=== PATIENT | female | born 1940 | race Caucasian/White ===

== ENCOUNTER 2020-05-07 16:04 | Outpatient (CLI) | payer MEDICARE, OTHER, SELFPAY ==
--- NOTE | ~2020-05-07 | XR_ITS ---
XR wrist RT min 3V DATE: 05/07/2020 16:45 INDICATION: Fall. Wrist and hand injury TECHNIQUE: 4 views COMPARISON: 01/23/2015 right wrist FINDINGS: Osteoarthritic changes noted at some of the interphalangeal joints. A small cortical fracture fragment is suggested at the dorsal aspect of the wrist on the lateral view . Consider CT wrist correlation if clinically appropriate. No other fracture or dislocation is evident. IMPRESSION: Small cortical fracture is suggested at the dorsal aspect of the wrist Reviewed, dictated and finalized at location A. IMPRESSION: Small cortical fracture is suggested at the dorsal aspect of the wr ist
--- NOTE | ~2020-05-07 | XR_ITS ---
XR hand RT 2V DATE: 05/07/2020 16:45 INDICATION: Injury, pain TECHNIQUE: AP and lateral views COMPARISON: 05/07/2020 right wrist 01/23/2015 right wrist FINDINGS: Small cortical fracture is suggested at the dorsal aspect of the wrist. No other fracture o r any dislocation is evident. There are osteoarthritic changes at the first metacarpophalangeal and multiple interphalangeal joints . IMPRESSION: Small cortical fracture is suggested at the dorsal aspect of the wrist Osteoarthritis Reviewed, dictated and finalized at location A. IMPRESSION: Small cortical fracture is suggested at the dorsal aspect of the wr ist Osteoarthritis
== END 2020-05-07 16:05 | disposition home or self-care (01) ==
LOC: ANHIMG 16:11
PROVIDERS: PCP Family Medicine; Visit Provider Physician Assistant
DX: T14.90XA Injury, unspecified, initial encounter (principal); M25.531 Pain in right wrist; M79.641 Pain in right hand; M19.041 Primary osteoarthritis, right hand; R93.6 Abnormal findings on diagnostic imaging of limbs
CPT/HCPCS: 73110; 73120

== ENCOUNTER 2020-10-08 16:50 | Outpatient (CLI) | payer MEDICARE, OTHER, SELFPAY ==
--- NOTE | ~2020-10-08 | MM_ITS ---
EXAMINATION: MM screening canelo BI w rl HISTORY: Screening mammogram TECHNIQUE: Craniocaudal and mediolateral oblique 3-D tomosynthesis images were obtained and synthetic 2-D images were generated. CAD analysis was submitted and interpreted. COMPARISON: 09/21/2019, 09/15/2018 bilateral digital screening mammogram examinations BREAST PARENCHYMAL COMPOSITION: There are scattered areas of fibroglandular density. FINDINGS: Multiple scattered bilateral benign calcifications. There is no evidence of suspicious mass , calcification, or architectural distortion to suggest malignancy in either breast. There has been n o suspicious interval change. IMPRESSION: 1. No mammographic evidence of malignancy. 2. Recommend routine screening mammography in one year. BI-RADS Category 2: Benign finding(s). Reviewed, dictated and finalized at location A. NDITURE REQUISITION CLERK
== END 2020-10-08 16:51 | disposition home or self-care (01) ==
PROVIDERS: PCP Family Medicine; Visit Provider Obstetrics & Gynecology
DX: Z12.31 Encounter for screening mammogram for malignant neoplasm of breast (principal)
CPT/HCPCS: 77063; 77067

== ENCOUNTER 2021-01-20 12:47 | Emergency (ER) | payer MEDICARE, OTHER, SELFPAY ==
[2021-01-20 13:18] VITALS: BP 128/60; PULSE 80; RESP 18; TEMP 37.4; O2SAT 100
--- NOTE | 2021-01-20 13:31 | ED.BACK ---
HPI - Back Pain/Injury General Chief Complaint: Back Pain/Injury Stated Complaint: Back Spasm Time Seen by Provider: 01/20/21 13:20 History of Present Illness HPI Narrative: 80-year-old female presents to the [facility] with complaints of right lower back spasming. States that the spasming started after her Covid injection 9 days ago in her left upper arm and has since traveled into the right lower back. No saddle anesthesia. No loss or retention of bowel or bladder. Walks favoring the right side, patient states she has a bad right knee. Denies any trauma. Walks with a cane favoring her right side patient states it is due to a bad knee MD elicited complaint: back pain Related Data Home Medications Medication Instructions Recorded Confirmed gabapentin 300 mg PO TID 01/20/21 01/20/21 risedronate 150 mg PO MONTHLY 01/20/21 01/20/21 Allergies Allergy/AdvReac Type Severity Reaction Status Date / Time celecoxib Allergy Mild INCREASED Verified 01/20/21 13:05 HR methylprednisolone Allergy Unknown L face Verified 01/20/21 13:05 pain/swelling montelukast Allergy Unknown Rash Verified 01/20/21 13:05 Review of Systems Review of Systems: Narrative: CONSTITUTIONAL: Denies fever, chills, or sweats. EYES: Denies visual changes, redness, or discharge. CARDIOVASCULAR: Denies chest pain, palpitations, or edema. RESPIRATORY: Denies cough or dyspnea. GASTROINTESTINAL: Denies abdominal pain, nausea, vomiting, or diarrhea. GENITOURINARY: Denies dysuria or hematuria. SKIN: Denies rash or itching. MUSCULOSKELETAL: Denies back pain, joint pain. Right lower lumbar pain spasming NEUROLOGIC: Denies headache, numbness, or weakness. PSYCHIATRIC: Denies anxiety or depression. All other systems reviewed are negative, except as documented in HPI. [facility] Past Medical History Medical History Age-related osteoporosis without current pathological fracture Arthritis Generalized osteoarthritis of multiple sites (~11/2020) Hearing loss High cholesterol History of blood clots Hypertension Osteoporosis Seasonal allergies Vision abnormalities Surgical History Surgical History History of bladder surgery History of hysterectomy History of right knee joint replacement Family History Family History Sibling Patient's sister is in good health Patient's brother is in good health Family history of malignant neoplasm of breast in first degree relative Family history of malignant neoplasm of breast Grandparent Family history of malignant neoplasm of breast Mother Family history of malignant neoplasm of breast in first degree relative Family history of arthritis Family history of malignant neoplasm of breast Other History of arthritis Social History Social History Smoking status: Never smoker Second hand tobacco smoke exposure: No Alcohol intake: never Substance use: never Substance use type: does not use Gender identity (if verbalized by the patient): Female Comments At the time of my signature, I reviewed and agree with the nursing past medical, surgical, social, and family history. There is no relevant family history pertinent to the patient complaint. Exam Narrative: Exam Narrative: GENERAL: This is a well-nourished, well-developed patient, in no apparent distress. HEAD: normocephalic, atraumatic. EYES: PERRL. Sclera clear/white. Vision is grossly intact. EARS: External ears normal NECK: Neck supple, non-tender. CARDIOVASCULAR: Regular rate and rhythm without murmurs, gallops, or rubs. RESPIRATORY: Clear to auscultation. Breath sounds equal bilaterally. No wheezes, rales, or rhonchi. GASTROINTESTINAL: Abdomen soft, non-tender, nondistended. SKIN: warm, intact with no suspicious lesions or rash, good texture and turgo
== END 2021-01-20 13:43 | disposition home or self-care (01) ==
PROVIDERS: Emergency Provider Nurse Practitioner; PCP Family Medicine
DX: M54.5 Low back pain (principal); M62.830 Muscle spasm of back; M81.0 Age-related osteoporosis without current pathological fracture; M19.90 Unspecified osteoarthritis, unspecified site; E78.00 Pure hypercholesterolemia, unspecified; I10 Essential (primary) hypertension; Z96.651 Presence of right artificial knee joint
CPT/HCPCS: 99213; G0463

== ENCOUNTER 2021-01-27 14:02 | Outpatient (CLI) | payer MEDICARE, OTHER, SELFPAY ==
--- NOTE | ~2021-01-27 | DEXA_ITS ---
Bone Density Report Name: Kassidy Ochoa Age: 80 Sex: Female Ethnicity: White Date of : 1940 Indication: osteopenia; monitoring treatment; parental hip fracture; height loss; prior fracture; hysterectomy; Referring Provider: WILLY BANUELOS Study: Bone densitometry was performed. Exam Date: January 27, 2021 Accession number: [id number] Bone Density: Region BMD T-score Z-score Classification AP Spine (L1, L2, L3) 1.069 0.5 3.1 Normal Femoral Neck (Left) 0.579 -2.4 -0.1 Osteopenia Total Hip (Left) 0.684 -2.1 0.0 Osteopenia Total Hip Bilateral Avg 0.679 -2.1 -0.1 Osteopenia Femoral Neck (Right) 0.542 -2.8 -0.5 Osteoporosis Total Hip (Right) 0.672 -2.2 -0.1 Osteopenia World Health Organization criteria for BMD impression classify patients as: Normal (T-score at or above -1.0), Osteopenia (T-score between -1.0 and -2.5), or Osteoporosis (T-score at or below -2.5). 10-year Fracture Risk: FRAX not reported because: Some T-score for Spine Total or Hip Total or Femoral Neck at or below -2.5 Treated for osteoporosis Previous Exams: Region Exam Age BMD T-score BMD Change BMD Change Date g/cm2 vs Baseline vs Previous AP Spine(L1, L2, L3) 01/27/2021 80 1.069 0.5 0.008(0.8%) 0.008(0.8%) 01/25/2019 78 1.060 0.4 Total Hip(Left) 01/27/2021 80 0.684 -2.1 -0.039(-5.5%)* -0.041(-5.7%)* 01/25/2019 78 0.726 -1.8 0.002(0.3%) 0.002(0.3%) 01/29/2015 74 0.724 -1.8 Total Hip(Right) 01/27/2021 80 0.672 -2.2 0.012(1.8%) -0.012(-1.7%) 01/25/2019 78 0.684 -2.1 0.023(3.5%) 0.023(3.5%) 01/29/2015 74 0.661 -2.3 *Denotes significance at 95% confidence level, LSC for AP Spine = 0.022 g/cm2, LSC for Total Hip = 0.027 g/cm2 Clinical Information Provided by Patient: Has had a low trauma fracture Parent has had a hip fracture Is being treated for osteoporosis Has used the following medications: Actonel (i.e. risedronate), Vitamin D, Calcium Has the following medical conditions: Hysterectomy Patient maximum height was 65 Menopause Age: 51 No regular weight bearing exercise Onset of menses at age 11 Number of children 4 Impression: The patient has established osteoporosis, based on the Right Femoral Neck T-score and the existence of a prior fracture. The patient has risk factors, including: parental hip fracture, previous fracture. The BMD for the Total Hip(Left) decreased, changing by -5.7% since the last DXA exam. [place]
== END 2021-01-27 14:03 | disposition home or self-care (01) ==
LOC: ANHIMG 14:03
PROVIDERS: PCP Family Medicine; Visit Provider Internal Medicine
DX: M81.0 Age-related osteoporosis without current pathological fracture (principal); M85.852 Other specified disorders of bone density and structure, left thigh; M85.851 Other specified disorders of bone density and structure, right thigh
CPT/HCPCS: 77080

== ENCOUNTER → 2021-02-01 09:16 | Outpatient (CLI) | payer MEDICARE, OTHER, SELFPAY ==
--- NOTE | ~2021-02-01 | MR_ITS ---
EXAMINATION: MR lumbar spine wo con DATE: 02/01/2021 10:16 INDICATION: Lumbago with back spasms TECHNIQUE: Magnetic resonance imaging (MRI) of the lumbar spine was performed without intravenous con trast. Sequences included sagittal T2-weighted FSE, sagittal T2-weighted FS FSE, sagittal T1-weighted FSE, and axial T2-weighted FSE. COMPARISON: 06/17/2017 FINDINGS: 25 degrees dextroscoliosis measured between T11 and L2. 10 degrees levoscoliosis between L2 and and S 1. 2 mm retrolisthesis L1 on L2, L2 on L3, L3 on L4 and L5 on S1 and 6 mm anterolisthesis L4 on L5. V ertebral body heights are normal. Severe disc height loss at L1-L2, L2-L3, L5-S1 and now also at L4-L 5. Moderate disc height loss at T11-T12 and at the right side of L3-L4. Mild disc height loss at T10- T11 and T12-L1. There are fibrovascular degenerative endplate changes at both sides of the L4-L5 and L5-S1 disc spaces. T1 hyperintense hemangioma at L5. Marrow signal is otherwise normal. The conus med ullaris terminates at L1-L2. There is normal signal in the caudal spinal cord. T2 hyperintense right renal cyst. The following disc levels are specifically discussed: T10-T11: Small left foraminal zone disc protrusion. There is mild bilateral facet joint osteoarthriti s. There is mild bilateral neural foraminal stenosis. There is no central canal stenosis. T11-T12: Disc is bulging with annular fissure superimposed left subarticular zone disc extrusion with disc material extending couple millimeter caudal to the level of the superior endplate of T12. There is hypertrophy of the ligamentum flavum. There is mild bilateral facet joint osteoarthritis. Mild b ilateralThere is mild neural foraminal stenosis. There is mild central canal stenosis. T12-L1: Disc is mildly bulging. There is hypertrophy of the ligamentum flavum. There is moderate bila teral facet joint osteoarthritis. Mild bilateralThere is mild bilateral neural foraminal stenosis. Th ere is mild central canal stenosis. L1-L2: Annular fissure and disc extrusion extending from foraminal zone to foraminal zone with disc m aterial extending up to 5 mm caudal to the superior endplate of L2. There is hypertrophy of the ligam entum flavum. There is moderate bilateral facet joint osteoarthritis. There is mild right and modera te left neural foraminal stenosis. There is mild central canal stenosis. L2-L3: Annular fissure and posterior disc osteophyte complex. There is hypertrophy of the ligamentum flavum. There is mild bilateral facet joint osteoarthritis. There is moderate bilateral neural forami nal stenosis. There is mild central canal stenosis. L3-L4: Annular fissure and disc extrusion extending from foraminal zone to foraminal zone with disc m aterial extending up to 3 mm caudal to the level of the superior endplate of L4. There is hypertrophy of the ligamentum flavum. There is mild left and severe right facet joint osteoarthritis. There is m ild left and moderate to severe right neural foraminal stenosis. There is mild central canal stenosis . L4-L5: Annular fissure and disc extrusion extending from foraminal zone to foraminal zone with disc m aterial extending up to 5 mm cephalad to the level of the inferior endplate of L4. There is hypertrop hy of the ligamentum flavum. There is severe bilateral facet joint osteoarthritis. There is moderate left and severe right neural foraminal stenosis. There is severe central canal stenosis. L5-S1: Annular fissure and disc extrusion extending from foraminal zone to foraminal zone with disc m aterial extending up to 4 mm caudal to the level of the superior endplate of S1. There is moderate ri ght and severe left facet joint osteoarthritis. Are prominent synovial cysts along the anteromedial a nd posterolateral margins of the left facet joint. The former which measures 13 x 10 x 12 mm exerts m ass effect upon the left posterior aspect of the thec
== END ==
PROVIDERS: PCP Family Medicine; Visit Provider Nurse Practitioner Family
DX: M47.896 Other spondylosis, lumbar region (principal)
CPT/HCPCS: 72148

== ENCOUNTER 2021-12-11 14:59 | Outpatient (CLI) | payer MEDICARE, OTHER, SELFPAY ==
--- NOTE | ~2021-12-11 | MM_ITS ---
EXAMINATION: MM screening canelo BI w rl HISTORY: Screening mammogram TECHNIQUE: Craniocaudal and mediolateral oblique 3-D tomosynthesis images were obtained and synthetic 2-D images were generated. CAD analysis was submitted and interpreted. COMPARISON: 10/08/2020, 09/21/2019, 09/15/2018 BREAST PARENCHYMAL COMPOSITION: The breasts are almost entirely fatty. FINDINGS: RIGHT BREAST: There is no evidence of suspicious mass, calcification, or architectural distortion to suggest malignancy. There has been no significant interval change. LEFT BREAST: There is focal asymmetry in the posterior third of the inner left breast. IMPRESSION: 1. Focal asymmetry of the left breast. 2. Additional mammographic views and possible breast ultrasound are recommended. BI-RADS Category 0: Incomplete: Needs additional imaging evaluation. Reviewed, dictated and finalized at location A. UCT TESTER FIBERGLASS IMPRESSION: 1. Focal asymmetry of the left breast. 2. Additional mammographic views and possible breast ultrasound are recommended . BI-RADS Category 0: Incomplete: Needs additional imaging evaluation.
== END 2021-12-11 15:00 | disposition home or self-care (01) ==
LOC: ANHIMG 15:02
PROVIDERS: PCP Family Medicine; Visit Provider Family Medicine
DX: Z12.31 Encounter for screening mammogram for malignant neoplasm of breast (principal)
CPT/HCPCS: 77063; 77067

== ENCOUNTER 2021-12-25 13:44 | Outpatient (CLI) | payer MEDICARE, OTHER, SELFPAY ==
--- NOTE | ~2021-12-25 | MMUS_ITS ---
EXAMINATION: MM diagnostic canelo LT w rl, US breast LT limited HISTORY: Focal asymmetry of the left breast on screening mammogram TECHNIQUE: Additional 3-D tomosynthesis images of the left breast were performed and synthetic 2-D im ages were generated. CAD analysis was submitted and interpreted. High resolution limited left breast ultrasound was performed. COMPARISON: 12/11/2021, 10/08/2020, 09/21/2019, 09/15/2018 FINDINGS: MAMMOGRAPHIC FINDINGS: There is persistent focal asymmetry and architectural distortion in the posterior third of the inner breast at the 9:00 location approximately 10 cm from the nipple. ULTRASOUND: No definite sonographic correlate is identified for the mammographic finding in question. IMPRESSION: 1. Focal asymmetry and architectural distortion of the left breast. 2. Three tomosynthesis guided biopsy is recommended. BI-RADS category 4, suspicious findings. Reviewed, dictated and finalized at location A. NI RELATIONS COORDINATOR IMPRESSION: 1. Focal asymmetry and architectural distortion of the left breast. 2. Three tomosynthesis guided biopsy is recommended. BI-RADS category 4, suspicious findings.
== END 2021-12-25 13:45 | disposition home or self-care (01) ==
LOC: ANHIMG 13:45
PROVIDERS: PCP Family Medicine; Visit Provider Family Medicine
DX: R92.8 Other abnormal and inconclusive findings on diagnostic imaging of breast (principal)
CPT/HCPCS: 76642; 77061; 77065; G0279

== ENCOUNTER 2022-01-17 10:22 | Emergency (ER) | payer MEDICARE, OTHER, SELFPAY ==
[2022-01-17 10:49] VITALS: BP 160/73; PULSE 80; RESP 18; TEMP 36.8; O2SAT 98
--- NOTE | 2022-01-17 11:14 | ED.FEMALEGU ---
HPI - Female Genitourinary General Chief complaint: Urogenital-Female Stated complaint: uti complaint Time Seen by Provider: 01/17/22 11:08 Source: patient and RN notes reviewed Mode of arrival: ambulatory Limitations: no limitations History of Present Illness HPI Narrative: Patient presents today complaining of 5-day history of dysuria and voiding small amounts, worse over the last 2 days. Denies any additional symptoms to include hematuria, abdominal pain, fever, nausea or vomiting. States that 3 days ago she took 2 leftover amoxicillin from a dental procedure, which she states helped with her symptoms. MD elicited complaint: dysuria Related Data Home Medications Medication Instructions Recorded Confirmed risedronate 150 mg PO MONTHLY 01/20/21 01/17/22 amlodipine 2.5 mg PO DAILY 01/17/22 01/17/22 fluticasone propionate [Flonase] 1 spray INTRANASAL DAILY 01/17/22 01/17/22 gabapentin 300 mg PO TID 01/17/22 01/17/22 hydrocodone-acetaminophen 1 tablet PO DIRECTED 01/17/22 01/17/22 loratadine [Claritin] 10 mg PO DAILY 01/17/22 01/17/22 Allergies Allergy/AdvReac Type Severity Reaction Status Date / Time celecoxib Allergy Mild INCREASED Verified 01/17/22 11:09 HR methylprednisolone Allergy Unknown L face Verified 01/17/22 11:09 pain/swelling montelukast Allergy Unknown Rash Verified 01/17/22 11:09 Review of Systems Review of Systems: CONSTITUTIONAL: Denies body aches, fever, chills, or sweats. EYES: Denies visual changes, redness, or discharge. ENT: Denies rhinorrhea, congestion, sore throat, or otalgia. CARDIOVASCULAR: Denies chest pain, palpitations, or edema. RESPIRATORY: Denies cough or dyspnea. GASTROINTESTINAL: Denies abdominal pain, nausea, vomiting, or diarrhea. GENITOURINARY: Denies hematuria.+ Dysuria, voiding small amounts SKIN: Denies rash, itching, or wounds. MUSCULOSKELETAL: Denies back pain, joint pain, or myalgia. NEUROLOGIC: Denies headache, numbness, tingling, or weakness. PSYCH: Denies depression or anxiety. [facility] Past Medical History Medical History Age-related osteoporosis without current pathological fracture Arthritis Generalized osteoarthritis of multiple sites (~11/2020) Hearing loss High cholesterol History of blood clots Hypertension Osteoporosis Seasonal allergies Vision abnormalities Surgical History Surgical History History of bladder surgery History of hysterectomy History of right knee joint replacement Family History Family History Sibling Patient's sister is in good health Patient's brother is in good health Family history of malignant neoplasm of breast in first degree relative Family history of malignant neoplasm of breast Grandparent Family history of malignant neoplasm of breast Mother Family history of malignant neoplasm of breast in first degree relative Family history of arthritis Family history of malignant neoplasm of breast Other History of arthritis Social History Social History Smoking status: Never smoker Second hand tobacco smoke exposure: No Alcohol intake: never Substance use: never Substance use type: does not use Gender identity (if verbalized by the patient): Female Sexual Orientation (if Verbalized by the Patient): Straight or Heterosexual Comments At time of signature, I have reviewed and agree with nursing past medical, surgical, social and family history unless otherwise noted. Please see nursing chart for further information. There is no relevant family history pertinent to the presenting complaint Exam Narrative: GENERAL: Well-appearing, well-nourished, and in no acute distress. HEAD: Normocephalic, atraumatic. EYES: EOMI. No redness or drainage. Conjunctivae norm
== END 2022-01-17 11:28 | disposition home or self-care (01) ==
PROVIDERS: Emergency Provider Nurse Practitioner; PCP Family Medicine
DX: N30.01 Acute cystitis with hematuria (principal); M19.90 Unspecified osteoarthritis, unspecified site; E78.00 Pure hypercholesterolemia, unspecified; I10 Essential (primary) hypertension; M81.0 Age-related osteoporosis without current pathological fracture; Z86.2 Personal history of diseases of the blood and blood-forming organs and certain disorders involving the immune mechanism; Z96.651 Presence of right artificial knee joint
CPT/HCPCS: 81003; 87086; 87088; 99213; G0463

== ENCOUNTER 2022-02-10 11:36 | Outpatient (CLI) | payer MEDICARE, OTHER, SELFPAY ==
--- NOTE | ~2022-02-10 | US_ITS ---
EXAMINATION: US venous doppler [facility] EXAM DATE: 02/10/2022 12:07 INDICATION: M79.604 - Pain in right leg. TECHNIQUE: Multiple grayscale, color flow and Doppler images of the lower extremity deep venous syste ms bilaterally were obtained and reviewed. Comparison is made to prior examination from 07/21/2018. FINDINGS: Right side: The right common femoral, femoral and profunda veins demonstrate normal color flow, respi ratory variation, augmentation and compressibility. Compressibility, color flow confirmed within the right popliteal, posterior tibial, peroneal, and greater saphenous veins. Left side: The left common femoral, femoral and profunda veins demonstrate normal color flow, respira tory variation, augmentation and compressibility. Compressibility, color flow confirmed within the l eft popliteal, posterior tibial, peroneal, and greater saphenous veins. IMPRESSION: 1. No lower extremity deep venous thrombosis bilaterally. Reviewed, dictated and finalized at location B.
== END 2022-02-10 11:37 | disposition home or self-care (01) ==
LOC: ANHIMG 11:42
PROVIDERS: PCP Family Medicine; Visit Provider Physician Assistant
DX: R09.89 Other specified symptoms and signs involving the circulatory and respiratory systems (principal); M79.604 Pain in right leg; R60.0 Localized edema; M79.605 Pain in left leg
CPT/HCPCS: 93970

== ENCOUNTER 2022-04-04 12:53 | Emergency (ER) | payer MEDICARE, OTHER, SELFPAY ==
[2022-04-04] VITALS (14 sets, daily range): BP systolic 133–189; BP diastolic 67–90; PULSE 72; RESP 18; TEMP 36.6; O2SAT 92–100
--- NOTE | ~2022-04-04 | CT_ITS ---
EXAMINATION: CT lumbar spine wo con DATE: 04/04/2022 16:08 INDICATION: low back pain . TECHNIQUE: Computed tomography (CT) of the thoracic spine was performed without intravenous contrast. Automated exposure control and iterative reconstruction technique were employed. The dose-length pro duct was 795.35 mGy-cm. COMPARISON: MRI lumbar spine 02/01/2021. FINDINGS: 5 nonrib-bearing lumbar-type vertebral bodies. Pedicles intact. Exaggerated lumbar lordosis . 7 mm anterolisthesis of L4 on L5. Trace 1 to 2 mm retrolisthesis at all remaining lumbar levels. Mu ltilevel moderate central canal narrowing. Multilevel bilateral severe neural foraminal narrowing. Ve rtebral body heights preserved. Severe multilevel degenerative disc disease, most progressive at L4-5 and L5-S1. Multilevel severe facet arthropathy. IMPRESSION: 1. No acute fracture or traumatic malalignment detected in the lumbar spine. 2. Multilevel severe degenerative changes described above. Reviewed, dictated and finalized at location K.
--- NOTE | 2022-04-04 14:11 | ED.BACK ---
HPI - Back Pain/Injury General Chief Complaint: Back Pain/Injury <MARQUEZ Cardenas Last Filed: 04/04/22 17:28> Stated Complaint: lower back pain <MARQUEZ Cardenas Last Filed: 04/04/22 17:28> Time Seen by Provider: 04/04/22 13:15 <MARQUEZ Cardenas Last Filed: 04/04/22 17:28> Source: patient and family <MARQUEZ Cardenas Last Filed: 04/04/22 17:28> Mode of arrival: ambulatory <MARQUEZ Cardenas Last Filed: 04/04/22 17:28> Limitations: no limitations <MARQUEZ Cardenas Last Filed: 04/04/22 17:28> History of Present Illness HPI Narrative: This is a 81 year old female that presents to the ER for worsening low back pain over the last couple of weeks. No recent injury or trauma. Pain is in the right low back. Worse with movement and relieved with rest. She follows with pain management for this. She has been taking her prescribed pain medication with little relief. Denies fever, vomiting, dysuria, hematuria, saddle anesthesia or bowel/bladder incontinence. <MARQUEZ Cardenas Last Filed: 04/04/22 17:28> Related Data Home Medications: Home Medications Medication Instructions Recorded Confirmed risedronate 150 mg PO MONTHLY 01/20/21 04/02/22 fluticasone propionate [Flonase] 1 spray INTRANASAL DAILY 01/17/22 04/02/22 gabapentin 300 mg PO TID 01/17/22 04/02/22 loratadine [Claritin] 10 mg PO DAILY 01/17/22 04/02/22 <MARQUEZ Cardenas Last Filed: 04/04/22 17:28> Allergies/Adverse Reactions: Allergies Allergy/AdvReac Type Severity Reaction Status Date / Time celecoxib Allergy Mild INCREASED Verified 04/04/22 13:00 HR methylprednisolone Allergy Unknown L face Verified 04/04/22 13:00 pain/swelling montelukast Allergy Unknown Rash Verified 04/04/22 13:00 <MARQUEZ Cardenas Last Filed: 04/04/22 17:28> Review of Systems Review of Systems: CONSTITUTIONAL: Denies fever GENITOURINARY: Denies dysuria or hematuria. SKIN: Denies rash MUSCULOSKELETAL: Reports back pain, joint pain, and myalgia. NEUROLOGIC: Denies numbness, or weakness. <Magdalena Wagner PA-C - Last Filed: 04/04/22 17:28> All systems reviewed & are unremarkable except as noted in HPI and below <Magdalena Wagner PA-C - Last Filed: 04/04/22 17:28> [facility] Past Medical History Medical History: Medical History Age-related osteoporosis without current pathological fracture Arthritis Breast cancer Generalized osteoarthritis of multiple sites (~11/2020) Hearing loss High cholesterol History of blood clots Hypertension Osteoporosis Seasonal allergies Vision abnormalities <Magdalena Wagner PA-C - Last Filed: 04/04/22 17:28> Surgical History Surgical History: Surgical History History of bladder surgery History of hysterectomy History of right knee joint replacement <Magdalena Wagner PA-C - Last Filed: 04/04/22 17:28> Family History Family History: Family History Sibling Patient's sister is in good health Patient's brother is in good health Family history of malignant neoplasm of breast in first degree relative Family history of malignant neoplasm of breast Grandparent Family history of malignant neoplasm of breast Mother Family history of malignant neoplasm of breast in first degree relative Family history of arthritis Family history of malignant neoplasm of breast Other History of arthritis <Magdalena Wagner PA-C - Last Filed: 04/04/22 17:28> Social History Social History: Social History Second hand tobacco smoke exposure: No Alcohol intake: never Substance use: never Substance use type: does not use Gender identity (if verbalized by the patient): Female Sexual Orientation (if Verbalized by
[2022-04-04] MEDS: ONDANSETRON INJ 4 MG/2 ML VIAL IV PUSH (14:21)
[2022-04-04] MEDS: MORPHINE SULFATE (*CRX) 2 MG/ML INJ IV PUSH (14:21)
[2022-04-04 15:13] LABS: Basophils Percent Auto 0.1 % (0.2-1.2); Eosinophils Percent Auto 0.4 % (0-4.4); Hematocrit 41.1 % (37.0-47.0); Hemoglobin 13.5 g/dL (12.0-15.0); Immature Granulocyte Absolute 0.03 K/mm3 (0.00-0.031); Immature Granulocyte Percent A 0.4 % (0-0.5); Lymphocytes Absolute Auto 0.75 K/mm3 (0.9-3.2); Mean Corpuscular HGB Conc 32.8 g/dl (32-36); Mean Corpuscular Volume 97.4 fl (80-100); Mean Platelet Volume 10.2 fl (7.4-10.4); Monocytes Absolute Auto 0.3 K/mm3 (0.1-0.6); Monocytes Percent Auto 4.4 % (2.6-8.5); Neutrophils Absolute Auto 5.7 K/mm3 (1.3-6.7); Neutrophils Percent Auto 83.7 % (45.5-73.1); Platelet Count Result 308 k/mm3 (150-375); Red Blood Count 4.22 M/mm3 (4.2-5.4); Red Cell Distribution Width 12.8 % (11.5-14.5); White Blood Count 6.8 K/mm3 (4.5-10.0)
[2022-04-04 15:14] LABS: Appearance Urine Cloudy (Clear); Bilirubin Urine Negative (Negative); Blood Urine Negative (Negative); Color Urine Yellow (Yellow); Glucose Urine UA 1+ mg/dL (Negative); Ketones Urine Negative (Negative); Leukocyte Esterase Ur Negative LEU/UL (Negative); Nitrate Urine Negative (Negative); Protein Urine Negative (Negative); Urobilinogen Urine 0.2 mg/dL (<2.0); pH Urine 7.5 (5.0-9.0)
[2022-04-04 15:19] LABS: Alanine Aminotransferase 25 U/L (6-35); Albumin Level 4.4 g/dL (3.5-5.1); Alkaline Phosphatase 51 U/L (38-126); Anion Gap 7 mmol/L (8-16); Aspartate Amino Transferase 33 U/L (14-36); Bilirubin,Total 0.4 mg/dL (0.2-1.3); Blood Urea Nitrogen 29 mg/dL (7-17); Carbon Dioxide 28 mmol/L (22-30); Chloride 105 mmol/L (98-107); Estimated CRCL calculation 47 ml/min; Estimated Glomerular Filt Rate > 60; Glucose 205 mg/dL (65-110); Potassium 4.1 mmol/L (3.4-5.0); Sodium 140 mmol/L (137-145)
[2022-04-04 15:20] LABS: Amorphous Sediment Urine Few; Squamous Epithelial Cell Urine Rare /hpf (Few); WBC Urine 0-3 /hpf
[2022-04-04 15:26] LABS: Add Urine Microscopic? YES
== END 2022-04-04 17:40 | disposition home or self-care (01) ==
PROVIDERS: Physician Assistant; Emergency Provider Emergency Medicine; PCP Family Medicine
DX: M54.50 Low back pain, unspecified (principal); E78.00 Pure hypercholesterolemia, unspecified; I10 Essential (primary) hypertension; M19.90 Unspecified osteoarthritis, unspecified site; M81.0 Age-related osteoporosis without current pathological fracture; Z85.3 Personal history of malignant neoplasm of breast; Z96.651 Presence of right artificial knee joint
CPT/HCPCS: 36415; 72131; 80053; 81001; 85025; 96374; 96375; 99284; J0131; J2270; J2405

== ENCOUNTER 2022-05-14 10:26 | Outpatient (CLI) | payer MEDICARE, OTHER, SELFPAY ==
--- NOTE | ~2022-05-14 | CT_ITS ---
EXAMINATION: CT brain wo con DATE: 05/14/2022 10:46 INDICATION: Status post fall. Head contusion. TECHNIQUE: Computed tomography (CT) of the head was performed without intravenous contrast. The dose- length product was 605.33 mGy-cm. Automated exposure control and iterative reconstruction technique w ere employed. COMPARISON: None FINDINGS: No acute intracranial hemorrhage, infarction, mass or mass effect. No ventriculomegaly or m idline shift. Basilar cisterns are patent. There is mucosal thickening of the left maxillary, ethmoid and frontal sinuses. There is intracranial atherosclerosis. No depressed skull fractures. Brain pare nchymal volume is normal for age. IMPRESSION: 1. No acute intracranial abnormality. 2: Moderate sinus disease. Reviewed, dictated and finalized at location A.
== END 2022-05-14 10:27 | disposition home or self-care (01) ==
PROVIDERS: PCP Family Medicine; Visit Provider Nurse Practitioner Family
DX: S00.93XA Contusion of unspecified part of head, initial encounter (principal); R51.9 Headache, unspecified; J32.9 Chronic sinusitis, unspecified; I67.2 Cerebral atherosclerosis
CPT/HCPCS: 70450; 77295; 77300; 77334

== ENCOUNTER 2023-03-08 10:52 | Outpatient (CLI) | payer MEDICARE, SELFPAY ==
[2023-03-08 11:08] LABS: Basophils Percent Auto 0.4 % (0.2-1.2); Eosinophils Absolute Auto 0.2 K/mm3 (0-0.3); Eosinophils Percent Auto 4.8 % (0-4.4); Hematocrit 40.3 % (37.0-47.0); Hemoglobin 13.1 g/dL (12.0-15.0); Immature Granulocyte Absolute 0.02 K/mm3 (0.00-0.031); Immature Granulocyte Percent A 0.4 % (0-0.5); Lymphocytes Absolute Auto 0.78 K/mm3 (0.9-3.2); Lymphocytes Percent Auto 17.1 % (18.3-44.2); Mean Corpuscular HGB Conc 32.5 g/dl (32-36); Mean Corpuscular Hemoglobin 32.2 pg (26-34); Mean Platelet Volume 9.3 fl (7.4-10.4); Monocytes Absolute Auto 0.3 K/mm3 (0.1-0.6); Monocytes Percent Auto 6.6 % (2.6-8.5); Neutrophils Absolute Auto 3.2 K/mm3 (1.3-6.7); Neutrophils Percent Auto 70.7 % (45.5-73.1); Platelet Count Result 275 k/mm3 (150-375); Red Blood Count 4.07 M/mm3 (4.2-5.4); White Blood Count 4.6 K/mm3 (4.5-10.0)
[2023-03-08 14:49] LABS: Alanine Aminotransferase 20 U/L (6-35); Albumin Level 4.3 g/dL (3.5-5.1); Alkaline Phosphatase 59 U/L (38-126); Anion Gap 8 mmol/L (8-16); Aspartate Amino Transferase 20 U/L (14-36); Bilirubin,Total 0.5 mg/dL (0.2-1.3); Blood Urea Nitrogen 29 mg/dL (7-17); Calcium 9.7 mg/dL (8.4-10.2); Carbon Dioxide 27 mmol/L (22-30); Chloride 103 mmol/L (98-107); Estimated Glomerular Filt Rate > 60; Glucose 269 mg/dL (65-110); Potassium 4.8 mmol/L (3.4-5.0); Sodium 138 mmol/L (137-145)
[2023-03-12 04:57] LABS: CA 15-3 8 U/mL (<32)
== END 2023-03-08 10:53 | disposition home or self-care (01) ==
LOC: ANHLAB 10:54
PROVIDERS: PCP Family Medicine; Visit Provider Internal Medicine Hematology & Oncology
DX: C50.312 Malignant neoplasm of lower-inner quadrant of left female breast (principal); Z17.0 Estrogen receptor positive status [ER+]
CPT/HCPCS: 36415; 80053; 85025; 86300

== ENCOUNTER 2023-07-20 14:15 | Outpatient (CLI) | payer MEDICARE, SELFPAY ==
[2023-07-20 14:32] LABS: Basophils Percent Auto 0.2 % (0.2-1.2); Eosinophils Absolute Auto 0.2 K/mm3 (0-0.3); Eosinophils Percent Auto 4.2 % (0-4.4); Hematocrit 42.1 % (37.0-47.0); Hemoglobin 13.6 g/dL (12.0-15.0); Immature Granulocyte Absolute 0.02 K/mm3 (0.00-0.031); Immature Granulocyte Percent A 0.4 % (0-0.5); Lymphocytes Absolute Auto 1.17 K/mm3 (0.9-3.2); Lymphocytes Percent Auto 21.4 % (18.3-44.2); Mean Corpuscular HGB Conc 32.3 g/dl (32-36); Mean Corpuscular Hemoglobin 32.3 pg (26-34); Mean Platelet Volume 9.2 fl (7.4-10.4); Monocytes Absolute Auto 0.5 K/mm3 (0.1-0.6); Monocytes Percent Auto 8.6 % (2.6-8.5); Neutrophils Absolute Auto 3.6 K/mm3 (1.3-6.7); Neutrophils Percent Auto 65.2 % (45.5-73.1); Platelet Count Result 307 k/mm3 (150-375); Red Blood Count 4.21 M/mm3 (4.2-5.4); Red Cell Distribution Width 12.7 % (11.5-14.5); White Blood Count 5.5 K/mm3 (4.5-10.0)
[2023-07-20 15:38] LABS: Alanine Aminotransferase 20 U/L (6-35); Albumin Level 4.1 g/dL (3.5-5.1); Alkaline Phosphatase 56 U/L (38-126); Anion Gap 11 mmol/L (8-16); Aspartate Amino Transferase 25 U/L (14-36); Bilirubin,Total 0.3 mg/dL (0.2-1.3); Blood Urea Nitrogen 31 mg/dL (7-17); Carbon Dioxide 29 mmol/L (22-30); Chloride 99 mmol/L (98-107); Estimated Glomerular Filt Rate 53; Glucose 191 mg/dL (65-110); Potassium 4.8 mmol/L (3.4-5.0); Sodium 139 mmol/L (137-145)
[2023-07-22 20:37] LABS: CA 15-3 9 U/mL (<32)
== END 2023-07-20 14:16 | disposition home or self-care (01) ==
PROVIDERS: PCP Family Medicine; Visit Provider Internal Medicine Hematology & Oncology
DX: C50.312 Malignant neoplasm of lower-inner quadrant of left female breast (principal); Z17.0 Estrogen receptor positive status [ER+]
CPT/HCPCS: 36415; 80053; 85025; 86300

== ENCOUNTER → 2023-09-28 07:00 | Outpatient (CLI) | payer MEDICARE, OTHER, SELFPAY ==
--- NOTE | ~2023-09-28 | MR_ITS ---
MRI of the lumbar spine Clinical History: Back pain Technique: Axial T2-weighted images, and sagittal T1-weighted, T2-weighted, and and T2 fat-sat images were acquired. COMPARISON: 02/01/2021 Findings: No acute fracture seen. There is 5 mm retrolisthesis of L1 over L2. There is 4 mm retrolist hesis of L2 over L3. There is 10 mm anterolisthesis of L4 over L5. No suspicious bone marrow signal a bnormality seen. At L1-L2, there is advanced degenerative disc narrowing. There is mild disc bulge and moderate facet arthropathy. No central canal stenosis. There is severe left neural foraminal narrowing, and moderate right neural foraminal narrowing. At L2-L3, there is advanced degenerative disc narrowing. Disc bulge and facet arthropathy are present , with minimal central canal stenosis. There is severe bilateral neural foraminal narrowing. At L3-L4, there is mild to moderate degenerative disc narrowing. There is diffuse disc bulge with sev ere facet arthropathy. No central canal stenosis. There is severe right neural foraminal narrowing, a nd mild left neural foraminal narrowing. At L4-L5, there is diffuse disc bulge/uncovering with severe facet arthropathy. There is mild central canal stenosis. There is severe right neural foraminal narrowing, and moderate to severe left neural foraminal narrowing. At L5-S1, there is advanced degenerative disc narrowing. There is diffuse disc bulge and severe facet arthropathy. There is several small synovial cyst posteriorly at the L5 level. No crystal central lakshmi l stenosis. There is severe bilateral neural foraminal narrowing. Paravertebral soft tissues are unremarkable. Impression: 5 mm retrolisthesis of L1 over L2. 4 mm retrolisthesis of L2 over L3. 10 mm anterolisthesis of L4 over L5. Severe degenerative spondylosis throughout the lumbar spine, as detailed above. Reviewed, dictated and finalized at location . WIRER Impression: 5 mm retrolisthesis of L1 over L2. 4 mm retrolisthesis of L2 over L3. 10 mm anterolisthesis of L4 over L5. Severe degenerative spondylosis throughout the lumbar spine, as detailed above.
== END ==
PROVIDERS: PCP Nurse Practitioner Family; Visit Provider Nurse Practitioner Family
DX: M47.816 Spondylosis without myelopathy or radiculopathy, lumbar region (principal); M43.16 Spondylolisthesis, lumbar region
CPT/HCPCS: 72148

== ENCOUNTER → 2023-11-30 15:08 | Outpatient (CLI) | payer MEDICARE, OTHER, SELFPAY ==
--- NOTE | ~2023-11-30 | MR_ITS ---
EXAMINATION: MR thoracic spine wo con DATE: 11/30/2023 16:08 INDICATION: Back pain. TECHNIQUE: Magnetic resonance imaging (MRI) of the thoracic spine was performed without intravenous c ontrast. COMPARISON: Lumbar spine MRI 09/28/2023 FINDINGS: There is 15 degrees dextroscoliosis of thoracolumbar spine. There is kyphosis of thoracic s pine. There is 2 mm anterolisthesis of C3 on C4, 2 mm retrolisthesis of C5 on C6 and C6 on C7, and 3 mm anterolisthesis of C7 on T1, T11 on T12, and L1 on L2. There is mild chronic anterior wedging of T 6-T9 vertebral bodies. There is mildly decreased disc height at many levels in thoracic spine. There is moderately decreased disc height at T6-T7. There is multilevel facet joint osteoarthritis, severe at several levels. There is multilevel mild neural foraminal stenosis. On the right, there is moderat e neural foraminal stenosis at T10-T11. At T6-T7, there is a right central extrusion with mild centra l canal stenosis and ventral indentation of the spinal cord. At T7-T8, there is a central protrusion with mild central canal stenosis. At T8-T9, there is a right central extrusion with mild central lakshmi l stenosis. From T10-T11 through T12-L1, the discs are bulging with mild central canal stenosis. The spinal cord signal intensity is normal. The conus medullaris is at L1-L2. IMPRESSION: 1. Moderate thoracic spondylosis. 2. Thoracic kyphosis and thoracolumbar dextroscoliosis. Reviewed, dictated and finalized at location E. IBLE SHAFT WINDER
== END ==
PROVIDERS: PCP Nurse Practitioner Family; Visit Provider Nurse Practitioner Family
DX: M43.04 Spondylolysis, thoracic region (principal); M41.85 Other forms of scoliosis, thoracolumbar region
CPT/HCPCS: 72146

== ENCOUNTER 2023-12-22 11:14 | Outpatient (CLI) | payer MEDICARE, SELFPAY ==
[2023-12-22 11:33] LABS: Basophils Percent Auto 0.2 % (0.2-1.2); Eosinophils Absolute Auto 0.3 K/mm3 (0-0.3); Hematocrit 39.1 % (37.0-47.0); Hemoglobin 12.7 g/dL (12.0-15.0); Immature Granulocyte Absolute 0.02 K/mm3 (0.00-0.031); Immature Granulocyte Percent A 0.4 % (0-0.5); Lymphocytes Absolute Auto 0.75 K/mm3 (0.9-3.2); Lymphocytes Percent Auto 13.4 % (18.3-44.2); Mean Corpuscular HGB Conc 32.5 g/dl (32-36); Mean Corpuscular Hemoglobin 32.6 pg (26-34); Mean Corpuscular Volume 100.5 fl (80-100); Mean Platelet Volume 9.6 fl (7.4-10.4); Monocytes Absolute Auto 0.3 K/mm3 (0.1-0.6); Monocytes Percent Auto 5.7 % (2.6-8.5); Neutrophils Absolute Auto 4.2 K/mm3 (1.3-6.7); Neutrophils Percent Auto 75.3 % (45.5-73.1); Platelet Count Result 258 k/mm3 (150-375); Red Blood Count 3.89 M/mm3 (4.2-5.4); Red Cell Distribution Width 12.4 % (11.5-14.5); White Blood Count 5.6 K/mm3 (4.5-10.0)
[2023-12-22 12:52] LABS: Alanine Aminotransferase 15 U/L (6-35); Albumin Level 3.7 g/dL (3.5-5.1); Alkaline Phosphatase 56 U/L (38-126); Anion Gap 7 mmol/L (8-16); Aspartate Amino Transferase 20 U/L (14-36); Bilirubin,Total 0.5 mg/dL (0.2-1.3); Blood Urea Nitrogen 30 mg/dL (7-17); Carbon Dioxide 26 mmol/L (22-30); Chloride 104 mmol/L (98-107); Estimated Glomerular Filt Rate 60; Glucose 239 mg/dL (65-110); Potassium 4.7 mmol/L (3.4-5.0); Sodium 137 mmol/L (137-145)
[2023-12-25 07:30] LABS: CA 15-3 8 U/mL (<32)
== END 2023-12-22 11:15 | disposition home or self-care (01) ==
PROVIDERS: PCP Nurse Practitioner Family; Visit Provider Internal Medicine Hematology & Oncology
DX: C50.312 Malignant neoplasm of lower-inner quadrant of left female breast (principal); Z17.0 Estrogen receptor positive status [ER+]
CPT/HCPCS: 36415; 80053; 85025; 86300

== ENCOUNTER 2023-12-24 11:03 | Emergency (ER) | payer MEDICARE, SELFPAY ==
--- NOTE | 2023-12-24 11:08 | ED.SKABFB ---
HPI - Skin/Abscess/Foreign Bdy General Chief complaint: Skin/Abscess/Foreign Body Stated complaint: Bump;Bruise inner thigh Time Seen by Provider: 12/24/23 11:08 Source: patient Mode of arrival: ambulatory Limitations: no limitations History of Present Illness HPI narrative: Patient is an 83-year-old female that presents with bruise to right inner thigh. Patient states about a week ago she got up from a chair and felt a pain in the back of her leg that quickly subsided. Patient states after she got other shower yesterday she noticed bruise. Patient concerned for possible blood clot. Denies any warmth to area, tenderness to touch or hard feeling. Related Data Home Medications Medication Instructions Recorded Confirmed risedronate 150 mg tablet 150 mg PO MONTHLY 01/20/21 12/24/23 fluticasone propionate 50 1 spray intranasal DAILY 01/17/22 12/24/23 mcg/actuation nasal spray,suspension gabapentin 300 mg capsule 300 mg PO TID 01/17/22 12/24/23 loratadine 10 mg tablet (Claritin) 10 mg PO DAILY 01/17/22 12/24/23 alpha lipoic acid 200 mg tablet 200 mg PO BID 01/25/23 12/24/23 tamoxifen 20 mg tablet 20 mg PO DAILY 01/25/23 12/24/23 Allergies Allergy/AdvReac Type Severity Reaction Status Date / Time celecoxib Allergy Mild INCREASED Verified 10/15/23 10:09 HR methylprednisolone Allergy Unknown L face Verified 10/15/23 10:09 pain/swelling montelukast Allergy Unknown Rash Verified 10/15/23 10:09 Review of Systems Review of Systems: All systems reviewed & are unremarkable except as noted in HPI and below Constitutional: Constitutional: Denies body ache(s), Denies chills, Denies fatigue, Denies fever(s), Denies headache(s), Denies malaise and Denies weakness Eyes: Eyes: Denies blurry vision, Denies irritation and Denies loss of vision ENT: Denies otalgia, Denies headache(s), Denies nasal discharge, Denies sinus pain and Denies sore throat Cardiovascular: Cardiovascular: Denies chest pain, Denies irregular heart rhythm and Denies dyspnea Respiratory: Respiratory: Denies dyspnea Gastrointestinal: Gastrointestinal: Denies abdominal pain, Denies melena, Denies hematochezia, Denies diarrhea, Denies nausea and Denies vomiting Musculoskeletal: Musculoskeletal: Denies back pain, Denies myalgias and Denies arthralgias Integumentary/Breasts: Skin/Breast: Reports change in pigmentation, Denies pruritus and Denies rash Neurologic: Denies headache(s), Denies loss of vision and Denies weakness Psychiatric: Psychiatric: Reports no additional psychiatric complaints Endocrine: Endocrine: Denies fatigue PMFSH Past Medical History Medical History Age-related osteoporosis without current pathological fracture Arthritis Breast cancer Generalized osteoarthritis of multiple sites (~11/2020) Hearing loss High cholesterol History of blood clots Hypertension Osteoporosis Seasonal allergies Vision abnormalities Surgical History Surgical History History of bladder surgery History of hysterectomy History of right knee joint replacement Family History Family History Sibling Patient's sister is in good health Patient's brother is in good health Family history of malignant neoplasm of breast in first degree relative Family history of malignant neoplasm of breast Grandparent Family history of malignant neoplasm of breast Mother Family history of malignant neoplasm of breast in first degree relative Family history of arthritis Family history of malignant neoplasm of breast Other History of arthritis Social History Social History Social History: Smoking status: Never smoker Second hand tobacco smoke exposure: No Alcohol intake: never Substance use: never Substance use type: do
[2023-12-24 11:14] VITALS: BP 144/64; PULSE 79; RESP 16; TEMP 37.1; O2SAT 96
== END 2023-12-24 11:23 | disposition home or self-care (01) ==
PROVIDERS: Emergency Provider Nurse Practitioner Family; PCP Family Medicine
DX: S70.11XA Contusion of right thigh, initial encounter (principal); X58.XXXA Exposure to other specified factors, initial encounter; M81.0 Age-related osteoporosis without current pathological fracture; M19.90 Unspecified osteoarthritis, unspecified site; E78.00 Pure hypercholesterolemia, unspecified; I10 Essential (primary) hypertension; Z85.3 Personal history of malignant neoplasm of breast; Z86.2 Personal history of diseases of the blood and blood-forming organs and certain disorders involving the immune mechanism; Z96.651 Presence of right artificial knee joint
CPT/HCPCS: 99212; G0463

== ENCOUNTER 2024-01-21 16:04 | Outpatient (CLI) | payer MEDICARE, SELFPAY ==
--- NOTE | ~2024-01-21 | XR_ITS ---
EXAMINATION: XR knee RT 3V DATE: 01/21/2024 16:39 INDICATION: Right knee pain. TECHNIQUE: 3 views of right knee were obtained. COMPARISON: Right knee radiographs 05/09/2020 FINDINGS: There is a total right knee arthroplasty without patellar resurfacing in near-anatomic alig nment. No fracture. No periprosthetic lucency to suggest loosening or infection. There are osteophyte s of the patella. No knee joint effusion. There are loose bodies in a Arambula's cyst. IMPRESSION: 1. Total right knee arthroplasty in near-anatomic alignment. 2. Moderate patellofemoral compartment osteoarthritis. Reviewed, dictated and finalized at location E. MAN
--- NOTE | ~2024-01-21 | XR_ITS ---
EXAMINATION: XR hip BI 2V w AP pelvis DATE: 01/21/2024 16:39 INDICATION: Right hip pain. TECHNIQUE: An anteroposterior view of the pelvis and 2 views of each hip were obtained. COMPARISON: Pelvis and lumbar spine radiographs 06/11/2017 FINDINGS: There is thoracolumbar dextroscoliosis and severe spondylosis. No fracture. There is mild o steoarthritis of the hips. IMPRESSION: 1. Mild osteoarthritis of the hips. Reviewed, dictated and finalized at location E. LIER DEVELOPMENT MANAGER
--- NOTE | ~2024-01-21 | XR_ITS ---
EXAMINATION: XR knee LT 3V DATE: 01/21/2024 16:39 INDICATION: Left knee pain. TECHNIQUE: 3 views of left knee were obtained. COMPARISON: Left knee radiographs 05/19/2017 FINDINGS: Bone alignment is normal. No fracture. There is severe osteoarthritis of medial compartment , moderate osteoarthritis of patellofemoral compartment, and mild osteoarthritis of lateral compartme nt. There is chondrocalcinosis of the menisci. There is a small knee joint effusion. IMPRESSION: 1. Severe left knee osteoarthritis. 2. Small left knee joint effusion. Reviewed, dictated and finalized at location E. ON PSYCHIATRIST
== END 2024-01-21 16:05 | disposition home or self-care (01) ==
PROVIDERS: PCP Family Medicine; Visit Provider Physician Assistant
DX: M16.0 Bilateral primary osteoarthritis of hip (principal); M17.0 Bilateral primary osteoarthritis of knee; M25.462 Effusion, left knee; Z96.651 Presence of right artificial knee joint
CPT/HCPCS: 73521; 73562

== ENCOUNTER 2024-04-13 13:54 | Outpatient (CLI) | payer MEDICARE, SELFPAY ==
--- NOTE | ~2024-04-13 | DEXA_ITS ---
Bone Density Report Name: KERVIN BUSH Age: 83 Sex: Female Ethnicity: White Date of : 1940 Indication: osteopenia; height loss; cancer; hysterectomy; Referring Provider: ANANTH PAULA Study: Bone densitometry was performed. Exam Date: April 13, 2024 Accession number: [id number] Bone Density: Region BMD T-score Z-score Classification AP Spine(L1, L2, L3) 1.106 0.8 3.5 Normal Femoral Neck (Left) 0.551 -2.7 -0.2 Osteoporosis Total Hip (Left) 0.700 -2.0 0.3 Osteopenia Femoral Neck (Right) 0.550 -2.7 -0.2 Osteoporosis Total Hip (Right) 0.695 -2.0 0.2 Osteopenia Total Hip Mean 0.697 -2.0 0.3 Osteopenia World Health Organization criteria for BMD impression classify patients as: Normal (T-score at or above -1.0), Osteopenia (T-score between -1.0 and -2.5), or Osteoporosis (T-score at or below -2.5). 10-year Fracture Risk: FRAX not reported because: Some T-score for Spine Total or Hip Total or Femoral Neck at or below -2.5 Previous Exams: Region Exam Age BMD T-score BMD Change BMD Change Date g/cm2 vs Baseline vs Previous AP Spine (L1-L3) 04/13/2024 83 1.106 0.8 0.046 (4.3%)* 0.037 (3.5%)* 01/27/2021 80 1.069 0.5 0.008 (0.8%) 0.008 (0.8%) 01/25/2019 78 1.060 0.4 Total Hip(Left) 04/13/2024 83 0.700 -2.0 -0.024 (-3.3%) 0.016 (2.3%) 01/27/2021 80 0.684 -2.1 -0.039 (-5.5%) -0.041 (-5.7%) 01/25/2019 78 0.726 -1.8 0.002 (0.3%) 0.002 (0.3%) 01/29/2015 74 0.724 -1.8 Total Hip(Right) 04/13/2024 83 0.695 -2.0 0.034 (5.1%)* 0.022 (3.3%) 01/27/2021 80 0.672 -2.2 0.012 (1.8%) -0.012 (-1.7%) 01/25/2019 78 0.684 -2.1 0.023 (3.5%) 0.023 (3.5%) 01/29/2015 74 0.661 -2.3 *Denotes significance at 95% confidence level, LSC for AP Spine = 0.022 g/cm2, LSC for Total Hip = 0.027 g/cm2 Clinical Information Provided by Patient: Has used the following medications: HRT (i.e. estrogen/hormone therapy), Vitamin D, Calcium Has the following medical conditions: Cancer, Hysterectomy Patient maximum height was 65 Menopause Age: 51 No regular weight bearing exercise Drinks caffeinated beverages Onset of menses at age 11 Number of children 4 Impression: The patient has osteoporosis, based on the Left Femoral Neck T-score. No significant bone loss was observed. Discussion: INCREASED RISK OF FRACTURE. BONE DENSITY IS UNDESIRABLY LOW AT ONE OR MORE SKELETAL SITES, CONSISTENT WITH
== END 2024-04-13 13:55 | disposition home or self-care (01) ==
LOC: ANHIMG 13:55
PROVIDERS: PCP Family Medicine; Visit Provider Physician Assistant
DX: Z78.0 Asymptomatic menopausal state (principal); M81.0 Age-related osteoporosis without current pathological fracture; M85.89 Other specified disorders of bone density and structure, multiple sites
CPT/HCPCS: 77080

== ENCOUNTER 2024-04-28 10:55 | Outpatient (CLI) | payer MEDICARE, SELFPAY ==
[2024-04-28 11:29] LABS: Basophils Percent Auto 0.2 % (0.2-1.2); Eosinophils Absolute Auto 0.3 K/mm3 (0-0.3); Eosinophils Percent Auto 5.8 % (0-4.4); Hematocrit 39.7 % (37.0-47.0); Hemoglobin 12.7 g/dL (12.0-15.0); Immature Granulocyte Absolute 0.02 K/mm3 (0.00-0.031); Immature Granulocyte Percent A 0.5 % (0-0.5); Lymphocytes Absolute Auto 0.94 K/mm3 (0.9-3.2); Lymphocytes Percent Auto 21.9 % (18.3-44.2); Mean Corpuscular Hemoglobin 32.1 pg (26-34); Mean Corpuscular Volume 100.3 fl (80-100); Mean Platelet Volume 9.6 fl (7.4-10.4); Monocytes Absolute Auto 0.3 K/mm3 (0.1-0.6); Monocytes Percent Auto 7.2 % (2.6-8.5); Neutrophils Absolute Auto 2.8 K/mm3 (1.3-6.7); Neutrophils Percent Auto 64.4 % (45.5-73.1); Platelet Count Result 278 k/mm3 (150-375); Red Blood Count 3.96 M/mm3 (4.2-5.4); Red Cell Distribution Width 12.5 % (11.5-14.5); White Blood Count 4.3 K/mm3 (4.5-10.0)
[2024-04-28 16:34] LABS: Alanine Aminotransferase 15 U/L (6-35); Albumin Level 3.9 g/dL (3.5-5.1); Alkaline Phosphatase 63 U/L (38-126); Anion Gap 7 mmol/L (4-12); Aspartate Amino Transferase 23 U/L (14-36); Bilirubin,Total 0.4 mg/dL (0.2-1.3); Blood Urea Nitrogen 31 mg/dL (7-17); Carbon Dioxide 26 mmol/L (22-30); Chloride 105 mmol/L (98-107); Estimated Glomerular Filt Rate 53; Glucose 125 mg/dL (65-110); Potassium 4.9 mmol/L (3.4-5.0); Sodium 138 mmol/L (137-145)
[2024-05-02 06:33] LABS: CA 15-3 9 U/mL (<32)
== END 2024-04-28 10:56 | disposition home or self-care (01) ==
PROVIDERS: PCP Family Medicine; Visit Provider Internal Medicine Hematology & Oncology
DX: C50.312 Malignant neoplasm of lower-inner quadrant of left female breast (principal); Z17.0 Estrogen receptor positive status [ER+]
CPT/HCPCS: 36415; 80053; 85025; 86300

== ENCOUNTER 2024-08-29 10:30 | Outpatient (CLI) | payer MEDICARE, SELFPAY ==
[2024-08-29 10:45] LABS: Basophils Percent Auto 0.2 % (0.2-1.2); Eosinophils Absolute Auto 0.3 K/mm3 (0-0.3); Eosinophils Percent Auto 5.2 % (0-4.4); Hematocrit 39.8 % (37.0-47.0); Hemoglobin 12.8 g/dL (12.0-15.0); Immature Granulocyte Absolute 0.01 K/mm3 (0.00-0.031); Immature Granulocyte Percent A 0.2 % (0-0.5); Lymphocytes Absolute Auto 1.09 K/mm3 (0.9-3.2); Lymphocytes Percent Auto 21.8 % (18.3-44.2); Mean Corpuscular HGB Conc 32.2 g/dl (32-36); Mean Corpuscular Hemoglobin 32.5 pg (26-34); Mean Platelet Volume 9.7 fl (7.4-10.4); Monocytes Absolute Auto 0.4 K/mm3 (0.1-0.6); Monocytes Percent Auto 7.8 % (2.6-8.5); Neutrophils Absolute Auto 3.3 K/mm3 (1.3-6.7); Neutrophils Percent Auto 64.8 % (45.5-73.1); Platelet Count Result 265 k/mm3 (150-375); Red Blood Count 3.94 M/mm3 (4.2-5.4); Red Cell Distribution Width 12.3 % (11.5-14.5)
[2024-08-29 12:18] LABS: Alanine Aminotransferase 14 U/L (6-35); Albumin Level 4.1 g/dL (3.5-5.1); Alkaline Phosphatase 51 U/L (38-126); Anion Gap 6 mmol/L (4-12); Aspartate Amino Transferase 23 U/L (14-36); Bilirubin,Total 0.5 mg/dL (0.2-1.3); Blood Urea Nitrogen 32 mg/dL (7-17); Calcium 10.2 mg/dL (8.4-10.2); Carbon Dioxide 29 mmol/L (22-30); Chloride 103 mmol/L (98-107); Estimated Glomerular Filt Rate 53; Glucose 131 mg/dL (65-110); Potassium 4.9 mmol/L (3.4-5.0); Sodium 138 mmol/L (137-145)
[2024-08-31 04:53] LABS: CA 15-3 10 U/mL (<32)
== END 2024-08-29 10:31 | disposition home or self-care (01) ==
LOC: ANHLAB 10:32
PROVIDERS: PCP Family Medicine; Visit Provider Internal Medicine Hematology & Oncology
DX: C50.312 Malignant neoplasm of lower-inner quadrant of left female breast (principal); Z17.0 Estrogen receptor positive status [ER+]
CPT/HCPCS: 36415; 80053; 85025; 86300

== ENCOUNTER 2024-09-22 15:58 | Inpatient (IN) | payer MEDICARE, SELFPAY ==
[2024-09-22] VITALS (31 sets, daily range): BP systolic 116–195; BP diastolic 45–110; PULSE 34–103; RESP 12–29; TEMP 36.4; O2SAT 92–98
--- NOTE | ~2024-09-22 | XR_ITS ---
EXAMINATION: XR chest 1V portable DATE: 09/23/2024 08:38 INDICATION: Arrhythmia with temporary pacemaker. TECHNIQUE: A single frontal view of the chest was obtained. COMPARISON: Chest single view at 3:40 AM FINDINGS: There is a diffuse interstitial pattern in the lungs, consistent with mild pulmonary edema. No pleural effusion or pneumothorax. Cardiomegaly is noted. There are old healed bilateral rib fract ures. There is a right internal jugular lead with tip in right ventricle. IMPRESSION: 1. Mild pulmonary edema. 2. Cardiomegaly. Reviewed, dictated and finalized at location A. ER TENDER
--- NOTE | ~2024-09-22 | XR_ITS ---
EXAMINATION: XR chest 1V portable DATE: 09/23/2024 04:42 INDICATION: Arrhythmia. Temporary pacemaker not capturing. TECHNIQUE: A single frontal view of the chest was obtained. COMPARISON: Chest single view 09/22/2024 FINDINGS: There is interstitial pattern in the lungs, consistent with mild pulmonary edema. No pleura l effusion or pneumothorax. Cardiomegaly is noted. There is a right internal jugular lead with tip in right ventricle. There are old healed bilateral rib fractures. IMPRESSION: 1. Mild pulmonary edema. 2. Cardiomegaly. Reviewed, dictated and finalized at location A. UNICATIONS PROJECT LEAD
--- NOTE | ~2024-09-22 | XR_ITS ---
EXAMINATION: XR chest 1V portable DATE: 09/22/2024 16:42 INDICATION: Palpitations. Arrhythmia. TECHNIQUE: A single frontal view of the chest was obtained. COMPARISON: Chest 2 views 08/20/14 FINDINGS: There is mild atelectasis at the lung bases. No pleural effusion or pneumothorax. Cardiomeg gabby is noted. IMPRESSION: 1. Mild atelectasis at the lung bases. 2. Cardiomegaly. Reviewed, dictated and finalized at location A. TRAINER
--- NOTE | 2024-09-22 16:15 | ECG_ITS ---
Test Date: 2024-09-22 16:20:07 Measurements Intervals [place] Rate: 103 P: 0 DE: 0 QRS: -60 QRSD: 148 T: 107 QT: 409 QTc: 536 Interpretive Statements INTERMITTENT NONSUSTAINED VENTRICULAR TACHYCARDIA AND JUNCTIONAL ESCAPE COMPLEXES AND VENTRICULAR PREMATURE COMPLEXES RIGHT BUNDLE BRANCH BLOCK BASELINE ARTIFACT- I, II, AVR ABNORMAL ECG No previous ECG available for comparison Electronically Signed On 09-22-2024 18:17:15 SALES AND MARKETING REPRESENTATIVE by Chago Rodriguez D.O.
--- NOTE | 2024-09-22 16:22 | ECG_ITS ---
Test Date: 2024-09-22 16:28:43 Measurements Intervals [place] Rate: 62 P: 47 NM: 164 QRS: -53 QRSD: 134 T: 42 QT: 516 QTc: 526 Interpretive Statements SINUS RHYTHM WITH SECOND DEGREE AV BLOCK, TYPE II VENTRICULAR COUPLET AND FREQUENT VENTRICULAR PREMATURE COMPLEXES RIGHT BUNDLE BRANCH BLOCK LEFT ANTERIOR FASCICULAR BLOCK LEFT VENTRICULAR HYPERTROPHY WITH ST-T CHANGE HIGH LATERAL INFARCT, AGE INDETERMINATE BASELINE ARTIFACT- I, III, AVR, AVL, AVF, V4-V6 ABNORMAL ECG Compared to ECG 09/22/2024 16:20:07 SECOND DEGREE AV BLOCK NOW PRESENT VENTRICULAR TACHYCARDIA NO LONGER PRESENT Electronically Signed On 09-22-2024 18:20:15 NUTRITION TEACHER by Chago Rodriguez D.O.
--- NOTE | 2024-09-22 16:24 | ED_ITS ---
HPI - Arrhythmia/Palpitations General Chief Complaint: Arrhythmia/Palpitations <Majo Armendariz APRN - Last Filed: 09/22/24 16:29> Stated Complaint: heart jittery <Majo Armendariz APRN - Last Filed: 09/22/24 16:29> Time Seen by Provider: 09/22/24 16:21 <Majo Armendariz APRN - Last Filed: 09/22/24 16:29> Focused HPI: Pt is a 83-year-old female who presents to the ER with complaints of dizziness and I felt like my heart was racing. She reports the symptoms started this morning. Patient denies shortness of breath, signs/symptoms of illness. She does endorse some lower extremity swelling, especially on her RL ankle. Patient reports a history of blood pressure and diabetes. GENERAL: Well-appearing, well-nourished, and in no acute distress. HEAD: Normocephalic, atraumatic. CHEST: Clear to auscultation. ?No respiratory distress. HEART: Bradycardia, regular rhythm.? NEURO: ?Alert and oriented x3. Patient screened in triage and initial orders placed.? ?Additional care and disposition to be based upon?diagnostic testing and treatment. <Majo Armendariz APRN - Last Filed: 09/22/24 16:29> History of Present Illness HPI narrative: patient is a 83-year-old female who presents emergency department with chief complaint of palpitations. Patient reports she feels as though her heart is fluttering reports that she has had no chest pain reports that she has also h ad some lower extremity edema. The patient reports he is not on a beta-felix reports no prior cardiac history does report that she has history of hypertension. <Oracio Rojas MD - Last Filed: 09/22/24 18:22> Related Data Home Medications: Home Medications Medication Instructions Recorded Confirmed risedronate 150 mg tablet 150 mg PO MONTHLY 01/20/21 06/20/24 fluticasone propionate 50 1 spray intranasal DAILY 01/17/22 06/20/24 mcg/actuation nasal spray,suspension gabapentin 300 mg capsule 300 mg PO TID 01/17/22 06/20/24 loratadine 10 mg tablet (Claritin) 10 mg PO DAILY 01/17/22 06/20/24 alpha lipoic acid 200 mg tablet 200 mg PO BID 01/25/23 06/20/24 tamoxifen 20 mg tablet 20 mg PO DAILY 01/25/23 06/20/24 <Majo Armendariz APRN - Last Filed: 09/22/24 16:29> Allergies/Adverse Reactions: Allergies Allergy/AdvReac Type Severity Reaction Status Date / Time celecoxib Allergy Mild INCREASED Verified 09/22/24 16:19 HR methylprednisolone Allergy Unknown L face Verified 09/22/24 16:19 pain/swelling montelukast Allergy Unknown Rash Verified 09/22/24 16:19 <Majo Armendariz APRN - Last Filed: 09/22/24 16:29> Review of Systems Review of Systems: A 10 system review of systems was completed on the patient and is negative except for what is stated in the HPI. Nursing and ancillary documentation was reviewed. <Oracio Rojas MD - Last Filed: 09/22/24 18:22> [facility] Past Medical History Medical History: Medical History Age-related osteoporosis without current pathological fracture Arthritis Breast cancer Generalized osteoarthritis of multiple sites (~11/2020) Hearing loss High cholesterol History of blood clots Hypertension Osteoporosis Seasonal allergies Vision abnormalities <Majo Armendariz APRN - Last Filed: 09/22/24 16:29> Surgical History Surgical History: Surgical History History of bladder surgery History of hysterectomy History of right knee joint replacement <Majo Armendariz APRN - Last Filed: 09/22/24 16:29> Family History Family History: Family History Sibling Patient's sister is in good health Patient's brother is in good health Family history of malignant neoplasm of breast in first degree relative Family history of malignant neoplasm of breast Grandparent Family history of malignant neoplasm of breast Mother Family history of malignant neoplasm of breast in first degree relative Family history of arthritis Family history of malignant neoplasm of breast Other History of arthritis <Majo Armendariz APRN - Last Filed: 09/22/24 16:29> Social History Social History: Social History Social History: Smoking status: Never smoker Second hand tobacco smoke exposure: No Alcohol intake: never Substance use: never Substance use type: does not use Living arrangements: alone Occupation/Education: retired Gender identity (if verbalized by the patient): Female Sexual Orientation (if Verbalized by the Patient): Straight or Heterosexual Spiritual care concerns: No <Majo Armendariz APRN - Last Filed: 09/22/24 16:29> Exam Narrative: GENERAL: Well-appearing, well-nourished, and in no acute distress. HEAD: Normocephalic, atraumatic. EYES: PERRLA and EOMI. ENT: Nares clear, no rhinorrhea or epistaxis. Mucous membranes moist. NECK: Supple. CHEST: Clear to auscultation. No respiratory distress. HEART: Bradycardic rate and rhythm. No murmur heard. Normal peripheral pulses. ABDOMEN: Soft, nontender, nondistended, normal active bowel sounds. EXTREMITIES: Normal range of motion. No edema. SKIN: Warm, dry, no rash. NEURO: No focal deficits. Alert and oriented x3. PSYCH: Normal mood and affect. <Oracio Rojas MD - Last Filed: 09/22/24 18:22> Course Vital Signs Vital signs: Vital Signs Temperature 36.4 C 09/22/24 16:10 Pulse Rate 40 L 09/22/24 16:10 Respiratory Rate 22 H 09/22/24 16:10 Blood Pressure 180/84 H 09/22/24 16:10 Pulse Oximetry 95 09/22/24 16:10 Oxygen Delivery Room Air 09/22/24 16:10 Temperature 36.4 C 09/22/24 16:10 Pulse Rate 41 L 09/22/24 18:17 Respiratory Rate 19 09/22/24 18:15 Blood Pressure 132/69 09/22/24 18:17 Pulse Oximetry 93 09/22/24 18:15 Oxygen Delivery Room Air 09/22/24 16:10 <Majo Armendariz APRN - Last Filed: 09/22/24 16:29> Vital Signs Temperature 36.4 C 09/22/24 16:10 Pulse Rate 40 L 09/22/24 16:10 Respiratory Rate 22 H 09/22/24 16:10 Blood Pressure 180/84 H 09/22/24 16:10 Pulse Oximetry 95 09/22/24 16:10 Oxygen Delivery Room Air 09/22/24 16:10 Temperature 36.4 C 09/22/24 16:10 Pulse Rate 41 L 09/22/24 18:17 Respiratory Rate 19 09/22/24 18:15 Blood Pressure 132/69 09/22/24 18:17 Pulse Oximetry 93 09/22/24 18:15 Oxygen Delivery Room Air 09/22/24 16:10 <Oracio Rojas MD - Last Filed: 09/22/24 18:22> MDM - Arrhythmia/Palpitations MDM Narrative Medical decision making narrative: differential diagnosis includes dysrhythmia, electrolyte abnormality, renal failure, ACS EKG showed a run of nonsustained ventricular tachycardia repeat EKG showed bradycardia with possible heart block the case was discussed with cardiology who will consult the patient was started on amiodarone drip chest x-ray showed no focal infiltrate <Oracio Rojas MD - Last Filed: 09/22/24 18:22> Lab Data Result diagrams: 09/22/24 17:13 09/22/24 17:14 <Majo Armendariz APRN - Last Filed: 09/22/24 16:29> Labs: Lab Results 09/22/24 09/22/24 09/22/24 Range/Units 17:13 17:14 17:14 WBC 5.0 (4.5-10.0) K/mm3 RBC 3.50 L (4.2-5.4) M/mm3 Hgb 11.4 L (12.0-15.0) g/dL Hct 35.6 L (37.0-47.0) % MCV 101.7 H (80-100) fl MCH 32.6 (26-34) pg MCHC 32.0 (32-36) g/dl RDW 12.8 (11.5-14.5) % Plt Count 283 (150-375) k/mm3 MPV 10.5 H (7.4-10.4) fl Immature Gran % (Auto) 0.4 (0-0.5) % Neut % (Auto) 71.4 (45.5-73.1) % Lymph % (Auto) 16.3 L (18.3-44.2) % [place] % (Auto) 8.9 H (2.6-8.5) % Eos % (Auto) 2.8 (0-4.4) % Baso % (Auto) 0.2 (0.2-1.2) % Lymph # (Auto) 0.81 L (0.9-3.2) K/mm3 [place] # (Auto) 0.4 (0.1-0.6) K/mm3 Eos # (Auto) 0.1 (0-0.3) K/mm3 Baso # (Auto) 0.0 (0.0-0.1) K/mm3 Abs Immat Gran (auto) 0.02 (0.00-0.031) K/mm3 Absolute Neuts (auto) 3.6 (1.3-6.7) K/mm3 Absolute Nucleated RBC 0.000 (0.0-0.012) K/mm3 Nucleated RBC % 0.0 (0.0-0.2) % PT 14.1 (11.1-14.7) Seconds INR 1.0 APTT 30.6 (22.3-36.8) Seconds Sodium 138 (137-145) mmol/L Potassium 5.1 H (3.4-5.0) mmol/L Chloride 105 (98-107) mmol/L Carbon Dioxide 26 (22-30) mmol/L Anion Gap 7 (4-12) mmol/L BUN 36 H (7-17) mg/dL Creatinine 1.20 H (0.7-1.0) mg/dL Estim Creat Clear Calc 31 ml/min Estimated GFR 43 L (59 - ) Glucose 123 H (65-110) mg/dL Calcium 10.0 (8.4-10.2) mg/dL Magnesium 1.9 Cancelled (1.6-2.3) mg/dL Total Bilirubin 0.5 (0.2-1.3) mg/dL AST 37 H (14-36) U/L ALT 28 (6-35) U/L Alkaline Phosphatase 58 (38-126) U/L Troponin I < 0.012 (0.000-0.034) ng/mL NT-Pro-B Natriuret Pep (19.9-100) pg/mL Total Protein (6.3-8.2) g/dL Albumin (3.5-5.1) g/dL Lipase (23-300) U/L 09/22/24 09/22/24 09/22/24 Range/Units 17:14 17:14 17:14 WBC (4.5-10.0) K/mm3 RBC (4.2-5.4) M/mm3 Hgb (12.0-15.0) g/dL Hct (37.0-47.0) % MCV (80-100) fl MCH (26-34) pg MCHC (32-36) g/dl RDW (11.5-14.5) % Plt Count (150-375) k/mm3 MPV (7.4-10.4) fl Immature Gran % (Auto) (0-0.5) % Neut % (Auto) (45.5-73.1) % Lymph % (Auto) (18.3-44.2) % [place] % (Auto) (2.6-8.5) % Eos % (Auto) (0-4.4) % Baso % (Auto) (0.2-1.2) % Lymph # (Auto) (0.9-3.2) K/mm3 [place] # (Auto) (0.1-0.6) K/mm3 Eos # (Auto) (0-0.3) K/mm3 Baso # (Auto) (0.0-0.1) K/mm3 Abs Immat Gran (auto) (0.00-0.031) K/mm3 Absolute Neuts (auto) (1.3-6.7) K/mm3 Absolute Nucleated RBC (0.0-0.012) K/mm3 Nucleated RBC % (0.0-0.2) % PT (11.1-14.7) Seconds INR APTT (22.3-36.8) Seconds Sodium (137-145) mmol/L Potassium (3.4-5.0) mmol/L Chloride (98-107) mmol/L Carbon Dioxide (22-30) mmol/L Anion Gap (4-12) mmol/L BUN (7-17) mg/dL Creatinine (0.7-1.0) mg/dL Estim Creat Clear Calc ml/min Estimated GFR (59 - ) Glucose (65-110) mg/dL Calcium (8.4-10.2) mg/dL Magnesium (1.6-2.3) mg/dL Total Bilirubin (0.2-1.3) mg/dL AST (14-36) U/L ALT (6-35) U/L Alkaline Phosphatase (38-126) U/L Troponin I Cancelled (0.000-0.034) ng/mL NT-Pro-B Natriuret Pep 3950 H Cancelled (19.9-100) pg/mL Total Protein 7.0 (6.3-8.2) g/dL Albumin 3.9 (3.5-5.1) g/dL Lipase 62 Cancelled (23-300) U/L <Majo Armendariz, AMMONIA NITRATE OPERATOR - Last Filed: 09/22/24 16:29> Lab Results 09/22/24 09/22/24 09/22/24 Range/Units 17:13 17:14 17:14 WBC 5.0 (4.5-10.0) K/mm3 RBC 3.50 L (4.2-5.4) M/mm3 Hgb 11.4 L (12.0-15.0) g/dL Hct 35.6 L (37.0-47.0) % MCV 101.7 H (80-100) fl MCH 32.6 (26-34) pg MCHC 32.0 (32-36) g/dl RDW 12.8 (11.5-14.5) % Plt Count 283 (150-375) k/mm3 MPV 10.5 H (7.4-10.4) fl Immature Gran % (Auto) 0.4 (0-0.5) % Neut % (Auto) 71.4 (45.5-73.1) % Lymph % (Auto) 16.3 L (18.3-44.2) % [place]illespie % (Auto) 8.9 H (2.6-8.5) % Eos % (Auto) 2.8 (0-4.4) % Baso % (Auto) 0.2 (0.2-1.2) % Lymph # (Auto) 0.81 L (0.9-3.2) K/mm3 [place] # (Auto) 0.4 (0.1-0.6) K/mm3 Eos # (Auto) 0.1 (0-0.3) K/mm3 Baso # (Auto) 0.0 (0.0-0.1) K/mm3 Abs Immat Gran (auto) 0.02 (0.00-0.031) K/mm3 Absolute Neuts (auto) 3.6 (1.3-6.7) K/mm3 Absolute Nucleated RBC 0.000 (0.0-0.012) K/mm3 Nucleated RBC % 0.0 (0.0-0.2) % PT 14.1 (11.1-14.7) Seconds INR 1.0 APTT 30.6 (22.3-36.8) Seconds Sodium 138 (137-145) mmol/L Potassium 5.1 H (3.4-5.0) mmol/L Chloride 105 (98-107) mmol/L Carbon Dioxide 26 (22-30) mmol/L Anion Gap 7 (4-12) mmol/L BUN 36 H (7-17) mg/dL Creatinine 1.20 H (0.7-1.0) mg/dL Estim Creat Clear Calc 31 ml/min Estimated GFR 43 L (59 - ) Glucose 123 H (65-110) mg/dL Calcium 10.0 (8.4-10.2) mg/dL Magnesium 1.9 Cancelled (1.6-2.3) mg/dL Total Bilirubin 0.5 (0.2-1.3) mg/dL AST 37 H (14-36) U/L ALT 28 (6-35) U/L Alkaline Phosphatase 58 (38-126) U/L Troponin I < 0.012 (0.000-0.034) ng/mL NT-Pro-B Natriuret Pep (19.9-100) pg/mL Total Protein (6.3-8.2) g/dL Albumin (3.5-5.1) g/dL Lipase (23-300) U/L 09/22/24 09/22/24 09/22/24 Range/Units 17:14 17:14 17:14 WBC (4.5-10.0) K/mm3 RBC (4.2-5.4) M/mm3 Hgb (12.0-15.0) g/dL Hct (37.0-47.0) % MCV (80-100) fl MCH (26-34) pg MCHC (32-36) g/dl RDW (11.5-14.5) % Plt Count (150-375) k/mm3 MPV (7.4-10.4) fl Immature Gran % (Auto) (0-0.5) % Neut % (Auto) (45.5-73.1) % Lymph % (Auto) (18.3-44.2) % Gillespie % (Auto) (2.6-8.5) % Eos % (Auto) (0-4.4) % Baso % (Auto) (0.2-1.2) % Lymph # (Auto) (0.9-3.2) K/mm3 Gillespie # (Auto) (0.1-0.6) K/mm3 Eos # (Auto) (0-0.3) K/mm3 Baso # (Auto) (0.0-0.1) K/mm3 Abs Immat Gran (auto) (0.00-0.031) K/mm3 Absolute Neuts (auto) (1.3-6.7) K/mm3 Absolute Nucleated RBC (0.0-0.012) K/mm3 Nucleated RBC % (0.0-0.2) % PT (11.1-14.7) Seconds INR APTT (22.3-36.8) Seconds Sodium (137-145) mmol/L Potassium (3.4-5.0) mmol/L Chloride (98-107) mmol/L Carbon Dioxide (22-30) mmol/L Anion Gap (4-12) mmol/L BUN (7-17) mg/dL Creatinine (0.7-1.0) mg/dL Estim Creat Clear Calc ml/min Estimated GFR (59 - ) Glucose (65-110) mg/dL Calcium (8.4-10.2) mg/dL Magnesium (1.6-2.3) mg/dL Total Bilirubin (0.2-1.3) mg/dL AST (14-36) U/L ALT (6-35) U/L Alkaline Phosphatase (38-126) U/L Troponin I Cancelled (0.000-0.034) ng/mL NT-Pro-B Natriuret Pep 3950 H Cancelled (19.9-100) pg/mL Total Protein 7.0 (6.3-8.2) g/dL Albumin 3.9 (3.5-5.1) g/dL Lipase 62 Cancelled (23-300) U/L <Oracio Rojas MD - Last Filed: 09/22/24 18:22> Critical Care Time Critical Care Time Critical Care Time: Yes <Oracio Rojas MD - Last Filed: 09/22/24 18:22> Total Critical Care Time: 75 <Oracio Rojas MD - Last Filed: 09/22/24 18:22> Discharge Plan Discharge Clinical Impression: Non-sustained ventricular tachycardia, Bradycardia <Majo Armendariz APRN - Last Filed: 09/22/24 16:29> Patient Disposition: Still a Patient <Majo Armendariz APRN - Last Filed: 09/22/24 16:29> Condition: Guarded Prognosis <Majo Armendariz APRN - Last Filed: 09/22/24 16:29> Prescriptions: No Action gabapentin 300 mg capsule 300 mg PO TID fluticasone propionate [Flonase] 50 mcg/actuation [place],Suspension 1 spray INTRANASAL DAILY loratadine [Claritin] 10 mg Tablet 10 mg PO DAILY alpha lipoic acid 200 mg Tablet 200 mg PO BID tamoxifen 20 mg Tablet 20 mg PO DAILY risedronate 150 mg tablet 150 mg PO MONTHLY (DME) lancing device with lancets [Accu-Chek FastClix Lancing Dev] Kit See Rx Instructions .ROUTE .MEDSUPPLY Qty: 1 1RF Rx Instructions: test qam fasting (DME) lancets [Accu-Chek Fastclix Lancet Drum] Mis See Rx Instructions .ROUTE .MEDSUPPLY Qty: 100 11RF Rx Instructions: test qam fasting duloxetine [Cymbalta] 30 mg capsule,delayed release(DR/EC) 30 mg PO BID Qty: 30 1RF losartan 100 mg tablet See Rx Instructions .ROUTE .COMPLEX Qty: 90 2RF Dose Instruction: TAKE 1 TABLET BY MOUTH DAILY Rx Instructions: TAKE 1 TABLET BY MOUTH DAILY amlodipine 2.5 mg tablet See Rx Instructions .ROUTE .COMPLEX Qty: 90 2RF Dose Instruction: TAKE 1 TABLET BY MOUTH DAILY Rx Instructions: TAKE 1 TABLET BY MOUTH DAILY pentoxifylline 400 mg tablet extended release See Rx Instructions .ROUTE .COMPLEX Qty: 180 2RF Dose Instruction: TAKE 1 TABLET BY MOUTH TWICE DAILY Rx Instructions: TAKE 1 TABLET BY MOUTH TWICE DAILY fenofibrate 54 mg tablet See Rx Instructions .ROUTE .COMPLEX Qty: 90 2RF Dose Instruction: TAKE 1 TABLET BY MOUTH DAILY Rx Instructions: TAKE 1 TABLET BY MOUTH DAILY diclofenac sodium 50 mg tablet,delayed release (DR/EC) 50 mg .ROUTE BID Qty: 180 2RF Rx Instructions: 50 mg twice a day; metformin 500 mg tablet 500 mg PO BID Qty: 180 2RF oxybutynin chloride 5 mg tablet 5 mg PO BID Qty: 60 5RF clorazepate dipotassium 3.75 mg tablet 3.75 mg PO BID PRN (Reason: anxiety) Qty: 60 0RF hydrocodone-acetaminophen 5-325 mg tablet 1 tablet PO DAILY PRN (Reason: PAIN) Qty: 30 0RF Hold Instructions: .Provider Order <Majo Armendariz APRN - Last Filed: 09/22/24 16:29> Follow-up/Referrals: Abbe Boston MD [Primary Care Provider] - <Majo Armendariz APRN - Last Filed: 09/22/24 16:29> Time of Disposition: 17:07 <Majo Armendariz APRN - Last Filed: 09/22/24 16:29> 17:07 <Oracio Rojas MD - Last Filed: 09/22/24 18:22>
[2024-09-22] MEDS: AMIODARONE 150 MG/D5W 100 ML 150 MG/100 ML BAG 600 MG IV CONT (16:33)
[2024-09-22] MEDS: AMIODARONE 360 MG/D5W 200 ML 360 MG/200 ML BAG 33.33 MG IV CONT (16:48)
--- NOTE | 2024-09-22 17:17 | PC.NURSE ---
Pt Fi02 92% on RA. Pt c/o SOB. Pt placed on 2L NC. Fi02 95%.
[2024-09-22 17:24] LABS: Basophils Percent Auto 0.2 % (0.2-1.2); Eosinophils Absolute Auto 0.1 K/mm3 (0-0.3); Eosinophils Percent Auto 2.8 % (0-4.4); Hematocrit 35.6 % (37.0-47.0); Hemoglobin 11.4 g/dL (12.0-15.0); Immature Granulocyte Absolute 0.02 K/mm3 (0.00-0.031); Immature Granulocyte Percent A 0.4 % (0-0.5); Lymphocytes Absolute Auto 0.81 K/mm3 (0.9-3.2); Lymphocytes Percent Auto 16.3 % (18.3-44.2); Mean Corpuscular Hemoglobin 32.6 pg (26-34); Mean Corpuscular Volume 101.7 fl (80-100); Mean Platelet Volume 10.5 fl (7.4-10.4); Monocytes Absolute Auto 0.4 K/mm3 (0.1-0.6); Monocytes Percent Auto 8.9 % (2.6-8.5); Neutrophils Absolute Auto 3.6 K/mm3 (1.3-6.7); Neutrophils Percent Auto 71.4 % (45.5-73.1); Platelet Count Result 283 k/mm3 (150-375); Red Cell Distribution Width 12.8 % (11.5-14.5)
[2024-09-22 17:34] LABS: Prothrombin Time 14.1 Seconds (11.1-14.7)
[2024-09-22 17:35] LABS: Partial Thromboplastin Time 30.6 Seconds (22.3-36.8)
[2024-09-22 17:38] LABS: Alanine Aminotransferase 28 U/L (6-35); Albumin Level 3.9 g/dL (3.5-5.1); Alkaline Phosphatase 58 U/L (38-126); Anion Gap 7 mmol/L (4-12); Aspartate Amino Transferase 37 U/L (14-36); Bilirubin,Total 0.5 mg/dL (0.2-1.3); Blood Urea Nitrogen 36 mg/dL (7-17); Carbon Dioxide 26 mmol/L (22-30); Chloride 105 mmol/L (98-107); Estimated CRCL calculation 31 ml/min; Estimated Glomerular Filt Rate 43; Glucose 123 mg/dL (65-110); Lipase 62 U/L (23-300); Magnesium 1.9 mg/dL (1.6-2.3); Potassium 5.1 mmol/L (3.4-5.0); Sodium 138 mmol/L (137-145)
--- NOTE | 2024-09-22 17:38 | ECG_ITS ---
Test Date: 2024-09-22 17:46:09 Measurements Intervals [place] Rate: 52 P: 0 VT: 0 QRS: -51 QRSD: 151 T: -2 QT: 523 QTc: 490 Interpretive Statements SINUS RHYTHM WITH HIGH GRADE AV BLOCK JUNCTIONAL ESCAPE RHYTHM AND VENTRICULAR BIGEMINY RIGHT BUNDLE BRANCH BLOCK LEFT ANTERIOR FASCICULAR BLOCK LEFT VENTRICULAR HYPERTROPHY WITH ST-T CHANGE HIGH LATERAL INFARCT, AGE INDETERMINATE BASELINE ARTIFACT- I, II, III, AVR, AVL, AVF, V1-V6 ABNORMAL ECG Compared to ECG 09/22/2024 16:28:43 NO SIGNIFICANT CHANGE Electronically Signed On 09-22-2024 18:24:49 TONGUE STITCHER by Chago Rodriguez D.O.
[2024-09-22 17:49] LABS: NT Pro B Type Natriuretic Pept 3950 pg/mL (19.9-100); Troponin I < 0.012 ng/mL (0.000-0.034)
--- NOTE | 2024-09-22 19:10 | PC.NURSE ---
Report given to SARAH Trujillo with laborer hoisting. All questions answered. Pt transported to greenhouse laborer with AED pads in place. Pt stable at time of transport. Pt updated and at bedside just prior to transport.
--- NOTE | 2024-09-22 19:24 | PM.IMHP ---
H&P: HPI History of Present Illness Date/Time: 09/22/24 19:24 Chief Complaint: chest discomfort Narrative: This is an 83-year-old female with past medical history significant for hypertension, dyslipidemia, breast CA, arthritis. patient was brought to the emergency room due to fluttery feeling in the chest. Patient has been in her usual state of health had bilateral lower extremity swelling, no PND no orthopnea no chest pain no dizziness no lightheadedness no palpitations upon arrival to emergency room patient was found to have high degree AV block patient is now status post temporary pacemaker placed Review of Systems Review of Systems: chest discomfort, fluttery feeling PMFSH Past Medical History Medical History Age-related osteoporosis without current pathological fracture Arthritis Breast cancer Generalized osteoarthritis of multiple sites (~11/2020) Hearing loss High cholesterol History of blood clots Hypertension Osteoporosis Seasonal allergies Vision abnormalities Surgical History Surgical History History of bladder surgery History of hysterectomy History of right knee joint replacement Family History Family History (Updated 09/22/24 @ 22:57 by Elena Jansen RN) Sibling Family history of malignant neoplasm of breast Patient's brother is in good health Patient's sister is in good health Family history of malignant neoplasm of breast in first degree relative Prostate carcinoma Grandparent Family history of malignant neoplasm of breast History of blood clots Mother Family history of malignant neoplasm of breast Family history of arthritis Family history of malignant neoplasm of breast in first degree relative Father History of blood clots Social History Social History Social History: Smoking status: Never smoker Second hand tobacco smoke exposure: No Alcohol intake: never Substance use: never Substance use type: does not use Do You Feel Safe in your Home?: Yes Lack of Transportation: No Lack of Food: Never True Current Housing: I Have Housing Concerned About Future Housing: No Difficulty Paying Gas/Electric Bills: No Difficulty Paying for Meds: No Currently Unemployed: No Education: High School Diploma/GED Difficulty w/ Childcare or Family Care: No Living arrangements: alone Occupation/Education: retired Gender identity (if verbalized by the patient): Female Sexual Orientation (if Verbalized by the Patient): Straight or Heterosexual Spiritual care concerns: No Meds Home Medications and Allergies Home Medications Medication Instructions Recorded Confirmed Type lancets (Accu-Chek Fastclix Lancet #100 ea 11/23/19 09/22/24 Rx Drum) lancing device with lancets kit #1 ea 11/23/19 09/22/24 Rx (Accu-Chek FastClix Lancing Device kit) duloxetine 30 mg capsule,delayed 30 mg PO BID #30 caps 04/24/21 09/22/24 Rx release (Cymbalta) fluticasone propionate 50 1 spray intranasal DAILY 01/17/22 09/22/24 History mcg/actuation nasal spray,suspension loratadine 10 mg tablet (Claritin) 10 mg PO DAILY 01/17/22 09/22/24 History alpha lipoic acid 200 mg tablet 200 mg PO BID 01/25/23 09/22/24 History tamoxifen 20 mg tablet 20 mg PO DAILY 01/25/23 09/22/24 History losartan 100 mg tablet See Rx Instructions .Route 03/01/24 09/22/24 Rx .COMPLEX #90 tabs amlodipine 2.5 mg tablet See Rx Instructions .Route 03/24/24 09/22/24 Rx .COMPLEX #90 tabs pentoxifylline 400 mg See Rx Instructions .Route 04/03/24 09/22/24 Rx tablet,extended release .COMPLEX #180 tabs metformin 500 mg tablet 500 mg PO BID #180 tabs 06/09/24 09/22/24 Rx clorazepate dipotassium 3.75 mg 3.75 mg PO BID PRN anxiety #60 tabs 09/21/24 09/22/24 Rx tablet hydrocodone 5 mg-acetaminophen 325 1 tablet PO DAILY PRN PAIN #30 tabs 09/21/24 09/22/24 Rx mg tablet diclofenac sodium 50 mg 50 mg PO BID 09/22/24 09/22/24 History tablet,delayed release fenofibrate 54 mg tablet 54 mg PO HS 09/22/24 09/22/24 History oxybutynin chloride 5 mg tablet 5 mg PO HS 09/22/24 09/22/24 History Allergies Allergy/AdvReac Type Severity Reaction Status Date / Time celecoxib Allergy Mild INCREASED Verified 09/22/24 16:19 HR methylprednisolone Allergy Unknown L face Verified 09/22/24 16:19 pain/swelling montelukast Allergy Unknown Rash Verified 09/22/24 16:19 Vital Signs Vital Signs - 24 hr 09/22/24 16:10 09/22/24 16:33 09/22/24 16:46 Temperature 97.6 F Pulse Rate 40 L 41 L 59 L Respiratory Rate 22 H Blood Pressure 180/84 H 182/51 H 195/45 H Pulse Oximetry 95 Oxygen Delivery Room Air 09/22/24 16:48 09/22/24 17:16 09/22/24 18:17 Temperature Pulse Rate 59 L 53 L 41 L Respiratory Rate 20 Blood Pressure 116/100 H 139/63 132/69 Pulse Oximetry 94 Oxygen Delivery 09/22/24 16:18 09/22/24 16:30 09/22/24 16:32 Temperature Pulse Rate 46 L 42 L 44 L Respiratory Rate 18 18 19 Blood Pressure 182/51 H Pulse Oximetry 97 92 Oxygen Delivery 09/22/24 16:45 09/22/24 17:00 09/22/24 17:02 Temperature Pulse Rate 53 L 60 55 L Respiratory Rate 21 H 19 16 Blood Pressure 139/63 Pulse Oximetry Oxygen Delivery 09/22/24 17:15 09/22/24 17:17 09/22/24 17:30 Temperature Pulse Rate 35 L 49 L 36 L Respiratory Rate 22 H 20 13 Blood Pressure 169/57 H Pulse Oximetry 94 94 96 Oxygen Delivery 09/22/24 17:34 09/22/24 17:45 09/22/24 17:47 Temperature Pulse Rate 103 H 52 L 71 Respiratory Rate 20 29 H 19 Blood Pressure 169/59 H 184/55 H Pulse Oximetry 96 Oxygen Delivery 09/22/24 18:00 09/22/24 18:11 09/22/24 18:15 Temperature Pulse Rate 35 L 34 L 84 Respiratory Rate 17 22 H 19 Blood Pressure 150/110 H 132/69 Pulse Oximetry 96 93 Oxygen Delivery 09/22/24 18:31 Temperature Pulse Rate 72 Respiratory Rate 24 H Blood Pressure 129/98 H Pulse Oximetry 98 Oxygen Delivery Exam Narrative: laying in bed Const: General: comfortable, no acute distress, well developed, alert, awake and average body habitus Nutritional Appearance: average body habitus Orientation/consciousness: patient oriented x3 Other: well-appearing HENMT: Head: normal to inspection, normocephalic and atraumatic Ears: hearing grossly normal bilaterally Face/Nose/Sinus: normal facial exam Face and sinus: normal facial exam Other: right IJ intravenous pacemaker Eyes: General: appearance normal, both eyes and all related structures Pupils: Equal, round and reactive pupils present EOM: EOMs intact bilaterally Neck: Neck: full ROM, no lymphadenopathy and no JVD Thyroid: thyroid normal Lymphatic: no lymphadenopathy noted Resp: Effort & Inspection: normal respiratory effort and able to speak in complete sentences Auscultation: clear to auscultation bilaterally Cardio: Jugular venous distension: no JVD Rate: regular rate Rhythm: regular rhythm Heart sounds: S1 normal heart sound present and S2 normal heart sound present GI: GI Palp: Yes Soft to palpation and Yes No hepatosplenomegaly present : General: Yes deferred Skin: Rashes: no rashes Wounds: no wounds Neuro: General: patient oriented x3 and CN's II-XI intact bilaterally Cranial nerves: Yes CN's II-XII intact bilaterally and Yes Equal, round and reactive pupils present Cognition (Neuro): normal cognition Speech: normal speech Gait exam (Neuro): Normal gait present Motor exam (neuro): 5/5 motor strength present throughout Extrem: General: normal to inspection, full ROM, no joint enlargement and no pedal edema H&P: Results Labs Labs: Short CBC 09/22/24 Range/Units 17:13 WBC 5.0 (4.5-10.0) K/mm3 Hgb 11.4 L (12.0-15.0) g/dL Hct 35.6 L (37.0-47.0) % Plt Count 283 (150-375) k/mm3 BMP 09/22/24 17:14 Sodium 138 Potassium 5.1 H Chloride 105 Carbon Dioxide 26 BUN 36 H Creatinine 1.20 H Glucose 123 H Calcium 10.0 Cardiac Enzymes 09/22/24 09/22/24 Range/Units 17:14 17:14 Troponin I < 0.012 Cancelled (0.000-0.034) ng/mL Liver Function 09/22/24 Range/Units 17:14 Total Bilirubin 0.5 (0.2-1.3) mg/dL AST 37 H (14-36) U/L ALT 28 (6-35) U/L Alkaline Phosphatase 58 (38-126) U/L Albumin 3.9 (3.5-5.1) g/dL Assessment and Plan Assessment and plan (1) Bradycardia: Code(s): R00.1 - Bradycardia, unspecified Status: Acute Assessment and Plan: Patient found to have high-degree AV block status post temporary transvenous pacemaker placement follow cardiology recommendation (2) Generalized osteoarthritis of multiple sites: Onset Date: ~11/2020 Code(s): M15.9 - Polyosteoarthritis, unspecified Status: Acute Assessment and Plan: Tylenol p.r.n. (3) Type 2 diabetes mellitus without complications: Code(s): E11.9 - Type 2 diabetes mellitus without complications Status: Acute Assessment and Plan: holding metformin (4) Spinal stenosis of lumbar region at multiple levels: Code(s): M48.061 - Spinal stenosis, lumbar region without neurogenic claudication Status: Acute Assessment and Plan: stable Hospitalist [facility] Advance Care Plan I have confirmed that the patient's Advanced Care Plan is present, code status is documented, or surrogate decision maker is listed in patient medical record.: Yes Medication Reconciliation I have utilized all available resources to obtain, update and review the patients current medications (includes all prescriptions, OTC, herbals, cannabis, and nutritional supplements).: Yes
--- NOTE | 2024-09-22 19:56 | PM.CNCAR ---
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 She has no prior similar episodes. No Chest pain or SOB. On arrival she was noted to have bradycardia 2:1 block and non sustained polymorphic VT. Episodes was recurrent and amiodarone started but heart rate dropps to 30s. Review of Systems Review of Systems: All systems reviewed & are unremarkable except as noted in HPI and below PMFSH Past Medical History Medical History Age-related osteoporosis without current pathological fracture Arthritis Breast cancer Generalized osteoarthritis of multiple sites (~11/2020) Hearing loss High cholesterol History of blood clots Hypertension Osteoporosis Seasonal allergies Vision abnormalities Surgical History Surgical History History of bladder surgery History of hysterectomy History of right knee joint replacement Family History Family History Sibling Patient's sister is in good health Patient's brother is in good health Family history of malignant neoplasm of breast in first degree relative Family history of malignant neoplasm of breast Grandparent Family history of malignant neoplasm of breast Mother Family history of malignant neoplasm of breast in first degree relative Family history of arthritis Family history of malignant neoplasm of breast Other History of arthritis Social History Social History Social History: Smoking status: Never smoker Second hand tobacco smoke exposure: No Alcohol intake: never Substance use: never Substance use type: does not use Living arrangements: alone Occupation/Education: retired Gender identity (if verbalized by the patient): Female Sexual Orientation (if Verbalized by the Patient): Straight or Heterosexual Spiritual care concerns: No Meds Home Medications and Allergies Home Medications Medication Instructions Recorded Confirmed Type lancets (Accu-Chek Fastclix Lancet #100 ea 11/23/19 06/20/24 Rx Drum) lancing device with lancets kit #1 ea 11/23/19 06/20/24 Rx (Accu-Chek FastClix Lancing Device kit) risedronate 150 mg tablet 150 mg PO MONTHLY 01/20/21 06/20/24 History duloxetine 30 mg capsule,delayed 30 mg PO BID #30 caps 04/24/21 06/20/24 Rx release (Cymbalta) fluticasone propionate 50 1 spray intranasal DAILY 01/17/22 06/20/24 History mcg/actuation nasal spray,suspension gabapentin 300 mg capsule 300 mg PO TID 01/17/22 06/20/24 History loratadine 10 mg tablet (Claritin) 10 mg PO DAILY 01/17/22 06/20/24 History alpha lipoic acid 200 mg tablet 200 mg PO BID 01/25/23 06/20/24 History tamoxifen 20 mg tablet 20 mg PO DAILY 01/25/23 06/20/24 History losartan 100 mg tablet See Rx Instructions .Route 03/01/24 06/20/24 Rx .COMPLEX #90 tabs amlodipine 2.5 mg tablet See Rx Instructions .Route 03/24/24 06/20/24 Rx .COMPLEX #90 tabs pentoxifylline 400 mg See Rx Instructions .Route 04/03/24 06/20/24 Rx tablet,extended release .COMPLEX #180 tabs fenofibrate 54 mg tablet See Rx Instructions .Route 04/28/24 06/20/24 Rx .COMPLEX #90 tabs diclofenac sodium 50 mg 50 mg .Route BID #180 tabs 06/06/24 06/20/24 Rx tablet,delayed release metformin 500 mg tablet 500 mg PO BID #180 tabs 06/09/24 06/20/24 Rx oxybutynin chloride 5 mg tablet 5 mg PO BID #60 tabs 08/09/24 Rx clorazepate dipotassium 3.75 mg 3.75 mg PO BID PRN anxiety #60 tabs 09/21/24 Rx tablet hydrocodone 5 mg-acetaminophen 325 1 tablet PO DAILY PRN PAIN #30 tabs 09/21/24 Rx mg tablet Allergies Allergy/AdvReac Type Severity Reaction Status Date / Time celecoxib Allergy Mild INCREASED Verified 09/22/24 16:19 HR methylprednisolone Allergy Unknown L face Verified 09/22/24 16:19 pain/swelling montelukast Allergy Unknown Rash Verified 09/22/24 16:19 Vital Signs Vital Signs - 24 hr 09/22/24 16:10 09/22/24 16:33 09/22/24 16:46 Temperature 36.4 C Pulse Rate 40 L 41 L 59 L Respiratory Rate 22 H Blood Pressure 180/84 H 182/51 H 195/45 H Pulse Oximetry 95 Oxygen Delivery Room Air 09/22/24 16:48 09/22/24 17:16 09/22/24 18:17 Temperature Pulse Rate 59 L 53 L 41 L Respiratory Rate 20 Blood Pressure 116/100 H 139/63 132/69 Pulse Oximetry 94 Oxygen Delivery 09/22/24 16:18 09/22/24 16:30 09/22/24 16:32 Temperature Pulse Rate 46 L 42 L 44 L Respiratory Rate 18 18 19 Blood Pressure 182/51 H Pulse Oximetry 97 92 Oxygen Delivery 09/22/24 16:45 09/22/24 17:00 09/22/24 17:02 Temperature Pulse Rate 53 L 60 55 L Respiratory Rate 21 H 19 16 Blood Pressure 139/63 Pulse Oximetry Oxygen Delivery 09/22/24 17:15 09/22/24 17:17 09/22/24 17:30 Temperature Pulse Rate 35 L 49 L 36 L Respiratory Rate 22 H 20 13 Blood Pressure 169/57 H Pulse Oximetry 94 94 96 Oxygen Delivery 09/22/24 17:34 09/22/24 17:45 09/22/24 17:47 Temperature Pulse Rate 103 H 52 L 71 Respiratory Rate 20 29 H 19 Blood Pressure 169/59 H 184/55 H Pulse Oximetry 96 Oxygen Delivery 09/22/24 18:00 09/22/24 18:11 09/22/24 18:15 Temperature Pulse Rate 35 L 34 L 84 Respiratory Rate 17 22 H 19 Blood Pressure 150/110 H 132/69 Pulse Oximetry 96 93 Oxygen Delivery 09/22/24 18:31 Temperature Pulse Rate 72 Respiratory Rate 24 H Blood Pressure 129/98 H Pulse Oximetry 98 Oxygen Delivery Exam Const: General: comfortable and no acute distress Other: Able to lie flat HENMT: Face/Nose/Sinus: Normal nares present and no epistaxis Mouth: Yes moist mucous membranes Eyes: Sclera: sclerae normal Pupils: Equal, round and reactive pupils present Neck: Neck: supple and no JVD Carotids: no bruits Resp: Auscultation: clear to auscultation bilaterally and lung sounds not diminished Other: No chest wall tenderness Cardio: Rate: regular rate Rhythm: regular rhythm Heart sounds: no gallops, no murmurs and no rubs GI: GI Palp: Yes Soft to palpation and No Tenderness to palpation present (GI) Auscultation: normal bowel sounds Skin: General skin exam: normal color, rashes and/or lesions noted and no erythema Other: Warm Neuro: Cranial nerves: Yes Equal, round and reactive pupils present Speech: normal speech Other: No obvious focal deficit or facial asymmetry Extrem: General: no edema Other: Normal capillary refills Intact distal pulses. Results Labs and Meds 09/22/24 17:13 09/22/24 17:14 Lab results: Cardiac Enzymes 09/22/24 09/22/24 Range/Units 17:14 17:14 AST 37 H (14-36) U/L Troponin I < 0.012 Cancelled (0.000-0.034) ng/mL Coagulation 09/22/24 Range/Units 17:14 PT 14.1 (11.1-14.7) Seconds APTT 30.6 (22.3-36.8) Seconds CBC 09/22/24 Range/Units 17:13 WBC 5.0 (4.5-10.0) K/mm3 RBC 3.50 L (4.2-5.4) M/mm3 Hgb 11.4 L (12.0-15.0) g/dL Hct 35.6 L (37.0-47.0) % Plt Count 283 (150-375) k/mm3 Lymph # (Auto) 0.81 L (0.9-3.2) K/mm3 [place] # (Auto) 0.4 (0.1-0.6) K/mm3 Eos # (Auto) 0.1 (0-0.3) K/mm3 Baso # (Auto) 0.0 (0.0-0.1) K/mm3 Comprehensive Metabolic Panel 09/22/24 Range/Units 17:14 Sodium 138 (137-145) mmol/L Potassium 5.1 H (3.4-5.0) mmol/L Chloride 105 (98-107) mmol/L Carbon Dioxide 26 (22-30) mmol/L BUN 36 H (7-17) mg/dL Creatinine 1.20 H (0.7-1.0) mg/dL Glucose 123 H (65-110) mg/dL Calcium 10.0 (8.4-10.2) mg/dL AST 37 H (14-36) U/L ALT 28 (6-35) U/L Alkaline Phosphatase 58 (38-126) U/L Total Protein 7.0 (6.3-8.2) g/dL Albumin 3.9 (3.5-5.1) g/dL Intake and Output 09/22/24 09/22/24 09/22/24 07:59 15:59 23:59 Intake Total 149.4 Balance 149.4 Intake: IV 149.4 Amiodarone 150 mg/D5w 100 ml 100 150 mg In 100 ml @ 15 MG/MIN 600 mls/hr IV CONT .Q10M ONE Rx #:[id number] Amiodarone 360 mg/D5w 200 ml 49.4 360 mg In 200 ml @ 1 MG/MIN 33. 333 mls/hr IV CONT .Q6H ONE Rx# :[id number] Patient Weight 09/22/24 23:59 Weight 75 kg
--- NOTE | 2024-09-22 20:00 | WPDCARDPROC ---
Cardiac Cath Procedure Note Date of procedure:: 09/22/24 Performing physician:: Ilia Araujo MD Indication:: high grade AV block Procedure Procedure performed:: Temporary TV pacer Sedation/Medication given:: versed 1 mg and fentanyl 50 mcg given by RN under my supervision and duration of sedation 20 min Heart rate, resp rate and O2 sat were monitored with RN in room Access site:: Rt IJ obtained with US and 6 F sheath inserted Estimated blood loss:: < 10 ml Procedure note:: pacermaker wire advended into RV under fluroscopy and pacing threshold was 0.4 and output set to 5 mAMP and rat eset to 60 bpm. sheath sut[address] in place. Findings:: high grade AV block Conclusion:: successful insertion of temporary TV pacer Assessment and Plan Assessment and plan (1) Non-sustained ventricular tachycardia: Code(s): I47.29 - Other ventricular tachycardia Status: Acute (2) Bradycardia: Code(s): R00.1 - Bradycardia, unspecified Status: Acute Plan evaluation for permanent pacer
--- NOTE | 2024-09-22 20:15 | PC.NURSE ---
This patient, Kassidy Ochoa, was admitted to Intensive Care Unit-2. Patient/family oriented to hospital policies and general routines including ID bracelet, bed and alarms, visiting hours, pain management, procedures, bathroom and other care routines, personal items, smoking policy, room service/diet, and visiting hours. Information on how to activate the Rapid Response Team has been discussed. Patient/Family are encouraged to report perceived risks to care and to ask questions if they do not understand what they are told or what they should do.
[2024-09-22] MEDS: ACETAMINOPHEN 500 MG TABLET 1000 MG PO (21:39)
[2024-09-22] MEDS: hydrALAZINE HCL 20 MG/ML VIAL IV PUSH (22:03)
[2024-09-22] MEDS: HYDROmorphone HCL INJ (*CRX) 1 MG/ML SYR IV PUSH (22:23)
[2024-09-23] VITALS (62 sets, daily range): BP systolic 120–207; BP diastolic 52–116; PULSE 37–87; RESP 6–25; TEMP 36.6–36.9; O2SAT 91–99; BMI 24.5
--- NOTE | 2024-09-23 | ECHO_ITS ---
Patient Info Name: Kassidy Ochoa Age: 83 years : 1940 Gender: Female Ht: 63 in Wt: 165 lbs BSA: 1.85 m2 HR: 39 bpm BP: 172 / 60 mmHg Heart Rhythm: Indeterminant Technical Quality: Good Exam Date: 09/23/2024 7:22 AM Exam Location: Echo Lab Patient Status: Inpatient Admit Date: 09/23/2024 Staff Ordering Physician: Toby Walters MD Resources Representative: Feroz Atkins RDCS Attending Provider: Remy Bee MD Referring Physician: Romeo TERRAZAS; Exam Type: CA echo doppler color flow Study Info Indications - av block Complete two-dimensional, color flow and Doppler transthoracic echocardiogram is performed. Summary 1. Complete two-dimensional, color flow and Doppler transthoracic echocardiogram is performed. 2. Left ventricular chamber dimension is normal. 3. Left ventricular systolic function is normal, estimated at 60-65%. 4. There is no increased left ventricular wall thickness. 5. The left ventricular diastolic function is grade I diastolic dysfunction. 6. Right ventricular chamber dimension is normal. 7. Right ventricular systolic function is normal. 8. Linear artifact in right ventricle suggestive of catheter(s), pacemaker lead(s), or ICD lead(s). 9. Moderate pulmonary hypertension, estimated pulmonary arterial systolic pressure is 52 mmHg. Left Ventricle Left ventricular chamber dimension is normal. Left ventricular systolic function is normal, estimated at 60-65%. There is no increased left ventricular wall thickness. Left ventricular septal wall motion is normal. The left ventricular diastolic function is grade I diastolic dysfunction. Right Ventricle Right ventricular chamber dimension is normal. Right ventricular systolic function is normal. Linear artifact in right ventricle suggestive of catheter(s), pacemaker lead(s), or ICD lead(s). Left Atria Left atrial chamber dimension is normal. Right Atria Right atrial chamber dimension is normal. Pacemaker wire noted. Aortic Valve The aortic valve is trileaflet. There is no aortic valve sclerosis. There is no aortic valve stenosis. There is no aortic valve regurgitation. Pulmonic Valve The pulmonic valve is not well visualized. Mitral Valve The mitral valve has normal leaflets. There is no mitral valve stenosis. There is no mitral valve regurgitation. Tricuspid Valve The tricuspid valve leaflets are normal. 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 There is no tricuspid valve regurgitation. Moderate pulmonary hypertension, estimated pulmonary arterial systolic pressure is 52 mmHg. Pericardium/Pleural The pericardium appears normal. There is no pericardial effusion. Inferior Vena Cava Inferior vena cava is not well visualized. Aorta The aortic root size at the sinus of Valsalva is normal. The prox ascending aorta size is normal. Left Ventricular Outflow Tract Name Value Normal LVOT 2D LVOT Diameter 2.0 cm LVOT Doppler LVOT Peak Gradient 8 mmHg LVOT Mean Gradient 4 mmHg LVOT VTI 33 cm LVOT VTI/AV VTI Ratio 1.0 LVOT Stroke Volume 100 ml LVOT CO 5.9 l/min LVOT CI 3.2 l/min/m2 Mitral Valve Name Value Normal MV Doppler MV Decel Bladen 247 cm/s2 MV PHT 76 ms MV Area (PHT) 2.9 cm2 4.0-5.0 MV Regurgitation Doppler MR Peak Gradient 90 mmHg MV Diastolic Function MV E Peak Velocity 65 cm/s MV A Peak Velocity 128 cm/s MV E/A 0.5 MV Decel Time 262 ms MV Annular TDI MV E/e' (Septal) 11.5 <=8.0 MV E/e' (Lateral) 7.4 <=8.0 MV E/e' (Average) 9.5 Tricuspid Valve Name Value Normal TV Regurgitation Doppler TR Peak Velocity 326 cm/s TR Peak Gradient 42 mmHg Estimated PAP/RSVP RA Pressure 10 mmHg <=5 PA Systolic Pressure 52 mmHg <36 RV Systolic Pressure 52 mmHg <36 Aortic Valve Name Value Normal AV Doppler AV Peak Velocity 159 cm/s AV Peak Gradient 10 mmHg AV Mean Gradient 7 mmHg AV VTI 33 cm AV Area (Cont Eq VTI) 3.0 cm2 >=3.0 AV Area (Cont Eq Haroon) 2.7 cm2 AV Regurgitation 2D LVOT Area 3.1 cm2 Ventricles Name Value Normal LV Dimensions 2D/MM IVS Diastolic Thickness (2D) 0.9 cm 0.6-1.0 LVID Diastole (2D) 5.4 cm 3.8-5.2 LVIW Diastolic Thickness (2D) 0.9 cm 0.6-0.9 LVID Systole (2D) 3.8 cm 2.2-3.5 LVOT Diameter 2.0 cm LV Mass (2D Cubed) 173.22 g 67.00-162.00 LV Mass Index (2D Cubed) 94 g/m2 43-95 Relative Wall Thickness (2D) 0.32 LV Fractional Shortening/Ejection Fraction 2D/MM LV Fractional Shortening (2D) 30 % 27-45 LV EF (2D Teicholz) 57 % 54-74 LV Diastolic Volume (4C MOD) 135 ml LV EF (4C MOD) 62 % LV Diastolic Volume (2C MOD) 145 ml LV EF (2C MOD) 53 % LV Diastolic Volume (BP MOD) 139 ml 46-106 LV Diastolic Volume Index (BP MOD) 75 ml/m2 29-61 LV Systolic Volume (BP MOD) 61 ml 14-42 LV Systolic Volume Index (BP MOD) 33 ml/m2 8-24 LV EF (BP MOD) 56 % 54-74 LV Diastolic Length (4C) 8.1 cm LV Systolic Length (4C) 7.0 cm LV Stroke Volume (4C MOD) 84 ml Atria Name Value Normal LA Dimensions LA Volume (4C A-L) 39 ml LA Volume (BP A-L) 49 ml RA Dimensions RA Area (4C) 17.1 cm2 <=18.0 Report Signatures
[2024-09-23 01:07] LABS: MRSA (PCR) NOT DETECTED (NOT DETECTE)
[2024-09-23] MEDS: HYDROcodone/acetaminophen (*CRX) 5-325 MG TABLET 1 TAB PO (02:58)
--- NOTE | 2024-09-23 08:23 | PC.NURSE ---
Patient in vfib on monitor, Dr. Toro at bedside. Defibrillator charged to 200jules, 1 shock given. rhythm back to complete heart block with rate of 44. Dr. Paloma Lim called and informed
[2024-09-23 08:41] LABS: Hematocrit 37.1 % (37.0-47.0); Hemoglobin 12.1 g/dL (12.0-15.0); Mean Corpuscular HGB Conc 32.6 g/dl (32-36); Mean Corpuscular Hemoglobin 32.4 pg (26-34); Mean Corpuscular Volume 99.2 fl (80-100); Mean Platelet Volume 9.6 fl (7.4-10.4); Platelet Count Result 273 k/mm3 (150-375); Red Blood Count 3.74 M/mm3 (4.2-5.4); Red Cell Distribution Width 12.8 % (11.5-14.5); White Blood Count 5.4 K/mm3 (4.5-10.0)
[2024-09-23] MEDS: ONDANSETRON INJ 4 MG/2 ML VIAL IV PUSH (08:45)
[2024-09-23] MEDS: hydrALAZINE HCL 20 MG/ML VIAL IV PUSH (08:58)
[2024-09-23 09:03] LABS: Alanine Aminotransferase 26 U/L (6-35); Albumin Level 3.6 g/dL (3.5-5.1); Alkaline Phosphatase 49 U/L (38-126); Anion Gap 9 mmol/L (4-12); Aspartate Amino Transferase 28 U/L (14-36); Bilirubin,Total 0.4 mg/dL (0.2-1.3); Blood Urea Nitrogen 29 mg/dL (7-17); Calcium 9.5 mg/dL (8.4-10.2); Carbon Dioxide 23 mmol/L (22-30); Chloride 105 mmol/L (98-107); Estimated CRCL calculation 34 ml/min; Estimated Glomerular Filt Rate 60; Glucose 140 mg/dL (65-110); Magnesium 1.9 mg/dL (1.6-2.3); Potassium 4.6 mmol/L (3.4-5.0); Sodium 137 mmol/L (137-145)
--- NOTE | 2024-09-23 09:33 | PM.PNCARD ---
Progress Note: A&P Assessment and Plan (1) Non-sustained ventricular tachycardia: Code(s): I47.29 - Other ventricular tachycardia Status: Acute (2) Bradycardia: Code(s): R00.1 - Bradycardia, unspecified Status: Acute Plan High grade AV block VF s/p defibrillation likely induced by bradyarrhythmia HTN controlled plan Temporary transvenous pacer until permanent pacer inserted TTE Amlodipine Losartan Subjective Date/time seen: 09/23/24 09:33 Interval history: interval malfunctioning of pacer and episode of VF with successful defibrillation Review of Systems Review of Systems: All systems reviewed & are unremarkable except as noted in HPI and below Exam Const: General: comfortable and no acute distress Other: Able to lie flat HENMT: Face/Nose/Sinus: Normal nares present and no epistaxis Mouth: Yes moist mucous membranes Eyes: Sclera: sclerae normal Pupils: Equal, round and reactive pupils present Neck: Neck: supple and no JVD Carotids: no bruits Resp: Auscultation: clear to auscultation bilaterally and lung sounds not diminished Other: No chest wall tenderness Cardio: Rate: regular rate Rhythm: regular rhythm Heart sounds: no gallops, no murmurs and no rubs GI: GI Palp: Yes Soft to palpation and No Tenderness to palpation present (GI) Auscultation: normal bowel sounds Skin: General skin exam: normal color, rashes and/or lesions noted and no erythema Other: Warm Neuro: Cranial nerves: Yes Equal, round and reactive pupils present Speech: normal speech Other: No obvious focal deficit or facial asymmetry Extrem: General: no edema Other: Normal capillary refills Intact distal pulses. Objective Data Vital Signs Vital Signs: Vital Signs - 24 hr 09/22/24 16:10 09/22/24 16:33 09/22/24 16:46 Temperature 36.4 C Pulse Rate 40 L 41 L 59 L Respiratory Rate 22 H Blood Pressure 180/84 H 182/51 H 195/45 H Pulse Oximetry 95 Oxygen Delivery Room Air Oxygen Flow Rate Fraction of Inspired Oxygen 09/22/24 16:48 09/22/24 17:16 09/22/24 18:17 Temperature Pulse Rate 59 L 53 L 41 L Respiratory Rate 20 Blood Pressure 116/100 H 139/63 132/69 Pulse Oximetry 94 Oxygen Delivery Oxygen Flow Rate Fraction of Inspired Oxygen 09/22/24 16:18 09/22/24 16:30 09/22/24 16:32 Temperature Pulse Rate 46 L 42 L 44 L Respiratory Rate 18 18 19 Blood Pressure 182/51 H Pulse Oximetry 97 92 Oxygen Delivery Oxygen Flow Rate Fraction of Inspired Oxygen 09/22/24 16:45 09/22/24 17:00 09/22/24 17:02 Temperature Pulse Rate 53 L 60 55 L Respiratory Rate 21 H 19 16 Blood Pressure 139/63 Pulse Oximetry Oxygen Delivery Oxygen Flow Rate Fraction of Inspired Oxygen 09/22/24 17:15 09/22/24 17:17 09/22/24 17:30 Temperature Pulse Rate 35 L 49 L 36 L Respiratory Rate 22 H 20 13 Blood Pressure 169/57 H Pulse Oximetry 94 94 96 Oxygen Delivery Oxygen Flow Rate Fraction of Inspired Oxygen 09/22/24 17:34 09/22/24 17:45 09/22/24 17:47 Temperature Pulse Rate 103 H 52 L 71 Respiratory Rate 20 29 H 19 Blood Pressure 169/59 H 184/55 H Pulse Oximetry 96 Oxygen Delivery Oxygen Flow Rate Fraction of Inspired Oxygen 09/22/24 18:00 09/22/24 18:11 09/22/24 18:15 Temperature Pulse Rate 35 L 34 L 84 Respiratory Rate 17 22 H 19 Blood Pressure 150/110 H 132/69 Pulse Oximetry 96 93 Oxygen Delivery Oxygen Flow Rate Fraction of Inspired Oxygen 09/22/24 18:31 09/22/24 23:20 09/22/24 20:15 Temperature Pulse Rate 72 60 Respiratory Rate 24 H 16 Blood Pressure 129/98 H 169/103 H Pulse Oximetry 98 95 94 Oxygen Delivery Nasal Cannula Oxygen Flow Rate 2 Fraction of Inspired Oxygen 28 09/22/24 20:30 09/22/24 20:45 09/22/24 21:00 Temperature 36.4 C Pulse Rate 60 60 60 Respiratory Rate 12 16 16 Blood Pressure 173/80 H 183/66 H 165/79 H Pulse Oximetry 94 96 95 Oxygen Delivery Oxygen Flow Rate Fraction of Inspired Oxygen 09/22/24 21:15 09/22/24 21:30 09/22/24 22:00 Temperature Pulse Rate 60 60 60 Respiratory Rate 19 16 17 Blood Pressure 182/76 H 168/62 H 180/86 H Pulse Oximetry 97 96 96 Oxygen Delivery Oxygen Flow Rate Fraction of Inspired Oxygen 09/22/24 23:00 09/22/24 22:00 09/23/24 00:00 Temperature 36.9 C Pulse Rate 60 60 60 Respiratory Rate 12 12 Blood Pressure 147/55 H 124/59 L Pulse Oximetry 95 97 Oxygen Delivery Oxygen Flow Rate Fraction of Inspired Oxygen 09/23/24 00:00 09/23/24 00:00 09/23/24 02:00 Temperature Pulse Rate 60 60 60 Respiratory Rate 12 12 Blood Pressure 129/67 Pulse Oximetry 97 96 Oxygen Delivery Nasal Cannula Oxygen Flow Rate 2 Fraction of Inspired Oxygen 09/23/24 02:00 09/23/24 03:00 09/23/24 04:00 Temperature Pulse Rate 60 60 60 Respiratory Rate 12 12 Blood Pressure 129/67 Pulse Oximetry 97 97 Oxygen Delivery Nasal Cannula Oxygen Flow Rate 2 Fraction of Inspired Oxygen 09/23/24 04:00 09/23/24 04:00 09/22/24 20:15 Temperature 36.9 C Pulse Rate 60 60 Respiratory Rate 12 Blood Pressure 138/67 Pulse Oximetry 97 98 Oxygen Delivery Nasal Cannula Oxygen Flow Rate 2 Fraction of Inspired Oxygen 09/23/24 05:06 09/23/24 05:00 09/23/24 06:00 Temperature 36.9 C Pulse Rate 60 60 60 Respiratory Rate 12 Blood Pressure 124/59 L Pulse Oximetry 97 Oxygen Delivery Oxygen Flow Rate Fraction of Inspired Oxygen 09/23/24 06:00 09/23/24 07:00 09/23/24 07:01 Temperature Pulse Rate 60 60 60 Respiratory Rate 12 12 11 L Blood Pressure 153/63 H 164/64 H Pulse Oximetry 97 97 98 Oxygen Delivery Oxygen Flow Rate Fraction of Inspired Oxygen 09/23/24 07:15 09/23/24 08:00 09/23/24 08:00 Temperature Pulse Rate 60 60 Respiratory Rate 13 14 Blood Pressure 144/66 H Pulse Oximetry 97 98 95 Oxygen Delivery Nasal Cannula Oxygen Flow Rate 2 Fraction of Inspired Oxygen 09/23/24 08:00 09/23/24 07:30 09/23/24 07:31 Temperature 36.6 C Pulse Rate 60 60 Respiratory Rate 15 16 Blood Pressure 156/59 H Pulse Oximetry 98 97 Oxygen Delivery Oxygen Flow Rate Fraction of Inspired Oxygen 09/23/24 07:45 09/23/24 08:00 09/23/24 08:01 Temperature Pulse Rate 60 60 60 Respiratory Rate 13 11 L 12 Blood Pressure 144/66 H Pulse Oximetry 97 98 97 Oxygen Delivery Oxygen Flow Rate Fraction of Inspired Oxygen 09/23/24 08:07 09/23/24 08:15 09/23/24 08:30 Temperature Pulse Rate 38 L 39 L 41 L Respiratory Rate 17 17 15 Blood Pressure 169/59 H Pulse Oximetry 96 98 93 Oxygen Delivery Oxygen Flow Rate Fraction of Inspired Oxygen 09/23/24 08:45 09/23/24 08:46 09/23/24 08:52 Temperature Pulse Rate 43 L 41 L 39 L Respiratory Rate 13 16 12 Blood Pressure 207/59 H 190/61 H Pulse Oximetry 94 91 92 Oxygen Delivery Oxygen Flow Rate Fraction of Inspired Oxygen 09/23/24 08:57 09/23/24 09:00 09/23/24 09:02 Temperature Pulse Rate 39 L 38 L 39 L Respiratory Rate 13 13 9 L Blood Pressure 184/61 H 172/66 H Pulse Oximetry 95 97 96 Oxygen Delivery Oxygen Flow Rate Fraction of Inspired Oxygen Intake/Output Intake/Output: Intake & Output 09/20/24 09/21/24 09/22/24 09/23/24 23:59 23:59 23:59 23:59 Intake Total 149.4 250 Output Total 600 Balance 149.4 -350 Meds/Results Medications: Active Medications Generic Name Dose Route Start Last Admin Trade Name Freq PRN Reason Stop Dose Admin Hydrocodone Bitart/Acetaminophen 1 tab 09/22/24 23:46 09/23/24 02:58 Hydrocodone/Acetaminophen (*Crx) 5-325 Mg Tablet PO 1 tab DAILY PRN Administration Pain 4-6 Amlodipine Besylate 2.5 mg 09/23/24 09:00 Amlodipine Besylate 2.5 Mg Tablet PO QAM [facility] Fluticasone Propionate 1 spray 09/23/24 09:00 Fluticasone Propionate 0.05% Na Spr 16 Gm Btl (*Bkc) NASAL DAILY KENZIE Hydralazine HCl 20 mg 09/22/24 21:50 09/23/24 08:58 Hydralazine Hcl 20 Mg/Ml Vial IV PUSH 20 mg Q4H PRN Administration SBP>160 Miscellaneous Information 0 each 09/23/24 00:01 Fenofibrate 45mg Nonform Can Pt Bring From Home? XX 10/23/24 00:00 CLARIFY KENZIE Non-Formulary Medication 54 mg 09/23/24 21:00 Fenofibrate PO 10/23/24 20:59 HS KENZIE Ondansetron HCl 4 mg 09/23/24 08:25 09/23/24 08:45 Ondansetron Inj 4 Mg/2 Ml Vial IV PUSH 4 mg Q4H PRN Administration Nausea And Vomiting Pentoxifylline 400 mg 09/23/24 09:00 Pentoxifylline 400 Mg Tabcr BY MOUTH Q12HR [facility] Perflutren Lipid Microsphere 0 ml 09/22/24 23:58 Perflutren Lipid Microspheres 1.5 Ml Vial Diluted To 10 Ml Total Volume IV PUSH 09/25/24 23:58 ONCE PRN adequate visualization Protocol Radiology Results: ITS Impressions Chest X-Ray 09/23/24 08:41 IMPRESSION: 1. Mild pulmonary edema. 2. Cardiomegaly. Labs Labs: Laboratory Results - last 24 hr 09/22/24 09/22/24 09/22/24 17:13 17:14 17:14 WBC 5.0 RBC 3.50 L Hgb 11.4 L Hct 35.6 L MCV 101.7 H MCH 32.6 MCHC 32.0 RDW 12.8 Plt Count 283 MPV 10.5 H Immature Gran % (Auto) 0.4 Neut % (Auto) 71.4 Lymph % (Auto) 16.3 L Garland % (Auto) 8.9 H Eos % (Auto) 2.8 Baso % (Auto) 0.2 Lymph # (Auto) 0.81 L Garland # (Auto) 0.4 Eos # (Auto) 0.1 Baso # (Auto) 0.0 Abs Immat Gran (auto) 0.02 Absolute Neuts (auto) 3.6 Absolute Nucleated RBC 0.000 Nucleated RBC % 0.0 PT 14.1 INR 1.0 APTT 30.6 Sodium 138 Potassium 5.1 H Chloride 105 Carbon Dioxide 26 Anion Gap 7 BUN 36 H Creatinine 1.20 H Estim Creat Clear Calc 31 Estimated GFR 43 L Glucose 123 H Calcium 10.0 Magnesium 1.9 Cancelled Total Bilirubin 0.5 AST 37 H ALT 28 Alkaline Phosphatase 58 Troponin I < 0.012 NT-Pro-B Natriuret Pep Total Protein Albumin Lipase Nasal MRSA (PCR) 09/22/24 09/22/24 09/22/24 17:14 17:14 17:14 WBC RBC Hgb Hct MCV MCH MCHC RDW Plt Count MPV Immature Gran % (Auto) Neut % (Auto) Lymph % (Auto) Garland % (Auto) Eos % (Auto) Baso % (Auto) Lymph # (Auto) Garland # (Auto) Eos # (Auto) Baso # (Auto) Abs Immat Gran (auto) Absolute Neuts (auto) Absolute Nucleated RBC Nucleated RBC % PT INR APTT Sodium Potassium Chloride Carbon Dioxide Anion Gap BUN Creatinine Estim Creat Clear Calc Estimated GFR Glucose Calcium Magnesium Total Bilirubin AST ALT Alkaline Phosphatase Troponin I Cancelled NT-Pro-B Natriuret Pep 3950 H Cancelled Total Protein 7.0 Albumin 3.9 Lipase 62 Cancelled Nasal MRSA (PCR) 09/22/24 09/23/24 23:21 08:35 WBC 5.4 RBC 3.74 L Hgb 12.1 Hct 37.1 MCV 99.2 MCH 32.4 MCHC 32.6 RDW 12.8 Plt Count 273 MPV 9.6 Immature Gran % (Auto) Neut % (Auto) Lymph % (Auto) Garland % (Auto) Eos % (Auto) Baso % (Auto) Lymph # (Auto) Gar[place] # (Auto) Eos # (Auto) Baso # (Auto) Abs Immat Gran (auto) Absolute Neuts (auto) Absolute Nucleated RBC Nucleated RBC % PT INR APTT Sodium 137 Potassium 4.6 Chloride 105 Carbon Dioxide 23 Anion Gap 9 BUN 29 H Creatinine 0.90 Estim Creat Clear Calc 34 Estimated GFR 60 Glucose 140 H Calcium 9.5 Magnesium 1.9 Total Bilirubin 0.4 AST 28 ALT 26 Alkaline Phosphatase 49 Troponin I NT-Pro-B Natriuret Pep Total Protein 7.0 Albumin 3.6 Lipase Nasal MRSA (PCR) Not detected
--- NOTE | 2024-09-23 10:00 | WPDCNINT ---
Assessment and Plan Assessment and plan (1) Bradycardia: Code(s): R00.1 - Bradycardia, unspecified Status: Acute Assessment and Plan: Patient presented with complete heart block and proximal episodes of V-tach overnight. Transvenous pacemaker was placed by Cardiology. This morning transvenous pacemaker failed to capture. Despite adjustment in ICU it was not working. Patient had episode of V-tach which was symptomatic and required emergent defibrillation with 200 joules Patient was taken back to cardiac catheterization lab and pacemaker was readjusted Patient will need permanent pacemaker Electrolytes were checked and were in acceptable range Discussed with Cardiology will transfer patient to [facility] for ICU telemetry monitoring, management of possible recurrence of ventricular tachycardia and permanent pacemaker placement I spoke to transfer center and later to ICU physician Dr. King and discussed case with him. He will accept the patient patient will be transferred once bed is available. Rail Car Welder will speak to quantitative software engineer at [facility] and provide information. (2) Ventricular tachycardia: Code(s): I47.20 - Ventricular tachycardia, unspecified Status: Acute Assessment and Plan: See above (3) Essential (primary) hypertension: Code(s): I10 - Essential (primary) hypertension Status: Acute Assessment and Plan: For hypertension patient is currently on amlodipine and p.r.n. hydralazine (4) Nausea & vomiting: Code(s): R11.2 - Nausea with vomiting, unspecified Status: Acute Assessment and Plan: Patient developed nausea vomiting upper cardioversion and Zofran was ordered (5) Elevated serum creatinine: Code(s): R79.89 - Other specified abnormal findings of blood chemistry Status: Acute Assessment and Plan: Patient presented with elevated serum creatinine 1.2 likely secondary to hypoperfusion from poor cardiac output which has improved now and creatinine is normal. Monitor electrolytes creatinine and urine output Plan DVT prophylaxis -Lovenox Nutrition -npo Code Status - Full Code Total Critical Care Time - 90 minutes Due to a high probability of clinically significant, life threatening deterioration, the patient required my highest level of preparedness to intervene emergently and I personally spent this critical care time directly and personally managing the patient. This critical care time included obtaining a history; examining the patient; pulse oximetry; ordering and review of studies; arranging urgent treatment with development of a management plan; evaluation of patient's response to treatment; frequent reassessment; and discussions with other providers. It was exclusive of separately billable procedures and treating other patients and teaching time. Please see Assessment and Plan section and the rest of the note for further information on patient assessment and treatment Record Label Internship Consult Note Consult date: 09/23/24 Reason for consult: Complete heart block. Ventricular tachycardia HPI: Kassidy Ochoa is a 83 year old female with past medical history of breast cancer, hypertension, dyslipidemia presented to ER yesterday with chief complaint of palpitations. Patient was having jittery feeling with episodes of palpitation as skipped beats. She denies any chest pain shortness a breath. She was found to be having bradycardia with complete heart block and runs of nonsustained polymorphic VT in the ER. She was started on amiodarone which led to further bradycardia and patient was taken to cardiac catheterization lab and a transvenous pacemaker was placed to IJ and patient was admitted to I see you for further evaluation management. Overnight patient had poor capture and voltage output was increased. This morning when I went to see the patient the nurse told me that pacemaker was not capturing any moved and patient had heart rate in the high 30s and low 40s. She states she felt fine denied any complaints blood pressure was adequate. She denies any chest pain or shortness of breath that time. I tried to withdraw then advance the pacemaker to see if it would capture but it was not. Chest x-ray was done which showed the pacemaker wire had loop decided ventricle. Electrolytes were obtained which were in acceptable range. While we were talking patient was having short runs of V-tach which were initially asymptomatic. Then patient and performed of V-tach with heart rate 170-180 and she appeared to be having jerky movements. Patient was quickly defibrillated with 200 joules back into complete heart block rhythm. I spoke to Dr. Irving who requested that I activated cardiac catheterization lab for patient to go back to cardiac catheterization lab for readjustment of her pacemaker. Review of Systems Review of Systems: All systems reviewed & are unremarkable except as noted in HPI and below (HPI) [facility] Past Medical History Medical History Age-related osteoporosis without current pathological fracture Arthritis Breast cancer Generalized osteoarthritis of multiple sites (~11/2020) Hearing loss High cholesterol History of blood clots Hypertension Osteoporosis Seasonal allergies Vision abnormalities Surgical History Surgical History History of bladder surgery History of hysterectomy History of right knee joint replacement Family History Family History Sibling Family history of malignant neoplasm of breast Patient's brother is in good health Patient's sister is in good health Family history of malignant neoplasm of breast in first degree relative Prostate carcinoma Grandparent Family history of malignant neoplasm of breast History of blood clots Mother Family history of malignant neoplasm of breast Family history of arthritis Family history of malignant neoplasm of breast in first degree relative Father History of blood clots Social History Social History Social History: Smoking status: Never smoker Second hand tobacco smoke exposure: No Alcohol intake: never Substance use: never Substance use type: does not use Do You Feel Safe in your Home?: Yes Lack of Transportation: No Lack of Food: Never True Current Housing: I Have Housing Concerned About Future Housing: No Difficulty Paying Gas/Electric Bills: No Difficulty Paying for Meds: No Currently Unemployed: No Education: High School Diploma/GED Difficulty w/ Childcare or Family Care: No Living arrangements: alone Occupation/Education: retired Gender identity (if verbalized by the patient): Female Sexual Orientation (if Verbalized by the Patient): Straight or Heterosexual Spiritual care concerns: No Meds Home Medications and Allergies Home Medications Medication Instructions Recorded Confirmed Type lancets (Accu-Chek Fastclix Lancet #100 ea 11/23/19 09/22/24 Rx Drum) lancing device with lancets kit #1 ea 11/23/19 09/22/24 Rx (Accu-Chek FastClix Lancing Device kit) duloxetine 30 mg capsule,delayed 30 mg PO BID #30 caps 04/24/21 09/22/24 Rx release (Cymbalta) fluticasone propionate 50 1 spray intranasal DAILY 01/17/22 09/22/24 History mcg/actuation nasal spray,suspension loratadine 10 mg tablet (Claritin) 10 mg PO DAILY 01/17/22 09/22/24 History alpha lipoic acid 200 mg tablet 200 mg PO BID 01/25/23 09/22/24 History tamoxifen 20 mg tablet 20 mg PO DAILY 01/25/23 09/22/24 History losartan 100 mg tablet See Rx Instructions .Route 03/01/24 09/22/24 Rx .COMPLEX #90 tabs amlodipine 2.5 mg tablet See Rx Instructions .Route 03/24/24 09/22/24 Rx .COMPLEX #90 tabs pentoxifylline 400 mg See Rx Instructions .Route 04/03/24 09/22/24 Rx tablet,extended release .COMPLEX #180 tabs metformin 500 mg tablet 500 mg PO BID #180 tabs 06/09/24 09/22/24 Rx clorazepate dipotassium 3.75 mg 3.75 mg PO BID PRN anxiety #60 tabs 09/21/24 09/22/24 Rx tablet hydrocodone 5 mg-acetaminophen 325 1 tablet PO DAILY PRN PAIN #30 tabs 09/21/24 09/22/24 Rx mg tablet diclofenac sodium 50 mg 50 mg PO BID 09/22/24 09/22/24 History tablet,delayed release fenofibrate 54 mg tablet 54 mg PO HS 09/22/24 09/22/24 History oxybutynin chloride 5 mg tablet 5 mg PO HS 09/22/24 09/22/24 History Allergies Allergy/AdvReac Type Severity Reaction Status Date / Time celecoxib Allergy Mild INCREASED Verified 09/22/24 16:19 HR methylprednisolone Allergy Unknown L face Verified 09/22/24 16:19 pain/swelling montelukast Allergy Unknown Rash Verified 09/22/24 16:19 Vital Signs Vital Signs - 24 hr 09/22/24 16:10 09/22/24 16:33 09/22/24 16:46 Temperature 36.4 C Pulse Rate 40 L 41 L 59 L Respiratory Rate 22 H Blood Pressure 180/84 H 182/51 H 195/45 H Pulse Oximetry 95 Oxygen Delivery Room Air Oxygen Flow Rate Fraction of Inspired Oxygen 09/22/24 16:48 09/22/24 17:16 09/22/24 18:17 Temperature Pulse Rate 59 L 53 L 41 L Respiratory Rate 20 Blood Pressure 116/100 H 139/63 132/69 Pulse Oximetry 94 Oxygen Delivery Oxygen Flow Rate Fraction of Inspired Oxygen 09/22/24 16:18 09/22/24 16:30 09/22/24 16:32 Temperature Pulse Rate 46 L 42 L 44 L Respiratory Rate 18 18 19 Blood Pressure 182/51 H Pulse Oximetry 97 92 Oxygen Delivery Oxygen Flow Rate Fraction of Inspired Oxygen 09/22/24 16:45 09/22/24 17:00 09/22/24 17:02 Temperature Pulse Rate 53 L 60 55 L Respiratory Rate 21 H 19 16 Blood Pressure 139/63 Pulse Oximetry Oxygen Delivery Oxygen Flow Rate Fraction of Inspired Oxygen 09/22/24 17:15 09/22/24 17:17 09/22/24 17:30 Temperature Pulse Rate 35 L 49 L 36 L Respiratory Rate 22 H 20 13 Blood Pressure 169/57 H Pulse Oximetry 94 94 96 Oxygen Delivery Oxygen Flow Rate Fraction of Inspired Oxygen 09/22/24 17:34 09/22/24 17:45 09/22/24 17:47 Temperature Pulse Rate 103 H 52 L 71 Respiratory Rate 20 29 H 19 Blood Pressure 169/59 H 184/55 H Pulse Oximetry 96 Oxygen Delivery Oxygen Flow Rate Fraction of Inspired Oxygen 09/22/24 18:00 09/22/24 18:11 09/22/24 18:15 Temperature Pulse Rate 35 L 34 L 84 Respiratory Rate 17 22 H 19 Blood Pressure 150/110 H 132/69 Pulse Oximetry 96 93 Oxygen Delivery Oxygen Flow Rate Fraction of Inspired Oxygen 09/22/24 18:31 09/22/24 23:20 09/22/24 20:15 Temperature Pulse Rate 72 60 Respiratory Rate 24 H 16 Blood Pressure 129/98 H 169/103 H Pulse Oximetry 98 95 94 Oxygen Delivery Nasal Cannula Oxygen Flow Rate 2 Fraction of Inspired Oxygen 28 09/22/24 20:30 09/22/24 20:45 09/22/24 21:00 Temperature 36.4 C Pulse Rate 60 60 60 Respiratory Rate 12 16 16 Blood Pressure 173/80 H 183/66 H 165/79 H Pulse Oximetry 94 96 95 Oxygen Delivery Oxygen Flow Rate Fraction of Inspired Oxygen 09/22/24 21:15 09/22/24 21:30 09/22/24 22:00 Temperature Pulse Rate 60 60 60 Respiratory Rate 19 16 17 Blood Pressure 182/76 H 168/62 H 180/86 H Pulse Oximetry 97 96 96 Oxygen Delivery Oxygen Flow Rate Fraction of Inspired Oxygen 09/22/24 23:00 09/22/24 22:00 09/23/24 00:00 Temperature 36.9 C Pulse Rate 60 60 60 Respiratory Rate 12 12 Blood Pressure 147/55 H 124/59 L Pulse Oximetry 95 97 Oxygen Delivery Oxygen Flow Rate Fraction of Inspired Oxygen 09/23/24 00:00 09/23/24 00:00 09/23/24 02:00 Temperature Pulse Rate 60 60 60 Respiratory Rate 12 12 Blood Pressure 129/67 Pulse Oximetry 97 96 Oxygen Delivery Nasal Cannula Oxygen Flow Rate 2 Fraction of Inspired Oxygen 09/23/24 02:00 09/23/24 03:00 09/23/24 04:00 Temperature Pulse Rate 60 60 60 Respiratory Rate 12 12 Blood Pressure 129/67 Pulse Oximetry 97 97 Oxygen Delivery Nasal Cannula Oxygen Flow Rate 2 Fraction of Inspired Oxygen 09/23/24 04:00 09/23/24 04:00 09/22/24 20:15 Temperature 36.9 C Pulse Rate 60 60 Respiratory Rate 12 Blood Pressure 138/67 Pulse Oximetry 97 98 Oxygen Delivery Nasal Cannula Oxygen Flow Rate 2 Fraction of Inspired Oxygen 09/23/24 05:06 09/23/24 05:00 09/23/24 06:00 Temperature 36.9 C Pulse Rate 60 60 60 Respiratory Rate 12 Blood Pressure 124/59 L Pulse Oximetry 97 Oxygen Delivery Oxygen Flow Rate Fraction of Inspired Oxygen 09/23/24 06:00 09/23/24 07:00 09/23/24 07:01 Temperature Pulse Rate 60 60 60 Respiratory Rate 12 12 11 L Blood Pressure 153/63 H 164/64 H Pulse Oximetry 97 97 98 Oxygen Delivery Oxygen Flow Rate Fraction of Inspired Oxygen 09/23/24 07:15 09/23/24 08:00 09/23/24 08:00 Temperature Pulse Rate 60 60 Respiratory Rate 13 14 Blood Pressure 144/66 H Pulse Oximetry 97 98 95 Oxygen Delivery Nasal Cannula Oxygen Flow Rate 2 Fraction of Inspired Oxygen 09/23/24 08:00 09/23/24 07:30 09/23/24 07:31 Temperature 36.6 C Pulse Rate 60 60 Respiratory Rate 15 16 Blood Pressure 156/59 H Pulse Oximetry 98 97 Oxygen Delivery Oxygen Flow Rate Fraction of Inspired Oxygen 09/23/24 07:45 09/23/24 08:00 09/23/24 08:01 Temperature Pulse Rate 60 60 60 Respiratory Rate 13 11 L 12 Blood Pressure 144/66 H Pulse Oximetry 97 98 97 Oxygen Delivery Oxygen Flow Rate Fraction of Inspired Oxygen 09/23/24 08:07 09/23/24 08:15 09/23/24 08:30 Temperature Pulse Rate 38 L 39 L 41 L Respiratory Rate 17 17 15 Blood Pressure 169/59 H Pulse Oximetry 96 98 93 Oxygen Delivery Oxygen Flow Rate Fraction of Inspired Oxygen 09/23/24 08:45 09/23/24 08:46 09/23/24 08:52 Temperature Pulse Rate 43 L 41 L 39 L Respiratory Rate 13 16 12 Blood Pressure 207/59 H 190/61 H Pulse Oximetry 94 91 92 Oxygen Delivery Oxygen Flow Rate Fraction of Inspired Oxygen 09/23/24 08:57 09/23/24 09:00 09/23/24 09:02 Temperature Pulse Rate 39 L 38 L 39 L Respiratory Rate 13 13 9 L Blood Pressure 184/61 H 172/66 H Pulse Oximetry 95 97 96 Oxygen Delivery Oxygen Flow Rate Fraction of Inspired Oxygen Exam Narrative: General: Pt is alert awake and in NAD Lungs/Chest: Trachea central Clear BS B/L, No crackles or wheezing. Cardiac: Irregular rate and rhythm. Normal S1 S2. No murmurs Circulation: Pedal pulses are intact and symmetrical. Abdomen: Normal bowel sounds.. Soft. NT. ND. Extremities: No clubbing, cyanosis. Bilateral edema present. Feet are warm : Nieves in place Neurologic: Follows commands. Moves all 4 extremities PERRL AO x3 Skin: No Rash Results Labs 09/23/24 08:35 09/23/24 08:35 Labs: Short CBC 09/22/24 09/23/24 Range/Units 17:13 08:35 WBC 5.0 5.4 (4.5-10.0) K/mm3 Hgb 11.4 L 12.1 (12.0-15.0) g/dL Hct 35.6 L 37.1 (37.0-47.0) % Plt Count 283 273 (150-375) k/mm3 BMP 09/22/24 09/23/24 17:14 08:35 Sodium 138 137 Potassium 5.1 H 4.6 Chloride 105 105 Carbon Dioxide 26 23 BUN 36 H 29 H Creatinine 1.20 H 0.90 Glucose 123 H 140 H Calcium 10.0 9.5 Cardiac Enzymes 09/22/24 09/22/24 Range/Units 17:14 17:14 Troponin I < 0.012 Cancelled (0.000-0.034) ng/mL Liver Function 09/22/24 09/23/24 Range/Units 17:14 08:35 Total Bilirubin 0.5 0.4 (0.2-1.3) mg/dL AST 37 H 28 (14-36) U/L ALT 28 26 (6-35) U/L Alkaline Phosphatase 58 49 (38-126) U/L Albumin 3.9 3.6 (3.5-5.1) g/dL Hospitalist MIPS Advance Care Plan I have confirmed that the patient's Advanced Care Plan is present, code status is documented, or surrogate decision maker is listed in patient medical record.: Yes Medication Reconciliation I have utilized all available resources to obtain, update and review the patients current medications (includes all prescriptions, OTC, herbals, cannabis, and nutritional supplements).: Yes
--- NOTE | 2024-09-23 10:35 | P.PNIM_ITS ---
Progress Note: A&P Assessment and Plan (1) Bradycardia: Code(s): R00.1 - Bradycardia, unspecified Status: Acute Assessment and Plan: Patient presented with complete heart block and proximal episodes of V-tach o vernight. Transvenous pacemaker was placed by Cardiology. This morning transvenous pacemaker failed to capture. Despite adjustment in ICU it was not working. Patient had episode of V-tach which was symptomatic and required emergent defibrillation with 200 joules Patient was taken back to cardiac catheterization lab and pacemaker was readjusted Patient will need permanent pacemaker Electrolytes were checked and were in acceptable range Discussed with Cardiology will transfer patient to [facility] for ICU telemetry monitoring, management of possible recurrence of ventricular tachycar paula and permanent pacemaker placement I spoke to transfer center and later to ICU physician Dr. King and discussed case with him. He will accept the patient patient will be transferred once bed is available. Non Cdl Driver will speak to associate spa director at [facility] and provide information. (2) Ventricular tachycardia: Code(s): I47.20 - Ventricular tachycardia, unspecified Status: Acute Assessment and Plan: See above (3) Essential (primary) hypertension: Code(s): I10 - Essential (primary) hypertension Status: Acute Assessment and Plan: For hypertension patient is currently on amlodipine and p.r.n. hydralazine (4) Nausea & vomiting: Code(s): R11.2 - Nausea with vomiting, unspecified Status: Acute Assessment and Plan: Patient developed nausea vomiting upper cardioversion and Zofran was ordered (5) Elevated serum creatinine: Code(s): R79.89 - Other specified abnormal findings of blood chemistry Status: Acute Assessment and Plan: Patient presented with elevated serum creatinine 1.2 likely secondary to hypoperfusion from poor cardiac output which has improved now and creatinine is normal. Monitor electrolytes creatinine and urine output Subjective Date/time seen: 09/23/24 10:35 Interval history: Kassidy Ochoa is a 83 year old female with past medical history significant for hypertension, dyslipidemia, breast CA, arthritis. patient was brought to the emergency room due to fluttery feeling in the chest. Patient has been in her usual state of health had bilateral lower extremity swelling, no PND no orthopnea no chest pain no dizziness no lightheadedness no palpitations upon arrival to emergency room patient was found to have high degree AV block patient is now status post temporary pacemaker placed 09/23 : Patient was admitted in ICU. Patient presented with complete heart block and proximal episodes of V-tach overnight. Transvenous pacemaker was placed by Cardiology. This morning transvenous pacemaker failed to capture. Despite adjustment in ICU it was not working. Patient had episode of V-tach which was symptomatic and required emergent defibrillation with 200 joules Patient was taken back to cardiac catheterization lab and pacemaker was readjusted.Patient will need permanent pacemaker Electrolytes were checked and were in acceptable range.Discussed with Cardiology will transfer patient to [facility] for ICU telemetry monitoring, management of possible recurrence of ventricular tachycardia and permanent pac emaker placement Topline Beading Machine Tender spoke to transfer center and later to ICU physician Dr. King and discussed case with him. He will accept the patient patient will be transferred once bed is available. Non Cdl Driver will speak to associate spa director at [facility] and provide information. Patient was accepted and transferred Review of Systems Review of Systems: chest discomfort, fluttery feeling All systems reviewed & are unremarkable except as noted in HPI and below (HPI) Exam Narrative: General: Pt is alert awake and in NAD Lungs/Chest: Trachea central Clear BS B/L, No crackles or wheezing. Cardiac: Irregular rate and rhythm. Normal S1 S2. No murmurs Circulation: Pedal pulses are intact and symmetrical. Abdomen: Normal bowel sounds.. Soft. NT. ND. Extremities: No clubbing, cyanosis. Bilateral edema present. Feet are warm : Nieves in place Neurologic: Follows commands. Moves all 4 extremities PERRL AO x3 Skin: No Rash Const: General: comfortable, no acute distress, well developed, alert, awake and average body habitus Nutritional Appearance: average body habitus Orientation/consciousness: patient oriented x3 Other: well-appearing HENMT: Head: normal to inspection, normocephalic and atraumatic Ears: hearing grossly normal bilaterally Face/Nose/Sinus: normal facial exam Face and sinus: normal facial exam Other: right IJ intravenous pacemaker Eyes: General: appearance normal, both eyes and all related structures Pupils: Equal, round and reactive pupils present EOM: EOMs intact bilaterally Neck: Neck: full ROM, no lymphadenopathy and no JVD Thyroid: thyroid normal Lymphatic: no lymphadenopathy noted Resp: Effort & Inspection: normal respiratory effort and able to speak in complete sentences Auscultation: clear to auscultation bilaterally Cardio: Jugular venous distension: no JVD Rate: regular rate Rhythm: regular rhythm Heart sounds: S1 normal heart sound present and S2 normal heart sound present : General: Yes deferred Skin: Rashes: no rashes Wounds: no wounds Neuro: General: patient oriented x3 and CN's II-XI intact bilaterally Cranial nerves: Yes CN's II-XII intact bilaterally and Yes Equal, round and reactive pupils present Cognition (Neuro): normal cognition Speech: normal speech Gait exam (Neuro): Normal gait present Motor exam (neuro): 5/5 motor strength present throughout Extrem: General: normal to inspection, full ROM, no joint enlargement and no pedal edema Objective Data Vital Signs Vital Signs: Vital Signs - 24 hr 09/22/24 16:10 09/22/24 16:33 09/22/24 16:46 Temperature 97.6 F Pulse Rate 40 L 41 L 59 L Respiratory Rate 22 H Blood Pressure 180/84 H 182/51 H 195/45 H Pulse Oximetry 95 Oxygen Delivery Room Air Oxygen Flow Rate Fraction of Inspired Oxygen 09/22/24 16:48 09/22/24 17:16 09/22/24 18:17 Temperature Pulse Rate 59 L 53 L 41 L Respiratory Rate 20 Blood Pressure 116/100 H 139/63 132/69 Pulse Oximetry 94 Oxygen Delivery Oxygen Flow Rate Fraction of Inspired Oxygen 09/22/24 16:18 09/22/24 16:30 09/22/24 16:32 Temperature Pulse Rate 46 L 42 L 44 L Respiratory Rate 18 18 19 Blood Pressure 182/51 H Pulse Oximetry 97 92 Oxygen Delivery Oxygen Flow Rate Fraction of Inspired Oxygen 09/22/24 16:45 09/22/24 17:00 09/22/24 17:02 Temperature Pulse Rate 53 L 60 55 L Respiratory Rate 21 H 19 16 Blood Pressure 139/63 Pulse Oximetry Oxygen Delivery Oxygen Flow Rate Fraction of Inspired Oxygen 09/22/24 17:15 09/22/24 17:17 09/22/24 17:30 Temperature Pulse Rate 35 L 49 L 36 L Respiratory Rate 22 H 20 13 Blood Pressure 169/57 H Pulse Oximetry 94 94 96 Oxygen Delivery Oxygen Flow Rate Fraction of Inspired Oxygen 09/22/24 17:34 09/22/24 17:45 09/22/24 17:47 Temperature Pulse Rate 103 H 52 L 71 Respiratory Rate 20 29 H 19 Blood Pressure 169/59 H 184/55 H Pulse Oximetry 96 Oxygen Delivery Oxygen Flow Rate Fraction of Inspired Oxygen 09/22/24 18:00 09/22/24 18:11 09/22/24 18:15 Temperature Pulse Rate 35 L 34 L 84 Respiratory Rate 17 22 H 19 Blood Pressure 150/110 H 132/69 Pulse Oximetry 96 93 Oxygen Delivery Oxygen Flow Rate Fraction of Inspired Oxygen 09/22/24 18:31 09/22/24 23:20 09/22/24 20:15 Temperature Pulse Rate 72 60 Respiratory Rate 24 H 16 Blood Pressure 129/98 H 169/103 H Pulse Oximetry 98 95 94 Oxygen Delivery Nasal Cannula Oxygen Flow Rate 2 Fraction of Inspired Oxygen 28 09/22/24 20:30 09/22/24 20:45 09/22/24 21:00 Temperature 97.6 F Pulse Rate 60 60 60 Respiratory Rate 12 16 16 Blood Pressure 173/80 H 183/66 H 165/79 H Pulse Oximetry 94 96 95 Oxygen Delivery Oxygen Flow Rate Fraction of Inspired Oxygen 09/22/24 21:15 09/22/24 21:30 09/22/24 22:00 Temperature Pulse Rate 60 60 60 Respiratory Rate 19 16 17 Blood Pressure 182/76 H 168/62 H 180/86 H Pulse Oximetry 97 96 96 Oxygen Delivery Oxygen Flow Rate Fraction of Inspired Oxygen 09/22/24 23:00 09/22/24 22:00 09/23/24 00:00 Temperature 98.4 F Pulse Rate 60 60 60 Respiratory Rate 12 12 Blood Pressure 147/55 H 124/59 L Pulse Oximetry 95 97 Oxygen Delivery Oxygen Flow Rate Fraction of Inspired Oxygen 09/23/24 00:00 09/23/24 00:00 09/23/24 02:00 Temperature Pulse Rate 60 60 60 Respiratory Rate 12 12 Blood Pressure 129/67 Pulse Oximetry 97 96 Oxygen Delivery Nasal Cannula Oxygen Flow Rate 2 Fraction of Inspired Oxygen 09/23/24 02:00 09/23/24 03:00 09/23/24 04:00 Temperature Pulse Rate 60 60 60 Respiratory Rate 12 12 Blood Pressure 129/67 Pulse Oximetry 97 97 Oxygen Delivery Nasal Cannula Oxygen Flow Rate 2 Fraction of Inspired Oxygen 09/23/24 04:00 09/23/24 04:00 09/22/24 20:15 Temperature 98.4 F Pulse Rate 60 60 Respiratory Rate 12 Blood Pressure 138/67 Pulse Oximetry 97 98 Oxygen Delivery Nasal Cannula Oxygen Flow Rate 2 Fraction of Inspired Oxygen 09/23/24 05:06 09/23/24 05:00 09/23/24 06:00 Temperature 98.4 F Pulse Rate 60 60 60 Respiratory Rate 12 Blood Pressure 124/59 L Pulse Oximetry 97 Oxygen Delivery Oxygen Flow Rate Fraction of Inspired Oxygen 09/23/24 06:00 09/23/24 07:00 09/23/24 07:01 Temperature Pulse Rate 60 60 60 Respiratory Rate 12 12 11 L Blood Pressure 153/63 H 164/64 H Pulse Oximetry 97 97 98 Oxygen Delivery Oxygen Flow Rate Fraction of Inspired Oxygen 09/23/24 07:15 09/23/24 08:00 09/23/24 08:00 Temperature Pulse Rate 60 60 Respiratory Rate 13 14 Blood Pressure 144/66 H Pulse Oximetry 97 98 95 Oxygen Delivery Nasal Cannula Oxygen Flow Rate 2 Fraction of Inspired Oxygen 09/23/24 08:00 09/23/24 07:30 09/23/24 07:31 Temperature 97.8 F Pulse Rate 60 60 Respiratory Rate 15 16 Blood Pressure 156/59 H Pulse Oximetry 98 97 Oxygen Delivery Oxygen Flow Rate Fraction of Inspired Oxygen 09/23/24 07:45 09/23/24 08:00 09/23/24 08:01 Temperature Pulse Rate 60 60 60 Respiratory Rate 13 11 L 12 Blood Pressure 144/66 H Pulse Oximetry 97 98 97 Oxygen Delivery Oxygen Flow Rate Fraction of Inspired Oxygen 09/23/24 08:07 09/23/24 08:15 09/23/24 08:30 Temperature Pulse Rate 38 L 39 L 41 L Respiratory Rate 17 17 15 Blood Pressure 169/59 H Pulse Oximetry 96 98 93 Oxygen Delivery Oxygen Flow Rate Fraction of Inspired Oxygen 09/23/24 08:45 09/23/24 08:46 09/23/24 08:52 Temperature Pulse Rate 43 L 41 L 39 L Respiratory Rate 13 16 12 Blood Pressure 207/59 H 190/61 H Pulse Oximetry 94 91 92 Oxygen Delivery Oxygen Flow Rate Fraction of Inspired Oxygen 09/23/24 08:57 09/23/24 09:00 09/23/24 09:02 Temperature Pulse Rate 39 L 38 L 39 L Respiratory Rate 13 13 9 L Blood Pressure 184/61 H 172/66 H Pulse Oximetry 95 97 96 Oxygen Delivery Oxygen Flow Rate Fraction of Inspired Oxygen Intake/Output Intake/Output: Intake & Output 09/20/24 09/21/24 09/22/24 09/23/24 23:59 23:59 23:59 23:59 Intake Total 149.4 250 Output Total 600 Balance 149.4 -350 Meds/Results Medications: Active Medications Generic Name Dose Route Start Last Admin Trade Name Freq PRN Reason Stop Dose Admin Hydrocodone Bitart/Acetaminophen 1 tab 09/22/24 23:46 09/23/24 02:58 Hydrocodone/Acetaminophen (*Crx) 5-325 Mg Tablet PO 1 tab DAILY PRN Administration Pain 4-6 Amlodipine Besylate 2.5 mg 09/23/24 09:00 Amlodipine Besylate 2.5 Mg Tablet PO QAM [facility] Fluticasone Propionate 1 spray 09/23/24 09:00 Fluticasone Propionate 0.05% Na Spr 16 Gm Btl (*Bkc) NASAL DAILY KENZIE Hydralazine HCl 20 mg 09/22/24 21:50 09/23/24 08:58 Hydralazine Hcl 20 Mg/Ml Vial IV PUSH 20 mg Q4H PRN Administration SBP>160 Miscellaneous Information 0 each 09/23/24 00:01 Fenofibrate 45mg Nonform Can Pt Bring From Home? XX 10/23/24 00:00 CLARIFY KENZIE Non-Formulary Medication 54 mg 09/23/24 21:00 Fenofibrate PO 10/23/24 20:59 HS KENZIE Ondansetron HCl 4 mg 09/23/24 08:25 09/23/24 08:45 Ondansetron Inj 4 Mg/2 Ml Vial IV PUSH 4 mg Q4H PRN Administration Nausea And Vomiting Pentoxifylline 400 mg 09/23/24 09:00 Pentoxifylline 400 Mg Tabcr BY MOUTH Q12HR KENZIE Perflutren Lipid Microsphere 0 ml 09/22/24 23:58 Perflutren Lipid Microspheres 1.5 Ml Vial Diluted To 10 Ml Total Volume IV PUSH 09/25/24 23:58 ONCE PRN adequate visualization Protocol Radiology Results: ITS Impressions Chest X-Ray 09/23/24 08:41 IMPRESSION: 1. Mild pulmonary edema. 2. Cardiomegaly. Labs Labs: Laboratory Results - last 24 hr 09/22/24 09/22/24 09/22/24 17:13 17:14 17:14 WBC 5.0 RBC 3.50 L Hgb 11.4 L Hct 35.6 L MCV 101.7 H MCH 32.6 MCHC 32.0 RDW 12.8 Plt Count 283 MPV 10.5 H Immature Gran % (Auto) 0.4 Neut % (Auto) 71.4 Lymph % (Auto) 16.3 L [place] % (Auto) 8.9 H Eos % (Auto) 2.8 Baso % (Auto) 0.2 Lymph # (Auto) 0.81 L [place] # (Auto) 0.4 Eos # (Auto) 0.1 Baso # (Auto) 0.0 Abs Immat Gran (auto) 0.02 Absolute Neuts (auto) 3.6 Absolute Nucleated RBC 0.000 Nucleated RBC % 0.0 PT 14.1 INR 1.0 APTT 30.6 Sodium 138 Potassium 5.1 H Chloride 105 Carbon Dioxide 26 Anion Gap 7 BUN 36 H Creatinine 1.20 H Estim Creat Clear Calc 31 Estimated GFR 43 L Glucose 123 H Calcium 10.0 Magnesium 1.9 Cancelled Total Bilirubin 0.5 AST 37 H ALT 28 Alkaline Phosphatase 58 Troponin I < 0.012 NT-Pro-B Natriuret Pep Total Protein Albumin Lipase Nasal MRSA (PCR) 09/22/24 09/22/24 09/22/24 17:14 17:14 17:14 WBC RBC Hgb Hct MCV MCH MCHC RDW Plt Count MPV Immature Gran % (Auto) Neut % (Auto) Lymph % (Auto) [place] % (Auto) Eos % (Auto) Baso % (Auto) Lymph # (Auto) [place] # (Auto) Eos # (Auto) Baso # (Auto) Abs Immat Gran (auto) Absolute Neuts (auto) Absolute Nucleated RBC Nucleated RBC % PT INR APTT Sodium Potassium Chloride Carbon Dioxide Anion Gap BUN Creatinine Estim Creat Clear Calc Estimated GFR Glucose Calcium Magnesium Total Bilirubin AST ALT Alkaline Phosphatase Troponin I Cancelled NT-Pro-B Natriuret Pep 3950 H Cancelled Total Protein 7.0 Albumin 3.9 Lipase 62 Cancelled Nasal MRSA (PCR) 09/22/24 09/23/24 23:21 08:35 WBC 5.4 RBC 3.74 L Hgb 12.1 Hct 37.1 MCV 99.2 MCH 32.4 MCHC 32.6 RDW 12.8 Plt Count 273 MPV 9.6 Immature Gran % (Auto) Neut % (Auto) Lymph % (Auto) [place] % (Auto) Eos % (Auto) Baso % (Auto) Lymph # (Auto) [place] # (Auto) Eos # (Auto) Baso # (Auto) Abs Immat Gran (auto) Absolute Neuts (auto) Absolute Nucleated RBC Nucleated RBC % PT INR APTT Sodium 137 Potassium 4.6 Chloride 105 Carbon Dioxide 23 Anion Gap 9 BUN 29 H Creatinine 0.90 Estim Creat Clear Calc 34 Estimated GFR 60 Glucose 140 H Calcium 9.5 Magnesium 1.9 Total Bilirubin 0.4 AST 28 ALT 26 Alkaline Phosphatase 49 Troponin I NT-Pro-B Natriuret Pep Total Protein 7.0 Albumin 3.6 Lipase Nasal MRSA (PCR) Not detected
[2024-09-23 10:38] LABS: Troponin I 0.046 ng/mL (0.000-0.034)
[2024-09-23] MEDS: PENTOXIFYLLINE 400 MG TABCR BY MOUTH (11:07)
[2024-09-23] MEDS: amLODIPine BESYLATE 2.5 MG TABLET PO (11:07)
[2024-09-23] MEDS: FLUTICASONE PROPIONATE 0.05% NA SPR 16 GM BTL (*BKC) 1 SPRAY NASAL (11:07)
--- NOTE | 2024-09-23 14:13 | P.TS_ITS ---
Transfer Discharge Sum: Prov Provider Date of admission: 09/23/24 07:50 Primary care physician: Abbe Boston MD Admitting clinician: Remy Bee MD Consults: 09/22/24 18:30 Consult to Physician Routine Comment: Consulting Provider: Ilia Araujo Reason for consultation: bradycardia, nonsustained ventricular tachycardia Has provider been notified: Yes Consult to Physician Routine Comment: Consulting Provider: Moses Toro Reason for consultation: bradycardia, nonsustained ventricular tachycardia Has provider been notified: Yes DS: Admitting Diagnosis Discharge Date 09/23/24 Admitting Diagnosis Bradycardia Transfer Discharge Sum: Med Medications Active and Home Medications: Home Medications lancets (Accu-Chek Fastclix Lancet Drum) #100 ea 11/23/19 [Rx Confirmed 09/22/24] lancing device with lancets kit (Accu-Chek FastClix Lancing Device kit) #1 ea 11/23/19 [Rx Confirmed 09/22/24] duloxetine 30 mg capsule,delayed release (Cymbalta) 30 mg PO BID #30 caps 04/24/21 [Rx Confirmed 09/22/24] fluticasone propionate 50 mcg/actuation nasal spray,suspension 1 spray intranas al DAILY 01/17/22 [History Confirmed 09/22/24] loratadine 10 mg tablet (Claritin) 10 mg PO DAILY 01/17/22 [History Confirmed 09/22/24] alpha lipoic acid 200 mg tablet 200 mg PO BID 01/25/23 [History Confirmed 09/22/24] tamoxifen 20 mg tablet 20 mg PO DAILY 01/25/23 [History Confirmed 09/22/24] losartan 100 mg tablet See Rx Instructions .Route .COMPLEX #90 tabs 03/01/24 [Rx Confirmed 09/22/24] amlodipine 2.5 mg tablet See Rx Instructions .Route .COMPLEX #90 tabs 03/24/24 [Rx Confirmed 09/22/24] pentoxifylline 400 mg tablet,extended release See Rx Instructions .Route .COMPLEX #180 tabs 04/03/24 [Rx Confirmed 09/22/24] metformin 500 mg tablet 500 mg PO BID #180 tabs 06/09/24 [Rx Confirmed 09/22/24] clorazepate dipotassium 3.75 mg tablet 3.75 mg PO BID PRN anxiety #60 tabs 09/21/24 [Rx Confirmed 09/22/24] hydrocodone 5 mg-acetaminophen 325 mg tablet 1 tablet PO DAILY PRN PAIN #30 tabs 09/21/24 [Rx Confirmed 09/22/24] diclofenac sodium 50 mg tablet,delayed release 50 mg PO BID 09/22/24 [History Confirmed 09/22/24] fenofibrate 54 mg tablet 54 mg PO HS 09/22/24 [History Confirmed 09/22/24] oxybutynin chloride 5 mg tablet 5 mg PO HS 09/22/24 [History Confirmed 09/22/24] Transfer Discharge Sum: Hosp Hospital Course Hospital course: Kassidy Ochoa is a 83 year old female with past medical history significant for hypertension, dyslipidemia, breast CA, arthritis. patient was brought to the emergency room due to fluttery feeling in the chest. Patient has been in her usual state of health had bilateral lower extremity swelling, no PND no orthopnea no chest pain no dizziness no lightheadedness no palpitations upon arrival to emergency room patient was found to have high degree AV block patient is now status post temporary pacemaker placed 09/23 : Patient was admitted in ICU. Patient presented with complete heart block and proximal episodes of V-tach overnight. Transvenous pacemaker was placed by Cardiology. This morning transvenous pacemaker failed to capture. Despite adjustment in ICU it was not working. Patient had episode of V-tach which was symptomatic and required emergent defibrillation with 200 joules Patient was taken back to cardiac catheterization lab and pacemaker was readjusted.Patient will need permanent pacemaker Electrolytes were checked and were in acceptable range.Discussed with Cardiology will transfer patient to [facility] for ICU telemetry monitoring, management of possible recurrence of ventricular tachycardia and permanent pacemaker placement Case Liner spoke to transfer center and later to ICU physician Dr. King and discussed case with him. He will accept the patient patient will be transferred once bed is available. Access Developer will speak to statistical geneticist at [facility] and provide information. Patient was accepted and transferred Time Spent with Patient Time attestation: Total time spent providing and/or coordinating transfer services:45 mins DS: Data Data Completed and Pending Labs on day of discharge: Labs from last 24 hours 09/23/24 09/22/24 09/22/24 08:35 23:21 17:14 WBC 5.4 RBC 3.74 L Hgb 12.1 Hct 37.1 MCV 99.2 MCH 32.4 MCHC 32.6 RDW 12.8 Plt Count 273 MPV 9.6 Immature Gran % (Auto) Neut % (Auto) Lymph % (Auto) [place] % (Auto) Eos % (Auto) Baso % (Auto) Lymph # (Auto) [place] # (Auto) Eos # (Auto) Baso # (Auto) Abs Immat Gran (auto) Absolute Neuts (auto) Absolute Nucleated RBC Nucleated RBC % PT INR APTT Sodium 137 Potassium 4.6 Chloride 105 Carbon Dioxide 23 Anion Gap 9 BUN 29 H Creatinine 0.90 Estim Creat Clear Calc 34 Estimated GFR 60 Glucose 140 H Calcium 9.5 Magnesium 1.9 Total Bilirubin 0.4 AST 28 ALT 26 Alkaline Phosphatase 49 Troponin I 0.046 H* NT-Pro-B Natriuret Pep Total Protein 7.0 Albumin 3.6 Lipase Cancelled Nasal MRSA (PCR) Not detected 09/22/24 09/22/24 09/22/24 17:14 17:14 17:14 WBC RBC Hgb Hct MCV MCH MCHC RDW Plt Count MPV Immature Gran % (Auto) Neut % (Auto) Lymph % (Auto) [place] % (Auto) Eos % (Auto) Baso % (Auto) Lymph # (Auto) [place] # (Auto) Eos # (Auto) Baso # (Auto) Abs Immat Gran (auto) Absolute Neuts (auto) Absolute Nucleated RBC Nucleated RBC % PT INR APTT Sodium Potassium Chloride Carbon Dioxide Anion Gap BUN Creatinine Estim Creat Clear Calc Estimated GFR Glucose Calcium Magnesium Cancelled Total Bilirubin 0.5 AST 37 H ALT 28 Alkaline Phosphatase 58 Troponin I Cancelled < 0.012 NT-Pro-B Natriuret Pep Cancelled 3950 H Total Protein 7.0 Albumin 3.9 Lipase 62 Nasal MRSA (PCR) 09/22/24 09/22/24 17:14 17:13 WBC 5.0 RBC 3.50 L Hgb 11.4 L Hct 35.6 L MCV 101.7 H MCH 32.6 MCHC 32.0 RDW 12.8 Plt Count 283 MPV 10.5 H Immature Gran % (Auto) 0.4 Neut % (Auto) 71.4 Lymph % (Auto) 16.3 L [place] % (Auto) 8.9 H Eos % (Auto) 2.8 Baso % (Auto) 0.2 Lymph # (Auto) 0.81 L [place] # (Auto) 0.4 Eos # (Auto) 0.1 Baso # (Auto) 0.0 Abs Immat Gran (auto) 0.02 Absolute Neuts (auto) 3.6 Absolute Nucleated RBC 0.000 Nucleated RBC % 0.0 PT 14.1 INR 1.0 APTT 30.6 Sodium 138 Potassium 5.1 H Chloride 105 Carbon Dioxide 26 Anion Gap 7 BUN 36 H Creatinine 1.20 H Estim Creat Clear Calc 31 Estimated GFR 43 L Glucose 123 H Calcium 10.0 Magnesium 1.9 Total Bilirubin AST ALT Alkaline Phosphatase Troponin I NT-Pro-B Natriuret Pep Total Protein Albumin Lipase Nasal MRSA (PCR) Imaging Radiologist's impression: ITS Impressions Chest X-Ray 09/22/24 16:43 IMPRESSION: 1. Mild atelectasis at the lung bases. 2. Cardiomegaly. Chest X-Ray 09/23/24 06:14 IMPRESSION: 1. Mild pulmonary edema. 2. Cardiomegaly. Chest X-Ray 09/23/24 08:41
== END 2024-09-23 12:40 | disposition short-term general hospital (02) | DRG 309 ==
LOC: ANHED 18:46 → ANHICU 21:07
PROVIDERS: Internal Medicine; Internal Medicine Interventional Cardiology; Registered Nurse; Admitting Provider General Practice; Emergency Provider Emergency Medicine; PCP Family Medicine; Visit Provider General Practice
PROC: 5A1223Z Performance of Cardiac Pacing, Continuous (ICD-10-PCS; CPT 33210; principal; 2024-09-22 18:50)
PROC: (CPT 76000; principal; 2024-09-23 09:00)
DX: I44.2 Atrioventricular block, complete (principal); T82.199A Other mechanical complication of unspecified cardiac device, initial encounter; I47.29 Other ventricular tachycardia; I10 Essential (primary) hypertension; E78.00 Pure hypercholesterolemia, unspecified; M81.0 Age-related osteoporosis without current pathological fracture; M15.9 Polyosteoarthritis, unspecified; R11.2 Nausea with vomiting, unspecified; Z96.651 Presence of right artificial knee joint
CPT/HCPCS: 33210; 33285; 36415; 71045; 80053; 83690; 83735; 83880; 84484; 85025; 85027; 85610; 85730; 87641; 93005; 93306; 96365; 96376; 99285; A9270; C1894; G0378; J0282; J0360; J1171; J1644; J2003; J2250; J2405; J3010; J7040

== ENCOUNTER 2025-01-05 14:53 | Emergency (ER) | payer MEDICARE, SELFPAY ==
[2025-01-05 15:04] VITALS: BP 154/75; PULSE 78; RESP 16; TEMP 36.7; O2SAT 98
--- NOTE | 2025-01-05 15:23 | ED.EXTPRO ---
HPI - Extremity Problem General Chief complaint: Extremity Problem,Nontraumatic Stated complaint: Infected Toe Source: patient Mode of arrival: ambulatory Limitations: no limitations History of Present Illness HPI Narrative: patient presents for evaluation of redness to the 2nd digit of her right foot. Symptom onset 5 days ago. The few days prior to symptom onset she was wearing some boots in her toes rubbed against the footwear. She changed to tennis shoes but the digit continued to rub on her footwear. She started wearing sandals yesterday. When the digit is not in contact with anything she does not have any pain whatsoever but her pain becomes severe when the digit comes into contact with anything. She has peripheral neuropathy associated with diabetes. She states her last a1c was 6.7. She noted some bloody drainage from the digit yesterday. No fever, chills, nausea, vomiting Related Data Home Medications ?Medication ?Instructions ?Recorded ?Confirmed ?Last Taken ?Type fluticasone propionate 50 1 spray intranasal DAILY 01/17/22 01/05/25 Unknown History mcg/actuation nasal spray,suspension loratadine 10 mg tablet (Claritin) 10 mg PO DAILY 01/17/22 01/05/25 Unknown History alpha lipoic acid 200 mg tablet 200 mg PO BID 01/25/23 01/05/25 09/22/24 09:00 History tamoxifen 20 mg tablet 20 mg PO DAILY 01/25/23 01/05/25 09/22/24 09:00 History diclofenac sodium 50 mg 50 mg PO BID 09/22/24 01/05/25 09/22/24 09:00 History tablet,delayed release fenofibrate 54 mg tablet 54 mg PO HS 09/22/24 01/05/25 Unknown History oxybutynin chloride 5 mg tablet 5 mg PO HS 09/22/24 01/05/25 Unknown History Allergies Allergy/AdvReac Type Severity Reaction Status Date / Time celecoxib Allergy Mild INCREASED Verified 01/05/25 15:00 HR methylprednisolone Allergy Unknown L face Verified 01/05/25 15:00 pain/swelling montelukast Allergy Unknown Rash Verified 01/05/25 15:00 Review of Systems Review of Systems: CONSTITUTIONAL: Denies fever, chills, or sweats. EYES: Denies visual changes, redness, or discharge. ENT: Denies rhinorrhea, congestion, sore throat, or otalgia. CARDIOVASCULAR: Denies chest pain, palpitations, or edema. RESPIRATORY: Denies cough or dyspnea. GASTROINTESTINAL: Denies abdominal pain, nausea, vomiting, or diarrhea. GENITOURINARY: Denies dysuria or hematuria. SKIN: Reports redness to the second digit of the right foot with some drainage last night MUSCULOSKELETAL: Reports pain in the 2nd digit of the right foot. Denies pain elsewhere NEUROLOGIC: Denies headache, numbness, dizziness, or weakness. PSYCHIATRIC: Denies anxiety or depression. [facility] Past Medical History Medical History Complete heart block Breast cancer Age-related osteoporosis without current pathological fracture Seasonal allergies Arthritis Hypertension High cholesterol Hearing loss Vision abnormalities Generalized osteoarthritis of multiple sites (~11/2020) History of blood clots Osteoporosis Surgical History Surgical History Pacemaker History of right knee joint replacement History of bladder surgery History of hysterectomy Family History Family History Sibling Family history of malignant neoplasm of breast Patient's brother is in good health Patient's sister is in good health Family history of malignant neoplasm of breast in first degree relative Prostate carcinoma Grandparent Family history of malignant neoplasm of breast History of blood clots Mother Family history of malignant neoplasm of breast Family history of arthritis Family history of malignant neoplasm of breast in first degree relative Father History of blood clots Social History Social History Social History: Smoking status: Never smoker Second hand tobacco smoke exposure: No Alcohol intake: never Substance use: never Substance use type: does not use Do You Feel Safe in your Home?: Yes Lack of Transportation: No Lack of Food: Never True Current Housing: I Have Housing Concerned About Future Housing: No Difficulty Paying Gas/Electric Bills: No Difficulty Paying for Meds: No Currently Unemployed: No Education: High School Diploma/GED Difficulty w/ Childcare or Family Care: No Living arrangements: alone Occupation/Education: retired Gender identity (if verbalized by the patient): Female Sexual Orientation (if Verbalized by the Patient): Straight or Heterosexual Spiritual care concerns: No Exam Narrative: GENERAL: Well-appearing, well-nourished, and in no acute distress. HEAD: Normocephalic, atraumatic. EYES: PERRLA and EOMI. ENT: Nares clear, no rhinorrhea or epistaxis. Mucous membranes moist. Oropharynx without tonsillar hypertrophy exudate or other lesions. Bilateral TMs pearly barker nonbulging NECK: Supple. No adenopathy or masses. No carotid bruits or JVD CHEST: Clear to auscultation. No respiratory distress. No wheezes rales or rhonchi HEART: Regular rate and rhythm. No murmur heard. Normal peripheral pulses. ABDOMEN: Soft, nontender, nondistended, normal active bowel sounds. EXTREMITIES: hammertoe 2nd digit right foot SKIN: there is a callus to the dorsal aspect of the 2nd digit of the right foot. There is overlying serosanguineous drainage and surrounding erythema NEURO: No focal deficits. Alert and oriented x3. PSYCH: Normal mood and affect. Course Course Emergency Course: This is an 84-year-old female who presented for evaluation redness and pain in the 2nd digit of the right foot. She has a hammertoe present. It appears this is related to pressure on the digit associated with the hammertoe> Advised to wear footwear that will not rub on that area. Will cover her with keflex. She has no purulence to suggest MRSA infection. She should follow up with her primary care provider and podiatry. Pt should go to the emergency for worsening symptoms. Pt in agreement with plan of care. Level of Care: Express Care Visit Vital Signs Vital signs: Vital Signs Temperature 36.7 C 01/05/25 15:04 Pulse Rate 78 01/05/25 15:04 Respiratory Rate 16 01/05/25 15:04 Blood Pressure 154/75 H 01/05/25 15:04 Pulse Oximetry 98 01/05/25 15:04 Temperature 36.7 C 01/05/25 15:04 Pulse Rate 78 01/05/25 15:04 Respiratory Rate 16 01/05/25 15:04 Blood Pressure 154/75 H 01/05/25 15:04 Pulse Oximetry 98 01/05/25 15:04 Discharge Plan Discharge Clinical Impression: Hammer toe of right foot, Cellulitis, Callus Patient Disposition: Home, Self-Care Condition: Stable Instructions: Antibiotic Form, Cellulitis (ED), Hammertoe Correction (DC) Patient Language: German Prescriptions: New cephalexin 500 mg capsule 500 mg PO Q6H Qty: 40 0RF No Action fluticasone propionate [Flonase] 50 mcg/actuation Drewsey,Suspension 1 spray INTRANASAL DAILY loratadine [Claritin] 10 mg Tablet 10 mg PO DAILY alpha lipoic acid 200 mg Tablet 200 mg PO BID tamoxifen 20 mg Tablet 20 mg PO DAILY amlodipine 5 mg tablet See Rx Instructions .ROUTE .COMPLEX Qty: 90 3RF Dose Instruction: TAKE 1 TABLET BY MOUTH DAILY Rx Instructions: TAKE 1 TABLET BY MOUTH DAILY diclofenac sodium 50 mg tablet,delayed release (DR/EC) 50 mg PO BID Rx Instructions: 50 mg twice a day; oxybutynin chloride 5 mg tablet 5 mg PO HS fenofibrate 54 mg tablet 54 mg PO HS (DME) lancing device with lancets [Accu-Chek FastClix Lancing Dev] Kit See Rx Instructions .ROUTE .MEDSUPPLY Qty: 1 1RF Rx Instructions: test qam fasting (DME) lancets [Accu-Chek Fastclix Lancet Drum] Misc See Rx Instructions .ROUTE .MEDSUPPLY Qty: 100 11RF Rx Instructions: test qam fasting duloxetine [Cymbalta] 30 mg capsule,delayed release(DR/EC) 30 mg PO BID Qty: 30 1RF metformin 500 mg tablet 500 mg PO BID Qty: 180 2RF clorazepate dipotassium 3.75 mg tablet 3.75 mg PO BID PRN (Reason: anxiety) Qty: 60 0RF losartan 100 mg tablet See Rx Instructions .ROUTE .COMPLEX Qty: 90 2RF Dose Instruction: TAKE 1 TABLET BY MOUTH DAILY Rx Instructions: TAKE 1 TABLET BY MOUTH DAILY pentoxifylline 400 mg tablet extended release See Rx Instructions .ROUTE .COMPLEX Qty: 180 2RF Dose Instruction: TAKE 1 TABLET BY MOUTH TWICE DAILY Rx Instructions: TAKE 1 TABLET BY MOUTH TWICE DAILY Follow-up/Referrals: Mimi,Magdalena Biggs DPM [Non-Staff] - Abbe Boston MD [Primary Care Provider] - Time of Disposition: 15:22
== END 2025-01-05 15:25 | disposition home or self-care (01) ==
PROVIDERS: Emergency Provider Nurse Practitioner; PCP Family Medicine
DX: M20.41 Other hammer toe(s) (acquired), right foot (principal); L03.031 Cellulitis of right toe; L84 Corns and callosities; I10 Essential (primary) hypertension; Z79.899 Other long term (current) drug therapy; Z85.3 Personal history of malignant neoplasm of breast
CPT/HCPCS: 99213; G0463

== ENCOUNTER 2025-01-18 15:08 | Outpatient (CLI) | payer MEDICARE, SELFPAY ==
--- NOTE | ~2025-01-18 | XR_ITS ---
XR foot RT min 3V Ordering provider: Colleen Montes De Oca DPM History: . ULCER ON 1ST TOE, AND HAMMER TOE 2ND TOE . Comparison: None. FINDINGS: BONES: No acute fracture or dislocation. Hammertoes seen. Calcaneal spur. JOINT SPACES: Narrowing of the metatarsophalangeal joints. Osteoarthritic changes of the naviculocune iform joints. No tarsal coalition. SOFT TISSUES: Normal. IMPRESSION: No acute osseous abnormality of the right foot. Polyarticular osteoarthritic changes. Reviewed, dictated and finalized at location A. GE RN
--- OUTSIDE RECORDS SUMMARY | 2025-01-18 16:23 | XMS_ITS | Referral Summary ---
Author Organization [facility] Address [address] [place] [address] Care Team Providers Care [employer] Name Role Phone Abbe Boston MD Primary Care Provider Aguila Barrera MD Unavailable Encounters Date Type Department Care Team Description 11/03/2024 2:00 PM VIDEOGAME DESIGNER Office Visit [facility] [address] [place] [id number] Maxine Tolliver NP Malignant neoplasm of central portion of left breast in female, estrogen receptor positive (HCC) (Primary Dx); History of partial mastectomy of left breast; Screening mammogram, encounter for 11/02/2024 Telephone [facility] [address] [place] [id number] Yuni Almeida MD Medical Question/Miscellaneou s from Last 3 Months Allergies Active Allergy Reactions Criticality Noted Date Comments Methylprednisolone Rash Medium 10/28/2017 Methylprednisolone Sodium Succ Rash,Unknown High Medications fluticasone propionate (FLONASE) 50 mcg/actuation nasal spray Administer 1 spray into each nostril every morning Active clorazepate (TRANXENE) 3.75 mg tablet Take 1 tablet (3.75 mg total) by mouth nightly as needed (sleep) Active losartan (COZAAR) 100 mg tablet Take 1 tablet (100 mg total) by mouth every morning Active pentoxifylline ER (TRENtal) 400 mg CR tablet Take 1 tablet (400 mg total) by mouth 2 (two) times a day Active risedronate (ACTONEL) 150 mg tablet Take 1 tablet (150 mg total) by mouth every 30 (thirty) days Active fenofibrate (FENOGLIDE) 40 mg tablet Take 1 tablet (40 mg total) by mouth nightly 9 Active metFORMIN (GLUCOPHAGE) 500 mg tablet Take 1 tablet (500 mg total) by mouth 2 (two) times a day with meals 9 Active loratadine (CLARITIN ORAL) Take 10 mg by mouth every morning Active calcium carbonate-vitam in D3 1,250 mg (500 mg elemental)-125 unit per tablet Take 1 tablet by mouth 2 (two) times a day Active zinc 50 mg tablet Take 1 tablet by mouth every morning Active acetaminophen (TYLENOL) 500 mg tablet Take 1 tablet (500 mg total) by mouth every 6 (six) hours as needed for pain 30 tablet 2 Active docusate sodium (COLACE) 100 mg capsuleIndicati ons:constipatio n Take 1 capsule (100 mg total) by mouth 2 (two) times a day for 5 days 10 capsule 2 Active HYDROcodone-paris taminophen (NORCO) 5-325 mg per tablet Take 1 tablet by mouth every 6 (six) hours as needed Active ergocalciferol (VITAMIN D) 50,000 unit capsule Vitamin D2 1,250 mcg (50,000 unit) capsule take 1 capsule by oral route every week 9 Active tamoxifen (NOLVADEX) 20 mg tablet 2 Active alpha lipoic acid 50 mg tablet Take by mouth Active amLODIPine (NORVASC) 10 mg tablet Take 1 tablet (10 mg total) by mouth daily 30 tablet 11 4 10/03/20 25 Active atorvastatin (LIPITOR) 20 mg tablet Take 1 tablet (20 mg total) by mouth daily 30 tablet 4 10/03/[address] (CYMBALTA) 30 mg capsuleIndicati ons:Diabetic peripheral neuropathy associated with type 2 diabetes mellitus (HCC) TAKE ONE CAPSULE BY MOUTH TWICE DAILY 180 capsule 1 5 Active Active Problems Problem Noted Date Diagnosed Date Complete heart block 09/23/2024 Malignant neoplasm of centra l portion of left breast in female, estrogen receptor positive 02/12/2022 Diabetic peripheral neuropat hy associated with type 2 diabetes mellitus 11/04/2020 Assessment & Plan (04/18/2021 3:18 PM CDT): Given the lack of efficacy with gabapentin I will discontinue it. I will increase her duloxetine from 30 mg daily to 30 mg b.i.d. an effort to try to suppress her progressively worsening neuropathic pain and numbness. I will see her back in 1 year for reassessment. Assessment & Plan (11/04/2020 11:10 AM VIDEOGAME DESIGNER): Patient has neurophysiologic confirmation of sensory peripheral neuropathy. Blood studies looking for medically addressable causes beyond known diabetes are unrevealing at this time. Numbness and tingling of both legs 09/25/2020 Assessment & Plan (09/25/2020 10:26 AM VIDEOGAME DESIGNER): Patient describes several month history of insidious onset paresthesias dysesthesia involving both lower extremities. Her historical characterization of her symptoms and her current physical examination are both suggestive of peripheral neuropathy. She does have a known history of diabetes although states that is in good control. She does have an antecedent history of lumbar stenosis although her current symptoms are not suggestive of neurogenic claudication. I will obtain neurophysiologic assessment of her lower extremities and blood studies looking for medically addressable causes of potential neuropathy beyond her known diabetes. I will see her back in the office thereafter. Spinal stenosis of lumbar re gion without neurogenic claudication 09/25/2020 Assessment & Plan (09/25/2020 10:28 AM VIDEOGAME DESIGNER): Patient has history of lumbar stenosis with previous successful resolution of low back pain with lumbar epidural steroid injections. Her current pain and distribution of discomfort is different than what she formally had with her spinal stenosis. Aftercare following right knee joint replacement surgery 01/05/2018 Need for prophylactic antibiotic 01/05/2018 Bilateral lower extremity pain 10/25/2017 Assessment & Plan (11/04/2020 11:10 AM VIDEOGAME DESIGNER): I will place patient on a trial of gabapentin 300 mg t.i.d. 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 I will plan on seeing her back in 6 months time for reassessment on treatment. Immunizations Immunization Administration Dates Next Due Influenza, Unspecified 08/15/2017 Social History Tobacco Use Types Packs/Day Years Used Date Smoking Tobacco: Never Smokeless Tobacco: Never Tobacco Cessation:Counseling Given: Not Answered Alcohol Use Standard Drinks/Week Comments No 0 (1 standard drink = 0.6 oz pur e alcohol) [facility] Utilities Answer Date Recorded In the past 12 months has e [employer], gas, oil, or water [employer] threatened to shut off services in your home? No 09/25/2024 Social Connection and Isolat ion Panel [NHANES] Answer Date Recorded In a typical week, how many times do you talk on the phone with family, friends, or neighbors? More than three times a week 09/25/2024 How often do you get togethe r with friends or relatives? More than three times a week 09/25/2024 How often do you attend chur ch or denominational services? More than 4 times per year [...] you have a drink containing alcohol? Never 08/24/2022 Q2: How many drinks containi ng alcohol do you have on a typical day when you are drinking? Patient does not drink Q3: How often do you have si x or more drinks on one occasion? Never 08/24/2022 Overall Financial Resource Strain (CARDIA) Answe r [...] any time in the past 12 m [facility], were you homeless or living in a half-way (including now)? No 09/25/2024 Personal Safety Answer Date Recorded Have you ever been in or are you currently in a harmful physical or emotional relationship or is someone making you feel afraid or unsafe? Denies 09/28/2024 Comments No Sex and Gender Information Value Date Recorded Sex Assigned at Not on file Legal Sex Female 12:52 AM VIDEOGAME DESIGNER Gender Identity Not on file Sexual Orientation Not on file Last Filed Vital Signs Vital Sign Reading Time Taken Comments Blood Pressure 126/69 10/02/2024 3:00 PM VIDEOGAME DESIGNER Pulse 79 10/02/2024 3:00 PM VIDEOGAME DESIGNER Temperature 37.3 C (99.2 F) 10/02/2024 12:00 PM VIDEOGAME DESIGNER Respiratory Rate 18 10/02/2024 3:00 PM VIDEOGAME DESIGNER Oxygen Saturation 100% 10/02/2024 3:00 PM VIDEOGAME DESIGNER Inhaled Oxygen Concentration - - Weight 72.3 kg (159 lb 6.4 oz) 11/03/2024 2:29 P M VIDEOGAME DESIGNER Height 160 cm (5' 3 ) 11/03/2024 2:29 PM VIDEOGAME DESIGNER Body Mass Index 28.24 11/03/2024 2:29 PM VIDEOGAME DESIGNER Plan of Treatment Not on file Medical Devices Implanted Type Area Publications Inspector Device Identifier Shelf Expiration Date Model / Serial / Lot Illumagear Magseed 18ga 7cm Marker Breast Biopsy [id number] - [id number] Implanted:Qty: 1 on 03/09/2022 at [facility] [employer] [id number] 06/14/2025 [id number] [employer] Active Fixation Steroid Eluting Is 1 Connector Latex Free Sterile Atrial Ventricular Atrial Ventricular Solia 60cm [id number] - [id number] - [id number] Implanted:Qty: 1 on 09/24/2024 by Aguila Barrera MD at [facility] N/A: Heart [employer] 08/14/2026 [id number] / [id number] / Description:Right Ventricula r Lead [employer] Solia S 53cm Steroid Elute Bipolar Active Fixation Endocardial [id number] - [id number] - [id number] Implanted:Qty: 1 on 09/24/2024 by Aguila Barrera MD at [facility] N/A: Heart [employer] 08/14/2026 [id number] / [id number] / Description:Right Atrial benja d [employer] Pacemaker Implantable Amvia Edge Dual Chamb Rate-Responsive [id number] - [id number] - [id number] Implanted:Qty: 1 on 09/24/2024 by Aguila Barrera MD at [facility] N/A: Chest Wall [employer] 01/12/2026 [id number] / [id number] / Procedures Procedure Name Priority Date/Time Associated Diagnosis Comments EGFR Routine 10/02/2024 1:29 AM VIDEOGAME DESIGNER HEMOGLOBIN A1C Add-On 09/25/2024 1:39 AM VIDEOGAME DESIGNER from Last 3 Months or Most Recently Relevant to Health Maintenance Results * eGFR (10/02/2024 1:29 AM VIDEOGAME DESIGNER) eGFR 75 >=60 mL/min/1. 73 m2 Comment: Interpretive Data Reference Interval Normal >/= 90 mL/min/1.73m2 Mildly decreased* 60 - 89 mL/min/1.73m2 Mildly to moderately decreased 45 - 59 mL/min/1.73m2 Moderately to severely decreased 30 - 44 mL/min/1.73m2 Severely decreased 15 - 29 mL/min/1.73m2 Kidney Failure < 15 mL/min/1.73m2 *Relative to young adult level Estimated glomerular filtration rate is determined by the 2020 CKD-EPI equation recommended by the National Kidney Foundation (A Unifying Approach to GFR Estimation: Recommendations of the NKF-ASK Task Force on Reassessing the Inclusion of Race in Diagnosing Kidney Disease, JASN 2020). The CKD-EPI equation should not be used for patients with unstable renal function and has not been validated in children and those over 70. Current interpretive data was last reviewed 2021. Blood 10/02/2024 1:29 AM VIDEOGAME DESIGNER 10/02/2024 2:01 AM VIDEOGAME DESIGNER us Dony REDDY LAB BLOOD ORDER LUCA Final Result Performing Organization Address City/[facility] Co de Phone Number SLOANE PATTERSON [id number] [address] Department [place] [address] * (ABNORMAL) Hemoglobin A1c (09/25/2024 1:39 AM VIDEOGAME DESIGNER) Hgb A1C 6.5(H) 4.0 - 5.6 % Estimated Average Glucose 140 mg/dL SLOANE PATTERSON Comment: The ADA recommends reporting an estimated Average Glucose (eAG) with all Hemoglobin A1c results using the equation derived from a study of 507 normal and diabetic adults. Minority populations were underrepresented and children were not included. (Diabetes Care 31:5155-6960, 2008). The eAG is not equivalent to a fasting glucose. Blood 09/25/2024 1:39 AM VIDEOGAME DESIGNER 09/25/2024 11:34 AM VIDEOGAME DESIGNER us Mariel Kenny MD LAB BLOOD ORDERABLES Final Re sult SLOANE PATTERSON [id number] [address] Department [place] [address] from Last 3 Months or Most Recently Relevant to Health Maintenance Insurance MEDICARE FOR[facility]LY [facility] SUPPLEMENT FORMERLY [facility] SUPPLEMENT MEDICARE MEDICARE [facility] SUPPLEMENT POONAM CBAALLERO [id number] Advance Directives For more information, please contact: [phone] * Full Code (Latest Code Status on File) Date Activated Date Inactivated Comments 09/23/2024 1:26 PM 10/03/2024 11:09 AM Care Teams [employer] Relationship Specialty Start Date End Date Abbe Boston MD [address] [facility] [address] [facility] [address] [place] [address] PCP - General 11/12/15 [place] [address] [facility] [address] [place] [address] Consulting Physician Cardiology 10/02/24
--- OUTSIDE RECORDS SUMMARY | 2025-01-18 16:23 | XMS_ITS | Encounter Summary ---
Author Organization [facility] Healthcare Address [address] [place] [address] Care Team Providers Care Director Of Industrial Relations Name Role Phone Abbe Boston MD Primary Care Provider Reason for Visit * Diagnostic Imaging (Routine) - Closed Specialty Diagnoses / Procedures Referred By Contac t Referred To Contact Procedures Breast Imaging Screening Outside Reference Abbe Boston MD [address] [facility] [address] [place] [address] Phone: tel: fax: Referral ID Status Reason Start Date Expiration Date Visits Re quested Visits Authorized [id number] Closed 01/02/2022 02/01/2023 1 1 Encounter Details Date Type Department Care Team (Late st Contact Info) Description 09/21/[address] [facility] [address] [place] [id number] Social History Tobacco Use Types Packs/Day Years Used Date Smoking Tobacco: Never Smokeless Tobacco: Never Alcohol Use Standard Drinks/Week Comments No 0 (1 standard drink = 0.6 oz pur e alcohol) [facility] Utilities Answer Date Recorded In the past 12 months has [employer], gas, oil, or water company threatened to [...] often do you attend chur ch or rastafari services? More than 4 times per year 09/25/2024 Do you belong to any clubs o r organizations such as latter-day groups, unions, fraternal or athletic groups, or [...] any time in the past 12 m onths, were you homeless or living in a prison (including now)? No 09/25/2024 Personal Safety Answer Date Recorded Have you ever been in or are you currently in a harmful physical or emotional relationship or is someone making you feel afraid or unsafe? Denies 09/28/2024 Comments No Sex and Gender Information Value Date Recorded Sex Assigned at Not on file Legal Sex Female 12:52 AM REMOTE SENSING PROGRAM MANAGER Gender Identity Not on file Sexual Orientation Not on file documented as of this encounter Functional Status * Audit-C Score Answer Date of Assessment Author 0 08/24/2022 3:21 PM CDT Aron Mckeon MA * Question Answer Date of Assessment Author Q1: How often do you have a drink containing alcohol? Never 08/24/2022 3:21 PM Aron Ahumada MA Q2: How many drinks containing alcohol do you have on a typical day when you are drinking? Patient does not drink 08/24/2022 3:21 PM Aron Ahumada MA Q3: How often do you have six or more drinks on one occasion? Never 08/24/2022 3:21 PM Aron Ahumada MA documented as of this encounter Plan of Treatment Not on file documented as of this encounter Procedures Procedure Name Priority Date/Time Associated Diagnosis Comments BREAST IMAGING MG SCREENING OUTSIDE REFERENCE Routine 09/21/2019 12:00 AM REMOTE SENSING PROGRAM MANAGER documented in this encounter Results * Breast Imaging Screening Outside Reference (09/21/2019 12:00 AM REMOTE SENSING PROGRAM MANAGER) Impressions [facility]MO[facility] - 01/02/2022 4:25 PM REMOTE SENSING PROGRAM MANAGER These images are for Reference purposes only and have not been reviewed by [facility]. There will be no report generated by a [facility] Radiologist. Narrative [facility] - 01/02/2022 4:25 PM REMOTE SENSING PROGRAM MANAGER EXAMINATION: Images For Reference Purposes Only us Abbe Boston MD IMG MAMMO PROCEDURES Fi nal Result RAD_MAMMO[facility] documented in this encounter Visit Diagnoses Not on filedocumented in this encounter Additional Health Concerns Infection Onset Date Last Indicated Resolved Time COVID: Suspected 09/23/2024 09/23/2024 09/23/2024 3:48 PM REMOTE SENSING PROGRAM MANAGER documented as of this encounter Care Teams Director Of Industrial Relations Relationship Specialty Start Date End Date Abbe Boston MD [address] [facility] [address] [place] [address] PCP - General 11/12/15 documented as of this encounter
--- OUTSIDE RECORDS SUMMARY | 2025-01-18 16:23 | XMS_ITS | Encounter Summary ---
Author Organization [facility] Healthcare Address [address] [place] [address] Care Team Providers Care Liquid Natural Gas Plant Operator Name Role Phone Abbe Boston MD Primary Care Provider Reason for Visit * Diagnostic Imaging (Routine) - Closed Specialty Diagnoses / Procedures Referred By Contac t Referred To Contact Procedures Breast Imaging Screening Outside Reference Abbe Boston MD [address] [facility] [address] [place] [address] Phone: tel: fax: Referral ID Status Reason Start Date Expiration Date Visits Re quested Visits Authorized [id number] Closed 01/02/2022 02/01/2023 1 1 Encounter Details Date Type Department Care Team (Late st Contact Info) Description 09/13/2017 Hospital Encounter [facility] [address] [place] [id number] Social History Tobacco Use Types Packs/Day Years Used Date Smoking Tobacco: Never Smokeless Tobacco: Never Alcohol Use Standard Drinks/Week Comments No 0 (1 standard drink = 0.6 oz pur e alcohol) [facility] Utilities Answer Date Recorded In the past 12 months has [employer], gas, oil, or water company threatened to [...] often do you attend chur ch or jewish services? More than 4 times per year 09/25/2024 Do you belong to any clubs o r organizations such as scientology groups, unions, fraternal or athletic groups, or [...] were you homeless or living in a [place] facility (including now)? No 09/25/2024 Personal Safety Answer Date Recorded Have you ever been in or are you currently in a harmful physical or emotional relationship or is someone making you feel afraid or unsafe? Denies 09/28/2024 Comments No Sex and Gender Information Value Date Recorded Sex Assigned at Not on file Legal Sex Female 12:52 AM FICTION WRITER Gender Identity Not on file Sexual Orientation Not on file documented as of this encounter Functional Status * Audit-C Score Answer Date of Assessment Author 0 08/24/2022 3:21 PM CDT Aron Mckeon MA * Question Answer Date of Assessment Author Q1: How often do you have a drink containing alcohol? Never 08/24/2022 3:21 PM CDT Aron Lindsey MA Q2: How many drinks containing alcohol do you have on a typical day when you are drinking? Patient does not drink 08/24/2022 3:21 PM CDT Aron Lindsey MA Q3: How often do you have six or more drinks on one occasion? Never 08/24/2022 3:21 PM CDT Aron Lindsey MA documented as of this encounter Plan of Treatment Not on file documented as of this encounter Procedures Procedure Name Priority Date/Time Associated Diagnosis Comments BREAST IMAGING MG SCREENING OUTSIDE REFERENCE Routine 09/13/2017 12:00 AM CDT documented in this encounter Results * Breast Imaging Screening Outside Reference (09/13/2017 12:00 AM CDT) Impressions [facility] - 01/02/2022 4:25 PM FICTION WRITER These images are for Reference purposes only and have not been reviewed by [facility]. There will be no report generated by a [facility] Radiologist. Narrative [facility] - 01/02/2022 4:25 PM FICTION WRITER EXAMINATION: Images For Reference Purposes Only us Abbe Boston MD IMG MAMMO PROCEDURES Fi nal Result [facility] documented in this encounter Visit Diagnoses Not on filedocumented in this encounter Additional Health Concerns Infection Onset Date Last Indicated Resolved Time COVID: Suspected 09/23/2024 09/23/2024 09/23/2024 3:48 PM FICTION WRITER documented as of this encounter Care Teams Liquid Natural Gas Plant Operator Relationship Specialty Start Date End Date Abbe Boston MD [address] [facility] [address] [place] [address] PCP - General 11/12/15 documented as of this encounter
--- OUTSIDE RECORDS SUMMARY | 2025-01-18 16:23 | XMS_ITS | CONTINUITY OF CARE DOCUMENT ---
Author Name [email or web address] Address Unknown Organization [facility] Address [address] [facility] [address] [place] [address] Phone [phone] Care Team Providers Care Rn Intake Name Role Phone Aguila Barrera MD Unavailable [phone] Aguila Barrera MD Unavailable [phone] KP العلي MD Unavailable PROBLEMS Condition Status Date Provider Notes S/P Dual chamb PCM - Biotron ik ( MRI Safe) active Jil Langley Cardiology examination active Addis Ventim iglia COMMERCIAL MAKEUP ARTIST Lower extremity edema, left active Addis V entimiglia COMMERCIAL MAKEUP ARTIST Hypertension benign essential active Addis Ventimiglia COMMERCIAL MAKEUP ARTIST Hyperlipidemia active Addis Ventimiglia FN P Snoring active Addis Ventimiglia COMMERCIAL MAKEUP ARTIST Complete heart block active Addis Ventimig emily COMMERCIAL MAKEUP ARTIST Swelling of left arm active Gabriele Hicks h ENCOUNTERS Date Type Provider Location Encounter Diag nosis - In-person encounter Office Visit Aguila Barrera MD [place] [facility] Swelling of left arm - In-person encounter Office Visit Aguila Barrera MD [place] [facility] Cardiology examinationLower extremity edema, leftHypertension benign essentialHyperlipidemiaSnoringComplete heart block VITAL SIGNS Date Observation Value Provider Body Mass Index (Ratio) 27.20 kg/m2 John Carey blood pressure, diastolic 72 mm[Hg] Li nkLogic blood pressure, systolic 145 mm[Hg] Jacquie kLogic blood pressure, cuff size regular Doe rodriguez [facility] blood pressure, diastolic 72 mm[Hg] Doe rodriguez [facility] blood pressure, systolic 145 mm[Hg] Venessa benavides [facility] oxygen saturation, oximetry 94 % [facility] pulse rate 80 /min [facility] weight E&M 156 [lb_av] [facility] height E&M 63.5 [in_i] [facility] Body Mass Index (Ratio) 27.79 kg/m2 Aguila Barrera MD blood pressure, diastolic 83 mm[Hg] Watson petersonn [place] blood pressure, systolic 163 mm[Hg] Suha gely [place] oxygen saturation, oximetry 97 % [facility] [place] pulse rate 80 /min [facility] [place] blood pressure, cuff size regular Watson petersonn [place] weight E&M 159.4 [lb_av] [facility] Issa height E&M 63.5 [in_i] [facility] ALL[facility] Allergy Name Onset Date Reaction Criticality Status SOLU-MEDROL High Criticality active HISTORY OF MEDICATION USE Medication Status Instructions Dates Provider Indications Com ments cephalexin 500 mg tablet active 1 tablet by mouth three times a day Addis Ventimiglandrew COMMERCIAL MAKEUP ARTIST duloxetine 30 mg capsule,delayed release(DR/EC) active Fern Issa oxybutynin chloride 5 mg tablet active 1 tablet by mouth once a day Addis Ventimiglia COMMERCIAL MAKEUP ARTIST diclofenac sodium 50 mg tablet,delayed release (DR/EC) active Fern Issa pentoxifylline 400 mg tablet extended release active 1 tablet by mouth twice a day Addisalverto Menesesmiglia COMMERCIAL MAKEUP ARTIST clorazepate dipotassium 3.75 mg tablet active Fern Issa tamoxifen 20 mg tablet active 1 tablet by mouth once a day Addisalverto Menesesmiglia COMMERCIAL MAKEUP ARTIST losartan 100 mg tablet active Fern Issa baclofen 10 mg tablet completed - Addisavlerto Menesesmiglia COMMERCIAL MAKEUP ARTIST amlodipine 2.5 mg tablet active Take 1 tablet by mouth once a day Addisalverto Menesesmiglia COMMERCIAL MAKEUP ARTIST hydrocodone-aceta minophen 5-325 mg tablet active Fern Issa metformin 500 mg tablet active TAKE 1 TABLET BY MOUTH TWICE DAILY FOR DIABETES Addisalverto Menesesmiglia COMMERCIAL MAKEUP ARTIST baclofen 5 mg tablet active Fern Issa fenofibrate 54 mg tablet active Fern Issa SOCIAL HISTORY Date Observation Value Provider personal history of marijuana use no Aguila Barrera MD drug use no Aguila Barrera MD alcohol use no Aguila Barrera MD smoking status Never smoker Aguila Roa personal history of marijuana use no Addis Ventimiglia COMMERCIAL MAKEUP ARTIST drug use no Addis Ventimig emily COMMERCIAL MAKEUP ARTIST alcohol use no Addis Ventimig emily COMMERCIAL MAKEUP ARTIST smoking status Never smoker Addis Ortiz iglia [facility] INSURANCE PROVIDERS Payer name Policy type / Coverage type [place] red republican ID [facility] Lob [id number] [place] MEDIC[place] Medicare [id number] ADVANCE DIRECTIVES Name Date DISCUSSED - NO DECISION MADE TREATMENT PLAN Date Name Performer Cardiology: Pt noted some swelling in left arm. Will order UE venous duplex. Gabriele Carey Cardiology:will plan for [facility] ndcarmen Menesesmiglia COMMERCIAL MAKEUP ARTIST Cardiology: H er updated medication list for this problem includes: Fenofibrate 54 Mg Tablet (Fenofibrate) Addis Menesesmiglia [facility] Cardiology:She has L LE edema >Rt she reports this is new. No pain or erythema. Will do venous doppler to r/o DVT. Will do SERGIO as on pletal for unclear reason to r/o arterial disease Addis Ventimiglia COMMERCIAL MAKEUP ARTIST Cardiology:BP above goal W ill plan home RPM if BP >130/80 will adjust medication therapy H er updated medication list for this problem includes: Amlodipine 2.5 Mg Tablet (Amlodipine) ..... Take 1 tablet by mouth once a day Losartan 100 Mg Tablet (Losartan) Addis Aguirre [facility] Cardiology:She is s/ p dual chamber PPM with RV lead revision post implant M ild erythema at PPM site will renew abx W ill have her device checked in office today Addis Sujimmyandrew [facility] Date Name Venous Doppler Bilat eral UE Venous Doppler Bilat eral LE - Reflux Arterial Duplex Bi-L ower EX Sleep Study Home RPM (remote patient monitoring) HISTORY OF PROCEDURES Procedure Date Procedure Name Provider Procedure Notes S tatus EKG Aguila Barrera MD completed Complex e/m visit add on Aguila Barrera MD completed EKG Aguila Barrera MD completed
--- OUTSIDE RECORDS SUMMARY | 2025-01-18 16:23 | XMS_ITS | Clinical Summary ---
Author Organization [facility] Address [address] [place] [address] Care Team Providers Care Claims Vice President Name Role Phone Abbe Boston MD Primary Care Provider Aguila Barrera MD Unavailable Allergies Active Allergy Reactions Criticality Noted Date [...] reassessment. 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 Blood studies looking for medically addressable causes beyond known diabetes are unrevealing at this time. Numbness and tingling of both legs 09/25/2020 Assessment & Plan (09/25/2020 10:26 AM RN REFERRAL): Patient describes several month history of insidious [...] 09/25/2020 Assessment & Plan (09/25/2020 10:28 AM RN REFERRAL): Patient has history of lumbar stenosis with previous successful resolution of low back pain with lumbar epidural steroid injections. Her current pain and distribution of discomfort is different than what she formally had with her spinal stenosis. Aftercare following right knee joint replacement surgery 01/05/2018 Need for prophylactic antibiotic 01/05/2018 Bilateral lower extremity pain 10/25/2017 Assessment & Plan (11/04/2020 11:10 AM RN REFERRAL): I will place patient on a trial of gabapentin 300 mg t.i.d. 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 I will plan on seeing her back in 6 months time for reassessment on treatment. Encounters Date Type Department Care Team Description 11/03/2024 2:00 PM RN REFERRAL Office Visit [facility] [address] [place] [address] [address] [place] [address] Maxine Tolliver, LIYAH Malignant neoplasm of central portion of left breast in female, estrogen receptor positive (HCC) (Primary Dx); History of partial mastectomy of left breast; Screening mammogram, encounter for 11/02/2024 Telephone [facility] [address] [place] [address] [address] [place] [address] Yuni Almeida MD Medical Question/Miscellaneou s from Last 3 Months Immunizations Immunization Administration Dates Next Due Influenza, Unspecified 08/15/2017 Surgical History Surgery Date Site/Laterality Comments TONSILLECTOMY 27 years old BLADDER SURGERY 11/15/2015 - 11/14/2016 TUBAL LIGATION 11/15/1972 - 11/14/1973 BREAST BIOPSY 01/14/2022 Left ILC TOTAL ABDOMINAL HYSTERECTOMY W/ BILATERAL SALPINGOOPHORECTOMY 11/15/1990 - 11/14/1991 Hysterectomy COLONOSCOPY mulitple JOINT REPLACEMENT 11/15/2017 - 11/14/2018 Right total knee arthroplasty MASTECTOMY 03/12/2022 BREAST BIOPSY 03/09/2022 Medical History Medical History Date Comments Atopic rhinitis Allergic rhiniti s Hx Other Medical Depression, wit h Anxiety Tinnitus Tinnitus Hypertension Osteoarthritis Osteoporosis High cholesterol DM2 (diabetes mellitus, type 2) (HCC) Breast cancer (HCC) Family History Medical History Relation Name Comments Prostate cancer Brother Rheumatic fever Brother Bleeding Disorder Father Family his tory of coagulation disorder - (Added by TW Conv) Blood Clot Father Blood clot; Cau se of : Blood clot Deep vein thrombosis Father Breast cancer Maternal Grandmother Arthritis Mother Family history of arthritis - (Added by TW Conv) Breast cancer Mother Family history of malignant neoplasm - (Added by TW Conv) Heart failure Mother Congestive Hea rt Failure; Cause of : Congestive Heart Failure Breast cancer Sister Deep vein thrombosis Sister Anesthesia problems Neg Hx Relation Name Status Comments Brother Alive Father (Age 86) Maternal Grandmother Mother (Age 88) Sister Alive Social History Tobacco Use Types Packs/Day Years Used Date Smoking Tobacco: Never Smokeless Tobacco: Never Tobacco Cessation:Counseling Given: Not Answered Alcohol Use Standard Drinks/Week Comments No 0 (1 standard drink = 0.6 oz pur e alcohol) [facility] Utilities Answer Date Recorded In the past 12 months has [employer], gas, oil, or water [employer] threatened to shut off services in your [...] often do you attend chur ch or sikhism services? More than 4 times per year 09/25/2024 Do you belong to any clubs o r organizations such as pentecostal groups, unions, fraternal or athletic groups, or [...] any time in the past 12 m [facility], were you homeless or living in a snf (including now)? No 09/25/2024 Personal Safety Answer Date Recorded Have you ever been in or are you currently in a harmful physical or emotional relationship or is someone making you feel afraid or unsafe? Denies 09/28/2024 Comments No Sex and Gender Information Value Date Recorded Sex Assigned at Not on file Legal Sex Female 12:52 AM RN REFERRAL Gender Identity Not on file Sexual Orientation Not on file Obstetrics History Last Filed Vital Signs Vital Sign Reading Time Taken Comments Blood Pressure 126/69 10/02/2024 3:00 PM RN REFERRAL Pulse 79 10/02/2024 3:00 PM RN REFERRAL Temperature 37.3 C (99.2 F) 10/02/2024 12:00 PM RN REFERRAL Respiratory Rate 18 10/02/2024 3:00 PM RN REFERRAL Oxygen Saturation 100% 10/02/2024 3:00 PM RN REFERRAL Inhaled Oxygen Concentration - - Weight 72.3 kg (159 lb 6.4 oz) 11/03/2024 2:29 P M RN REFERRAL Height 160 cm (5' 3 ) 11/03/2024 2:29 PM RN REFERRAL Body Mass Index 28.24 11/03/2024 2:29 PM RN REFERRAL Plan of Treatment Health Maintenance Due Date Last Done Comments Albumin Creatinine Ratio, Urine 1940 Depression Screening 1940 Osteoporosis Screening-Bone Density Scan 1940 Dilated Eye Exam 1940 Foot Exam 1940 Lipid Panel 1940 DTaP/Tdap/Td Vaccine (1 - Tdap) 1951 Hepatitis B Screening 1958 Pneumococcal vaccine 65+ (1 of 2 - PCV) 1959 Zoster Vaccine (1 of 2) 1959 Well Visit 65+ 2005 Covid-19 Vaccine (3 - Pfizer risk series) 02/28/2021 01/31/2021, 01/11/2021 Influenza Vaccine (#1) 2024 08/15/2017 Hemoglobin A1C 03/25/2025 09/25/2024, 12/06/2017 Fall Risk Assessment 10/02/2025 10/02/2024 eGFR 10/02/2025 10/02/2024, 09/15, 09/30/2024, Additional history exists Medical Devices Implanted Type Area Hydro Technician Device Identifier Shelf Expiration Date Model / Serial / Lot [employer] Magseed 18ga 7cm Marker Breast Biopsy [id number] - [id number] Implanted:Qty: 1 on 03/09/2022 at [facility] [employer] [id number] 06/14/2025 [id number] / / [id number] [employer] Active Fixation Steroid Eluting Is 1 Connector Latex Free Sterile Atrial Ventricular Atrial Ventricular Solia 60cm [id number] - [id number] - [id number] Implanted:Qty: 1 on 09/24/2024 by Aguila Barrera MD at [facility] N/A: Heart [employer] 08/14/2026 [id number] / [id number] / Description:Right Ventricula r Lead [employer] Solia S 53cm Steroid Elute Bipolar Active Fixation Endocardial [id number] - [id number] - [id number] Implanted:Qty: 1 on 09/24/2024 by Aguila Barrera MD at [facility] N/A: Heart [employer] 08/14/2026 [id number] / [id number] / Description:Right Atrial benja d [employer] Pacemaker Implantable Amvia Edge Dual Chamb Rate-Responsive [id number] - [id number] - [id number] Implanted:Qty: 1 on 09/24/2024 by Aguila Barrera MD at [facility] N/A: Chest Wall [employer] 01/12/2026 [id number] / [id number] / Procedures Procedure Name Priority Date/Time Associated Diagnosis Comments EGFR Routine 10/02/2024 1:29 AM RN REFERRAL HEMOGLOBIN A1C Add-On 09/25/2024 1:39 AM RN REFERRAL from Last 3 Months or Most Recently Relevant to Health Maintenance Results * eGFR (10/02/2024 1:29 AM RN REFERRAL) eGFR 75 >=60 mL/min/1. 73 m2 Comment: [...] last reviewed 2021. Blood 10/02/2024 1:29 AM RN REFERRAL 10/02/2024 2:01 AM RN REFERRAL us Dony REDDY LAB BLOOD ORDER LUCA Final Result Performing Organization Address [facility] Co de Phone Number SLOANE [address] [address] * (ABNORMAL) Hemoglobin A1c (09/25/2024 1:39 AM RN REFERRAL) Hgb A1C 6.5(H) 4.0 - 5.6 % Estimated Average Glucose 140 mg/dL SLOANE PATTERSON Comment: The ADA recommends reporting an estimated Average Glucose (eAG) with all Hemoglobin A1c results using the equation derived from a study of 507 normal and diabetic adults. Minority populations were underrepresented and children were not included. (Diabetes Care 31:7423-4822, 2008). The eAG is not equivalent to a fasting glucose. Blood 09/25/2024 1:39 AM RN REFERRAL 09/25/2024 11:34 AM RN REFERRAL Mariel Kenny MD LAB BLOOD ORDERABLES Final Re sult SLOANE PATTERSON [address] [place] [address] from Last 3 Months or Most Recently Relevant to Health Maintenance Insurance MEDICARE [facility] SUPPLEMENT [facility] SUPPLEMENT MEDICARE MEDICARE [facility] SUPPLEMENT Advance Directives For more information, please contact: [phone] * Full Code (Latest Code Status on File) Date Activated Date Inactivated Comments 09/23/2024 1:26 PM 10/03/2024 11:09 AM Care Teams Claims Vice President Relationship Specialty Start Date End Date Abbe oBston MD [address] [facility] [address] [place] [address] PCP - General 11/12/15 [place] [address] [facility] [address] [place] [address] Consulting Physician Cardiology 10/02/24
--- OUTSIDE RECORDS SUMMARY | 2025-01-18 16:23 | XMS_ITS | Continuity of Care Document ---
Author Organization [facility] Address [address] [place] [address] Phone Care Team Providers Care Election Watcher Name Role Phone Janis Payton Unavailable Unavailable Advance Directives Directive Yes / No Effective Date File Name No Information Encounters Encounter Description Practice Location Reason(s) For Visit Diagnoses Date Provider Providers Copied on Encounter [facility], [address], [place], [place], [id number], [place] tel:[phone] [facility] No Information 0 Tata Bruce. [address] , [address], [place], [address], [place]. tel:[phone] Family History Family Member Type Diagnosis Age [...]
--- OUTSIDE RECORDS SUMMARY | 2025-01-18 16:23 | XMS_ITS | Encounter Summary ---
Author Organization [facility] Healthcare Address [address] [place] [address] Care Team Providers Care Technical Instructor Course Developer Name Role Phone Abbe Boston MD Primary Care Provider Reason for Visit * Diagnostic Imaging (Routine) - Closed Specialty Diagnoses / Procedures Referred By Contac t Referred To Contact Procedures Breast Imaging Diagnostic Outside Reference Abbe Boston MD [address] [facility] [address] [place] [address] Phone: tel: fax: Referral ID Status Reason Start Date Expiration Date Visits Re quested Visits Authorized [id number] Closed 01/02/2022 02/01/2023 1 1 Encounter Details Date Type Department Care Team (Late st Contact Info) Description 09/23/2017 Hospital Encounter [facility] [address] [place] [id number] Social History Tobacco Use Types Packs/Day Years Used Date Smoking Tobacco: Never Smokeless Tobacco: Never Alcohol Use Standard Drinks/Week Comments No 0 (1 standard drink = 0.6 oz pur e alcohol) [facility] Utilities Answer Date Recorded In the past 12 months has [employer], gas, oil, or water company threatened to [...] any clubs o r organizations such as synagogue groups, unions, fraternal or athletic groups, or [...] any time in the past 12 m [facility], were you homeless or living in a longterm (including now)? No 09/25/2024 Personal Safety Answer Date Recorded Have you ever been in or are you currently in a harmful physical or emotional relationship or is someone making you feel afraid or unsafe? Denies 09/28/2024 Comments No Sex and Gender Information Value Date Recorded Sex Assigned at Not on file Legal Sex Female 12:52 AM BINGO CLERK Gender Identity Not on file Sexual Orientation [...] DIAGNOSTIC OUTSIDE REFERENCE Routine 09/23/2017 12:00 AM BINGO CLERK documented in this encounter Results * Breast Imaging Diagnostic Outside Reference (09/23/2017 12:00 AM BINGO CLERK) Impressions [facility]_MAMMO[facility] - 01/02/2022 4:26 PM BINGO CLERK These images are for Reference purposes only and have not been reviewed by [facility] Radiology. There will be no report generated by a [facility] Radiologist. Narrative RAD_MAMMO[facility] - 01/02/2022 4:26 PM BINGO CLERK EXAMINATION: Images For Reference Purposes Only us Abbe Boston MD IMG MAMMO PROCEDURES Fi nal Result [facility]_MAMMO[facility] documented in this encounter Visit Diagnoses Not on filedocumented in this encounter Additional Health Concerns Infection Onset Date Last Indicated Resolved Time COVID: Suspected 09/23/2024 09/23/2024 09/23/2024 3:48 PM BINGO CLERK documented as of this encounter Care Teams Technical Instructor Course Developer Relationship Specialty Start Date End Date Abbe Boston MD [address] [place] [address] PCP - General 11/12/15 documented as of this encounter
--- OUTSIDE RECORDS SUMMARY | 2025-01-18 16:23 | XMS_ITS | Encounter Summary ---
Author Organization [facility] Healthcare Address [address] [place] [address] Care Team Providers Care Second Baker Name Role Phone Abbe Boston MD Primary Care Provider Reason for Visit * Diagnostic Imaging (Routine) - Closed Specialty Diagnoses / Procedures Referred By Nicanor t Referred To Contact Diagnoses Abnormal mammogram of left breast Procedures Breast Imaging Screening Outside Reference Abbe Boston MD [address] [facility] [address] [place] [address] Phone: tel: fax: Referral ID Status Reason Start Date Expiration Date Visits Re quested Visits Authorized [id number] Closed 01/02/2022 02/01/2023 1 1 Encounter Details Date Type Department Care Team (Late st Contact Info) Description 09/15/2018 Hospital Encounter [facility]iology [facility] [address] [place] [id number] Social History Tobacco Use Types Packs/Day Years Used Date Smoking Tobacco: Never Smokeless Tobacco: Never Alcohol Use Standard Drinks/Week Comments No 0 (1 standard drink = 0.6 oz pur e alcohol) [facility] Utilities Answer Date Recorded In the past 12 months has e electric, gas, oil, or water company threatened [...] any clubs o r organizations such as hindu groups, unions, fraternal or athletic groups, or [...] any time in the past 12 m [facility], were you homeless or living in a correction (including now)? No 09/25/2024 Personal Safety Answer Date Recorded Have you ever been in or are you currently in a harmful physical or emotional relationship or is someone making you feel afraid or unsafe? Denies 09/28/2024 Comments No Sex and Gender Information Value Date Recorded Sex Assigned at Not on file Legal Sex Female 12:52 AM KARATE BLACK BELT Gender Identity Not on file Sexual Orientation [...] Outside Reference (09/15/2018 12:00 AM CDT) Impressions RAD_MAMMO_[facility] - 01/02/2022 5:17 PM KARATE BLACK BELT These images are for Reference purposes only and have not been reviewed by [facility] Radiology. There will be no report generated by a [facility] Radiologist. Narrative RAD_MAMMO[facility] - 01/02/2022 5:17 PM KARATE BLACK BELT EXAMINATION: Images For Reference Purposes Only us Abbe Boston MD IMG MAMMO PROCEDURES Fi nal Result [facility]MO[facility] documented in this encounter Visit Diagnoses Not on filedocumented in this encounter Additional Health Concerns Infection Onset Date Last Indicated Resolved Time COVID: Suspected 09/23/2024 09/23/2024 09/23/2024 3:48 PM KARATE BLACK BELT documented as of this encounter Care Teams Second Baker Relationship Specialty Start Date End Date Abbe Boston MD [address] [facility] [address] [place] [address] PCP - General 11/12/15 documented as of this encounter
--- OUTSIDE RECORDS SUMMARY | 2025-01-18 16:23 | XMS_ITS ---
Author Organization [facility] Address [address] [place] [address] Care Team Providers Care Transformer Shop Supervisor Name Role Phone Abbe Boston MD Primary Care Provider Aguila Barrera MD Unavailable Active Problems Problem Noted Date Diagnosed Date [...] reassessment. 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 Blood studies looking for medically addressable causes beyond known diabetes are unrevealing at this time. Numbness and tingling of both legs 09/25/2020 Assessment & Plan (09/25/2020 10:26 AM DOOR CAPTAIN): Patient describes several month history of insidious [...] office thereafter. Spinal stenosis of lumbar re jameson without neurogenic claudication 09/25/2020 Assessment & Plan (09/25/2020 10:28 AM DOOR CAPTAIN): Patient has history of lumbar stenosis with previous successful resolution of low back pain with lumbar epidural steroid injections. Her current pain and distribution of discomfort is different than what she formally had with her spinal stenosis. Aftercare following right knee joint replacement surgery 01/05/2018 Need for prophylactic antibiotic 01/05/2018 Bilateral lower extremity pain 10/25/2017 Assessment & Plan (11/04/2020 11:10 AM DOOR CAPTAIN): I will place patient on a trial of gabapentin 300 mg t.i.d. 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 I will plan on seeing her back in 6 months time for reassessment on treatment. Current Treatment and Therapy Plans No current plan information found. Past Treatment and Therapy Plans No past plan information found. Lifetime Dose Tracking * Chemical Lifetime Dose Automatic Entry Manual Entr y Fluoro Time 7.516 minutes 7.516 minutes 0 minutes Air kerma at the reference point (Ka,r) 483.685 mGy 8 0.685 mGy 403 mGy
--- OUTSIDE RECORDS SUMMARY | 2025-01-18 16:23 | XMS_ITS | Encounter Summary ---
Author Organization [facility] Healthcare Address [address] [place] [address] Care Team Providers Care Pc Tech Name Role Phone Abbe Boston MD Primary Care Provider Reason for Visit * Diagnostic Imaging (Routine) - Closed Specialty Diagnoses / Procedures Referred By Contac t Referred To Contact Procedures Breast Imaging Screening Outside Reference Abbe Boston MD [address] [facility] [address] [place] [address] Phone: tel: fax: Referral ID Status Reason Start Date Expiration Date Visits Re quested Visits Authorized [id number] Closed 01/02/2022 02/01/2023 1 1 Encounter Details Date Type Department Care Team (Late st Contact Info) Description 10/08/2020 Hospital Encounter [facility]iology [facility] [address] [place] [id number] Social History Tobacco Use Types Packs/Day Years Used Date Smoking Tobacco: Never Smokeless Tobacco: Never Alcohol Use Standard Drinks/Week Comments No 0 (1 standard drink = 0.6 oz pur e alcohol) [facility] Utilities Answer Date Recorded In the past 12 months has [employer], gas, oil, or water company threatened to [...] often do you attend chur ch or moravian services? More than 4 times per year 09/25/2024 Do you belong to any clubs o r organizations such as religious groups, unions, fraternal or athletic groups, or [...] on file Legal Sex Female 12:52 AM DATA INPUT CLERK Gender Identity Not on file Sexual [...] SCREENING OUTSIDE REFERENCE Routine 10/08/2020 12:00 AM DATA INPUT CLERK documented in this encounter Results * Breast Imaging Screening Outside Reference (10/08/2020 12:00 AM DATA INPUT CLERK) Impressions RAD_MAMMO[facility] - 01/02/2022 4:25 PM DATA INPUT CLERK These images are for Reference purposes only and have not been reviewed by [facility] Radiology. There will be no report generated by a [facility] Radiologist. Narrative RAD_MAMMO_[facility] - 01/02/2022 4:25 PM DATA INPUT CLERK EXAMINATION: Images For Reference Purposes Only us Abbe Boston MD IMG MAMMO PROCEDURES Fi nal Result [facility]MO[facility] documented in this encounter Visit Diagnoses Not on filedocumented in this encounter Additional Health Concerns Infection Onset Date Last Indicated Resolved Time COVID: Suspected 09/23/2024 09/23/2024 09/23/2024 3:48 PM DATA INPUT CLERK documented as of this encounter Care Teams Pc Tech Relationship Specialty Start Date End Date Abbe Boston MD [address] [place] [address] PCP - General 11/12/15 documented as of this encounter
--- OUTSIDE RECORDS SUMMARY | 2025-01-18 16:23 | XMS_ITS | Encounter Summary ---
Author Organization [facility] Healthcare Address [address] [place] [address] Care Team Providers Care Pharmaceutical Salesperson Name Role Phone Abbe Boston MD Primary Care Provider Aguila Barrera MD Unavailable Encounter Details Date Type Department Care Team (Late st Contact Info) Description 09/27/2024 Orders Only [facility] Cardiac Catheterization Lab [address] [place] [address] [place] [id number] [id number] Complete heart block (HCC) (Primary Dx) Social History Tobacco Use Types Packs/Day Years Used Date Smoking Tobacco: Never Smokeless Tobacco: Never Alcohol Use Standard Drinks/Week Comments No 0 (1 standard drink = 0.6 oz pur e alcohol) [facility] Utilities Answer Date Recorded In the past 12 months has [employer], gas, oil, or water [employer] threatened to shut off services in your [...] week 09/25/2024 How often do you attend [facility] or evangelical services? More than 4 times per year 09/25/2024 Do you belong to any clubs o r organizations such as jainism groups, unions, fraternal or athletic groups, or [...] any time in the past 12 m [facility], were you homeless or living in a group home (including now)? No 09/25/2024 Personal Safety Answer Date Recorded Have you ever been in or are you currently in a harmful physical or emotional relationship or is someone making you feel afraid or unsafe? Denies 09/28/2024 Comments No Sex and Gender Information Value Date Recorded Sex Assigned at Not on file Legal Sex Female 12:52 AM PUBLIC ADDRESS ANNOUNCER Gender Identity Not on file Sexual Orientation Not on file documented as of this encounter Plan of Treatment Not on file documented as of this encounter Visit Diagnoses Diagnosis Complete heart block (HCC)- Primary Atrioventricular block, complete documented in this encounter Orders Case Request Count Last Ordered Date First Orde red Date CASE REQUEST CHANNEL PROCESS SUPERVISOR 1 09/27/2024 documented in this encounter Care Teams Pharmaceutical Salesperson Relationship Specialty Start Date End Date Abbe Boston MD [address] [place] [address] PCP - General 11/12/15 [place] [address] [facility] [address] [place] [address] Consulting Physician Cardiology 10/02/24 documented as of this encounter
--- OUTSIDE RECORDS SUMMARY | 2025-01-18 16:23 | XMS_ITS | Clinical Summary ---
Author Organization [facility] Address [address] [address] Care Team Providers Care Child Care Specialist Name Role Phone Abbe Boston MD Primary Care Provider [phone] Allergies Active Allergy Reactions Criticality Noted Date Comments Methylprednisolone Sodium Succ Rash Medium 09/05 Medications acetaminophen (TYLENOL) 500 mg tablet Take 500 mg by mouth. 2 Active acetaminophen- codeine (TYLENOL #3) 300-30 mg tablet acetaminophen 300 mg-codeine 30 mg tablet Active amLODIPine (NORVASC) 2.5 mg tablet amlodipine 2.5 mg tablet 9 Active baclofen (LIORESAL) 10 mg tablet TAKE 1 TABLET BY MOUTH THREE TIMES DAILY NEEDED FOR SPASMS 2 Active Calcium-Cholec alciferol, D3, 500 mg-3.125 mcg (125 unit) Tablet Take 1 Tablet by mouth 2 times daily. Active clorazepate (TRANXENE) 3.75 mg tablet clorazepate dipotassium 3.75 mg tablet Active diclofenac sodium (VOLTAREN) 50 mg Tablet, Delayed Release (E.C.) diclofenac sodium 50 mg tablet,delayed release 9 Active DULoxetine (CYMBALTA) 30 mg Capsule, Delayed Release(E.C.) Take 30 mg by mouth 2 times daily. 1 Active fenofibrate (FENOGLIDE) 40 mg Tablet fenofibrate 40 mg tablet 9 Active HYDROcodone-ac etaminophen (NORCO) 5-325 mg tablet hydrocodone 5 mg-acetaminophen 325 mg tablet Active losartan (COZAAR) 100 mg tablet losartan 100 mg tablet Active metFORMIN (GLUCOPHAGE) 500 mg tablet metformin 500 mg tablet 9 Active pentoxifylline (TRENtal) 400 mg Extended Release tablet pentoxifylline ER 400 mg tablet,extended release Active risedronate (ACTONEL) 150 mg Tablet risedronate 150 mg tablet Active zinc 50 mg Tablet Take 1 Tablet by mouth daily in the morning. Active fluticasone propionate (FLONASE) 50 mcg/spray Gibson, Suspension nasal inhaler Administer 1 Gibson in each nostril. Active oxyBUTYnin chloride (DITROPAN XL) 5 mg Extended Release 24 hour tablet Take 5 mg by mouth daily. 3 Active Alpha Lipoic Acid 50 mg Tablet Take by mouth. Activ e tamoxifen (NOLVADEX) 20 mg tabletIndicati ons:Malignant neoplasm of lower-inner quadrant of left breast in female, estrogen receptor positive (CMS/HCC) Take 1 Tablet (20 mg) by mouth daily. 90 Tablet 3 4 Active Active Problems Problem Noted Date Diagnosed Date Malignant neoplasm of upper- inner quadrant of left breast in female, estrogen receptor positive 04/21/2022 Encounters Date Type Department Care Team Description 01/02/2025 External Device Data [facility] ABSTRACTION Provider, Abstract 12/12/2024 External Device Data [facility] ABSTRACTION Provider, Abstract from Last 3 Months Social History Tobacco Use Types Packs/Day Years Used Date Smoking Tobacco: Never Smokeless Tobacco: Never Tobacco Cessation:Counseling Given: Not Answered Alcohol Use Standard Drinks/Week Comments Never 0 (1 standard drink = 0.6 oz pur e alcohol) Comments Unknown Sex and Gender Information Value Date Recorded Sex Assigned at Not on file Legal Sex Female 4:36 PM CDT Gender Identity Not on file Sexual Orientation Not on file Last Filed Vital Signs Vital Sign Reading Time Taken Comments Blood Pressure 174/94 09/05/2024 11:26 AM CDT Pulse 69 09/05/2024 11:21 AM CDT Temperature 36.8 C (98.2 F) 09/05/2024 11:21 AM CDT Respiratory Rate 14 09/05/2024 11:21 AM CDT Oxygen Saturation 96% 09/05/2024 11:21 AM CDT Inhaled Oxygen Concentration - - Weight 71.3 kg (157 lb 3.2 oz) 09/05/2024 11:21 AM CDT Height 160 cm (5' 3 ) 07/08/2022 9:59 AM CDT Body Mass Index 27.85 07/08/2022 9:59 AM CDT Plan of Treatment Upcoming Encounters Date Type Department Care Team (Late st Contact Info) Description 02/14/2025 11:15 AM CDT Office Visit [facility] Oncology and Hematology - [place] [address] [facility] [address] [place] [address] Oscar Romero MD [address] [facility] [address] [place] [address] Health Maintenance Due Date Last Done Comments DIABETES ANNUAL FOOT EXAM 1958 DIABETES MICROALBUMIN ANNUAL SCREEN 1958 LDL CHOLESTEROL ANNUAL 1958 DTAP/TDAP/TD VACCINES (1 - Tdap) 1959 PNEUMOCOCCAL VACCINE 50+ YEA RS (1 of 2 - PCV) 1959 Traditional Medicare (ACO) A nnual Wellness Visit 1959 ZOSTER VACCINE (1 of 2) 1990 RSV VACCINE (60+ or ) (1 - 1-dose 75+ series) 2015 INFLUENZA VACCINE (#1) 2024 DIABETES HBA1C Q 6 MONTHS 12/14/20242023, 02/15/2024, 10/12/2023, Additional history exists DIABETES ANNUAL RETINAL EXAM 01/20/202506/2024, 02/17/2022, 08/19/2021 OSTEOPOROSIS SCREENING Completed , 01/27/2021, 01/25/2019 [place] [address] MEDICARE PART A AND B [employer] PPO [id number] Care Teams Child Care Specialist Relationship Specialty Start Date End Date Abbe Boston MD [address] [facility] [address] [place] [address] PCP - General Family Practice 04/21/22
== END 2025-01-18 15:09 | disposition home or self-care (01) ==
PROVIDERS: PCP Family Medicine; Visit Provider Podiatrist Foot & Ankle Surgery
DX: M19.071 Primary osteoarthritis, right ankle and foot (principal); L97.512 Non-pressure chronic ulcer of other part of right foot with fat layer exposed; M86.171 Other acute osteomyelitis, right ankle and foot
CPT/HCPCS: 73630

== ENCOUNTER 2025-01-25 10:47 | Outpatient (CLI) | payer MEDICARE, SELFPAY ==
--- NOTE | ~2025-01-25 | NM_ITS ---
EXAMINATION: NM bone 3 phase DATE: 01/25/2025 15:23 INDICATION: Right great toe ulcer. TECHNIQUE: 24.5 mCi Tc-99m HDP was administered intravenously. Scintigrams of the feet were obtained in angiographic, blood pool, and delayed phases. COMPARISON: Right foot radiographs 01/18/2025 FINDINGS: There is increased activity in right midfoot correlating with severe osteoarthritis on radi ographs. There is increased activity in left midfoot without radiographic comparison, likely osteoart hritis. IMPRESSION: 1. No evidence of osteomyelitis. Reviewed, dictated and finalized at location L.
--- OUTSIDE RECORDS SUMMARY | 2025-01-25 12:39 | XMS_ITS | Encounter Summary ---
Author Organization [facility] Healthcare Address [address] [place] [address] Care Team Providers Care Industrial Sweeper Cleaner Name Role Phone Abbe Boston MD Primary Care Provider Reason for Visit * Diagnostic Imaging (Routine) - Closed Specialty Diagnoses / Procedures Referred By Contac t Referred To Contact Procedures Breast Imaging Diagnostic Outside Reference Abbe Boston MD [address] [facility] [address] [place] [address] Phone: tel: fax: Referral ID Status Reason Start Date Expiration Date Visits Re quested Visits Authorized [id number] Closed 01/02/2022 02/01/2023 1 1 Encounter Details Date Type Department Care Team (Late st Contact Info) Description 09/23/2017 Hospital Encounter [facility]iology [facility] [address] [place] [address] Social History Tobacco Use Types Packs/Day Years Used Date Smoking Tobacco: Never Smokeless Tobacco: Never Alcohol Use Standard Drinks/Week Comments No 0 (1 standard drink = 0.6 oz pur e alcohol) [facility] Utilities Answer Date Recorded In the past 12 months has [employer], gas, oil, or water company threatened to [...] often do you attend chur ch or adventism services? More than 4 times per year 09/25/2024 Do you belong to any clubs o r organizations such as gnosticist groups, unions, fraternal or athletic groups, or [...] any time in the past 12 m [facility], were you homeless or living in a fci (including now)? No 09/25/2024 Personal Safety Answer Date Recorded Have you ever been in or are you currently in a harmful physical or emotional relationship or is someone making you feel afraid or unsafe? Denies 09/28/2024 Comments No Sex and Gender Information Value Date Recorded Sex Assigned at Not on file Legal Sex Female 12:52 AM EMERGENCY CARE ATTENDANT Gender Identity Not on file Sexual Orientation [...] DIAGNOSTIC OUTSIDE REFERENCE Routine 09/23/2017 12:00 AM EMERGENCY CARE ATTENDANT documented in this encounter Results * Breast Imaging Diagnostic Outside Reference (09/23/2017 12:00 AM EMERGENCY CARE ATTENDANT) Impressions RAD_MAMMO[facility] - 01/02/2022 4:26 PM EMERGENCY CARE ATTENDANT These images are for Reference purposes only and have not been reviewed by [facility] Radiology. There will be no report generated by a [facility] Radiologist. Narrative RAD_MAMMO_[facility] - 01/02/2022 4:26 PM EMERGENCY CARE ATTENDANT EXAMINATION: Images For Reference Purposes Only us Abbe Boston MD IMG MAMMO PROCEDURES Fi nal Result RAD_M[facility]MO[facility] documented in this encounter Visit Diagnoses Not on filedocumented in this encounter Additional Health Concerns Infection Onset Date Last Indicated Resolved Time COVID: Suspected 09/23/2024 09/23/2024 09/23/2024 3:48 PM EMERGENCY CARE ATTENDANT documented as of this encounter Care Teams Industrial Sweeper Cleaner Relationship Specialty Start Date End Date Abbe Boston MD [address] [place] [address] PCP - General 11/12/15 documented as of this encounter
--- OUTSIDE RECORDS SUMMARY | 2025-01-25 12:39 | XMS_ITS | CONTINUITY OF CARE DOCUMENT ---
Author Name adolfoalexbubbatrever Address Unknown Organization [facility] Address [address] [place] [address] Phone [phone] Care Team Providers Care Sales Assistant Displays Name Role Phone Aguila Barrera MD Unavailable [phone] Aguila Barrera MD Unavailable [phone] KP العلي MD Unavailable [phone] PROBLEMS Condition Status Date Provider Notes S/P Dual chamb PCM - Biotron ik ( MRI Safe) active Jil Langley Cardiology examination active Addis Ventim iglia CNC MANAGER Lower extremity edema, left active Addis V entimiglia CNC MANAGER Hypertension benign essential active Addis Ventimiglia CNC MANAGER Hyperlipidemia active Addis Ventimiglia FN P Snoring active Addis Ventimiglia CNC MANAGER Complete heart block active Addis Ventimig emily CNC MANAGER Swelling of left arm active Gabriele Hicks h ENCOUNTERS Date Type Provider Location Encounter Diag nosis - In-person encounter Office Visit Agulia Barrera MD [facility] Swelling of left arm - In-person encounter Office Visit Aguila Barrera MD [facility] Cardiology examinationLower extremity edema, leftHypertension benign essentialHyperlipidemiaSnoringComplete heart block VITAL SIGNS Date Observation Value Provider Body Mass Index (Ratio) 27.20 kg/m2 John Carey blood pressure, diastolic 72 mm[Hg] Li nkLogic blood pressure, systolic 145 mm[Hg] Jacquie kLogic blood pressure, cuff size regular Doe rodriguez [facility] blood pressure, diastolic 72 mm[Hg] Doe rodriguez [facility] blood pressure, systolic 145 mm[Hg] Venessa benavides [facility] oxygen saturation, oximetry 94 % Anneliese [facility] pulse rate 80 /min Anneliese [facility] weight E&M 156 [lb_av] Anneliese [facility] height E&M 63.5 [in_i] [facility] Body Mass Index (Ratio) 27.79 kg/m2 Aguila Barrera MD blood pressure, diastolic 83 mm[Hg] Watson petersonn [facility] blood pressure, systolic 163 mm[Hg] Suha gely [facility] oxygen saturation, oximetry 97 % [facility] pulse rate 80 /min [facility] blood pressure, cuff size regular Watson petersonn [facility] weight E&M 159.4 [lb_av] [facility] height E&M 63.5 [in_i] [facility] Allergy Name Onset Date Reaction Criticality Status SOLU-MEDROL High Criticality active HISTORY OF MEDICATION USE Medication Status Instructions Dates Provider Indications Com ments cephalexin 500 mg tablet active 1 tablet by mouth three times a day Addis Ventimiglandrew CNC MANAGER duloxetine 30 mg capsule,delayed release(DR/EC) active Fern Issa oxybutynin chloride 5 mg tablet active 1 tablet by mouth once a day Addis Ventimiglia CNC MANAGER diclofenac sodium 50 mg tablet,delayed release (DR/EC) active Fern Issa pentoxifylline 400 mg tablet extended release active 1 tablet by mouth twice a day Addisalverto Menesesmiglia CNC MANAGER clorazepate dipotassium 3.75 mg tablet active Fern Issa tamoxifen 20 mg tablet active 1 tablet by mouth once a day Addisalverto Menesesmiglia CNC MANAGER losartan 100 mg tablet active Fern Issa baclofen 10 mg tablet completed - Addisalverto Menesesmiglia CNC MANAGER amlodipine 2.5 mg tablet active Take 1 tablet by mouth once a day Addisalverto Menesesmiglia CNC MANAGER hydrocodone-aceta minophen 5-325 mg tablet active Fern Issa metformin 500 mg tablet active TAKE 1 TABLET BY MOUTH TWICE DAILY FOR DIABETES Addisalverto Menesesmiglia CNC MANAGER baclofen 5 mg tablet active Fern Issa fenofibrate 54 mg tablet active Fern Issa SOCIAL HISTORY Date Observation Value Provider personal history of marijuana use no Aguila Barrera MD drug use no Aguila Barrera MD alcohol use no Aguila Barrera MD smoking status Never smoker Aguila Roa personal history of marijuana use no Addis Ventimiglia CNC MANAGER drug use no Addis Ventimig emily CNC MANAGER alcohol use no Addis Ventimig emily CNC MANAGER smoking status Never smoker Addis Ortiz iglia [facility] INSURANCE PROVIDERS Payer name Policy type / Coverage type [place] red democrat ID [facility] Hero Card Management AS [id number] [place] MED[place] Medicare [id number] ADVANCE DIRECTIVES Name Date DISCUSSED - NO DECISION MADE TREATMENT PLAN Date Name Performer Cardiology: Pt noted some swelling in left arm. Will order UE venous duplex. Gabriele Carey Cardiology:will plan for [facility] [place] ndcarmen Menesesmiglia CNC MANAGER Cardiology: H er updated medication list for this problem includes: Fenofibrate 54 Mg Tablet (Fenofibrate) Addis Menesesmiglia [facility] Cardiology:She has L LE edema >Rt she reports this is new. No pain or erythema. Will do venous doppler to r/o DVT. Will do SERGIO as on pletal for unclear reason to r/o arterial disease Addis Ventimiglia CNC MANAGER Cardiology:BP above goal W ill plan home RPM if BP >130/80 will adjust medication therapy H er updated medication list for this problem includes: Amlodipine 2.5 Mg Tablet (Amlodipine) ..... Take 1 tablet by mouth once a day Losartan 100 Mg Tablet (Losartan) Addis Aguirre [facility] Cardiology:She is s/ p dual chamber PPM with RV lead revision post implant M ild erythema at PPM site will renew abx W ill have her device checked in office today Addis Sujimmyandrew [facility] Date Name Venous Doppler Bilat eral UE [...]
--- OUTSIDE RECORDS SUMMARY | 2025-01-25 12:39 | XMS_ITS | Clinical Summary ---
Author Organization [facility] Address [address] [place] [address] Care Team Providers Care Veterinary Surgeon Name Role Phone Abbe Boston MD Primary Care Provider [phone] Allergies Active Allergy Reactions Criticality Noted Date [...] morning. Active fluticasone propionate (FLONASE) 50 mcg/spray Hornbeck, Suspension nasal inhaler Administer 1 Hornbeck in each nostril. Active oxyBUTYnin chloride (DITROPAN [...] Encounters Date Type Department Care Team Description 01/20/2025 External Device Data [facility] ABSTRACTION Provider, Abstract 01/19/2025 External Device Data [facility] ABSTRACTION Provider, Abstract 01/02/2025 External Device Data [facility] ABSTRACTION Provider, [...] Description 02/14/2025 11:15 AM CDT Office Visit [facility] Oncology and Hematology - Raimundo [address] [facility] [address] [place] [address] Oscar Romero MD [address] [place] [address] Health Maintenance Due Date Last [...] OSTEOPOROSIS SCREENING Completed , 01/27/2021, 01/25/2019 Insurance MEDICARE PART A AND B [facility] OPTIONS [id number] Care Teams Veterinary Surgeon Relationship Specialty Start Date End Date Abbe Boston MD [address] [facility] [address] [place] [address] PCP - General Family Practice 04/21/22
--- OUTSIDE RECORDS SUMMARY | 2025-01-25 12:39 | XMS_ITS | Clinical Summary ---
Author Organization [facility] Address [address] [place] [address] Care Team Providers Care Group President Name Role Phone Abbe Boston MD [...] reassessment. 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 Blood studies looking for medically addressable causes beyond known diabetes are unrevealing at this time. Numbness and tingling of both legs 09/25/2020 Assessment & Plan (09/25/2020 10:26 AM TECHNICAL INSTRUCTOR): Patient describes several month history of insidious [...] 09/25/2020 Assessment & Plan (09/25/2020 10:28 AM TECHNICAL INSTRUCTOR): Patient has history of lumbar stenosis with previous successful resolution of low back pain with lumbar epidural steroid injections. Her current pain and distribution of discomfort is different than what she formally had with her spinal stenosis. Aftercare following right knee joint replacement surgery 01/05/2018 Need for prophylactic antibiotic 01/05/2018 Bilateral lower extremity pain 10/25/2017 Assessment & Plan (11/04/2020 11:10 AM TECHNICAL INSTRUCTOR): I will place patient on a trial of gabapentin 300 mg t.i.d. 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 I will plan on seeing her back in 6 months time for reassessment on treatment. Encounters Date Type Department Care Team Description 11/03/2024 2:00 PM TECHNICAL INSTRUCTOR Office Visit [facility] [address] [place] [address] [address] [place] [address] Maxine Tolliver, LIYAH Malignant neoplasm of central portion of left breast in female, estrogen receptor positive (HCC) (Primary Dx); History of partial mastectomy of left breast; Screening mammogram, encounter for 11/02/2024 Telephone [facility] [address] [place] [address] [address] [place] [address] Yuni Almeida MD Medical Question/Miscellaneou [...] drink = 0.6 oz pur e alcohol) [facility] Utilities Answer Date Recorded In the past 12 months has [employer], gas, oil, or water [employer] threatened to shut off services in your [...] often do you attend chur ch or holiness services? More than 4 times per year 09/25/2024 Do you belong to any clubs o r organizations such as cheondoism groups, unions, fraternal or athletic groups, or [...] any time in the past 12 m [facility], were you homeless or living [...] on file Legal Sex Female 12:52 AM TECHNICAL INSTRUCTOR Gender Identity Not on file Sexual Orientation Not on file Obstetrics History Last Filed Vital Signs Vital Sign Reading Time Taken Comments Blood Pressure 126/69 10/02/2024 3:00 PM TECHNICAL INSTRUCTOR Pulse 79 10/02/2024 3:00 PM TECHNICAL INSTRUCTOR Temperature 37.3 C (99.2 F) 10/02/2024 12:00 PM TECHNICAL INSTRUCTOR Respiratory Rate 18 10/02/2024 3:00 PM TECHNICAL INSTRUCTOR Oxygen Saturation 100% 10/02/2024 3:00 PM TECHNICAL INSTRUCTOR Inhaled Oxygen Concentration - - Weight 72.3 kg (159 lb 6.4 oz) 11/03/2024 2:29 P M TECHNICAL INSTRUCTOR Height 160 cm (5' 3 ) 11/03/2024 2:29 PM TECHNICAL INSTRUCTOR Body Mass Index 28.24 11/03/2024 2:29 PM TECHNICAL INSTRUCTOR Plan of Treatment Health Maintenance Due Date [...] history exists Medical Devices Implanted Type Area Navy Diver Device Identifier Shelf Expiration Date Model / Serial / Lot [employer] Magseed 18ga 7cm Marker Breast Biopsy [id number] - [id number] Implanted:Qty: 1 on 03/09/[address] [facility] [employer] [id number] 06/14/2025 [id number] / / [id number] [employer] Active Fixation Steroid Eluting Is 1 Connector Latex Free Sterile Atrial Ventricular Atrial Ventricular Solia 60cm [id number] - [id number] - [id number] Implanted:Qty: 1 on 09/24/2024 by Aguila Barrera MD at [facility] N/A: Heart [employer] 08/14/2026 [id number] / [id number] / Description:Right Ventricula r Lead [employer] Solia S 53cm Steroid Elute Bipolar Active Fixation Endocardial [id number] - [id number] - [id number] Implanted:Qty: 1 on 09/24/2024 by Aguila Barrera MD at [facility] N/A: Heart [employer] 08/14/2026 [id number] / [id number] / Description:Right Atrial benja d [employer] Pacemaker Implantable Amvia Edge Dual Chamb Rate-Responsive [id number] - [id number] - [id number] Implanted:Qty: 1 on 09/24/2024 by Aguila Barrera MD at [facility] N/A: Chest Wall [employer] 01/12/2026 [id number] / [id number] / Procedures Procedure Name Priority Date/Time Associated Diagnosis Comments EGFR Routine 10/02/2024 1:29 AM TECHNICAL INSTRUCTOR HEMOGLOBIN A1C Add-On 09/25/2024 1:39 AM TECHNICAL INSTRUCTOR from Last 3 Months or Most Recently Relevant to Health Maintenance Results * eGFR (10/02/2024 1:29 AM TECHNICAL INSTRUCTOR) eGFR 75 >=60 mL/min/1. 73 m2 Comment: [...] last reviewed 2021. Blood 10/02/2024 1:29 AM TECHNICAL INSTRUCTOR 10/02/2024 2:01 AM TECHNICAL INSTRUCTOR us Dony REDDY LAB BLOOD ORDER LUCA Final Result Performing Organization Address [facility] Co de Phone Number SLOANE [address] [place] [address] * (ABNORMAL) Hemoglobin A1c (09/25/2024 1:39 AM TECHNICAL INSTRUCTOR) Hgb A1C 6.5(H) 4.0 - 5.6 % Estimated Average Glucose 140 mg/dL SLOANE PATTERSON Comment: The ADA recommends reporting an estimated Average Glucose (eAG) with all Hemoglobin A1c results using the equation derived from a study of 507 normal and diabetic adults. Minority populations were underrepresented and children were not included. (Diabetes Care 31:5923-4150, 2008). The eAG is not equivalent to a fasting glucose. Blood 09/25/2024 1:39 AM TECHNICAL INSTRUCTOR 09/25/2024 11:34 AM TECHNICAL INSTRUCTOR Mariel Kenny MD LAB BLOOD ORDERABLES Final Re sult SLOANE PATTERSON [address] [address] from Last 3 Months or Most Recently Relevant to Health Maintenance Insurance MEDICARE [facility] SUPPLEMENT [facility] SUPPLEMENT MEDICARE MEDICARE [facility] SUPPLEMENT Advance Directives For more information, please contact: [phone] * Full Code (Latest Code Status on File) Date Activated Date Inactivated Comments 09/23/2024 1:26 PM 10/03/2024 11:09 AM Care Teams Group President Relationship Specialty Start Date End Date Abbe Boston MD [address] [facility] [address] [place] [address] PCP - General 11/12/15 [place] [address] [facility] [address] [place] [address] Consulting Physician Cardiology 10/02/24
--- OUTSIDE RECORDS SUMMARY | 2025-01-25 12:39 | XMS_ITS | Encounter Summary ---
Author Organization [facility] Healthcare Address [address] [place] [address] Care Team Providers Care Computer Numerical Control Programmer Name Role Phone Abbe Boston MD Primary Care Provider Reason for Visit * Diagnostic Imaging (Routine) - Closed Specialty Diagnoses / Procedures Referred By Contac t Referred To Contact Procedures Breast Imaging Screening Outside Reference Abbe Boston MD [address] [facility] [address] [place] [address] Phone: tel: fax: Referral ID Status Reason Start Date Expiration Date Visits Re quested Visits Authorized [id number] Closed 01/02/2022 02/01/2023 1 1 Encounter Details Date Type Department Care Team (Late st Contact Info) Description 10/08/2020 Hospital Encounter [facility] [address] [place] [address] Social History Tobacco Use Types Packs/Day Years Used Date Smoking Tobacco: Never Smokeless Tobacco: Never Alcohol Use Standard Drinks/Week Comments No 0 (1 standard drink = 0.6 oz pur e alcohol) [facility] Utilities Answer Date Recorded In the past 12 months has [employer], gas, oil, or water company threatened to [...] often do you attend chur ch or latter-day services? More than 4 times per year [...] any time in the past [address] [facility], were you homeless or living in a long-term (including now)? No 09/25/2024 Personal Safety Answer Date Recorded Have you ever been in or are you currently in a harmful physical or emotional relationship or is someone making you feel afraid or unsafe? Denies 09/28/2024 Comments No Sex and Gender Information Value Date Recorded Sex Assigned at Not on file Legal Sex Female 12:52 AM BLOOD COLLECTOR Gender Identity Not on file Sexual Orientation [...] SCREENING OUTSIDE REFERENCE Routine 10/08/2020 12:00 AM BLOOD COLLECTOR documented in this encounter Results * Breast Imaging Screening Outside Reference (10/08/2020 12:00 AM BLOOD COLLECTOR) Impressions [facility] - 01/02/2022 4:25 PM BLOOD COLLECTOR These images are for Reference purposes only and have not been reviewed by [facility] Radiology. There will be no report generated by a [facility] Radiologist. Narrative [facility] - 01/02/2022 4:25 PM BLOOD COLLECTOR EXAMINATION: Images For Reference Purposes Only us Abbe Boston MD IMG MAMMO PROCEDURES Fi nal Result [facility] documented in this encounter Visit Diagnoses Not on filedocumented in this encounter Additional Health Concerns Infection Onset Date Last Indicated Resolved Time COVID: Suspected 09/23/2024 09/23/2024 09/23/2024 3:48 PM BLOOD COLLECTOR documented as of this encounter Care Teams Computer Numerical Control Programmer Relationship Specialty Start Date End Date Abbe Boston MD [address] [facility] [address] [place] [address] PCP - General 11/12/15 documented as of this encounter
--- OUTSIDE RECORDS SUMMARY | 2025-01-25 12:39 | XMS_ITS | Encounter Summary ---
Author Organization [facility] Healthcare Address [address] [place] [address] Care Team Providers Care Supervisor Gas Meter Repair Name Role Phone Abbe Boston MD Primary Care Provider Reason for Visit * Diagnostic Imaging (Routine) - Closed Specialty Diagnoses / Procedures Referred By Contac t Referred To Contact Procedures Breast Imaging Screening Outside Reference Abbe Boston MD [address] [facility] [address] [place] [address] Phone: tel: fax: Referral ID Status Reason Start Date Expiration Date Visits Re quested Visits Authorized [id number] Closed 01/02/2022 02/01/2023 1 1 Encounter Details Date Type Department Care Team (Late st Contact Info) Description 09/21/2019 Hospital Encounter [facility] [address] [place] [id number] Social History Tobacco Use Types Packs/Day Years Used Date Smoking Tobacco: Never Smokeless Tobacco: Never Alcohol Use Standard Drinks/Week Comments No 0 (1 standard drink = 0.6 oz pur e alcohol) [facility] Utilities Answer Date Recorded In the past 12 months has [employer], gas, oil, or water company threatened to [...] often do you attend chur ch or hinduism services? More than 4 times per year 09/25/2024 Do you belong to any clubs o r organizations such as sabianist groups, unions, fraternal or athletic groups, or [...] on file Legal Sex Female 12:52 AM SUPERVISOR MALT HOUSE Gender Identity Not on file Sexual Orientation [...] SCREENING OUTSIDE REFERENCE Routine 09/21/2019 12:00 AM SUPERVISOR MALT HOUSE documented in this encounter Results * Breast Imaging Screening Outside Reference (09/21/2019 12:00 AM SUPERVISOR MALT HOUSE) Impressions [facility] - 01/02/2022 4:25 PM SUPERVISOR MALT HOUSE These images are for Reference purposes only and have not been reviewed by [facility] Radiology. There will be no report generated by a [facility] Radiologist. Narrative [facility] - 01/02/2022 4:25 PM SUPERVISOR MALT HOUSE EXAMINATION: Images For Reference Purposes Only us Abbe Boston MD IMG MAMMO PROCEDURES Fi nal Result RAD_MAMMO[facility] documented in this encounter Visit Diagnoses Not on filedocumented in this encounter Additional Health Concerns Infection Onset Date Last Indicated Resolved Time COVID: Suspected 09/23/2024 09/23/2024 09/23/2024 3:48 PM SUPERVISOR MALT HOUSE documented as of this encounter Care Teams Supervisor Gas Meter Repair Relationship Specialty Start Date End Date Abbe Boston MD [address] [facility] [address] [place] [address] PCP - General 11/12/15 documented as of this encounter
--- OUTSIDE RECORDS SUMMARY | 2025-01-25 12:40 | XMS_ITS ---
Author Organization [facility] Address [address] [place] [address] Care Team Providers Care Fund Development Manager Name Role Phone Abbe Boston MD [...] reassessment. 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 Blood studies looking for medically addressable causes beyond known diabetes are unrevealing at this time. Numbness and tingling of both legs 09/25/2020 Assessment & Plan (09/25/2020 10:26 AM SENIOR PROGRAMMER): Patient describes several month history of insidious [...] 09/25/2020 Assessment & Plan (09/25/2020 10:28 AM SENIOR PROGRAMMER): Patient has history of lumbar stenosis with previous successful resolution of low back pain with lumbar epidural steroid injections. Her current pain and distribution of discomfort is different than what she formally had with her spinal stenosis. Aftercare following right knee joint replacement surgery 01/05/2018 Need for prophylactic antibiotic 01/05/2018 Bilateral lower extremity pain 10/25/2017 Assessment & Plan (11/04/2020 11:10 AM SENIOR PROGRAMMER): I will place patient on a trial [...]
--- OUTSIDE RECORDS SUMMARY | 2025-01-25 12:40 | XMS_ITS | Referral Summary ---
Author Organization [facility] Address [address] [place] [address] Care Team Providers Care Energy Systems Engineer Name Role Phone Abbe Boston MD Primary Care Provider Aguila Barrera MD Unavailable Encounters Date Type Department Care Team Description 11/03/2024 2:00 PM REAL ESTATE CLOSER Office Visit [facility] [address] [place] [phone] Maxine Tolliver NP Malignant neoplasm of central portion of left breast in female, estrogen receptor positive (HCC) (Primary Dx); History of partial mastectomy of left breast; Screening mammogram, encounter for 11/02/2024 Telephone [facility] [address] [place] [phone] Yuni Almeida MD Medical Question/Miscellaneou s [...] reassessment. 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 Blood studies looking for medically addressable causes beyond known diabetes are unrevealing at this time. Numbness and tingling of both legs 09/25/2020 Assessment & Plan (09/25/2020 10:26 AM REAL ESTATE CLOSER): Patient describes several month history of insidious [...] 09/25/2020 Assessment & Plan (09/25/2020 10:28 AM REAL ESTATE CLOSER): Patient has history of lumbar stenosis with previous successful resolution of low back pain with lumbar epidural steroid injections. Her current pain and distribution of discomfort is different than what she formally had with her spinal stenosis. Aftercare following right knee joint replacement surgery 01/05/2018 Need for prophylactic antibiotic 01/05/2018 Bilateral lower extremity pain 10/25/2017 Assessment & Plan (11/04/2020 11:10 AM REAL ESTATE CLOSER): I will place patient on a trial [...] drink = 0.6 oz pur e alcohol) [facility] Utilities Answer Date Recorded In the past 12 months has e [employer], gas, oil, or water [employer] threatened to shut off services in your [...] often do you attend chur ch or congregation services? More than 4 times per year 09/25/2024 Do you belong to any clubs o r organizations such as bahai groups, unions, fraternal or athletic groups, or [...] any time in the past 12 m [facility], were you homeless or living [...] on file Legal Sex Female 12:52 AM REAL ESTATE CLOSER Gender Identity Not on file Sexual Orientation Not on file Last Filed Vital Signs Vital Sign Reading Time Taken Comments Blood Pressure 126/69 10/02/2024 3:00 PM REAL ESTATE CLOSER Pulse 79 10/02/2024 3:00 PM REAL ESTATE CLOSER Temperature 37.3 C (99.2 F) 10/02/2024 12:00 PM REAL ESTATE CLOSER Respiratory Rate 18 10/02/2024 3:00 PM REAL ESTATE CLOSER Oxygen Saturation 100% 10/02/2024 3:00 PM REAL ESTATE CLOSER Inhaled Oxygen Concentration - - Weight 72.3 kg (159 lb 6.4 oz) 11/03/2024 2:29 P M REAL ESTATE CLOSER Height 160 cm (5' 3 ) 11/03/2024 2:29 PM REAL ESTATE CLOSER Body Mass Index 28.24 11/03/2024 2:29 PM REAL ESTATE CLOSER Plan of Treatment Not on file Medical Devices Implanted Type Area Hydroelectric Station Operator Chief Device Identifier Shelf Expiration Date Model / Serial / Lot Health Information Designs Magseed 18ga 7cm Marker Breast Biopsy [id number] - [id number] Implanted:Qty: 1 on 03/09/2022 at [facility] [employer] [id number] 06/14/2025 [id number] [employer] Active Fixation Steroid Eluting Is 1 Connector Latex Free Sterile Atrial Ventricular Atrial Ventricular Solia 60cm [id number] - [id number] - [id number] Implanted:Qty: 1 on 09/24/2024 by Aguila Barrera MD at [facility] N/A: Heart [employer] 08/14/2026 [id number] / [id number] / Description:Right Ventricula r Lead [employer] Solia S 53cm Steroid Elute Bipolar Active Fixation Endocardial [id number] - [id number] - [id number] Implanted:Qty: 1 on 09/24/2024 by Aguila Barrera MD at [facility] N/A: Heart [employer] 08/14/2026 [id number] / [id number] / Description:Right Atrial benja d [employer] Pacemaker Implantable Amvia Edge Dual Chamb Rate-Responsive [id number] - [id number] - [id number] Implanted:Qty: 1 on 09/24/2024 by Aguila Barrera MD at [facility] N/A: Chest Wall [employer] 01/12/2026 [id number] / [id number] / Procedures Procedure Name Priority Date/Time Associated Diagnosis Comments EGFR Routine 10/02/2024 1:29 AM REAL ESTATE CLOSER HEMOGLOBIN A1C Add-On 09/25/2024 1:39 AM REAL ESTATE CLOSER from Last 3 Months or Most Recently Relevant to Health Maintenance Results * eGFR (10/02/2024 1:29 AM REAL ESTATE CLOSER) eGFR 75 >=60 mL/min/1. 73 m2 Comment: [...] last reviewed 2021. Blood 10/02/2024 1:29 AM REAL ESTATE CLOSER 10/02/2024 2:01 AM REAL ESTATE CLOSER us Dony REDDY LAB BLOOD ORDER LUCA Final Result Performing Organization Address City/[facility] Co de Phone Number SLOANE PATTERSON [phone] [address] [place] [place] [address] * (ABNORMAL) Hemoglobin A1c (09/25/2024 1:39 AM REAL ESTATE CLOSER) Hgb A1C 6.5(H) 4.0 - 5.6 % Estimated Average Glucose 140 mg/dL SLOANE PATTERSON Comment: The ADA recommends reporting an estimated Average Glucose (eAG) with all Hemoglobin A1c results using the equation derived from a study of 507 normal and diabetic adults. Minority populations were underrepresented and children were not included. (Diabetes Care 31:9400-4292, 2008). The eAG is not equivalent to a fasting glucose. Blood 09/25/2024 1:39 AM REAL ESTATE CLOSER 09/25/2024 11:34 AM REAL ESTATE CLOSER us Mariel Kenny MD LAB BLOOD ORDERABLES Final Re sult SLOANE PATTERSON [id number] [address] [place] [address] from Last 3 Months or Most Recently Relevant to Health Maintenance Insurance MEDICARE [facility] SUPPLEMENT [facility] SUPPLEMENT MEDICARE MEDICARE [facility] SUPPLEMENT POONAM CABALLERO [id number] Advance Directives For more information, please contact: [phone] * Full Code (Latest Code Status on File) Date Activated Date Inactivated Comments 09/23/2024 1:26 PM 10/03/2024 11:09 AM Care Teams Energy Systems Engineer Relationship Specialty Start Date End Date Abbe Boston MD [address] [facility] [address] [facility] [address] [place] [address] PCP - General 11/12/15 [place] [address] [facility] [address] [place] [address] Consulting Physician Cardiology 10/02/24
--- OUTSIDE RECORDS SUMMARY | 2025-01-25 12:40 | XMS_ITS | Continuity of Care Document ---
Author Organization [facility] Address [address] [place] [address] Phone Care Team Providers Care Trauma Nurse Name Role Phone Janis Payton Unavailable Unavailable Advance Directives Directive Yes / No Effective Date File Name No Information Encounters Encounter Description Practice Location Reason(s) For Visit Diagnoses Date Provider Providers Copied on Encounter [facility], [address], [place], [place], [id number], [place] tel:[phone] [facility] No Information [address] , [address], [place], [address], [place]. tel:[phone] Family History Family Member Type Diagnosis Age [...]
--- OUTSIDE RECORDS SUMMARY | 2025-01-25 12:40 | XMS_ITS | Encounter Summary ---
Author Organization [facility] Healthcare Address [address] [place] [address] Care Team Providers Care Intervention Specialist Name Role Phone Abbe Boston MD Primary Care Provider Reason for Visit * Diagnostic Imaging (Routine) - Closed Specialty Diagnoses / Procedures Referred By Contac t Referred To Contact Procedures Breast Imaging Screening Outside Reference Abbe Boston MD [address] [facility] [address] [place] [address] Phone: tel: fax: Referral ID Status Reason Start Date Expiration Date Visits Re quested Visits Authorized [id number] Closed 01/02/2022 02/01/2023 1 1 Encounter Details Date Type Department Care Team (Late st Contact Info) Description 09/13/2017 Hospital Encounter [facility] [address] [place] [address] Social History Tobacco Use Types Packs/Day Years Used Date Smoking Tobacco: Never Smokeless Tobacco: Never Alcohol Use Standard Drinks/Week Comments No 0 (1 standard drink = 0.6 oz pur e alcohol) [facility] Utilities Answer Date Recorded In the past 12 months has [employer], gas, oil, or water company threatened to [...] often do you attend chur ch or methodist services? More than 4 times per year [...] were you homeless or living in a custodial (including now)? No 09/25/2024 Personal Safety Answer Date Recorded Have you ever been in or are you currently in a harmful physical or emotional relationship or is someone making you feel afraid or unsafe? Denies 09/28/2024 Comments No Sex and Gender Information Value Date Recorded Sex Assigned at Not on file Legal Sex Female 12:52 AM INSPECTOR WIRE PRODUCTS Gender Identity Not on file Sexual Orientation [...] CDT) Impressions [facility]_MAMMO[facility] - 01/02/2022 4:25 PM INSPECTOR WIRE PRODUCTS These images are for Reference purposes only and have not been reviewed by [facility] Radiology. There will be no report generated by a [facility] Radiologist. Narrative RAD_MAMMO_[facility] - 01/02/2022 4:25 PM INSPECTOR WIRE PRODUCTS EXAMINATION: Images For Reference Purposes Only us Abbe Boston MD IMG MAMMO PROCEDURES Fi nal Result RAD_MAMMO[facility] documented in this encounter Visit Diagnoses Not on filedocumented in this encounter Additional Health Concerns Infection Onset Date Last Indicated Resolved Time COVID: Suspected 09/23/2024 09/23/2024 09/23/2024 3:48 PM INSPECTOR WIRE PRODUCTS documented as of this encounter Care Teams Intervention Specialist Relationship Specialty Start Date End Date Abbe Boston MD [address] [place] [address] PCP - General 11/12/15 documented as of this encounter
--- OUTSIDE RECORDS SUMMARY | 2025-01-25 12:40 | XMS_ITS | Encounter Summary ---
Author Organization [facility] Healthcare Address [address] [place] [address] Care Team Providers Care Explosive Operator Name Role Phone Abbe Boston MD Primary Care Provider Reason for Visit * Diagnostic Imaging (Routine) - Closed Specialty Diagnoses / Procedures Referred By Nicanor t Referred To Contact Diagnoses Abnormal mammogram of left breast Procedures Breast Imaging Screening Outside Reference Abbe Boston MD [address] [facility] [address] [place] [address] Phone: tel: fax: Referral ID Status Reason Start Date Expiration Date Visits Re quested Visits Authorized [id number] Closed 01/02/2022 02/01/2023 1 1 Encounter Details Date Type Department Care Team (Late st Contact Info) Description 09/15/2018 Hospital Encounter [facility] [address] [place] [address] Social History Tobacco Use Types Packs/Day Years Used Date Smoking Tobacco: Never Smokeless Tobacco: Never Alcohol Use Standard Drinks/Week Comments No 0 (1 standard drink = 0.6 oz pur e alcohol) [facility] Utilities Answer Date Recorded In [...] often do you attend chur ch or latter day services? More than 4 times per year 09/25/2024 Do you belong to any clubs o r organizations such as rastafarian groups, unions, fraternal or athletic groups, or [...] any time in the past 12 m [facility], were you homeless or living in a mcfp (including now)? No 09/25/2024 Personal Safety Answer Date Recorded Have you ever been in or are you currently in a harmful physical or emotional relationship or is someone making you feel afraid or unsafe? Denies 09/28/2024 Comments No Sex and Gender Information Value Date Recorded Sex Assigned at Not on file Legal Sex Female 12:52 AM IT INFRASTRUCTURE MANAGER Gender Identity Not on file Sexual [...] CDT) Impressions RAD_MAMMO_[facility] - 01/02/2022 5:17 PM IT INFRASTRUCTURE MANAGER These images are for Reference purposes only and have not been reviewed by [facility] Radiology. There will be no report generated by a [facility] Radiologist. Narrative RAD_MAMMO_[facility] - 01/02/2022 5:17 PM IT INFRASTRUCTURE MANAGER EXAMINATION: Images For Reference Purposes Only us Abbe Boston MD IMG MAMMO PROCEDURES Fi nal Result RAD_M[facility]MO[facility] documented in this encounter Visit Diagnoses Not on filedocumented in this encounter Additional Health Concerns Infection Onset Date Last Indicated Resolved Time COVID: Suspected 09/23/2024 09/23/2024 09/23/2024 3:48 PM IT INFRASTRUCTURE MANAGER documented as of this encounter Care Teams Explosive Operator Relationship Specialty Start Date End Date Abbe Boston MD [address] [facility] [address] [place] [address] PCP - General 11/12/15 documented as of this encounter
--- OUTSIDE RECORDS SUMMARY | 2025-01-25 12:40 | XMS_ITS | Encounter Summary ---
Author Organization [facility] Healthcare Address [address] [place] [address] Care Team Providers Care Benefits Director Name Role Phone Abbe Boston MD Primary Care Provider Aguila Barrera MD Unavailable Encounter Details Date Type Department Care Team (Late st Contact Info) Description 09/27/2024 Orders Only [facility] Cardiac Catheterization Lab [address] [place] [address] [place] [address] [id number] Complete heart block (HCC) (Primary Dx) Social History Tobacco Use Types Packs/Day Years Used Date Smoking Tobacco: Never Smokeless Tobacco: Never Alcohol Use Standard Drinks/Week Comments No 0 (1 standard drink = 0.6 oz pur e alcohol) [facility] Utilities Answer Date Recorded In the past 12 months has [employer], gas, oil, or water [employer] threatened to shut off services in your [...] week 09/25/2024 How often do you attend [facility] or yarsanism services? More than 4 times per year 09/25/2024 Do you belong to any clubs o r organizations such as quaker groups, unions, fraternal or athletic groups, or [...] time in the past 12 m [facility], were you homeless or living in [...] on file Legal Sex Female 12:52 AM MANUFACTURING ANALYST Gender Identity Not on file Sexual Orientation Not on file documented as of this encounter Plan of Treatment Not on file documented as of this encounter Visit Diagnoses Diagnosis Complete heart block (HCC)- Primary Atrioventricular block, complete documented in this encounter Orders Case Request Count Last Ordered Date First Orde red Date CASE REQUEST CUSTOMER SERVICE SUPERVISOR 1 09/27/2024 documented in this encounter Care Teams Benefits Director Relationship Specialty Start Date End Date Abbe Boston MD [address] [place] [address] PCP - General 11/12/15 [place] [address] [facility] [address] [place] [address] Consulting Physician Cardiology 10/02/24 documented as of this encounter
== END 2025-01-25 10:48 | disposition home or self-care (01) ==
PROVIDERS: PCP Family Medicine; Visit Provider Podiatrist Foot & Ankle Surgery
DX: L97.512 Non-pressure chronic ulcer of other part of right foot with fat layer exposed (principal); M86.171 Other acute osteomyelitis, right ankle and foot
CPT/HCPCS: 78315; A9503

== ENCOUNTER 2025-06-12 17:10 | Emergency (ER) | payer MEDICARE, SELFPAY ==
--- NOTE | ~2025-06-12 | XR_ITS ---
EXAMINATION: XR chest 1V portable Exam Date/Time: 06/12/2025 18:27 CDT HISTORY: mid/lower back pain Comparison: 09/23/2024. RESULT: Lines, tubes, and devices: Left chest pacer with intact leads. Lungs and pleura: Clear. Cardiomediastinal silhouette: Stable. Other: No acute osseous or upper abdominal finding. IMPRESSION: No acute cardiopulmonary process. Reviewed, dictated and finalized at location K.
--- NOTE | ~2025-06-12 | CT_ITS ---
EXAMINATION: CTA chest PE protocol DATE: 06/12/2025 19:50 INDICATION: shortness of breath, back pain TECHNIQUE: Computed tomography angiography (CTA) of the chest was performed with 100 mL Omnipaque-350 intravenous contrast timed to evaluate the pulmonary arteries. Coronal maximum intensity projection 3D-reconstructions were created by the technologist. The dose-length product (DLP) was 369.94 mGy-cm. Automated exposure control and iterative reconstruction technique were employed. COMPARISON: None. FINDINGS: Examination is limited by motion artifact and arm down positioning. Lung parenchyma and airways: Dependent atelectasis. Patent airways. Pleura: Unremarkable. Thoracic inlet, axillae and chest wall: Left chest pacer, leads in good position. 1.5 cm soft tissue opacity with spiculated margins, associated with linear scarring in the medial left breast. Thoracic aorta: No significant dilation. No dissection. Atherosclerotic calcifications. Mediastinum: Normal. Heart and pericardium: Cardiomegaly. Coronary artery calcifications: Mild. Upper abdomen: Distal esophageal and gastric wall edema. Bones: No acute osseous finding. Pulmonary arteries: Study quality: Limited by suboptimal contrast bolus, motion, and beam hardening. Subsegmental arteries poorly evaluated. No central or segmental pulmonary emboli detected. IMPRESSION: No CT evidence of acute central or segmental pulmonary embolus. The left breast scarring with associated 1.5 cm nodular opacity. Recommend nonemergent but timely canelo mography and breast ultrasound for further characterization. Esophagitis/gastritis. Reviewed, dictated and finalized at location K. IMPRESSION: No CT evidence of acute central or segmental pulmonary embolus. The left breast scarring with associated 1.5 cm nodular opacity. Recommend none mergent but timely mammography and breast ultrasound for further characterizati on. Esophagitis/gastritis.
[2025-06-12 17:12] VITALS: BP 176/66; PULSE 85; RESP 18; TEMP 36.6; O2SAT 96
--- OUTSIDE RECORDS SUMMARY | 2025-06-12 17:13 | XMS_ITS | Encounter Summary ---
Author Organization [facility] Healthcare Address [address] [place] [address] Care Team Providers Care Litigation Services Manager Name Role Phone Abbe Boston MD Primary Care Provider Reason for Visit * Diagnostic Imaging (Routine) - Closed Specialty Diagnoses / Procedures Referred By Contac t Referred To Contact Procedures Breast Imaging Screening Outside Reference Abbe Boston MD [address] [facility] [address] [place] [address] Phone: tel: fax: Referral ID Status Reason Start Date Expiration Date Visits Re quested Visits Authorized [id number] Closed 01/02/2022 02/01/2023 1 1 Encounter Details Date Type Department Care Team (Late st Contact Info) Description 09/13/2017 Hospital Encounter [facility] [address] [place] [address] Social History Tobacco Use Types Packs/Day Years Used Date Smoking Tobacco: Never Smokeless Tobacco: Never Alcohol Use Standard Drinks/Week Comments No 0 (1 standard drink = 0.6 oz pur e alcohol) [facility] Utilities Answer Date Recorded In the past 12 months has [employer], gas, oil, or water company threatened [...] often do you attend chur ch or amish services? More than 4 times per year 09/25/2024 Do you belong to any clubs o r organizations such as pentecostalism groups, unions, fraternal or athletic groups, or [...] any time in the past 12 m [facility], were you homeless or living in a fdc (including now)? No 09/25/2024 Personal Safety Answer Date Recorded Have you ever been in or are you currently in a harmful physical or emotional relationship or is someone making you feel afraid or unsafe? Denies 03/09/2025 Comments No Sex and Gender Information Value Date Recorded Sex Assigned at Not on file Legal Sex Female 12:52 AM LETTERSET PRESS SET UP OPERATOR Gender Identity Not on file Sexual Orientation Not on file documented as of this encounter Functional Status * Audit-C Score Answer Date of Assessment Author 0 03/02/2025 9:45 AM Delaney Butler RN * Question Answer Date of Assessment [...] Never 03/02/2025 9:45 AM Delaney Butler RN documented as of this encounter Plan of Treatment Not on file documented as of this encounter Procedures Procedure Name Priority Date/Time Associated Diagnosis Comments BREAST IMAGING MG SCREENING OUTSIDE REFERENCE Routine 09/13/2017 12:00 AM CDT documented in this encounter Results * Breast Imaging Screening Outside Reference (09/13/2017 12:00 AM CDT) Impressions RAD_MAMMO_[facility] - 01/02/2022 4:25 PM LETTERSET PRESS SET UP OPERATOR These images are for Reference purposes only and have not been reviewed by [facility] Radiology. There will be no report generated by a [facility] Radiologist. Narrative RAD_MAMMO_[facility] - 01/02/2022 4:25 PM LETTERSET PRESS SET UP OPERATOR EXAMINATION: Images For Reference Purposes Only us Abbe Boston MD IMG MAMMO PROCEDURES Fi nal Result RAD_MAMMO_[facility] documented in this encounter Visit Diagnoses Not on filedocumented in this encounter Additional Health Concerns Infection Onset Date Last Indicated Resolved Time COVID: Suspected 09/23/2024 09/23/2024 09/23/2024 3:48 PM LETTERSET PRESS SET UP OPERATOR documented as of this encounter Care Teams Litigation Services Manager Relationship Specialty Start Date End Date Abbe Boston MD [address] [facility] [address] [place] [address] PCP - General 11/12/15 documented as of this encounter
--- OUTSIDE RECORDS SUMMARY | 2025-06-12 17:13 | XMS_ITS | Clinical Summary ---
Author Organization [facility] Address [address] [place] [address] Care Team Providers Care Working Supervisor Name Role Phone Abbe Boston MD Primary Care Provider [phone] Allergies Active Allergy Reactions Criticality Noted Date [...] morning. Active fluticasone propionate (FLONASE) 50 mcg/spray [place], Suspension nasal inhaler Administer 1 [place] in each nostril. Active oxyBUTYnin chloride (DITROPAN [...] mg) by mouth daily. 90 Tablet 3 5 Active Active Problems Problem Noted Date Diagnosed Date Malignant neoplasm of upper- inner quadrant of left breast in female, estrogen receptor positive 04/21/2022 Encounters Date Type Department Care Team Description 05/30/2025 External Device Data STL ABSTRACTION Provider, Abstract 05/29/2025 External Device Data STL ABSTRACTION Provider, Abstract 05/08/2025 External Device Data STL ABSTRACTION Provider, Abstract 04/17/2025 External Device Data STL ABSTRACTION Provider, Abstract 04/11/2025 Abstract [facility] [address] [place] [phone] Oscar Romero MD 04/10/2025 External Device Data STL ABSTRACTION Provider, Abstract 04/05/2025 External Device Data STL ABSTRACTION Provider, Abstract 04/04/2025 External Device Data STL ABSTRACTION Provider, Abstract 04/03/2025 External Device Data STL ABSTRACTION Provider, Abstract [...] Sign Reading Time Taken Comments Blood Pressure 135/76 02/14/2025 11:19 AM CDT Pulse 85 02/14/2025 11:19 AM CDT Temperature 36 C (96.8 F) 02/14/2025 11:19 AM CDT Respiratory Rate 15 02/14/2025 11:19 AM CDT Oxygen Saturation 93% 02/14/2025 11:19 AM CDT Inhaled Oxygen Concentration - - Weight 69 kg (152 lb 3.2 oz) 02/14/2025 11:19 AM CDT Height 160 cm (5' 3) 07/08/2022 9:59 AM CDT Body Mass Index 26.96 07/08/2022 9:59 AM CDT Plan of Treatment Upcoming Encounters Date Type Department Care Team (Late st Contact Info) Description 08/22/2025 11:00 AM CDT Office Visit [facility] [address] [facility] [address] [place] [address] Oscar Romero MD [address] [facility] [address] [place] [address] Health Maintenance Due Date Last Done Comments DIABETES ANNUAL FOOT EXAM 1958 DIABETES MICROALBUMIN ANNUAL SCREEN 1958 LDL CHOLESTEROL ANNUAL 1958 DTAP/TDAP/TD VACCINES (1 - Tdap) 1959 PNEUMOCOCCAL VACCINE 50+ YEA RS (1 of 2 - PCV) 1959 ZOSTER VACCINE (1 of 2) 1990 RSV VACCINE (60+ or ) (1 - 1-dose 75+ series) 2015 DIABETES ANNUAL RETINAL EXAM 01/20/202506/2024, 02/17/2022, 08/19/2021 DIABETES HBA1C Q 6 MONTHS 04/27/20252023, 09/25/2024, 06/13/2024, Additional history exists INFLUENZA VACCINE (#1) 2025 OSTEOPOROSIS SCREENING 04/13/2029 , 01/27/2021, 01/25/2019 Insurance MEDICARE PART A AND B [employer] PPO [id number] GEHA CHOICE PLUS [id number] POONAM CABALLERO [id number] Care Teams Working Supervisor Relationship Specialty Start Date End Date Abbe Boston MD [address] [facility] [address] [place] [address] PCP - General Family Practice 04/21/22
--- OUTSIDE RECORDS SUMMARY | 2025-06-12 17:13 | XMS_ITS | Clinical Summary ---
Author Organization [facility] Address [address] [place] [address] Care Team Providers Care Special Education Classroom Aide Name Role Phone Abbe Boston MD Primary Care Provider Aguila Barrera MD Unavailable Colleen Montes De Oca DPM Unavailable [phone] Allergies Active Allergy Reactions Criticality Noted Date [...] mouth 2 (two) times a day Active fenofibrate (FENOGLIDE) 40 mg tablet Take 1 tablet (40 mg total) by mouth nightly 9 Active metFORMIN (GLUCOPHAGE) 500 mg tablet Take 1 tablet (500 mg total) by mouth 2 (two) times a day with meals 9 Active calcium carbonate-vitam in D3 1,250 mg (500 mg elemental)-125 unit per tablet Take 1 tablet by mouth 2 (two) times a day Active tamoxifen (NOLVADEX) 20 mg tablet 2 Active alpha lipoic acid 50 mg tablet Take by mouth Active amLODIPine (NORVASC) 10 mg tablet Take 1 tablet (10 mg total) by mouth daily 30 tablet 11 4 10/03/[address] (VOLTAREN) 50 mg EC tablet Take 1 tablet (50 mg total) by mouth 2 (two) times a day [address] (CYMBALTA) 30 mg capsuleIndicati ons: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 Blood studies looking for medically addressable causes beyond known diabetes are unrevealing at this time. Numbness and tingling of both legs 09/25/2020 Assessment & Plan (09/25/2020 10:26 AM FIELD SERVICE SPECIALIST): Patient describes several month history of insidious [...] the office thereafter. Spinal stenosis of lumbar silviano barba without neurogenic claudication 09/25/2020 Assessment & Plan (09/25/2020 10:28 AM FIELD SERVICE SPECIALIST): Patient has history of lumbar stenosis with previous successful resolution of low back pain with lumbar epidural steroid injections. Her current pain and distribution of discomfort is different than what she formally had with her spinal stenosis. Aftercare following right knee joint replacement surgery 01/05/2018 Need for prophylactic antibiotic 01/05/2018 Bilateral lower extremity pain 10/25/2017 Assessment & Plan (11/04/2020 11:10 AM FIELD SERVICE SPECIALIST): I will place patient on a trial [...] 11/15/2017 - 11/14/2018 Right total knee arthroplasty BREAST LUMPECTOMY 03/12/2022 Left BREAST BIOPSY 03/09/2022 Medical History Medical History Date Comments Atopic rhinitis Allergic rhiniti s Hx Other Medical Depression, wit h Anxiety Tinnitus Tinnitus Hypertension Osteoarthritis Osteoporosis High cholesterol DM2 (diabetes mellitus, type 2) (HCC) Breast cancer (HCC) History of radiation therapy PONV (postoperative nausea and vomiting) 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 More than 4 times per year 09/25/2024 Do you belong to any clubs o r organizations such as evangelical groups, unions, fraternal or athletic groups, or [...] time in the past 12 m [facility], were you homeless or living in a nursing home (including now)? No 09/25/2024 Personal Safety Answer Date Recorded Have you ever been in or are you currently in a harmful physical or emotional relationship or is someone making you feel afraid or unsafe? Denies 03/09/2025 Comments No Sex and Gender Information Value Date Recorded Sex Assigned at Not on file Legal Sex Female 12:52 AM FIELD SERVICE SPECIALIST Gender Identity Not on file Sexual Orientation Not on file Obstetrics History Para Term AB IAB SAB Ectopic Multiple Livin g Live Births 5 4 4 Date Outcome GA Total Labor Labor/2nd/3rd Weight Sex Type Anes PTL Aaliyah A1 A5 Name Clin Term Term Term Term Last Filed Vital Signs Vital Sign Reading Time Taken Comments Blood Pressure 163/89 03/09/2025 3:30 PM CDT Pulse 70 03/09/2025 3:30 PM CDT Temperature 36.8 C (98.2 F) 03/09/2025 3:30 PM CDT Respiratory Rate 18 03/09/2025 3:30 PM CDT Oxygen Saturation 97% 03/09/2025 3:30 PM CDT Inhaled Oxygen Concentration - - Weight 70.1 kg (154 lb 8.7 oz) 03/09/2025 10:44 AM CDT Height 160 cm (5' 3) 03/09/2025 10:44 AM CDT Body Mass Index 27.38 03/09/2025 10:44 AM CDT Plan of Treatment Health Maintenance Due Date [...] - Pfizer risk series) 02/28/2021 01/31/2021, 01/11/2021 Hemoglobin A1C 03/25/2025 09/25/2024, 12/06/2017 Influenza Vaccine (#1) 2025 08/15/2017 eGFR 10/02/2025 10/02/2024, 09/15, 09/30/2024, Additional history exists Fall Risk Assessment 03/01/2026 03/01/2025, 10/02/20 24 Medical Devices Implanted Type Area Clerk Analyst Device Identifier Shelf Expiration Date Model / Serial / Lot Kleen Extreme Inc Magseed 18ga 7cm Marker Breast Biopsy [id number] - [id number] Implanted:Qty: 1 on 03/09/[address] [facility] [employer] [id number] 06/14/2025 [id number] [employer]otron[employer] Inc Active Fixation Steroid Eluting Is 1 Connector Latex Free Sterile Atrial Ventricular Atrial Ventricular Solia 60cm [id number] - [id number] - [id number] Implanted:Qty: 1 on 09/24/2024 by Aguila Barrera MD at [facility] N/A: Heart [employer] Inc 08/14/2026 [id number] / [id number] / Description:Right Ventricula r Lead [employer] Solia S 53cm Steroid Elute Bipolar Active Fixation Endocardial [id number] - [id number] - [id number] Implanted:Qty: 1 on 09/24/2024 by Aguila Barrera MD at [facility] N/A: Heart [employer] 08/14/2026 [id number] / [id number] / Description:Right Atrial benja d [employer] Inc Pacemaker Implantable Amvia Edge Dual Chamb Rate-Responsive [id number] - [id number] - [id number] Implanted:Qty: 1 on 09/24/2024 by Aguila Barrera MD at [facility] N/A: Chest Wall [employer] 01/12/2026 [id number] / [id number] / Procedures Procedure Name Priority Date/Time Associated Diagnosis Comments EGFR Routine 10/02/2024 1:29 AM FIELD SERVICE SPECIALIST HEMOGLOBIN A1C Add-On 09/25/2024 1:39 AM FIELD SERVICE SPECIALIST from Last 3 Months or Most Recently Relevant to Health Maintenance Results * eGFR (10/02/2024 1:29 AM FIELD SERVICE SPECIALIST) eGFR 75 >=60 mL/min/1. 73 m2 Comment: [...] last reviewed 2021. Blood 10/02/2024 1:29 AM FIELD SERVICE SPECIALIST 10/02/2024 2:01 AM FIELD SERVICE SPECIALIST Dony REDDY LAB BLOOD ORDER LUCA Final Result SLOANE PATTERSON [address] [place] [address] * (ABNORMAL) Hemoglobin A1c (09/25/2024 1:39 AM FIELD SERVICE SPECIALIST) Hgb A1C 6.5(H) 4.0 - 5.6 % Estimated Average Glucose 140 mg/dL SLO[facility] PATTERSON Comment: The ADA recommends reporting an estimated Average Glucose (eAG) with all Hemoglobin A1c results using the equation derived from a study of 507 normal and diabetic adults. Minority populations were underrepresented and children were not included. (Diabetes Care 31:1133-2183, 2008). The eAG is not equivalent to a fasting glucose. Blood 09/25/2024 1:39 AM FIELD SERVICE SPECIALIST 09/25/2024 11:34 AM FIELD SERVICE SPECIALIST Mariel Kenny MD LAB BLOOD ORDERABLES Final Re sult Performing Organization Address City/[facility] Co de Phone Number SLOANE PATTERSON [address] [address] [employer] [place] [address] from Last 3 Months or Most Recently Relevant to Health Maintenance Insurance MEDICARE [facility] SUPPLEMENT POONAM CABALLERO [id number] [facility] [place] [place] [address] MEDICARE [facility] MEDICARE [facility] MCR SUPPLEMENT POONAM CABALLERO [id number] Advance Directives For more information, please contact: [phone] * Full Code (Latest Code Status on File) Date Activated Date Inactivated Comments 03/09/2025 1:18 PM 03/09/2025 7:35 PM * Full Code Date Activated Date Inactivated Comments 09/23/2024 1:26 PM 10/03/2024 11:09 AM Care Teams Special Education Classroom Aide Relationship Specialty Start Date End Date Abbe Boston MD [address] [facility] [address] [facility] [address] [place] [address] PCP - General 11/12/15 [place] [address] [place] [address] Consulting Physician Cardiology 10/02/24 Colleen Montes De Oca DPM [address] [facility] [place] [address] Consulting Physician Foot and Ankle Surg 03/09/25
--- OUTSIDE RECORDS SUMMARY | 2025-06-12 17:13 | XMS_ITS | Encounter Summary ---
Author Organization [facility] Healthcare Address [address] [place] [address] Care Team Providers Care Funeral Pre Arrangement Counselor Name Role Phone Abbe Boston MD Primary Care Provider Aguila Barrera MD Unavailable Colleen Montes De Oca DPM Unavailable [phone] Encounter Details Date Type Department Care Team (Late st Contact Info) Description 09/27/2024 Orders Only [facility] Cardiac Catheterization Lab [address] [place] [address] [place] [address] [address] Complete heart block (HCC) (Primary Dx) Social History Tobacco Use Types Packs/Day Years Used Date Smoking Tobacco: Never Smokeless Tobacco: Never Alcohol Use Standard Drinks/Week Comments No 0 (1 standard drink = 0.6 oz pur e alcohol) [facility] Utilities Answer Date Recorded In the past 12 months has [employer], gas, oil, or water [employer] threatened to shut off services in your [...] week 09/25/2024 How often do you attend [facility] or mosque services? More than 4 times per year 09/25/2024 Do you belong to any clubs o r organizations such as restorationism groups, unions, fraternal or athletic groups, or [...] any time in the past 12 m [facility], were you homeless or living in [...] on file Legal Sex Female 12:52 AM EVENT MARKETING MANAGER Gender Identity Not on file Sexual Orientation Not on file documented as of this encounter Plan of Treatment Not on file documented as of this encounter Visit Diagnoses Diagnosis Complete heart block (HCC)- Primary Atrioventricular block, complete documented in this encounter Orders Case Request Count Last Ordered Date First Orde red Date CASE REQUEST TRUCK TERMINAL MANAGER 1 09/27/2024 documented in this encounter Care Teams Funeral Pre Arrangement Counselor Relationship Specialty Start Date End Date Abbe Boston MD [address] [facility] [address] [facility] [address] [place] [address] PCP - General 11/12/15 [place] [address] [facility] [address] [place] [address] Consulting Physician Cardiology 10/02/24 Colleen Montes De Oca DPM [address] [facility] [place] [address] Consulting Physician Foot and Ankle Surg 03/09/25 documented as of this encounter
--- OUTSIDE RECORDS SUMMARY | 2025-06-12 17:13 | XMS_ITS ---
Author Organization [facility] Address [address] [place] [address] Care Team Providers Care Grinding Wheel Facer Name Role Phone Abbe Boston MD Primary Care Provider Aguila Barrera MD Unavailable Colleen Montes De Oca DPM Unavailable Active Problems Problem Noted Date Diagnosed [...] reassessment. Assessment & Plan (11/04/2020 11:10 AM ELECTRICAL AND RADIO AIRCRAFT MECHANIC): Patient has neurophysiologic confirmation of sensory peripheral neuropathy. Blood studies looking for medically addressable causes beyond known diabetes are unrevealing at this time. Numbness and tingling of both legs 09/25/2020 Assessment & Plan (09/25/2020 10:26 AM ELECTRICAL AND RADIO AIRCRAFT MECHANIC): Patient describes several month history of insidious [...] 09/25/2020 Assessment & Plan (09/25/2020 10:28 AM ELECTRICAL AND RADIO AIRCRAFT MECHANIC): Patient has history of lumbar stenosis with previous successful resolution of low back pain with lumbar epidural steroid injections. Her current pain and distribution of discomfort is different than what she formally had with her spinal stenosis. Aftercare following right knee joint replacement surgery 01/05/2018 Need for prophylactic antibiotic 01/05/2018 Bilateral lower extremity pain 10/25/2017 Assessment & Plan (11/04/2020 11:10 AM ELECTRICAL AND RADIO AIRCRAFT MECHANIC): I will place patient on a trial [...]
--- OUTSIDE RECORDS SUMMARY | 2025-06-12 17:13 | XMS_ITS | Referral Summary ---
Author Organization [facility] Address [address] [place] [address] Care Team Providers Care Speech Communication Professor Name Role Phone Abbe Boston MD Primary Care Provider Aguila Barrera MD Unavailable Colleen Montes De Oca DPM Unavailable [phone] Allergies Active Allergy Reactions Criticality Noted Date [...] reassessment. 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 Blood studies looking for medically addressable causes beyond known diabetes are unrevealing at this time. Numbness and tingling of both legs 09/25/2020 Assessment & Plan (09/25/2020 10:26 AM SHAMPOO ASSISTANT): Patient describes several month history of insidious [...] 09/25/2020 Assessment & Plan (09/25/2020 10:28 AM SHAMPOO ASSISTANT): Patient has history of lumbar stenosis with previous successful resolution of low back pain with lumbar epidural steroid injections. Her current pain and distribution of discomfort is different than what she formally had with her spinal stenosis. Aftercare following right knee joint replacement surgery 01/05/2018 Need for prophylactic antibiotic 01/05/2018 Bilateral lower extremity pain 10/25/2017 Assessment & Plan (11/04/2020 11:10 AM SHAMPOO ASSISTANT): I will place patient on a trial [...] drink = 0.6 oz pur e alcohol) [facility] Utilities Answer Date Recorded In the past 12 months has [employer], gas, oil, or water [employer] threatened to shut off services in your [...] often do you attend chur ch or mormonism services? More than 4 times per year 09/25/2024 Do you belong to any clubs o r organizations such as mosque groups, unions, fraternal or athletic groups, or [...] in the past 12 m [facility], were you homeless or living in a alf (including now)? No 09/25/2024 Personal Safety Answer Date Recorded Have you ever been in or are you currently in a harmful physical or emotional relationship or is someone making you feel afraid or unsafe? Denies 03/09/2025 Comments No Sex and Gender Information Value Date Recorded Sex Assigned at Not on file Legal Sex Female 12:52 AM SHAMPOO ASSISTANT Gender Identity Not on file Sexual Orientation [...] 03/09/2025 10:44 AM CDT Plan of Treatment Not on file Medical Devices Implanted Type Area Browning Processor Device Identifier Shelf Expiration Date Model / Serial / Lot [place] Magseed 18ga 7cm Marker Breast Biopsy [id number] - [id number] Implanted:Qty: 1 on 03/09/2022 at [facility] [employer] [id number] 06/14/2025 [id number] / / [id number] [employer] Active Fixation Steroid Eluting Is 1 Connector Latex Free Sterile Atrial Ventricular Atrial Ventricular Solia 60cm [id number] - [id number] - [id number] Implanted:Qty: 1 on 09/24/2024 by Aguila Barrera MD at [facility] N/A: Heart [employer] 08/14/2026 [id number] / [id number] / Description:Right Ventricula r Lead [employer] Solia S 53cm Steroid Elute Bipolar Active Fixation Endocardial [id number] - [id number] - [id number] Implanted:Qty: 1 on 09/24/2024 by Aguila Barrera MD at [facility] N/A: Heart [employer] 08/14/2026 [id number] / [id number] / Description:Right Atrial benja d [employer] Pacemaker Implantable Amvia Edge Dual Chamb Rate-Responsive [id number] - [id number] - [id number] Implanted:Qty: 1 on 09/24/2024 by Aguila Barrera MD at [facility] N/A: Chest Wall [employer] Inc 01/12/2026 [id number] / [id number] / Procedures Procedure Name Priority Date/Time Associated Diagnosis Comments EGFR Routine 10/02/2024 1:29 AM SHAMPOO ASSISTANT HEMOGLOBIN A1C Add-On 09/25/2024 1:39 AM SHAMPOO ASSISTANT from Last 3 Months or Most Recently Relevant to Health Maintenance Results * eGFR (10/02/2024 1:29 AM SHAMPOO ASSISTANT) eGFR 75 >=60 mL/min/1. 73 m2 Comment: [...] last reviewed 2021. Blood 10/02/2024 1:29 AM SHAMPOO ASSISTANT 10/02/2024 2:01 AM SHAMPOO ASSISTANT us Dony REDDY LAB BLOOD ORDER LUCA Final Result SLOANE PATTERSON [address] Department [place] [address] * (ABNORMAL) Hemoglobin A1c (09/25/2024 1:39 AM SHAMPOO ASSISTANT) Hgb A1C 6.5(H) 4.0 - 5.6 % Estimated Average Glucose 140 mg/dL SLO[facility] PATTERSON Comment: The ADA recommends reporting an estimated Average Glucose (eAG) with all Hemoglobin A1c results using the equation derived from a study of 507 normal and diabetic adults. Minority populations were underrepresented and children were not included. (Diabetes Care 31:8397-2864, 2008). The eAG is not equivalent to a fasting glucose. Blood 09/25/2024 1:39 AM SHAMPOO ASSISTANT 09/25/2024 11:34 AM SHAMPOO ASSISTANT us Mariel Kenny MD LAB BLOOD ORDERABLES Final Re sult SLOANE PATTERSON [address] [address] Department [place] [address] from Last 3 Months or Most Recently Relevant to Health Maintenance Insurance MEDICARE [facility] [place] [address] [employer] OPTIONS PPO MEDICARE [facility] MEDICARE [facility] POONAM CABALLERO [id number] Advance Directives For more information, please contact: [phone] * Full Code (Latest Code Status on File) Date Activated Date Inactivated Comments 03/09/2025 1:18 PM 03/09/2025 7:35 PM * Full Code Date Activated Date Inactivated Comments 09/23/2024 1:26 PM 10/03/2024 11:09 AM Care Teams Speech Communication Professor Relationship Specialty Start Date End Date Abbe Boston MD [address] [facility] [address] [place] [address] PCP - General 11/12/[address] [place] [address] [facility] [address] [place] [address] Consulting Physician Cardiology 10/02/24 Colleen Montes De Oca DPM [address] [facility] [place] [address] Consulting Physician Foot and Ankle Surg 03/09/25
--- OUTSIDE RECORDS SUMMARY | 2025-06-12 17:13 | XMS_ITS | Encounter Summary ---
Author Organization [facility] Healthcare Address [address] [place] [address] Care Team Providers Care Home Child Care Provider Name Role Phone Abbe Boston MD Primary Care Provider Reason for Visit * Diagnostic Imaging (Routine) - Closed Specialty Diagnoses / Procedures Referred By Contac t Referred To Contact Procedures Breast Imaging Screening Outside Reference Abbe Bostno MD [address] [facility] [address] [place] [address] Phone: tel: fax: Referral ID Status Reason Start Date Expiration Date Visits Re quested Visits Authorized [id number] Closed 01/02/2022 02/01/2023 1 1 Encounter Details Date Type Department Care Team (Late st Contact Info) Description 09/21/2019 Hospital Encounter [facility] [address] [place] [address] Social History Tobacco Use Types Packs/Day Years Used Date Smoking Tobacco: Never Smokeless Tobacco: Never Alcohol Use Standard Drinks/Week Comments No 0 (1 standard drink = 0.6 oz pur e alcohol) [facility] Utilities Answer Date Recorded In the past 12 months has [employer], gas, oil, or water company threatened [...] often do you attend chur ch or druze services? More than 4 times per year [...] any time in the past 12 m [facility], were you homeless or living in [...] on file Legal Sex Female 12:52 AM SHANK STAPLER Gender Identity Not on file Sexual Orientation [...] SCREENING OUTSIDE REFERENCE Routine 09/21/2019 12:00 AM SHANK STAPLER documented in this encounter Results * Breast Imaging Screening Outside Reference (09/21/2019 12:00 AM SHANK STAPLER) Impressions [facility]_M[facility]MO[facility] - 01/02/2022 4:25 PM SHANK STAPLER These images are for Reference purposes only and have not been reviewed by [facility]. There will be no report generated by a [facility] Radiologist. Narrative [facility]_M[facility]MO[facility] - 01/02/2022 4:25 PM SHANK STAPLER EXAMINATION: Images For Reference Purposes Only us Abbe Boston MD IMG MAMMO PROCEDURES Fi nal Result [facility] documented in this encounter Visit Diagnoses Not on filedocumented in this encounter Additional Health Concerns Infection Onset Date Last Indicated Resolved Time COVID: Suspected 09/23/2024 09/23/2024 09/23/2024 3:48 PM SHANK STAPLER documented as of this encounter Care Teams Home Child Care Provider Relationship Specialty Start Date End Date Abbe Boston MD [address] [facility] [address] [place] [address] PCP - General 11/12/15 documented as of this encounter
--- OUTSIDE RECORDS SUMMARY | 2025-06-12 17:13 | XMS_ITS | Encounter Summary ---
Author Organization [facility] Healthcare Address [address] [place] [address] Care Team Providers Care Hot Die Picker Name Role Phone Abbe Boston MD Primary Care Provider Reason for Visit * Diagnostic Imaging (Routine) - Closed Specialty Diagnoses / Procedures Referred By Contac t Referred To Contact Procedures Breast Imaging Diagnostic Outside Reference Abbe Boston MD [address] [facility] [address] [place] [address] Phone: tel: fax: Referral ID Status Reason Start Date Expiration Date Visits Re quested Visits Authorized [id number] Closed 01/02/2022 02/01/2023 1 1 Encounter Details Date Type Department Care Team (Late st Contact Info) Description 09/23/2017 Hospital Encounter [facility] [address] [place] [address] Social History Tobacco Use Types Packs/Day Years Used Date Smoking Tobacco: Never Smokeless Tobacco: Never Alcohol Use Standard Drinks/Week Comments No 0 (1 standard drink = 0.6 oz pur e alcohol) [facility] Utilities Answer Date Recorded In the past 12 months has [employer] electric, gas, oil, or water company threatened [...] often do you attend chur ch or taoism services? More than 4 times per year 09/25/2024 Do you belong to any clubs o r organizations such as scientologist groups, unions, fraternal or athletic groups, or [...] were you homeless or living in a skilled nursing (including now)? No 09/25/2024 Personal Safety Answer Date Recorded Have you ever been in or are you currently in a harmful physical or emotional relationship or is someone making you feel afraid or unsafe? Denies 03/09/2025 Comments No Sex and Gender Information Value Date Recorded Sex Assigned at Not on file Legal Sex Female 12:52 AM PROOFER APPRENTICE Gender Identity Not on file Sexual Orientation [...] DIAGNOSTIC OUTSIDE REFERENCE Routine 09/23/2017 12:00 AM PROOFER APPRENTICE documented in this encounter Results * Breast Imaging Diagnostic Outside Reference (09/23/2017 12:00 AM PROOFER APPRENTICE) Impressions [facility] - 01/02/2022 4:26 PM PROOFER APPRENTICE These images are for Reference purposes only and have not been reviewed by [facility]iology. There will be no report generated by a [facility] Radiologist. Narrative [facility] - 01/02/2022 4:26 PM PROOFER APPRENTICE EXAMINATION: Images For Reference Purposes Only us Abbe Boston MD IMG MAMMO PROCEDURES Fi nal Result [facility] documented in this encounter Visit Diagnoses Not on filedocumented in this encounter Additional Health Concerns Infection Onset Date Last Indicated Resolved Time COVID: Suspected 09/23/2024 09/23/2024 09/23/2024 3:48 PM PROOFER APPRENTICE documented as of this encounter Care Teams Hot Die Picker Relationship Specialty Start Date End Date Abbe Boston MD [address] [facility] [address] [place] [address] PCP - General 11/12/15 documented as of this encounter
--- OUTSIDE RECORDS SUMMARY | 2025-06-12 17:13 | XMS_ITS | Encounter Summary ---
Author Organization [facility] Healthcare Address [address] [place] [address] Care Team Providers Care Strategic Intelligence Officer Name Role Phone Abbe Boston MD Primary Care Provider Reason for Visit * Diagnostic Imaging (Routine) - Closed Specialty Diagnoses / Procedures Referred By Contac t Referred To Contact Procedures Breast Imaging Screening Outside Reference Abbe Boston MD [address] [facility] [address] [place] [address] Phone: tel: fax: Referral ID Status Reason Start Date Expiration Date Visits Re quested Visits Authorized [id number] Closed 01/02/2022 02/01/2023 1 1 Encounter Details Date Type Department Care Team (Late st Contact Info) Description 10/08/2020 Hospital Encounter [facility] [address] [place] [address] Social History Tobacco Use Types Packs/Day Years Used Date Smoking Tobacco: Never Smokeless Tobacco: Never Alcohol Use Standard Drinks/Week Comments No 0 (1 standard drink = 0.6 oz pur e alcohol) [facility] Utilities Answer Date Recorded In the past 12 months has [employer] electric, gas, oil, or water company threatened [...] any time in the past 12 m [facility], were you homeless or living in a detention (including now)? No 09/25/2024 Personal Safety Answer Date Recorded Have you ever been in or are you currently in a harmful physical or emotional relationship or is someone making you feel afraid or unsafe? Denies 03/09/2025 Comments No Sex and Gender Information Value Date Recorded Sex Assigned at Not on file Legal Sex Female 12:52 AM RAMP SERVICE MAN Gender Identity Not on file Sexual Orientation [...] SCREENING OUTSIDE REFERENCE Routine 10/08/2020 12:00 AM RAMP SERVICE MAN documented in this encounter Results * Breast Imaging Screening Outside Reference (10/08/2020 12:00 AM RAMP SERVICE MAN) Impressions [facility] - 01/02/2022 4:25 PM RAMP SERVICE MAN These images are for Reference purposes only and have not been reviewed by [facility] Radiology. There will be no report generated by a [facility] Radiologist. Narrative [facility] - 01/02/2022 4:25 PM RAMP SERVICE MAN EXAMINATION: Images For Reference Purposes Only us Abbe Boston MD IMG MAMMO PROCEDURES Fi nal Result [facility] documented in this encounter Visit Diagnoses Not on filedocumented in this encounter Additional Health Concerns Infection Onset Date Last Indicated Resolved Time COVID: Suspected 09/23/2024 09/23/2024 09/23/2024 3:48 PM RAMP SERVICE MAN documented as of this encounter Care Teams Strategic Intelligence Officer Relationship Specialty Start Date End Date Abbe Boston MD [address] [facility] [address] [place] [address] PCP - General 11/12/15 documented as of this encounter
--- OUTSIDE RECORDS SUMMARY | 2025-06-12 17:13 | XMS_ITS | Continuity of Care Document ---
Author Organization [facility] Address [address] [place] [address] Phone Care Team Providers Care Personal Fitness Manager Name Role Phone Janis Payton Unavailable Unavailable Advance Directives Directive Yes / No Effective Date File Name No Information Encounters Encounter Description Practice Location Reason(s) For Visit Diagnoses Date Provider Providers Copied on Encounter [facility], [address], [place], [place], [id number], [place] tel:[phone] [facility] No Information [address] , [address], [place], [address], [place]. tel:[phone] Family History Family Member Type Diagnosis Age At Onset No Information Payers Payer name Insurance type Covered democrat ID Authoriza tion(s) No Information Social History [...]
--- OUTSIDE RECORDS SUMMARY | 2025-06-12 17:13 | XMS_ITS | Encounter Summary ---
Author Organization [facility] Healthcare Address [address] [place] [address] Care Team Providers Care Stitch Welder Name Role Phone Abbe Boston MD Primary Care Provider Reason for Visit * Diagnostic Imaging (Routine) - Closed Specialty Diagnoses / Procedures Referred By Contac t Referred To Contact Diagnoses Abnormal mammogram of left breast Procedures Breast Imaging Screening Outside Reference Abbe Boston MD [address] [address] Phone: tel: fax: Referral ID Status Reason Start Date Expiration Date Visits Re quested Visits Authorized [id number] Closed 01/02/2022 02/01/2023 1 1 Encounter Details Date Type Department Care Team (Late st Contact Info) Description 09/15/2018 Hospital Encounter [facility]) [address] [place] [id number] Social History Tobacco Use Types Packs/Day Years Used Date Smoking Tobacco: Never Smokeless Tobacco: Never Alcohol Use Standard Drinks/Week Comments No 0 (1 standard drink = 0.6 oz pur e alcohol) [facility] Utilities Answer Date Recorded In the past 12 months has [employer], gas, oil, or water company threatened to [...] often do you attend chur ch or anabaptist services? More than 4 times per year 09/25/2024 Do you belong to any clubs o r organizations such as holiness groups, unions, fraternal or athletic groups, or [...] in the past [address] [facility], were you homeless or living in a long term (including now)? No 09/25/2024 Personal Safety Answer Date Recorded Have you ever been in or are you currently in a harmful physical or emotional relationship or is someone making you feel afraid or unsafe? Denies 03/09/2025 Comments No Sex and Gender Information Value Date Recorded Sex Assigned at Not on file Legal Sex Female 12:52 AM AUTOMOTIVE SALES ASSOCIATE Gender Identity Not on file Sexual Orientation [...] CDT) Impressions [facility] - 01/02/2022 5:17 PM AUTOMOTIVE SALES ASSOCIATE These images are for Reference purposes only and have not been reviewed by [facility] Radiology. There will be no report generated by a [facility] Radiologist. Narrative [facility] - 01/02/2022 5:17 PM AUTOMOTIVE SALES ASSOCIATE EXAMINATION: Images For Reference Purposes Only us Abbe Boston MD IMG MAMMO PROCEDURES Fi nal Result [facility] documented in this encounter Visit Diagnoses Not on filedocumented in this encounter Additional Health Concerns Infection Onset Date Last Indicated Resolved Time COVID: Suspected 09/23/2024 09/23/2024 09/23/2024 3:48 PM AUTOMOTIVE SALES ASSOCIATE documented as of this encounter Care Teams Stitch Welder Relationship Specialty Start Date End Date Abbe Boston MD [address] [facility] [address] [place] [address] PCP - General 11/12/15 documented as of this encounter
--- NOTE | 2025-06-12 17:19 | ECG_ITS ---
Test Date: 2025-06-12 18:11:08 Measurements Intervals [place] Rate: 77 P: 54 MA: 173 QRS: -77 QRSD: 162 T: 82 QT: 456 QTc: 518 Interpretive Statements SINUS RHYTHM WITH ATRIAL SENSING AND VENTRICULAR PACING FREQUENT PVCS WHICH ARE APPROPRIATELY SENSED ABNORMAL ECG Compared to ECG 09/22/2024 17:46:09 NORMALLY FUNCTIONING DUAL-CHAMBER PACEMAKER IS NOW PRESENT Electronically Signed On 06-13-2025 08:11:46 CDT by Azael Oneal M.D.
--- NOTE | 2025-06-12 17:21 | ED_ITS ---
HPI - Back Pain/Injury General Chief Complaint: Back Pain/Injury <Miriam Penn PA-C - Last Filed: 06/12/25 17:23> Stated Complaint: N/V muscle spasms <Miriam Penn PA-C - Last Filed: 06/12/25 17:23> Time Seen by Provider: 06/12/25 18:23 <Miriam Penn PA-C - Last Filed: 06/12/25 17:23> Focused HPI: 84-year-old female with history of hypertension and diabetes presents to the emergency department for left mid/lower back pain that started 3 days ago. Patient describes the pain as a muscle spasm. She cannot identify any aggravating or alleviating factors but states it feels better currently. She states she has had similar symptoms on the right side of her back and used to use a tens unit for her muscle spasms. She states this afternoon she developed nausea and vomiting. She spoke with her neighbor regarding her symptoms and her neighbor advised to come to the ED because her neighbors father of ?similar symptoms?. Patient also notes she is under increased stress today as her daughter is going through divorce and her grandson is at the airport waiting to get on a long flight. She denies any chest pain, abdominal pain, radicular symptoms, dysuria or hematuria, fever, cough or congestion. Is endorsing some shortness of breath. GENERAL: Well-appearing, well-nourished, and in no acute distress. HEAD: Normocephalic, atraumatic. CHEST: Clear to auscultation. ?No respiratory distress. HEART: Regular rate and rhythm.? NEURO: ?Alert and oriented x3. Patient screened in triage and initial orders placed.? ?Additional care and disposition to be based upon?diagnostic testing and treatment. <Miriam Penn PA-C - Last Filed: 06/12/25 17:23> History of Present Illness HPI Narrative: Upon further discussion, pt is presenting to the ER with complaints of shortness of breath. Will order labs accordingly. <Majo Armendariz APRN - Last Filed: 06/13/25 00:12> Related Data Home Medications: Home Medications ?Medication ?Instructions ?Recorded ?Confirmed ?Last Taken ?Type fluticasone propionate 50 1 spray intranasal DAILY 01/17/22 04/17/25 Unknown History mcg/actuation nasal spray,suspension alpha lipoic acid 200 mg tablet 200 mg PO BID 01/25/23 04/17/25 09/22/24 09:00 History tamoxifen 20 mg tablet 20 mg PO DAILY 01/25/23 04/17/25 09/22/24 09:00 History diclofenac sodium 50 mg 50 mg PO BID 09/22/24 04/17/25 09/22/24 09:00 History tablet,delayed release oxybutynin chloride 5 mg tablet 5 mg PO HS 09/22/24 04/17/25 Unknown History <Miriam Penn PA-C - Last Filed: 06/12/25 17:23> Allergies/Adverse Reactions: Allergies Allergy/AdvReac Type Severity Reaction Status Date / Time celecoxib Allergy Mild INCREASED Verified 04/17/25 14:57 HR methylprednisolone Allergy Unknown L face Verified 04/17/25 14:57 pain/swelling montelukast Allergy Unknown Rash Verified 04/17/25 14:57 cyclobenzaprine (From AdvReac Mild Hallucinati Verified 06/12/25 22:43 Flexeril) ng <Miriam Penn PA-C - Last Filed: 06/12/25 17:23> Review of Systems 2 Review of Systems: All systems reviewed & are unremarkable except as noted in HPI and below <Majo Armendariz APRN - Last Filed: 06/13/25 00:12> COUNTS INCLUDE 234 BEDS AT THE [facility] Past Medical History Medical History: Medical History Complete heart block Breast cancer Age-related osteoporosis without current pathological fracture Seasonal allergies Arthritis Hypertension High cholesterol Hearing loss Vision abnormalities Generalized osteoarthritis of multiple sites (~11/2020) History of blood clots Osteoporosis <Miriam Penn PA-C - Last Filed: 06/12/25 17:23> Surgical History Surgical History: Surgical History Pacemaker History of right knee joint replacement History of bladder surgery History of hysterectomy <Miriam Penn PA-C - Last Filed: 06/12/25 17:23> Family History Family History: Family History Sibling Family history of malignant neoplasm of breast Patient's brother is in good health Patient's sister is in good health Family history of malignant neoplasm of breast in first degree relative Prostate carcinoma Grandparent Family history of malignant neoplasm of breast History of blood clots Mother Family history of malignant neoplasm of breast Family history of arthritis Family history of malignant neoplasm of breast in first degree relative Father History of blood clots <Miriam Penn PA-C - Last Filed: 06/12/25 17:23> Social History Social History: Social History Social History: Smoking status: Never smoker Second hand tobacco smoke exposure: No Alcohol intake: never Substance use: never Substance use type: does not use Do You Feel Safe in your Home?: Yes Lack of Transportation: No Lack of Food: Never True Current Housing: I Have Housing Concerned About Future Housing: No Difficulty Paying Gas/Electric Bills: No Difficulty Paying for Meds: No Currently Unemployed: No Education: High School Diploma/GED Difficulty w/ Childcare or Family Care: No Living arrangements: alone Occupation/Education: retired Gender identity (if verbalized by the patient): Female Sexual Orientation (if Verbalized by the Patient): Straight or Heterosexual Spiritual care concerns: No <Miriam Penn PA-C - Last Filed: 06/12/25 17:23> Exam 2 Narrative: GENERAL: Well appearing, well-nourished, non-toxic, in no acute distress. HEAD: Normocephalic, atraumatic. NECK: Supple. No adenopathy, no masses. RESPIRATORY: Airway patent, respirations nonlabored. Clear to auscultation bilaterally, no rales, rhonchi, wheezing. CARDIOVASCULAR: Regular rate and rhythm without murmurs, rubs, or gallops. Peripheral pulses 2+ and equal bilaterally. ABDOMINAL: Soft, nontender, nondistended, no hepatosplenomegaly. Normoactive BS. MUSCULOSKELETAL: Moves all extremities. Strength/ROM intact without gross deformities. SKIN: Warm, dry, normal color. No rashes. NEURO: A&O X3. Speech clear. Cranial nerves II-XII intact. No ataxic movements. PSYCHIATRIC: Appropriate mood and affect. Normal interaction. <Majo Armendariz, MILLY - Last Filed: 06/13/25 00:12> Course Vital Signs Vital signs: Vital Signs Temperature 36.6 C 06/12/25 17:12 Pulse Rate 85 06/12/25 17:12 Respiratory Rate 18 06/12/25 17:12 Blood Pressure 176/66 H 06/12/25 17:12 Pulse Oximetry 96 06/12/25 17:12 Oxygen Delivery Room Air 06/12/25 17:12 Temperature 36.6 C 06/12/25 17:12 Pulse Rate 85 06/12/25 22:45 Respiratory Rate 14 06/12/25 22:45 Blood Pressure 116/58 L 06/12/25 22:45 Pulse Oximetry 94 06/12/25 22:45 Oxygen Delivery Room Air 06/12/25 17:12 <Miriam Penn PA-C - Last Filed: 06/12/25 17:23> Vital Signs Temperature 36.6 C 06/12/25 17:12 Pulse Rate 85 06/12/25 17:12 Respiratory Rate 18 06/12/25 17:12 Blood Pressure 176/66 H 06/12/25 17:12 Pulse Oximetry 96 06/12/25 17:12 Oxygen Delivery Room Air 06/12/25 17:12 Temperature 36.6 C 06/12/25 17:12 Pulse Rate 85 06/12/25 22:45 Respiratory Rate 14 06/12/25 22:45 Blood Pressure 116/58 L 06/12/25 22:45 Pulse Oximetry 94 06/12/25 22:45 Oxygen Delivery Room Air 06/12/25 17:12 <Majo Armendariz, BAND SAWYER - Last Filed: 06/13/25 00:12> MDM - Back Pain/Injury MDM Narrative Medical decision making narrative: 84-year-old female with history of hypertension and diabetes presents to the emergency department for left mid/lower back pain that started 3 days ago. Patient describes the pain as a muscle spasm. She cannot identify any aggravating or alleviating factors but states it feels better currently. She states she has had similar symptoms on the right side of her back and used to use a tens unit for her muscle spasms. She states this afternoon she developed nausea and vomiting. She spoke with her neighbor regarding her symptoms and her neighbor advised to come to the ED because her neighbors father of ?similar symptoms?. Patient also notes she is under increased stress today as her daughter is going through divorce and her grandson is at the airport waiting to get on a long flight. She denies any chest pain, abdominal pain, radicular symptoms, dysuria or hematuria, fever, cough or congestion. Is endorsing some shortness of breath. Labs Ordered: CBC, CMP, BNP, lactic acid, magnesium, UA, PTT, INR, troponin, lipase Imaging Ordered: CTA PE, chest x-ray Medications Ordered: Lidocaine transderm, Flexeril, Tylenol, 1 L normal saline IV bolus, Pepcid IV, morphine 2 mg IV, Zofran 4 mg IV, Keflex p.o. Results: Pt's CT scan indicates No CT evidence of acute central or segmental pulmonary embolus. The left breast scarring with associated 1.5 cm nodular opacity. Recommend nonemergent but timely mammography and breast ultrasound for further characterization. Esophagitis/gastritis. Patient's CBC and CMP indicate lab results consistent with previous lab results. Her proBNP was 841. Patient's urinalysis indicates 1+ protein, 2+ glucose, 1+ ketones, trace leukocytes, 6-10 white blood cells Diagnosis: Urinary tract infection, back spasms, gastroenteritis Patient Education/Shared MDM: Results of lab work and imaging shared with patient and her daughter. She endorses mild improvement of symptoms following medication administration. After an exhaustive workup and administration of multiple medications, it was decided between patient, her daughter, MD, and ROBOTICS TECHNICIAN, that patient could go home with treatment for her gastritis, constipation, and urinary tract infection. Patient strongly advised to maintain hydration status upon discharge and follow-up with their PCP as soon as possible. She should also follow up with her pain management doctor as soon as possible. She will be discharged home with a prescription for Zofran, Keflex, and MiraLax. Strict return precautions provided. Patient verbalized understanding and is in agreement with plan. Vital signs stable at time of discharge. All questions answered. <Majo Armendariz APRN - Last Filed: 06/13/25 00:12> Differential Diagnosis Differential diagnosis: Likely lumbar radiculopathy, renal colic, pyelonephritis, thoracic back pain, AAA and other (Pulmonary embolism) <Majo Armendariz APRN - Last Filed: 06/13/25 00:12> Lab Data Attestation: I reviewed the patient's lab results. <Majo Armendariz APRN - Last Filed: 06/13/25 00:12> Result diagrams: 06/12/25 18:39 06/12/25 18:39 <Miriam Penn PA-C - Last Filed: 06/12/25 17:23> Labs: Lab Results 06/12/25 06/12/25 06/12/25 Range/Units 18:39 19:39 19:58 WBC 5.8 (4.5-10.0) K/mm3 RBC 4.12 L (4.2-5.4) M/mm3 Hgb 12.6 (12.0-15.0) g/dL Hct 39.6 (37.0-47.0) % MCV 96.1 (80-100) fl MCH 30.6 (26-34) pg MCHC 31.8 L (32-36) g/dl RDW 13.2 (11.5-14.5) % Plt Count 267 (150-375) k/mm3 MPV 9.7 (7.4-10.4) fl Immature Gran % (Auto) 0.3 (0-0.5) % Neut % (Auto) 83.1 H (45.5-73.1) % Lymph % (Auto) 11.6 L (18.3-44.2) % Burt % (Auto) 3.8 (2.6-8.5) % Eos % (Auto) 1.0 (0-4.4) % Baso % (Auto) 0.2 (0.2-1.2) % Lymph # (Auto) 0.67 L (0.9-3.2) K/mm3 Burt # (Auto) 0.2 (0.1-0.6) K/mm3 Eos # (Auto) 0.1 (0-0.3) K/mm3 Baso # (Auto) 0.0 (0.0-0.1) K/mm3 Abs Immat Gran (auto) 0.02 (0.00-0.031) K/mm3 Absolute Neuts (auto) 4.8 (1.3-6.7) K/mm3 Absolute Nucleated RBC 0.000 (0.0-0.012) K/mm3 Nucleated RBC % 0.0 (0.0-0.2) % PT 14.0 (11.1-14.7) Seconds INR 1.1 APTT 27.1 (22.3-36.8) Seconds Sodium 132 L (137-145) mmol/L Potassium 4.5 (3.4-5.0) mmol/L Chloride 99 (98-107) mmol/L Carbon Dioxide 23 (22-30) mmol/L Anion Gap 10 (4-12) mmol/L BUN 28 H (7-17) mg/dL Creatinine 0.78 (0.7-1.0) mg/dL Estim Creat Clear Calc 44 ml/min Estimated GFR > 60 (59 - ) Glucose 201 H (65-110) mg/dL Lactic Acid 1.1 (0.7-2.0) mmol/L Calcium 9.9 (8.4-10.2) mg/dL Magnesium 1.6 (1.6-2.3) mg/dL Total Bilirubin 0.6 (0.2-1.3) mg/dL AST 28 (14-36) U/L ALT 17 (6-35) U/L Alkaline Phosphatase 62 (38-126) U/L Troponin I < 0.012 (0.000-0.034) ng/mL NT-Pro-B Natriuret Pep 841 H (19.9-100) pg/mL Total Protein 7.4 (6.3-8.2) g/dL Albumin 4.4 (3.5-5.1) g/dL Lipase 64 (23-300) U/L Urine Color Yellow (Yellow) Urine Appearance Cloudy H (Clear) Urine pH 7.0 (5.0-9.0) Ur Specific [place] 1.017 (1.001-1.035) Urine Protein 1+ H (Negative) mg/dL Urine Glucose (UA) 2+ H (Negative) mg/dL Urine Ketones 1+ H (Negative) mg/dL Ur Blood (Man) Negative (Negative) Urine Nitrate Negative (Negative) Urine Bilirubin Negative (Negative) Urine Urobilinogen 0.2 (<2.0) mg/dL Leukocyte Esterase Rfl Trace H (Negative) SABINA/UL Urine RBC 0-2 (0-2) /hpf Urine WBC 6-10 H (0-3) /hpf Ur Squamous Epith Cells Occasional (Few) /hpf Urine Bacteria None seen /hpf Urine Casts 0-2 <Miriam Penn PA-C - Last Filed: 06/12/25 17:23> Lab Results 06/12/25 06/12/25 06/12/25 Range/Units 18:39 19:39 19:58 WBC 5.8 (4.5-10.0) K/mm3 RBC 4.12 L (4.2-5.4) M/mm3 Hgb 12.6 (12.0-15.0) g/dL Hct 39.6 (37.0-47.0) % MCV 96.1 (80-100) fl MCH 30.6 (26-34) pg MCHC 31.8 L (32-36) g/dl RDW 13.2 (11.5-14.5) % Plt Count 267 (150-375) k/mm3 MPV 9.7 (7.4-10.4) fl Immature Gran % (Auto) 0.3 (0-0.5) % Neut % (Auto) 83.1 H (45.5-73.1) % Lymph % (Auto) 11.6 L (18.3-44.2) % Burt % (Auto) 3.8 (2.6-8.5) % Eos % (Auto) 1.0 (0-4.4) % Baso % (Auto) 0.2 (0.2-1.2) % Lymph # (Auto) 0.67 L (0.9-3.2) K/mm3 Burt # (Auto) 0.2 (0.1-0.6) K/mm3 Eos # (Auto) 0.1 (0-0.3) K/mm3 Baso # (Auto) 0.0 (0.0-0.1) K/mm3 Abs Immat Gran (auto) 0.02 (0.00-0.031) K/mm3 Absolute Neuts (auto) 4.8 (1.3-6.7) K/mm3 Absolute Nucleated RBC 0.000 (0.0-0.012) K/mm3 Nucleated RBC % 0.0 (0.0-0.2) % PT 14.0 (11.1-14.7) Seconds INR 1.1 APTT 27.1 (22.3-36.8) Seconds Sodium 132 L (137-145) mmol/L Potassium 4.5 (3.4-5.0) mmol/L Chloride 99 (98-107) mmol/L Carbon Dioxide 23 (22-30) mmol/L Anion Gap 10 (4-12) mmol/L BUN 28 H (7-17) mg/dL Creatinine 0.78 (0.7-1.0) mg/dL Estim Creat Clear Calc 44 ml/min Estimated GFR > 60 (59 - ) Glucose 201 H (65-110) mg/dL Lactic Acid 1.1 (0.7-2.0) mmol/L Calcium 9.9 (8.4-10.2) mg/dL Magnesium 1.6 (1.6-2.3) mg/dL Total Bilirubin 0.6 (0.2-1.3) mg/dL AST 28 (14-36) U/L ALT 17 (6-35) U/L Alkaline Phosphatase 62 (38-126) U/L Troponin I < 0.012 (0.000-0.034) ng/mL NT-Pro-B Natriuret Pep 841 H (19.9-100) pg/mL Total Protein 7.4 (6.3-8.2) g/dL Albumin 4.4 (3.5-5.1) g/dL Lipase 64 (23-300) U/L Urine Color Yellow (Yellow) Urine Appearance Cloudy H (Clear) Urine pH 7.0 (5.0-9.0) Ur Specific [place] 1.017 (1.001-1.035) Urine Protein 1+ H (Negative) mg/dL Urine Glucose (UA) 2+ H (Negative) mg/dL Urine Ketones 1+ H (Negative) mg/dL Ur Blood (Man) Negative (Negative) Urine Nitrate Negative (Negative) Urine Bilirubin Negative (Negative) Urine Urobilinogen 0.2 (<2.0) mg/dL Leukocyte Esterase Rfl Trace H (Negative) SABINA/UL Urine RBC 0-2 (0-2) /hpf Urine WBC 6-10 H (0-3) /hpf Ur Squamous Epith Cells Occasional (Few) /hpf Urine Bacteria None seen /hpf Urine Casts 0-2 <Majo Armendariz APRN - Last Filed: 06/13/25 00:12> Imaging Data Attestation: I personally reviewed and interpreted this imaging study as follows: < Majo Armendariz APRN - Last Filed: 06/13/25 00:12> Radiologist's impression: Impressions Chest X-Ray 06/12/25 18:36 IMPRESSION: No acute cardiopulmonary process. Chest CTA 06/12/25 20:08 IMPRESSION: No CT evidence of acute central or segmental pulmonary embolus. The left breast scarring with associated 1.5 cm nodular opacity. Recommend nonemergent but timely mammography and breast ultrasound for further characterization. Esophagitis/gastritis. <Majo Armendariz APRN - Last Filed: 06/13/25 00:12> Discharge Plan Discharge Clinical Impression: Back muscle spasm, Urinary tract infection, Dehydration, mild, Gastroenteritis, Constipation <Miriam Penn PA-C - Last Filed: 06/12/25 17:23> Patient Disposition: Home <MARQUEZ Alvarez Last Filed: 06/12/25 17:23> Condition: Guarded Prognosis <Miriam Penn PA-C - Last Filed: 06/12/25 17:23> Instructions: Antibiotic Form, Urinary Tract Infection in Women (ED), Acute Low Back Pain (ED) <MARQUEZ Alvarez Last Filed: 06/12/25 17:23> Additional Instructions: Please return to the ER with any worsening symptoms. Follow-up with primary care provider and pain management as soon as possible. Take all medications as prescribed, including regularly scheduled medications. You may take Zofran for nausea, MiraLax for constipation, lidocaine patches for back pain. Please complete your full dose of antibiotics. <MARQUEZ Alvarez Last Filed: 06/12/25 17:23> Patient Language: [place] Islander <Miriam Penn PA-C - Last Filed: 06/12/25 17:23> Prescriptions: New ondansetron 4 mg tablet,disintegrating 4 mg PO Q8H Qty: 20 0RF polyethylene glycol 3350 [Miralax] 17 gram/dose powder 17 g PO BID Qty: 238 0RF cephalexin 500 mg capsule 500 mg PO Q8H Qty: 30 0RF lidocaine 5 % adhesive patch,medicated 2 patch topical DAILY Qty: 30 0RF Rx Instructions: leave on most painful area for up to 12 hrs No Action fluticasone propionate [Flonase] 50 mcg/actuation [place],Suspension 1 spray INTRANASAL DAILY alpha lipoic acid 200 mg Tablet 200 mg PO BID tamoxifen 20 mg Tablet 20 mg PO DAILY amlodipine 5 mg tablet See Rx Instructions .ROUTE .COMPLEX Qty: 90 3RF Dose Instruction: TAKE 1 TABLET BY MOUTH DAILY Rx Instructions: TAKE 1 TABLET BY MOUTH DAILY diclofenac sodium 50 mg tablet,delayed release (DR/EC) 50 mg PO BID Rx Instructions: 50 mg twice a day; oxybutynin chloride 5 mg tablet 5 mg PO HS (DME) lancing device with lancets [Accu-Chek FastClix Lancing Dev] Kit See Rx Instructions .ROUTE .MEDSUPPLY Qty: 1 1RF Rx Instructions: test qam fasting (DME) lancets [Accu-Chek Fastclix Lancet Drum] Misc See Rx Instructions .ROUTE .MEDSUPPLY Qty: 100 11RF Rx Instructions: test qam fasting losartan 100 mg tablet See Rx Instructions .ROUTE .COMPLEX Qty: 90 2RF Dose Instruction: TAKE 1 TABLET BY MOUTH DAILY Rx Instructions: TAKE 1 TABLET BY MOUTH DAILY pentoxifylline 400 mg tablet extended release See Rx Instructions .ROUTE .COMPLEX Qty: 180 2RF Dose Instruction: TAKE 1 TABLET BY MOUTH TWICE DAILY Rx Instructions: TAKE 1 TABLET BY MOUTH TWICE DAILY metformin 500 mg tablet 500 mg PO BID Qty: 180 2RF fenofibrate 54 mg tablet See Rx Instructions .ROUTE .COMPLEX Qty: 90 1RF Dose Instruction: TAKE 1 TABLET BY MOUTH DAILY Rx Instructions: TAKE 1 TABLET BY MOUTH DAILY clorazepate dipotassium 3.75 mg tablet 3.75 mg PO BID PRN (Reason: anxiety) Qty: 60 0RF <Miriam Penn PA-C - Last Filed: 06/12/25 17:23> Follow-up/Referrals: Abbe Boston MD [Primary Care Provider] - <Miriam Penn PA-C - Last Filed: 06/12/25 17:23>
[2025-06-12] MEDS: CYCLOBENZAPRINE HCL 5 MG TABLET PO (18:15)
[2025-06-12] MEDS: LIDOCAINE 5% PATCH 1 PATCH TRANSDERM (18:15)
[2025-06-12] MEDS: ACETAMINOPHEN 325 MG TABLET 650 MG PO (18:15)
--- NOTE | 2025-06-12 18:16 | PC.NURSE ---
Pt had emesis immediately after taking oral medications.
[2025-06-12 19:04] LABS: Hematocrit 39.6 % (37.0-47.0); Hemoglobin 12.6 g/dL (12.0-15.0); Immature Granulocyte Percent A 0.3 % (0-0.5); Lymphocytes Absolute Auto 0.67 K/mm3 (0.9-3.2); Mean Corpuscular HGB Conc 31.8 g/dl (32-36); Mean Corpuscular Hemoglobin 30.6 pg (26-34); Mean Corpuscular Volume 96.1 fl (80-100); Nucleated Red Blood Cells Absolute Auto 0.000 K/mm3 (0.0-0.012); Nucleated Red Blood Cells Perc 0.0 % (0.0-0.2); Platelet Count Result 267 k/mm3 (150-375); Red Blood Count 4.12 M/mm3 (4.2-5.4); White Blood Count 5.8 K/mm3 (4.5-10.0)
--- OUTSIDE RECORDS SUMMARY | 2025-06-12 19:05 | XMS_ITS ---
Author Organization [facility] Address [address] [place] [address] Care Team Providers Care De Icer Installer Name Role Phone Abbe Boston MD Primary Care Provider Aguila Barrera MD Unavailable Colleen Montes De Oca DPM Unavailable [phone] Active Problems Problem Noted Date Diagnosed Date [...] reassessment. 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 Blood studies looking for medically addressable causes beyond known diabetes are unrevealing at this time. Numbness and tingling of both legs 09/25/2020 Assessment & Plan (09/25/2020 10:26 AM HAND MOLD MAKER): Patient describes several month history of insidious [...] 09/25/2020 Assessment & Plan (09/25/2020 10:28 AM HAND MOLD MAKER): Patient has history of lumbar stenosis with previous successful resolution of low back pain with lumbar epidural steroid injections. Her current pain and distribution of discomfort is different than what she formally had with her spinal stenosis. Aftercare following right knee joint replacement surgery 01/05/2018 Need for prophylactic antibiotic 01/05/2018 Bilateral lower extremity pain 10/25/2017 Assessment & Plan (11/04/2020 11:10 AM HAND MOLD MAKER): I will place patient on a trial [...]
--- OUTSIDE RECORDS SUMMARY | 2025-06-12 19:05 | XMS_ITS | Encounter Summary ---
Author Organization [facility] Address [address] [place] [address] Care Team Providers Care Cooking Appliance Repair Technician Name Role Phone Abbe Boston MD Primary Care Provider Reason for Visit * Diagnostic Imaging (Routine) - Closed Specialty Diagnoses / Procedures Referred By Contac t Referred To Contact Diagnoses Abnormal mammogram of left breast Procedures Breast Imaging Screening Outside Reference Abbe Boston MD [address] [address] Phone: tel: fax: Referral ID Status Reason Start Date Expiration Date Visits Re quested Visits Authorized [id number] Closed 01/02/2022 02/01/2023 1 1 Encounter Details Date Type Department Care Team (Late st Contact Info) Description 09/15/2018 Hospital Encounter [facility] [address] [place] [id number] Social History Tobacco Use Types Packs/Day Years Used Date Smoking Tobacco: Never Smokeless Tobacco: Never Alcohol Use Standard Drinks/Week Comments No 0 (1 standard drink = 0.6 oz pur e alcohol) [facility] Utilities Answer Date Recorded In the past [address] [employer] [address], gas, oil, or water company threatened to [...] often do you attend chur ch or yarsanism services? More than 4 times [...] time in the past 12 m [facility], were you homeless or living in a [...] on file Legal Sex Female 12:52 AM WORKERS COMPENSATION EXAMINER Gender Identity Not on file Sexual Orientation [...] CDT) Impressions [facility] - 01/02/2022 5:17 PM WORKERS COMPENSATION EXAMINER These images are for Reference purposes only and have not been reviewed by [facility] Radiology. There will be no report generated by a [facility] Radiologist. Narrative [facility] - 01/02/2022 5:17 PM WORKERS COMPENSATION EXAMINER EXAMINATION: Images For Reference Purposes Only us Abbe Boston MD IMG MAMMO PROCEDURES Fi nal Result [facility] documented in this encounter Visit Diagnoses Not on filedocumented in this encounter Additional Health Concerns Infection Onset Date Last Indicated Resolved Time COVID: Suspected 09/23/2024 09/23/2024 09/23/2024 3:48 PM WORKERS COMPENSATION EXAMINER documented as of this encounter Care Teams Cooking Appliance Repair Technician Relationship Specialty Start Date End Date Abbe Boston MD [address] [facility] [address] [place] [address] PCP - General 11/12/15 documented as of this encounter
--- OUTSIDE RECORDS SUMMARY | 2025-06-12 19:05 | XMS_ITS | Encounter Summary ---
Author Organization [facility] Healthcare Address [address] [place] [address] Care Team Providers Care 3D Modeler Name Role Phone Abbe Boston MD Primary Care Provider Reason for Visit * Diagnostic Imaging (Routine) - Closed Specialty Diagnoses / Procedures Referred By Contac t Referred To Contact Procedures Breast Imaging Screening Outside Reference Abbe Boston MD [address] [facility] [address] [place] [address] Phone: tel: fax: Referral ID Status Reason Start Date Expiration Date Visits Re quested Visits Authorized [id number] Closed 01/02/2022 02/01/2023 1 1 Encounter Details Date Type Department Care Team (Late st Contact Info) Description 09/21/[address] [facility] [address] [place] [address] Social History Tobacco Use Types Packs/Day Years Used Date Smoking Tobacco: Never Smokeless Tobacco: Never Alcohol Use Standard Drinks/Week Comments No 0 (1 standard drink = 0.6 oz pur e alcohol) [facility] Utilities Answer Date Recorded In the past 12 months has [employer] electric, gas, oil, or water company threatened [...] often do you attend chur ch or islam services? More than 4 times per year 09/25/2024 Do you belong to any clubs o r organizations such as jewish groups, unions, fraternal or athletic groups, or [...] any time in the past 12 m [facility], were you homeless or living in [...] on file Legal Sex Female 12:52 AM GROUP SOCIAL WORKER Gender Identity Not on file Sexual Orientation [...] SCREENING OUTSIDE REFERENCE Routine 09/21/2019 12:00 AM GROUP SOCIAL WORKER documented in this encounter Results * Breast Imaging Screening Outside Reference (09/21/2019 12:00 AM GROUP SOCIAL WORKER) Impressions RAD_MAMMO_[facility] - 01/02/2022 4:25 PM GROUP SOCIAL WORKER These images are for Reference purposes only and have not been reviewed by [facility] Radiology. There will be no report generated by a [facility] Radiologist. Narrative RAD_MAMMO_[facility] - 01/02/2022 4:25 PM GROUP SOCIAL WORKER EXAMINATION: Images For Reference Purposes Only us Abbe Boston MD IMG MAMMO PROCEDURES Fi nal Result [facility]_MAMMO[facility] documented in this encounter Visit Diagnoses Not on filedocumented in this encounter Additional Health Concerns Infection Onset Date Last Indicated Resolved Time COVID: Suspected 09/23/2024 09/23/2024 09/23/2024 3:48 PM GROUP SOCIAL WORKER documented as of this encounter Care Teams 3D Modeler Relationship Specialty Start Date End Date Abbe Boston MD [address] [facility] [address] [place] [address] PCP - General 11/12/15 documented as of this encounter
--- OUTSIDE RECORDS SUMMARY | 2025-06-12 19:05 | XMS_ITS | Encounter Summary ---
Author Organization [facility] Healthcare Address [address] [place] [address] Care Team Providers Care Senior Operations Manager Name Role Phone Abbe Boston MD Primary Care Provider Reason for Visit * Diagnostic Imaging (Routine) - Closed Specialty Diagnoses / Procedures Referred By Contac t Referred To Contact Procedures Breast Imaging Screening Outside Reference Abbe Boston MD [address] [facility] [address] [place] [address] Phone: tel: fax: Referral ID Status Reason Start Date Expiration Date Visits Re quested Visits Authorized [id number] Closed 01/02/2022 02/01/2023 1 1 Encounter Details Date Type Department Care Team (Late st Contact Info) Description 09/13/2017 Hospital Encounter [facility] [address] [place] [address] Social History Tobacco Use Types Packs/Day Years Used Date Smoking Tobacco: Never Smokeless Tobacco: Never Alcohol Use Standard Drinks/Week Comments No 0 (1 standard drink = 0.6 oz pur e alcohol) [facility] Utilities Answer Date Recorded In the past 12 months has [employer] electric, gas, oil, or water company threatened [...] often do you attend chur ch or presybeterian services? More than 4 times per year 09/25/2024 Do you belong to any clubs o r organizations such as uatsdin groups, unions, fraternal or athletic groups, or [...] were you homeless or living in a usp (including now)? No 09/25/2024 Personal Safety Answer Date Recorded Have you ever been in or are you currently in a harmful physical or emotional relationship or is someone making you feel afraid or unsafe? Denies 03/09/2025 Comments No Sex and Gender Information Value Date Recorded Sex Assigned at Not on file Legal Sex Female 12:52 AM CONFIGURATION MANAGER Gender Identity Not on file Sexual [...] CDT) Impressions RAD_MAMMO[facility] - 01/02/2022 4:25 PM CONFIGURATION MANAGER These images are for Reference purposes only and have not been reviewed by [facility] Radiology. There will be no report generated by a [facility] Radiologist. Narrative RAD_MAMMO_[facility] - 01/02/2022 4:25 PM CONFIGURATION MANAGER EXAMINATION: Images For Reference Purposes Only us Abbe Boston MD IMG MAMMO PROCEDURES Fi nal Result RAD_MAMMO[facility] documented in this encounter Visit Diagnoses Not on filedocumented in this encounter Additional Health Concerns Infection Onset Date Last Indicated Resolved Time COVID: Suspected 09/23/2024 09/23/2024 09/23/2024 3:48 PM CONFIGURATION MANAGER documented as of this encounter Care Teams Senior Operations Manager Relationship Specialty Start Date End Date Abbe Boston MD [address] [facility] [address] [place] [address] PCP - General 11/12/15 documented as of this encounter
--- OUTSIDE RECORDS SUMMARY | 2025-06-12 19:05 | XMS_ITS | Clinical Summary ---
Author Organization [facility] Address [address] [place] [address] Care Team Providers Care Concrete Fence Builder Name Role Phone Abbe Boston MD Primary Care Provider Aguila Barrera MD Unavailable Colleen Montes De Oca DPM Unavailable [phone] Allergies Active Allergy Reactions Criticality Noted Date [...] reassessment. 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 Blood studies looking for medically addressable causes beyond known diabetes are unrevealing at this time. Numbness and tingling of both legs 09/25/2020 Assessment & Plan (09/25/2020 10:26 AM FURNITURE LUMBER PRODUCTION WORKER): Patient describes several month history of insidious [...] 09/25/2020 Assessment & Plan (09/25/2020 10:28 AM FURNITURE LUMBER PRODUCTION WORKER): Patient has history of lumbar stenosis with previous successful resolution of low back pain with lumbar epidural steroid injections. Her current pain and distribution of discomfort is different than what she formally had with her spinal stenosis. Aftercare following right knee joint replacement surgery 01/05/2018 Need for prophylactic antibiotic 01/05/2018 Bilateral lower extremity pain 10/25/2017 Assessment & Plan (11/04/2020 11:10 AM FURNITURE LUMBER PRODUCTION WORKER): I will place patient on a trial [...] drink = 0.6 oz pur e alcohol) [facility] Utilities Answer Date Recorded In [...] often do you attend chur ch or protestant services? More than 4 times per year 09/25/2024 Do you belong to any clubs o r organizations such as yazidi groups, unions, fraternal or athletic groups, or [...] time in the past 12 m [facility], were you homeless or living in a penitentiary (including now)? No 09/25/2024 Personal Safety Answer Date Recorded Have you ever been in or are you currently in a harmful physical or emotional relationship or is someone making you feel afraid or unsafe? Denies 03/09/2025 Comments No Sex and Gender Information Value Date Recorded Sex Assigned at Not on file Legal Sex Female 12:52 AM FURNITURE LUMBER PRODUCTION WORKER Gender Identity Not on file Sexual [...] 10/02/20 24 Medical Devices Implanted Type Area Manager Decision Support Device Identifier Shelf Expiration Date Model / Serial / Lot TargetingMantra Inc Magseed 18ga 7cm Marker Breast Biopsy [id number] - [id number] Implanted:Qty: 1 on 03/09/2022 at [facility] [employer] [id number] 06/14/2025 [id number] Biotronik Inc Active Fixation Steroid Eluting Is 1 Connector Latex Free Sterile Atrial Ventricular Atrial Ventricular Solia 60cm [id number] - [id number] - [id number] Implanted:Qty: 1 on 09/24/2024 by Aguila Barrera MD at [facility] N/A: Heart [employer] 08/14/2026 [id number] / [id number] / Description:Right Ventricula r Lead [employer] Inc Solia S 53cm Steroid Elute Bipolar Active Fixation Endocardial [id number] - [id number] - [id number] Implanted:Qty: 1 on 09/24/2024 by Aguila Barrera MD at [facility] N/A: Heart [employer] Inc 08/14/2026 [id number] / [id number] / Description:Right Atrial benja d [employer] Inc Pacemaker Implantable Amvia Edge Dual Chamb Rate-Responsive [id number] - [id number] - [id number] Implanted:Qty: 1 on 09/24/2024 by Aguila Barrera MD at [facility] N/A: Chest Wall [employer] Inc 01/12/2026 [id number] / [id number] / Procedures Procedure Name Priority Date/Time Associated Diagnosis Comments EGFR Routine 10/02/2024 1:29 AM FURNITURE LUMBER PRODUCTION WORKER HEMOGLOBIN A1C Add-On 09/25/2024 1:39 AM FURNITURE LUMBER PRODUCTION WORKER from Last 3 Months or Most Recently Relevant to Health Maintenance Results * eGFR (10/02/2024 1:29 AM FURNITURE LUMBER PRODUCTION WORKER) eGFR 75 >=60 mL/min/1. 73 m2 Comment: [...] last reviewed 2021. Blood 10/02/2024 1:29 AM FURNITURE LUMBER PRODUCTION WORKER 10/02/2024 2:01 AM FURNITURE LUMBER PRODUCTION WORKER Dony REDDY LAB BLOOD ORDER LUCA Final Result SLOANE PATTERSON [address] Department [place] [address] * (ABNORMAL) Hemoglobin A1c (09/25/2024 1:39 AM FURNITURE LUMBER PRODUCTION WORKER) Hgb A1C 6.5(H) 4.0 - 5.6 % Estimated Average Glucose 140 mg/dL SLOANE PATTERSON Comment: The ADA recommends reporting an estimated Average Glucose (eAG) with all Hemoglobin A1c results using the equation derived from a study of 507 normal and diabetic adults. Minority populations were underrepresented and children were not included. (Diabetes Care 31:4131-9361, 2008). The eAG is not equivalent to a fasting glucose. Blood 09/25/2024 1:39 AM FURNITURE LUMBER PRODUCTION WORKER 09/25/2024 11:34 AM FURNITURE LUMBER PRODUCTION WORKER Mariel Kenny MD LAB BLOOD ORDERABLES Final Re sult Performing Organization Address City/[facility] Co de Phone Number SLOANE PATTERSON [address] [place] [address] from Last 3 Months or Most Recently Relevant to Health Maintenance Insurance MEDICARE [facility] SUPPLEMENT POONAM CABALLERO [id number] [facility] OPTIONS PPO [facility] HMO/PPO Address: [address] [address] [place] [address] [place] [address] MEDICARE [facility] HMO/PPO Address: [address] [address] [place] [address] MEDICARE [facility] MCR SUPPLEMENT [place] [id number] Advance Directives For more information, please contact: [phone] * Full Code (Latest Code Status on File) Date Activated Date Inactivated Comments 03/09/2025 1:18 PM 03/09/2025 7:35 PM * Full Code Date Activated Date Inactivated Comments 09/23/2024 1:26 PM 10/03/2024 11:09 AM Care Teams Concrete Fence Builder Relationship Specialty Start Date End Date Abbe Boston MD [address] [facility] [address] [facility] [address] [place] [address] PCP - General 11/12/15 [place] [address] [place] [address] Consulting Physician Cardiology 10/02/24 Colleen Montes De Oca DPM [address] [facility] [place] [address] Consulting Physician Foot and Ankle Surg 03/09/25
--- OUTSIDE RECORDS SUMMARY | 2025-06-12 19:05 | XMS_ITS | Encounter Summary ---
Author Organization [facility] Healthcare Address [address] [place] [address] Care Team Providers Care Pipe Line Walker Name Role Phone Abbe Boston MD Primary Care Provider Reason for Visit * Diagnostic Imaging (Routine) - Closed Specialty Diagnoses / Procedures Referred By Contac t Referred To Contact Procedures Breast Imaging Diagnostic Outside Reference Abbe Boston MD [address] [facility] [address] [place] [address] Phone: tel: fax: Referral ID Status Reason Start Date Expiration Date Visits Re quested Visits Authorized [id number] Closed 01/02/2022 02/01/2023 1 1 Encounter Details Date Type Department Care Team (Late st Contact Info) Description 09/23/2017 Hospital Encounter [facility]iology [facility] [address] [place] [address] Social History Tobacco Use Types Packs/Day Years Used Date Smoking Tobacco: Never Smokeless Tobacco: Never Alcohol Use Standard Drinks/Week Comments No 0 (1 standard drink = 0.6 oz pur e alcohol) [facility] Utilities Answer Date Recorded In the past 12 months has [employer] electric, gas, oil, or water company threatened [...] often do you attend chur ch or caodaism services? More than 4 times per year [...] in the past 12 m [facility], were you homeless or living [...] on file Legal Sex Female 12:52 AM PLASTER MOLD MAKER Gender Identity Not on file Sexual [...] DIAGNOSTIC OUTSIDE REFERENCE Routine 09/23/2017 12:00 AM PLASTER MOLD MAKER documented in this encounter Results * Breast Imaging Diagnostic Outside Reference (09/23/2017 12:00 AM PLASTER MOLD MAKER) Impressions RAD_MAMMO_[facility] - 01/02/2022 4:26 PM PLASTER MOLD MAKER These images are for Reference purposes only and have not been reviewed by [facility] Radiology. There will be no report generated by a [facility] Radiologist. Narrative RAD_MAMMO_[facility] - 01/02/2022 4:26 PM PLASTER MOLD MAKER EXAMINATION: Images For Reference Purposes Only us Abbe Boston MD IMG MAMMO PROCEDURES Fi nal Result RAD_MAMMO_[facility] documented in this encounter Visit Diagnoses Not on filedocumented in this encounter Additional Health Concerns Infection Onset Date Last Indicated Resolved Time COVID: Suspected 09/23/2024 09/23/2024 09/23/2024 3:48 PM PLASTER MOLD MAKER documented as of this encounter Care Teams Pipe Line Walker Relationship Specialty Start Date End Date Abbe Boston MD [address] [facility] [address] [place] [address] PCP - General 11/12/15 documented as of this encounter
--- OUTSIDE RECORDS SUMMARY | 2025-06-12 19:05 | XMS_ITS | Encounter Summary ---
Author Organization [facility] Healthcare Address [address] [place] [address] Care Team Providers Care Assistant Associate Professor Name Role Phone Abbe Boston MD Primary Care Provider Aguila Barrera MD Unavailable Colleen Montes De Oca DPM Unavailable [phone] Encounter Details Date Type Department Care Team (Late st Contact Info) Description 09/27/2024 Orders Only [facility] Cardiac Catheterization Lab [address] [place] [address] [place] [address] [address] Complete heart block (HCC) (Primary Dx) Social History Tobacco Use Types Packs/Day Years Used Date Smoking Tobacco: Never Smokeless Tobacco: Never Alcohol Use Standard Drinks/Week Comments No 0 (1 standard drink = 0.6 oz pur e alcohol) [facility] Utilities Answer Date Recorded In the past 12 months has [employer], gas, oil, or water [email or web address] threatened to shut off services in your [...] week 09/25/2024 How often do you attend [facility] or oriental orthodox services? More than 4 times per year 09/25/2024 Do you belong to any clubs o r organizations such as advent groups, unions, fraternal or athletic groups, or [...] in the past 12 m [facility], were you homeless or living [...] on file Legal Sex Female 12:52 AM NEWS VIDEO EDITOR Gender Identity Not on file Sexual Orientation Not on file documented as of this encounter Plan of Treatment Not on file documented as of this encounter Visit Diagnoses Diagnosis Complete heart block (HCC)- Primary Atrioventricular block, complete documented in this encounter Orders Case Request Count Last Ordered Date First Orde red Date CASE REQUEST TRADE RECRUITER 1 09/27/2024 documented in this encounter Care Teams Assistant Associate Professor Relationship Specialty Start Date End Date Abbe Boston MD [address] [facility] [address] [facility] [address] [place] [address] PCP - General 11/12/[address] [place] [address] [facility] [address] [place] [address] Consulting Physician Cardiology 10/02/24 Colleen Montes De Oca DPM [address] [facility] [place] [address] Consulting Physician Foot and Ankle Surg 03/09/25 documented as of this encounter
--- OUTSIDE RECORDS SUMMARY | 2025-06-12 19:05 | XMS_ITS | Referral Summary ---
Author Organization [facility] Address [address] [place] [address] Care Team Providers Care Account Contact Associate Name Role Phone Abbe Boston MD Primary Care Provider Aguila Barrera MD Unavailable Colleen Montes De Oca DPM Unavailable [phone] Allergies Active Allergy Reactions Criticality Noted Date [...] reassessment. 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 Blood studies looking for medically addressable causes beyond known diabetes are unrevealing at this time. Numbness and tingling of both legs 09/25/2020 Assessment & Plan (09/25/2020 10:26 AM CORPORATE STRATEGY INTERN): Patient describes several month history of insidious [...] 09/25/2020 Assessment & Plan (09/25/2020 10:28 AM CORPORATE STRATEGY INTERN): Patient has history of lumbar stenosis with previous successful resolution of low back pain with lumbar epidural steroid injections. Her current pain and distribution of discomfort is different than what she formally had with her spinal stenosis. Aftercare following right knee joint replacement surgery 01/05/2018 Need for prophylactic antibiotic 01/05/2018 Bilateral lower extremity pain 10/25/2017 Assessment & Plan (11/04/2020 11:10 AM CORPORATE STRATEGY INTERN): I will place patient on a trial [...] drink = 0.6 oz pur e alcohol) [facility] Utilities Answer Date Recorded In the past 12 months has [employer], gas, oil, or water [employer] threatened to shut off services in your [...] in the past 12 m [facility], were you homeless or living in a [...] on file Legal Sex Female 12:52 AM CORPORATE STRATEGY INTERN Gender Identity Not on file Sexual Orientation [...] on file Medical Devices Implanted Type Area Clerical And Office Support Workers Device Identifier Shelf Expiration Date Model / Serial / Lot Syntensia Magseed 18ga 7cm Marker Breast Biopsy [id number] - [id number] Implanted:Qty: 1 on 03/09/2022 at [facility] [employer] [id number] 06/14/2025 [id number] Biotronik Inc Active Fixation Steroid Eluting Is 1 Connector Latex Free Sterile Atrial Ventricular Atrial Ventricular Solia 60cm [id number] - [id number] - [id number] Implanted:Qty: 1 on 09/24/2024 by Aguila Barrera MD at [facility] N/A: Heart [employer] 08/14/2026 [id number] / [id number] / Description:Right Ventricula r Lead [employer] Solia S 53cm Steroid Elute Bipolar Active Fixation Endocardial [id number] - [id number] - [id number] Implanted:Qty: 1 on 09/24/2024 by Aguila Barrera MD at [facility] N/A: Heart [employer] 08/14/2026 [id number] / [id number] / Description:Right Atrial benja d [employer] Inc Pacemaker Implantable Amvia Edge Dual Chamb Rate-Responsive [id number] - [id number] - [id number] Implanted:Qty: 1 on 09/24/2024 by Aguila Barrera MD at [facility] N/A: Chest Wall [employer] Inc 01/12/2026 [id number] / [id number] / Procedures Procedure Name Priority Date/Time Associated Diagnosis Comments EGFR Routine 10/02/2024 1:29 AM CORPORATE STRATEGY INTERN HEMOGLOBIN A1C Add-On 09/25/2024 1:39 AM CORPORATE STRATEGY INTERN from Last 3 Months or Most Recently Relevant to Health Maintenance Results * eGFR (10/02/2024 1:29 AM CORPORATE STRATEGY INTERN) eGFR 75 >=60 mL/min/1. 73 m2 Comment: [...] last reviewed 2021. Blood 10/02/2024 1:29 AM CORPORATE STRATEGY INTERN 10/02/2024 2:01 AM CORPORATE STRATEGY INTERN us Dony REDDY LAB BLOOD ORDER LUCA Final Result SLOANE PATTERSON [address] Department [place] [address] * (ABNORMAL) Hemoglobin A1c (09/25/2024 1:39 AM CORPORATE STRATEGY INTERN) Hgb A1C 6.5(H) 4.0 - 5.6 % Estimated Average Glucose 140 mg/dL SLOANE PATTERSON Comment: The ADA recommends reporting an estimated Average Glucose (eAG) with all Hemoglobin A1c results using the equation derived from a study of 507 normal and diabetic adults. Minority populations were underrepresented and children were not included. (Diabetes Care 31:5328-5924, 2008). The eAG is not equivalent to a fasting glucose. Blood 09/25/2024 1:39 AM CORPORATE STRATEGY INTERN 09/25/2024 11:34 AM CORPORATE STRATEGY INTERN us Mariel Kenny MD LAB BLOOD ORDERABLES Final Re sult SLOANE PATTERSON [address] Department [place] [address] from Last 3 Months or Most Recently Relevant to Health Maintenance Insurance MEDICARE [facility] [id number] [employer] OPTIONS PPO [facility] HMO/PPO Address: [address] [address] [place] [address] MEDICARE [facility] HMO/PPO Address: [address] [address] [place] [address] MEDICARE [facility] [address] [id number] Advance Directives For more information, please contact: [phone] * Full Code (Latest Code Status on File) Date Activated Date Inactivated Comments 03/09/2025 1:18 PM 03/09/2025 7:35 PM * Full Code Date Activated Date Inactivated Comments 09/23/2024 1:26 PM 10/03/2024 11:09 AM Care Teams Account Contact Associate Relationship Specialty Start Date End Date Abbe Boston MD [address] [facility] [address] [place] [address] PCP - General 11/12/[address] [place] [address] [facility] [address] [place] [address] Consulting Physician Cardiology 10/02/24 Colleen Montes De Oca DPM [address] [facility] [place] [address] Consulting Physician Foot and Ankle Surg 03/09/25
--- OUTSIDE RECORDS SUMMARY | 2025-06-12 19:05 | XMS_ITS | Continuity of Care Document ---
Author Organization [facility] Address [address] [place] [address] Phone Care Team Providers Care Boiler/Chiller Technician Name Role Phone Janis Payton Unavailable Unavailable Advance Directives Directive Yes / No Effective Date File Name No Information Encounters Encounter Description Practice Location Reason(s) For Visit Diagnoses Date Provider Providers Copied on Encounter [facility], [address], [place], [place], [id number], [place] tel:[phone] [facility] No Information [address] , [address], [place], [address], [place]. tel:[phone] Family History Family Member Type Diagnosis Age At Onset No Information Payers Payer name Insurance type Covered libertarian ID Authoriza tion(s) No Information Social History [...]
--- OUTSIDE RECORDS SUMMARY | 2025-06-12 19:05 | XMS_ITS | Encounter Summary ---
Author Organization [facility] Healthcare Address [address] [place] [address] Care Team Providers Care Separations Scientist Name Role Phone Abbe Boston MD Primary Care Provider Reason for Visit * Diagnostic Imaging (Routine) - Closed Specialty Diagnoses / Procedures Referred By Contac t Referred To Contact Procedures Breast Imaging Screening Outside Reference Abbe Boston MD [address] [facility] [address] [place] [address] Phone: tel: fax: Referral ID Status Reason Start Date Expiration Date Visits Re quested Visits Authorized [id number] Closed 01/02/2022 02/01/2023 1 1 Encounter Details Date Type Department Care Team (Late st Contact Info) Description 10/08/2020 Hospital Encounter [facility] [address] [place] [address] Social History Tobacco Use Types Packs/Day Years Used Date Smoking Tobacco: Never Smokeless Tobacco: Never Alcohol Use Standard Drinks/Week Comments No 0 (1 standard drink = 0.6 oz pur e alcohol) [facility] Utilities Answer Date Recorded In the past 12 months has [employer], gas, oil, or water company threatened [...] often do you attend chur ch or orthodoxy services? More than 4 times per year 09/25/2024 Do you belong to any clubs o r organizations such as congregational groups, unions, fraternal or athletic groups, or [...] any time in the past 12 [facility], were you homeless or living [...] on file Legal Sex Female 12:52 AM COAL MILL OPERATOR Gender Identity Not on file Sexual [...] SCREENING OUTSIDE REFERENCE Routine 10/08/2020 12:00 AM COAL MILL OPERATOR documented in this encounter Results * Breast Imaging Screening Outside Reference (10/08/2020 12:00 AM COAL MILL OPERATOR) Impressions [facility]_M[facility]MO[facility] - 01/02/2022 4:25 PM COAL MILL OPERATOR These images are for Reference purposes only and have not been reviewed by [facility] Radiology. There will be no report generated by a [facility] Radiologist. Narrative RAD_MAMMO_[facility] - 01/02/2022 4:25 PM COAL MILL OPERATOR EXAMINATION: Images For Reference Purposes Only us Abbe Boston MD IMG MAMMO PROCEDURES Fi nal Result [facility] documented in this encounter Visit Diagnoses Not on filedocumented in this encounter Additional Health Concerns Infection Onset Date Last Indicated Resolved Time COVID: Suspected 09/23/2024 09/23/2024 09/23/2024 3:48 PM COAL MILL OPERATOR documented as of this encounter Care Teams Separations Scientist Relationship Specialty Start Date End Date Abbe Boston MD [address] [facility] [address] [place] [address] PCP - General 11/12/15 documented as of this encounter
--- OUTSIDE RECORDS SUMMARY | 2025-06-12 19:05 | XMS_ITS | Clinical Summary ---
Author Organization [facility] Address [address] [place] [address] Care Team Providers Care President & Founder Name Role Phone Abbe Boston MD Primary Care Provider [phone] Allergies Active Allergy Reactions Criticality Noted Date [...] morning. Active fluticasone propionate (FLONASE) 50 mcg/spray [place], Suspension nasal inhaler Administer 1 [place] in each nostril. Active oxyBUTYnin chloride (DITROPAN [...] Data STL ABSTRACTION Provider, Abstract 04/11/2025 Abstract [facility] Oncology and Hematology [facility] [address] [place] [id number] Oscar Romero MD 04/10/2025 External Device [...] Description 08/22/2025 11:00 AM CDT Office Visit [facility] Oncology and Hematology [facility] [address] [facility] [address] [place] [address] Oscar Romero MD [address] [facility] [address] [place] [address] Health Maintenance Due Date Last [...] PART A AND B [employer] OPTIONS PPO [id number] GEHA CHOICE PLUS [id number] POONAM CABALLERO [id number] Care Teams President & Founder Relationship Specialty Start Date End Date Abbe Boston MD [address] [facility] [address] [place] [address] PCP - General Family Practice 04/21/22
[2025-06-12 19:20] LABS: Alanine Aminotransferase 17 U/L (6-35); Albumin Level 4.4 g/dL (3.5-5.1); Alkaline Phosphatase 62 U/L (38-126); Anion Gap 10 mmol/L (4-12); Aspartate Amino Transferase 28 U/L (14-36); Bilirubin,Total 0.6 mg/dL (0.2-1.3); Blood Urea Nitrogen 28 mg/dL (7-17); Calcium 9.9 mg/dL (8.4-10.2); Carbon Dioxide 23 mmol/L (22-30); Chloride 99 mmol/L (98-107); Estimated CRCL calculation 44 ml/min; Estimated Glomerular Filt Rate > 60; Glucose 201 mg/dL (65-110); Lipase 64 U/L (23-300); Potassium 4.5 mmol/L (3.4-5.0); Sodium 132 mmol/L (137-145); Total Protein 7.4 g/dL (6.3-8.2)
[2025-06-12] MEDS: diazePAM INJ (*CRX) 10 MG/2 ML SYRINGE 5 MG IV PUSH (19:26)
[2025-06-12 19:30] LABS: Troponin I < 0.012 ng/mL (0.000-0.034)
--- NOTE | 2025-06-12 19:42 | PC.NURSE ---
Pt. to CT on a monitor d/t recent Valium administration.
[2025-06-12 19:54] LABS: INR 1.1; Prothrombin Time 14.0 Seconds (11.1-14.7)
[2025-06-12 19:55] LABS: Add Urine Microscopic? YES; Appearance Urine Cloudy (Clear); Glucose Urine UA 2+ mg/dL (Negative); Leukocyte Esterase Ur Trace LEU/UL (Negative); Nitrate Urine Negative (Negative); Non Pathogenic Casts 0-2; Specific Grav Ur 1.017 (1.001-1.035)
[2025-06-12 19:55] LABS: Partial Thromboplastin Time 27.1 Seconds (22.3-36.8)
[2025-06-12 20:17] LABS: Magnesium 1.6 mg/dL (1.6-2.3)
[2025-06-12 20:26] LABS: NT Pro B Type Natriuretic Pept 841 pg/mL (19.9-100)
[2025-06-12] MEDS: SODIUM CHLORIDE 0.9% IV 1,000 ML 500 ML IV CONT (20:55)
[2025-06-12] MEDS: FAMOTIDINE 20 MG/2 ML VIAL IV PUSH (20:55)
[2025-06-12 21:18] VITALS: BP 137/87; PULSE 82; RESP 16; O2SAT 100
--- NOTE | 2025-06-12 21:18 | PC.NURSE ---
Pt. c/o 06/24 pain and requesting pain medication. Pt. states her nausea has improved and she is willing to try oral medication. LIYAH Garcia notified.
[2025-06-12] MEDS: CYCLOBENZAPRINE HCL 10 MG TABLET PO (21:23)
--- NOTE | 2025-06-12 22:41 | PC.NURSE ---
Pt. sleeping. Breathing equal and unlabored. Daughter at bedside states she's only been asleep for 20 minutes. Before that she was telling me how horrible she still feels. Oh, and she had some hallucinations. But that medication stopped her back spasms. Flexeril added to list of adverse reactions.
[2025-06-12 22:45] VITALS: BP 116/58; PULSE 85; RESP 14; O2SAT 94
[2025-06-13] MEDS: ONDANSETRON INJ 4 MG/2 ML VIAL IV PUSH (00:05)
[2025-06-13] MEDS: MORPHINE SULFATE (*CRX) 2 MG/ML INJ IV PUSH (00:07)
[2025-06-13] MEDS: CEPHALEXIN 500 MG CAPSULE PO (00:53)
[2025-06-13 01:10] VITALS: BP 136/68; PULSE 73; RESP 18; O2SAT 97
== END 2025-06-13 01:15 | disposition home or self-care (01) ==
PROVIDERS: Physician Assistant; Emergency Provider Registered Nurse; PCP Family Medicine
DX: N39.0 Urinary tract infection, site not specified (principal); E86.0 Dehydration; K52.9 Noninfective gastroenteritis and colitis, unspecified; K59.00 Constipation, unspecified; M62.830 Muscle spasm of back; R06.02 Shortness of breath; I10 Essential (primary) hypertension; E78.5 Hyperlipidemia, unspecified; M19.90 Unspecified osteoarthritis, unspecified site; Z95.0 Presence of cardiac pacemaker; Z85.3 Personal history of malignant neoplasm of breast; R94.31 Abnormal electrocardiogram [ECG] [EKG]; K20.90 Esophagitis, unspecified without bleeding; K29.70 Gastritis, unspecified, without bleeding; R92.8 Other abnormal and inconclusive findings on diagnostic imaging of breast
CPT/HCPCS: 36415; 71045; 71275; 80053; 81001; 83605; 83690; 83735; 83880; 84484; 85025; 85610; 85730; 87086; 93005; 96361; 96374; 96375; 99284; A9270; J2270; J2405; J3360; J7030; Q9967

== ENCOUNTER 2025-07-02 17:11 | Emergency (ER) | payer MEDICARE, SELFPAY ==
--- OUTSIDE RECORDS SUMMARY | 2025-07-02 17:14 | XMS_ITS | Clinical Summary ---
Author Organization [facility] Address [address] [place] [address] Care Team Providers Care Data Processing Control Clerk Name Role Phone Abbe Boston MD Primary Care Provider Aguila Barrera MD Unavailable Colleen Montes De Oca DPM Unavailable [phone] Allergies Active Allergy Reactions Criticality Noted Date [...] reassessment. 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 Blood studies looking for medically addressable causes beyond known diabetes are unrevealing at this time. Numbness and tingling of both legs 09/25/2020 Assessment & Plan (09/25/2020 10:26 AM HOUSE FURNISHINGS SUPERVISOR): Patient describes several month history of insidious [...] 09/25/2020 Assessment & Plan (09/25/2020 10:28 AM HOUSE FURNISHINGS SUPERVISOR): Patient has history of lumbar stenosis with previous successful resolution of low back pain with lumbar epidural steroid injections. Her current pain and distribution of discomfort is different than what she formally had with her spinal stenosis. 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 More than 4 times per year 09/25/2024 Do you belong to any clubs o r organizations such as shinto groups, unions, fraternal or athletic groups, or [...] any time in the past 12 m [facility], were you homeless or living [...] on file Legal Sex Female 12:52 AM HOUSE FURNISHINGS SUPERVISOR Gender Identity Not on file Sexual Orientation [...] 10/02/20 24 Medical Devices Implanted Type Area Flight Test Shop Mechanic Device Identifier Shelf Expiration Date Model / Serial / Lot NetzVacation Magseed 18ga 7cm Marker Breast Biopsy [id number] - [id number] Implanted:Qty: 1 on 03/09/2022 at [facility] [employer] [id number] 06/14/2025 [id number] [employer] Active Fixation Steroid Eluting Is 1 Connector Latex Free Sterile Atrial Ventricular Atrial Ventricular Solia 60cm [id number] - [id number] - [id number] Implanted:Qty: 1 on 09/24/2024 by Aguila Barrera MD at [facility] N/A: Heart [employer] 08/14/2026 [id number] / [id number] / Description:Right Ventricula r Lead [employer] Solia S 53cm Steroid Elute Bipolar Active Fixation Endocardial [id number] - [id number] - [id number] Implanted:Qty: 1 on 09/24/2024 by Aguila Barrera MD at [facility] N/A: Heart [employer] 08/14/2026 [id number] / [id number] / Description:Right Atrial benja d [employer] Pacemaker Implantable Amvia Edge Dual Chamb Rate-Responsive 042534 - [id number] - [id number] Implanted:Qty: 1 on 09/24/2024 by Aguila Barrera MD at [facility] N/A: Chest Wall [employer] 01/12/2026 [id number] / [id number] / Procedures Procedure Name Priority Date/Time Associated Diagnosis Comments EGFR Routine 10/02/2024 1:29 AM HOUSE FURNISHINGS SUPERVISOR HEMOGLOBIN A1C Add-On 09/25/2024 1:39 AM HOUSE FURNISHINGS SUPERVISOR from Last 3 Months or Most Recently Relevant to Health Maintenance Results * eGFR (10/02/2024 1:29 AM HOUSE FURNISHINGS SUPERVISOR) eGFR 75 >=60 mL/min/1. 73 m2 Comment: [...] last reviewed 2021. Blood 10/02/2024 1:29 AM HOUSE FURNISHINGS SUPERVISOR 10/02/2024 2:01 AM HOUSE FURNISHINGS SUPERVISOR us Dony REDDY LAB BLOOD ORDER LUCA Final Result Performing Organization Address [facility] Co de Phone Number SLOANE PATTERSON [phone] [place] [address] * (ABNORMAL) Hemoglobin A1c (09/25/2024 1:39 AM HOUSE FURNISHINGS SUPERVISOR) Hgb A1C 6.5(H) 4.0 - 5.6 % Estimated Average Glucose 140 mg/dL SLOANE PATTERSON Comment: The ADA recommends reporting an estimated Average Glucose (eAG) with all Hemoglobin A1c results using the equation derived from a study of 507 normal and diabetic adults. Minority populations were underrepresented and children were not included. (Diabetes Care 31:2208-3946, 2008). The eAG is not equivalent to a fasting glucose. Blood 09/25/2024 1:39 AM HOUSE FURNISHINGS SUPERVISOR 09/25/2024 11:34 AM HOUSE FURNISHINGS SUPERVISOR Mariel Kenny MD LAB BLOOD ORDERABLES Final Re sult Performing Organization Address [facility] Co de Phone Number SLOANE PATTERSON [phone] Department [place] [address] from Last 3 Months or Most Recently Relevant to Health Maintenance Insurance MEDICARE FORMERLY [facility] [place] [id number] [facility] [place] [place] [id number] MEDICARE [facility] MEDICARE [facility] MCR SUPPLEMENT [place]ONAM [id number] Advance Directives For more information, please contact: [phone] * Full Code (Latest Code Status on File) Date Activated Date Inactivated Comments 03/09/2025 1:18 PM 03/09/2025 7:35 PM * Full Code Date Activated Date Inactivated Comments 09/23/2024 1:26 PM 10/03/2024 11:09 AM Care Teams Data Processing Control Clerk Relationship Specialty Start Date End Date Abbe Boston MD [address] [facility] [address] [facility] [address] [place] [address] PCP - General 11/12/15 [place] [address] [place] [address] Consulting Physician Cardiology 10/02/24 Colleen Montes De Oca DPM [address] [place] [address] Consulting Physician Foot and Ankle Surg 03/09/25
--- OUTSIDE RECORDS SUMMARY | 2025-07-02 17:14 | XMS_ITS | Encounter Summary ---
Author Organization [facility] Healthcare Address [address] [place] [address] Care Team Providers Care Production Mechanic Tin Cans Name Role Phone Abbe Boston MD Primary Care Provider Reason for Visit * Diagnostic Imaging (Routine) - Closed Specialty Diagnoses / Procedures Referred By Contac t Referred To Contact Procedures Breast Imaging Diagnostic Outside Reference Abbe Boston MD [address] [facility] [address] [place] [address] Phone: tel: fax: Referral ID Status Reason Start Date Expiration Date Visits Re quested Visits Authorized [id number] Closed 01/02/2022 02/01/2023 1 1 Encounter Details Date Type Department Care Team (Late st Contact Info) Description 09/23/2017 Hospital Encounter [facility]) [address] [place] [address] Social History Tobacco Use Types Packs/Day Years Used Date Smoking Tobacco: Never Smokeless Tobacco: Never Alcohol Use Standard Drinks/Week Comments No 0 (1 standard drink = 0.6 oz pur e alcohol) [facility] Utilities Answer Date Recorded In the past 12 months has [employer] electric, gas, oil, or water company threatened [...] any time in the past 12 m [facility], were you homeless or living in a residential (including now)? No 09/25/2024 Personal Safety Answer Date Recorded Have you ever been in or are you currently in a harmful physical or emotional relationship or is someone making you feel afraid or unsafe? Denies 03/09/2025 Comments No Sex and Gender Information Value Date Recorded Sex Assigned at Not on file Legal Sex Female 12:52 AM SURGICAL PRODUCT SALES CONSULTANT Gender Identity Not on file Sexual Orientation Not on file documented as of this encounter Functional Status * AUDIT-C Score Answer Date of Assessment [...] DIAGNOSTIC OUTSIDE REFERENCE Routine 09/23/2017 12:00 AM SURGICAL PRODUCT SALES CONSULTANT documented in this encounter Results * Breast Imaging Diagnostic Outside Reference (09/23/2017 12:00 AM SURGICAL PRODUCT SALES CONSULTANT) Impressions RAD_MAMMO[facility] - 01/02/2022 4:26 PM SURGICAL PRODUCT SALES CONSULTANT These images are for Reference purposes only and have not been reviewed by [facility] Radiology. There will be no report generated by a [facility] Radiologist. Narrative RAD_MAMMO[facility] - 01/02/2022 4:26 PM SURGICAL PRODUCT SALES CONSULTANT EXAMINATION: Images For Reference Purposes Only us Abbe Boston MD IMG MAMMO PROCEDURES Fi nal Result RAD_M[facility]MO[facility] documented in this encounter Visit Diagnoses Not on filedocumented in this encounter Additional Health Concerns Infection Onset Date Last Indicated Resolved Time COVID: Suspected 09/23/2024 09/23/2024 09/23/2024 3:48 PM SURGICAL PRODUCT SALES CONSULTANT documented as of this encounter Care Teams Production Mechanic Tin Cans Relationship Specialty Start Date End Date Abbe Boston MD [address] [facility] [address] [place] [address] PCP - General 11/12/15 documented as of this encounter
--- OUTSIDE RECORDS SUMMARY | 2025-07-02 17:14 | XMS_ITS | Encounter Summary ---
Author Organization [facility] Healthcare Address [address] [place] [address] Care Team Providers Care School Business Administrator Name Role Phone Abbe Boston MD Primary Care Provider Reason for Visit * Diagnostic Imaging (Routine) - Closed Specialty Diagnoses / Procedures Referred By Contac t Referred To Contact Procedures Breast Imaging Screening Outside Reference Abbe Boston MD [address] [facility] [address] [place] [address] Phone: tel: fax: Referral ID Status Reason Start Date Expiration Date Visits Re quested Visits Authorized [id number] Closed 01/02/2022 02/01/2023 1 1 Encounter Details Date Type Department Care Team (Late st Contact Info) Description 10/08/2020 Hospital Encounter [facility]) [address] [place] [address] Social History Tobacco Use Types Packs/Day Years Used Date Smoking Tobacco: Never Smokeless Tobacco: Never Alcohol Use Standard Drinks/Week Comments No 0 (1 standard drink = 0.6 oz pur e alcohol) [facility] Utilities Answer Date Recorded In the past 12 months has [employer] electric, gas, oil, or water company threatened [...] often do you attend chur ch or quaker services? More than 4 times per year [...] any time in the past 12 m [facility], were you homeless or living in [...] on file Legal Sex Female 12:52 AM JEWELRY STORE MANAGER Gender Identity Not on file Sexual [...] SCREENING OUTSIDE REFERENCE Routine 10/08/2020 12:00 AM JEWELRY STORE MANAGER documented in this encounter Results * Breast Imaging Screening Outside Reference (10/08/2020 12:00 AM JEWELRY STORE MANAGER) Impressions RAD_MAMMO[facility] - 01/02/2022 4:25 PM JEWELRY STORE MANAGER These images are for Reference purposes only and have not been reviewed by [facility] Radiology. There will be no report generated by a [facility] Radiologist. Narrative RAD_MAMMO_[facility] - 01/02/2022 4:25 PM JEWELRY STORE MANAGER EXAMINATION: Images For Reference Purposes Only us Abbe Boston MD IMG MAMMO PROCEDURES Fi nal Result [facility]_M[facility]MO[facility] documented in this encounter Visit Diagnoses Not on filedocumented in this encounter Additional Health Concerns Infection Onset Date Last Indicated Resolved Time COVID: Suspected 09/23/2024 09/23/2024 09/23/2024 3:48 PM JEWELRY STORE MANAGER documented as of this encounter Care Teams School Business Administrator Relationship Specialty Start Date End Date Abbe Boston MD [address] [facility] [address] [place] [address] PCP - General 11/12/15 documented as of this encounter
--- OUTSIDE RECORDS SUMMARY | 2025-07-02 17:14 | XMS_ITS | Continuity of Care Document ---
Author Organization [facility] Address [address] [place] [address] Phone Care Team Providers Care Facilities Custodian Name Role Phone Janis Payton Unavailable Unavailable Advance Directives Directive Yes / No Effective Date File Name No Information Encounters Encounter Description Practice Location Reason(s) For Visit Diagnoses Date Provider Providers Copied on Encounter [facility], [address], [place], [place], [id number], [place] tel:[phone] [facility] No Information [address], [place], [address], [place]. tel:[phone] Family History Family Member Type Diagnosis Age [...]
--- OUTSIDE RECORDS SUMMARY | 2025-07-02 17:14 | XMS_ITS | Encounter Summary ---
Author Organization [facility] Healthcare Address [address] [place] [address] Care Team Providers Care Senior Clinical Research Scientist Name Role Phone Abbe Boston MD Primary Care Provider Reason for Visit * Diagnostic Imaging (Routine) - Closed Specialty Diagnoses / Procedures Referred By Contac t Referred To Contact Procedures Breast Imaging Screening Outside Reference Abbe Boston MD [address] [facility] [address] [place] [address] Phone: tel: fax: Referral ID Status Reason Start Date Expiration Date Visits Re quested Visits Authorized [id number] Closed 01/02/2022 02/01/2023 1 1 Encounter Details Date Type Department Care Team (Late st Contact Info) Description 09/21/2019 Hospital Encounter [facility] [address] [place] [address] Social History Tobacco Use Types Packs/Day Years Used Date Smoking Tobacco: Never Smokeless Tobacco: Never Alcohol Use Standard Drinks/Week Comments No 0 (1 standard drink = 0.6 oz pur e alcohol) [facility] Utilities Answer Date Recorded In the past 12 months has [employer] electric, gas, oil, or water company threatened [...] often do you attend chur ch or buddhist services? More than 4 times per year 09/25/2024 Do you belong to any clubs o r organizations such as zoroastrian groups, unions, fraternal or athletic groups, or [...] in the past 12 m [facility], were you homeless or living in a [...] on file Legal Sex Female 12:52 AM HOME CARE SCHEDULER Gender Identity Not on file Sexual Orientation [...] SCREENING OUTSIDE REFERENCE Routine 09/21/2019 12:00 AM HOME CARE SCHEDULER documented in this encounter Results * Breast Imaging Screening Outside Reference (09/21/2019 12:00 AM HOME CARE SCHEDULER) Impressions RAD_MAMMO_[facility] - 01/02/2022 4:25 PM HOME CARE SCHEDULER These images are for Reference purposes only and have not been reviewed by [facility] Radiology. There will be no report generated by a [facility] Radiologist. Narrative RAD_MAMMO_[facility] - 01/02/2022 4:25 PM HOME CARE SCHEDULER EXAMINATION: Images For Reference Purposes Only us Abeb Boston MD IMG MAMMO PROCEDURES Fi nal Result [facility]_M[facility]MO[facility] documented in this encounter Visit Diagnoses Not on filedocumented in this encounter Additional Health Concerns Infection Onset Date Last Indicated Resolved Time COVID: Suspected 09/23/2024 09/23/202409/2309/23/2024 3:48 PM HOME CARE SCHEDULER documented as of this encounter Care Teams Senior Clinical Research Scientist Relationship Specialty Start Date End Date Abbe Boston MD [address] [facility] [address] [place] [address] PCP - General 11/12/15 documented as of this encounter
--- OUTSIDE RECORDS SUMMARY | 2025-07-02 17:14 | XMS_ITS ---
Author Organization [facility] Address [address] [place] [address] Care Team Providers Care Thread Dresser Name Role Phone Abbe Boston MD Primary Care Provider Aguila Barrera MD Unavailable Colleen Montes De Oca DPM Unavailable [phone] Active Problems Problem Noted Date Diagnosed Date [...] reassessment. 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 Blood studies looking for medically addressable causes beyond known diabetes are unrevealing at this time. Numbness and tingling of both legs 09/25/2020 Assessment & Plan (09/25/2020 10:26 AM APPLICATION TESTER): Patient describes several month history of insidious [...] 09/25/2020 Assessment & Plan (09/25/2020 10:28 AM APPLICATION TESTER): Patient has history of lumbar stenosis with previous successful resolution of low back pain with lumbar epidural steroid injections. Her current pain and distribution of discomfort is different than what she formally had with her spinal stenosis. Aftercare following right knee joint replacement surgery 01/05/2018 Need for prophylactic antibiotic 01/05/2018 Bilateral lower extremity pain 10/25/2017 Assessment & Plan (11/04/2020 11:10 AM APPLICATION TESTER): I will place patient on a trial [...]
--- OUTSIDE RECORDS SUMMARY | 2025-07-02 17:14 | XMS_ITS | Encounter Summary ---
Author Organization [facility] Healthcare Address [address] [place] [address] Care Team Providers Care Director Of Manufacturing Operations Name Role Phone Abbe Boston MD Primary Care Provider Aguila Barrera MD Unavailable Colleen Montes De Oca DPM Unavailable [phone] Encounter Details Date Type Department Care Team (Late st Contact Info) Description 09/27/2024 Orders Only [facility] Cardiac Catheterization Lab [address] [place] [address] [place] [address] [address] Complete heart block (HCC) (Primary Dx) Social History Tobacco Use Types Packs/Day Years Used Date Smoking Tobacco: Never Smokeless Tobacco: Never Alcohol Use Standard Drinks/Week Comments No 0 (1 standard drink = 0.6 oz pur e alcohol) [facility] Utilities Answer Date Recorded In the past 12 months has [employer], gas, oil, or water [email or web address] threatened to shut off services in your [...] week 09/25/2024 How often do you attend [facility] or sabianist services? More than 4 times per year 09/25/2024 Do you belong to any clubs o r organizations such as mu-ism groups, unions, fraternal or athletic groups, or [...] were you homeless or living in a halfway (including now)? No 09/25/2024 Personal Safety Answer Date Recorded Have you ever been in or are you currently in a harmful physical or emotional relationship or is someone making you feel afraid or unsafe? 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 Gender Identity Not on file Sexual Orientation Not on file documented as of this encounter Plan of Treatment Not on file documented as of this encounter Visit Diagnoses Diagnosis Complete heart block (HCC)- Primary Atrioventricular block, complete documented in this encounter Orders Case Request Count Last Ordered Date First Orde red Date CASE REQUEST SKULL GRINDER 1 09/27/2024 documented in this encounter Care Teams Director Of Manufacturing Operations Relationship Specialty Start Date End Date Abbe Boston MD [address] [facility] [address] [place] [address] PCP - General 11/12/15 [place] [address] [place] [address] Consulting Physician Cardiology 10/02/24 Colleen Montes De Oca DPM [address] [facility] [place] [address] Consulting Physician Foot and Ankle Surg 03/09/25 documented as of this encounter
--- OUTSIDE RECORDS SUMMARY | 2025-07-02 17:14 | XMS_ITS | Clinical Summary ---
Author Organization [facility] Address [address] [place] [address] Care Team Providers Care Filler Spreader Name Role Phone Abbe Boston MD Primary Care Provider [phone] Allergies Active Allergy Reactions Criticality Noted Date [...] morning. Active fluticasone propionate (FLONASE) 50 mcg/spray Montgomery, Suspension nasal inhaler Administer 1 Montgomery in each nostril. Active oxyBUTYnin chloride (DITROPAN [...] Encounters Date Type Department Care Team Description 06/19/2025 External Device Data STL ABSTRACTION Provider, Abstract 05/30/2025 External Device Data STL ABSTRACTION Provider, Abstract 05/29/2025 External Device Data STL ABSTRACTION Provider, Abstract 05/08/2025 External Device Data STL ABSTRACTION Provider, Abstract 04/17/2025 External Device Data STL ABSTRACTION Provider, Abstract 04/11/2025 Abstract [facility] Oncology and Hematology [facility] [address] [address] Oscar Romero MD 04/10/2025 External Device [...] Description 08/22/2025 11:00 AM CDT Office Visit [facility] Oncology and Hematology - [place]aim[place] [address] [facility] [address] [place] [address] Oscar Romero MD [address] [facility] [address] [place] [address] Health Maintenance Due Date Last [...] DIABETES ANNUAL RETINAL EXAM 01/20/202506/2024, 02/17/2022, 08/19/2021 INFLUENZA VACCINE (#1) 2025 DIABETES HBA1C Q 6 MONTHS 10/16/20252024, 10/27/2024, 09/25/2024, Additional history exists OSTEOPOROSIS SCREENING 04/13/2029 4, 01/27/2021, 01/25/2019 Insurance MEDICARE PART A AND B [employer] PPO [id number] GEHA CHOICE PLUS [id number] POONAM CABALLERO [id number] Care Teams Filler Spreader Relationship Specialty Start Date End Date Abbe Boston MD [address] [facility] [address] [place] [address] PCP - General Family Practice 04/21/22
--- OUTSIDE RECORDS SUMMARY | 2025-07-02 17:14 | XMS_ITS | Encounter Summary ---
Author Organization [facility] Healthcare Address [address] [place] [address] Care Team Providers Care Rivet Spinner Name Role Phone Abbe Boston MD Primary Care Provider Reason for Visit * Diagnostic Imaging (Routine) - Closed Specialty Diagnoses / Procedures Referred By Contac t Referred To Contact Diagnoses Abnormal mammogram of left breast Procedures Breast Imaging Screening Outside Reference Abbe Boston MD [address] [address] Phone: tel: fax: Referral ID Status Reason Start Date Expiration Date Visits Re quested Visits Authorized [id number] Closed 01/02/2022 02/01/2023 1 1 Encounter Details Date Type Department Care Team (Late st Contact Info) Description 09/15/2018 Hospital Encounter [facility] [address] [place] [address] Social History Tobacco Use Types Packs/Day Years Used Date Smoking Tobacco: Never Smokeless Tobacco: Never Alcohol Use Standard Drinks/Week Comments No 0 (1 standard drink = 0.6 oz pur e alcohol) [facility] Utilities Answer Date Recorded In the past 12 months has [employer], gas, oil, or water company threatened [...] any clubs o r organizations such as taoism groups, unions, fraternal or athletic groups, or [...] on file Legal Sex Female 12:52 AM KENNEL MANAGER Gender Identity Not on file Sexual [...] CDT) Impressions [facility] - 01/02/2022 5:17 PM KENNEL MANAGER These images are for Reference purposes only and have not been reviewed by [facility]. There will be no report generated by a [facility] Radiologist. Narrative [facility] - 01/02/2022 5:17 PM KENNEL MANAGER EXAMINATION: Images For Reference Purposes Only us Abbe Boston MD IMG MAMMO PROCEDURES Fi nal Result [facility] documented in this encounter Visit Diagnoses Not on filedocumented in this encounter Additional Health Concerns Infection Onset Date Last Indicated Resolved Time COVID: Suspected 09/23/2024 09/23/2024 09/23/2024 3:48 PM KENNEL MANAGER documented as of this encounter Care Teams Rivet Spinner Relationship Specialty Start Date End Date Abbe Boston MD [address] [facility] [address] [place] [address] PCP - General 11/12/15 documented as of this encounter
--- OUTSIDE RECORDS SUMMARY | 2025-07-02 17:14 | XMS_ITS | Encounter Summary ---
Author Organization [facility] Healthcare Address [address] [place] [address] Care Team Providers Care Technical System Analyst Name Role Phone Abbe Boston MD Primary Care Provider Reason for Visit * Diagnostic Imaging (Routine) - Closed Specialty Diagnoses / Procedures Referred By Contac t Referred To Contact Procedures Breast Imaging Screening Outside Reference Abbe Boston MD [address] [facility] [address] [place] [address] Phone: tel: fax: Referral ID Status Reason Start Date Expiration Date Visits Re quested Visits Authorized [id number] Closed 01/02/2022 02/01/2023 1 1 Encounter Details Date Type Department Care Team (Late st Contact Info) Description 09/13/2017 Hospital Encounter [facility]iology [facility] [address] [place] [address] Social History Tobacco Use Types Packs/Day Years Used Date Smoking Tobacco: Never Smokeless Tobacco: Never Alcohol Use Standard Drinks/Week Comments No 0 (1 standard drink = 0.6 oz pur e alcohol) [facility] Utilities Answer Date Recorded In the past 12 months has [employer] electric, gas, oil, or water company [...] often do you attend chur ch or orthodox services? 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 There will be no report generated by a [facility] Radiologist. Narrative [facility] - 01/02/2022 4:25 PM MUTTON PUNCHER EXAMINATION: Images For Reference Purposes Only us Abbe Boston MD IMG MAMMO PROCEDURES Fi nal Result [facility] documented in this encounter Visit Diagnoses Not on filedocumented in this encounter Additional Health Concerns Infection Onset Date Last Indicated Resolved Time COVID: Suspected 09/23/2024 09/23/2024 09/23/2024 3:48 PM MUTTON PUNCHER documented as of this encounter Care Teams Technical System Analyst Relationship Specialty Start Date End Date Abbe Boston MD [address] [facility] [address] [place] [address] PCP - General 11/12/15 documented as of this encounter
--- OUTSIDE RECORDS SUMMARY | 2025-07-02 17:15 | XMS_ITS | Continuity of Care Document ---
Author Organization [facility] Address [address] [place] [address] Phone Care Team Providers Care Licensed Direct Entry Midwife Name Role Phone Janis Payton Unavailable Unavailable Advance Directives Directive Yes / No Effective Date File Name No Information Encounters Encounter Description Practice Location Reason(s) For Visit Diagnoses Date Provider Providers Copied on Encounter [facility], [address], [place], [place], [id number], [place] tel:[phone] [facility] No Information [address] , [address], [place], [address], [place]. tel:[phone] Family History Family Member Type Diagnosis Age At Onset No Information Payers Payer name Insurance type Covered constitution party ID Authoriza tion(s) No Information Social History [...]
[2025-07-02 17:25] VITALS: BP 146/87; PULSE 82; RESP 20; TEMP 36.4; O2SAT 99
--- NOTE | 2025-07-02 17:55 | ED.BACK ---
HPI - Back Pain/Injury General Chief Complaint: Back Pain/Injury Stated Complaint: Back Pain Time Seen by Provider: 07/02/25 17:42 Source: patient, RN notes reviewed and old records reviewed Mode of arrival: ambulatory Limitations: no limitations History of Present Illness HPI Narrative: Patient presents today complaining of left mid back pain and spasms times 3-4 days. Patient does have history of chronic mid to low back pain. She denies any current radiation of the pain, numbness or tingling, loss of bowel or bladder control. She currently rates her pain 8/10. She took a dose of Tylenol this afternoon and a dose of Burgess at 9:00 a.m., neither provided much relief. This is an old prescription of Burgess. Patient was seen by her PCP on 06/15/2025 for same complaint. At that time it was recommended that she continue topical analgesics and Tylenol as well as diclofenac. She was given a p.r.n. prescription for tramadol at that time as well as recommendations for physical therapy and return to pain management. She has taken all the tramadol and states she called for refill, but has been unable to reach anyone and get that filled. States the tramadol was helping quite a bit. Three days ago she was sitting in a cold moravian on a cold chair and her pain has was exacerbated at that time and has persisted to today. Related Data Home Medications ?Medication ?Instructions ?Recorded ?Confirmed ?Last Taken ?Type fluticasone propionate 50 1 spray intranasal DAILY 01/17/22 06/15/25 Unknown History mcg/actuation nasal spray,suspension alpha lipoic acid 200 mg tablet 200 mg PO BID 01/25/23 06/15/25 09/22/24 09:00 History tamoxifen 20 mg tablet 20 mg PO DAILY 01/25/23 06/15/25 09/22/24 09:00 History diclofenac sodium 50 mg 50 mg PO BID 09/22/24 06/15/25 09/22/24 09:00 History tablet,delayed release oxybutynin chloride 5 mg tablet 5 mg PO HS 09/22/24 06/15/25 Unknown History Allergies Allergy/AdvReac Type Severity Reaction Status Date / Time celecoxib Allergy Mild INCREASED Verified 07/02/25 17:14 HR methylprednisolone Allergy Unknown L face Verified 07/02/25 17:14 pain/swelling montelukast Allergy Unknown Rash Verified 07/02/25 17:14 cyclobenzaprine (From AdvReac Mild Hallucinati Verified 07/02/25 17:14 Flexeril) ng [facility] Past Medical History Medical History Complete heart block Breast cancer Age-related osteoporosis without current pathological fracture Seasonal allergies Arthritis Hypertension High cholesterol Hearing loss Vision abnormalities Generalized osteoarthritis of multiple sites (~11/2020) History of blood clots Osteoporosis Surgical History Surgical History Pacemaker History of right knee joint replacement History of bladder surgery History of hysterectomy Family History Family History Sibling Family history of malignant neoplasm of breast Patient's brother is in good health Patient's sister is in good health Family history of malignant neoplasm of breast in first degree relative Prostate carcinoma Grandparent Family history of malignant neoplasm of breast History of blood clots Mother Family history of malignant neoplasm of breast Family history of arthritis Family history of malignant neoplasm of breast in first degree relative Father History of blood clots Social History Social History Social History: Smoking status: Never smoker Second hand tobacco smoke exposure: No Alcohol intake: never Substance use: never Substance use type: does not use Do You Feel Safe in your Home?: Yes Lack of Transportation: No Lack of Food: Never True Current Housing: I Have Housing Concerned About Future Housing: No Difficulty Paying Gas/Electric Bills: No Difficulty Paying for Meds: No Currently Unemployed: No Education: High School Diploma/GED Difficulty w/ Childcare or Family Care: No Living arrangements: alone Occupation/Education: retired Gender identity (if verbalized by the patient): Female Sexual Orientation (if Verbalized by the Patient): Straight or Heterosexual Spiritual care concerns: No Comments At time of signature, I have reviewed and agree with nursing past medical, surgical, social and family history unless otherwise noted. Please see nursing chart for further information. There is no relevant family history pertinent to the presenting complaint Exam Narrative: GENERAL: Well-appearing, well-nourished, and in no acute distress. HEAD: Normocephalic, atraumatic. EYES: EOMI. No redness or drainage. Conjunctivae normal. ENT: Mucous membranes pink and moist.. NECK: Normal AROM. CHEST: No respiratory distress. MUSCULOSKELETAL: No bony tenderness of the thoracic or lumbar spine. Tenderness to the left mid to low thoracic paraspinal muscles. Distal sensation intact in both feet and hands. Capillary refill normal. Radial pulses and pedal pulses strong. Hand director of public relations equal and strong. 5/5 strength in BLE EXTREMITIES: Normal range of motion. No edema. SKIN: Warm, dry, no rash. Capillary refill normal. Normal skin turgor. NEURO: No focal deficits. Alert and oriented x3. Gait steady. PSYCH: Normal affect. No signs of depression or anxiety. Course Course Level of Care: Express Care Visit Vital Signs Vital signs: Vital Signs Temperature 97.5 F L 07/02/25 17:25 Pulse Rate 82 07/02/25 17:25 Respiratory Rate 20 07/02/25 17:25 Blood Pressure 146/87 H 07/02/25 17:25 Pulse Oximetry 99 07/02/25 17:25 Oxygen Delivery Room Air 07/02/25 17:25 Temperature 97.5 F L 07/02/25 17:25 Pulse Rate 82 07/02/25 17:25 Respiratory Rate 20 07/02/25 17:25 Blood Pressure 146/87 H 07/02/25 17:25 Pulse Oximetry 99 07/02/25 17:25 Oxygen Delivery Room Air 07/02/25 17:25 Reviewed MDM - Back Pain/Injury MDM Narrative Medical decision making narrative: 84-year-old female patient presents today with exacerbation of her chronic left midback pain after sitting in a cold chair in a cold room 3 days ago. She has been taking uavz-aet-mzxuumn medication and diclofenac for his discomfort but has run out of tramadol previously prescribed by her PCP. Rates her pain 8/10 today. Exam shows tenderness to the left mid to lower thoracic paraspinal muscles. Neurovascularly intact. Vital signs stable. Instructed patient to continue diclofenac, Tylenol, topical analgesics, and heating pad. Will prescribe short course of p.r.n. tramadol and she will get in touch with her PCP for any refills she may need. Patient agrees with plan. Anticipatory guidance given. Differential Diagnosis Differential diagnosis: Likely thoracic back pain and other (Muscle spasm) Critical Care Time Critical Care Time Critical Care Time: No Discharge Plan Discharge Clinical Impression: Back pain, thoracic Qualifiers: Chronicity: unspecified Back pain laterality: left Qualified Code(s): M54.6 - Pain in thoracic spine Patient Disposition: Home Condition: Stable Instructions: Muscle Spasm (ED) Additional Instructions: Please continue the Tylenol and diclofenac at home if needed. Take the tramadol as prescribed. Follow-up with your PCP for any additional tramadol prescriptions. Patient Language: Turkish Prescriptions: New tramadol 50 mg tablet 50 mg PO Q8H PRN (Reason: pain) Qty: 15 0RF No Action fluticasone propionate [Flonase] 50 mcg/actuation Fleischmanns,Suspension 1 spray INTRANASAL DAILY alpha lipoic acid 200 mg Tablet 200 mg PO BID tamoxifen 20 mg Tablet 20 mg PO DAILY amlodipine 5 mg tablet See Rx Instructions .ROUTE .COMPLEX Qty: 90 3RF Dose Instruction: TAKE 1 TABLET BY MOUTH DAILY Rx Instructions: TAKE 1 TABLET BY MOUTH DAILY tramadol 50 mg tablet 50 mg PO Q8H PRN (Reason: pain) Qty: 24 0RF diclofenac sodium 50 mg tablet,delayed release (DR/EC) 50 mg PO BID Rx Instructions: 50 mg twice a day; oxybutynin chloride 5 mg tablet 5 mg PO HS ondansetron 4 mg tablet,disintegrating 4 mg PO Q8H Qty: 20 0RF polyethylene glycol 3350 [Miralax] 17 gram/dose powder 17 g PO BID Qty: 238 0RF cephalexin 500 mg capsule 500 mg PO Q8H Qty: 30 0RF (DME) lancing device with lancets [Accu-Chek FastClix Lancing Dev] Kit See Rx Instructions .ROUTE .MEDSUPPLY Qty: 1 1RF Rx Instructions: test qam fasting (DME) lancets [Accu-Chek Fastclix Lancet Drum] Misc See Rx Instructions .ROUTE .MEDSUPPLY Qty: 100 11RF Rx Instructions: test qam fasting losartan 100 mg tablet See Rx Instructions .ROUTE .COMPLEX Qty: 90 2RF Dose Instruction: TAKE 1 TABLET BY MOUTH DAILY Rx Instructions: TAKE 1 TABLET BY MOUTH DAILY pentoxifylline 400 mg tablet extended release See Rx Instructions .ROUTE .COMPLEX Qty: 180 2RF Dose Instruction: TAKE 1 TABLET BY MOUTH TWICE DAILY Rx Instructions: TAKE 1 TABLET BY MOUTH TWICE DAILY metformin 500 mg tablet 500 mg PO BID Qty: 180 2RF fenofibrate 54 mg tablet See Rx Instructions .ROUTE .COMPLEX Qty: 90 1RF Dose Instruction: TAKE 1 TABLET BY MOUTH DAILY Rx Instructions: TAKE 1 TABLET BY MOUTH DAILY clorazepate dipotassium 3.75 mg tablet 3.75 mg PO BID PRN (Reason: anxiety) Qty: 60 0RF Follow-up/Referrals: Abbe Boston MD [Primary Care Provider] - Time of Disposition: 18:03
== END 2025-07-02 18:07 | disposition home or self-care (01) ==
PROVIDERS: Emergency Provider Nurse Practitioner; PCP Family Medicine
DX: M54.6 Pain in thoracic spine (principal); I10 Essential (primary) hypertension; E78.00 Pure hypercholesterolemia, unspecified; M81.0 Age-related osteoporosis without current pathological fracture; M19.90 Unspecified osteoarthritis, unspecified site; Z85.3 Personal history of malignant neoplasm of breast; Z95.5 Presence of coronary angioplasty implant and graft; Z96.651 Presence of right artificial knee joint
CPT/HCPCS: 99213; G0463

== ENCOUNTER 2025-09-26 12:35 | Outpatient (CLI) | payer MEDICARE, SELFPAY ==
--- OUTSIDE RECORDS SUMMARY | 2000-09-30 03:15 | XMS_ITS | Continuity of Care Document ---
Author Organization [facility] Address [address] [place] [address] Phone Care Team Providers Care Fur Feeder Name Role Phone Janis Payton Unavailable Unavailable Advance Directives Directive Yes / No Effective Date File Name No Information Encounters Encounter Description Practice Location Reason(s) For Visit Diagnoses Date Provider Providers Copied on Encounter Formerly [facility], [address], [place], [place], [id number], [place] tel:[phone] [facility] No Information 0 Tata Bruce. [address] , [address], [place], [address], [place]. tel:[phone] Family History Family Member Type Diagnosis Age At Onset No Information Payers Payer name Insurance type Covered republican ID Authoriza tion(s) No Information Social History Type Description Quantity Date Captured Comments Sex Female Smoking Status No Information Chief Complaint And Reason For Visit No Information Reason For Referral Reason For Referral No Information History Of Present Illness Encounter Date Complaint History Of Prese nt Illness No Information Functional Status Date Functional Assessmen t No Information Instructions Date Instruction Additional Infor mation No Information Assessments Type Assessment Date No Information Patient Care Teams Name Effective Dates (start - stop) Status Members No Information
--- OUTSIDE RECORDS SUMMARY | 2017-09-12 23:00 | XMS_ITS | Encounter Summary ---
Author Organization [facility] Address [address] [place] [address] Care Team Providers Care Information Systems Security Manager Name Role Phone Abbe Boston MD Primary Care Provider Reason for Visit * Diagnostic Imaging (Routine) - Closed Specialty Diagnoses / Procedures Referred By Contac t Referred To Contact Procedures Breast Imaging Screening Outside Reference Abbe Boston MD [address] [facility] [address] [place] [address] Phone: tel: fax: Referral ID Status Reason Start Date Expiration Date Visits Re quested Visits Authorized [id number] Closed 01/02/2022 02/01/2023 1 1 Encounter Details Date Type Department Care Team (Late st Contact Info) Description 09/13/2017 Hospital Encounter [facility] [address] [place] [address] Social History Tobacco Use Types Packs/Day Years Used Date Smoking Tobacco: Never Smokeless Tobacco: Never Alcohol Use Standard Drinks/Week Comments No 0 (1 standard drink = 0.6 oz pur e alcohol) [facility] Utilities Answer Date Recorded In the past 12 months has [employer] electric, gas, oil, or water company threatened to shut off services in your home? No 09/25/2024 Social Connection and Isolation Panel Answer Date Recorded In a typical week, how many times do you talk on the phone with family, friends, or neighbors? More than three times a week 09/25/2024 How often do you get togethe r with friends or relatives? More than three times a week 09/25/2024 How often do you attend chur ch or mandaeism services? More than 4 times per year 09/25/2024 Do you belong to any clubs o r organizations such as christianity groups, unions, fraternal or athletic groups, or school groups? Yes 09/25/2024 How often do you attend meet ings of the clubs or organizations you belong to? More than 4 times per year 09/25/2024 Are you , , di vorced, , never , or living with a partner? 09/25/2024 AUDIT-C Answer Date Recorded Q1: How often do you have a drink containing alcohol? Never 03/02/2025 Q2: How many drinks containi ng alcohol do you have on a typical day when you are drinking? Patient does not drink Q3: How often do you have si x or more drinks on one occasion? Never 03/02/2025 Overall Financial Resource Strain (CARDIA) Answe r Date Recorded How hard is it for you to pa y for the very basics like food, housing, medical care, and heating? Not hard at all 09/25/2024 Hunger Vital Sign Answer Date Recorded Within the past 12 months, y ou worried that your food would run out before you got the money to buy more. Never true 09/25/20 24 Within the past 12 months, t he food you bought just didn't last and you didn't have money to get more. Never true 09/25/2024 PRAPARE - Transportation Answer Date Re corded In the past 12 months, has l ack of transportation kept you from medical appointments or from getting medications? No 09/15 In the past 12 months, has l ack of transportation kept you from meetings, work, or from getting things needed for daily living? No 09/25/2024 Housing Stability Vital Sign Answer Tim e Recorded In the last 12 months, was t here a time when you were not able to pay the mortgage or rent on time? No 09/25/2024 In the past 12 months, how m any times have you moved where you were living? 0 09/25/2024 At any time in the past [address] [facility], were you homeless or living in a half-way (including now)? No 09/25/2024 Personal Safety Answer Date Recorded Have you ever been in or are you currently in a harmful physical or emotional relationship or is someone making you feel afraid or unsafe? Denies 03/09/2025 Comments No Sex and Gender Information Value Date Recorded Sex Assigned at Not on file Legal Sex Female 12:52 AM PIECE JOBBER Gender Identity Not on file Sexual Orientation Not on file documented as of this encounter Functional Status * In the past year, patient experienced: Question Answer Date of Assessment Author One or more falls in the las t year 2 03/09/2025 11:13 AM Meredith Tse RN How many times? 2 or more 03/09/2025 11:13 AM Meredith Rizzo RN Was the patient injured in t he fall? Yes 03/09/2025 11:13 AM Meredith Tse RN Has trouble stepping up onto a curb 0 03/09/2025 11:13 AM Meredith Tse RN Advised to use a cane or wal ker to get around safely 2 03/09/2025 11:13 AM Meredith Tse RN Often has to hoskins to the toilet 1 11:13 AM Meredith Tse RN Feels unsteady when walking 1 03/09/2025 11 :13 AM Meredith Tse RN Has lost some feeling in feet 1 03/09/2025 11:13 AM Meredith Tse RN Steadies self on furniture while walking at home 1 03/09/2025 11:13 AM Meredith Tse RN Takes medicine that makes him/her feel lightheaded or more tired than usual 0 03/09/2025 11:13 AM Meredith Tse RN Worried about falling 1 03/09/2025 11:13 AM Meredith Tse RN Takes medicine to sleep or improve mood 0 03/09/2025 11:13 AM Meredith Tse RN Needs to push with hands whe n rising from a chair 1 03/09/2025 11:13 AM CDT Zoraida, Crystal A., RN Often feels sad or depressed 0 03/09/2025 1 1:13 AM CDT Meredith Conway RN STEADI Score Total 10 03/09/2025 11:13 AM CD T Meredith Conway RN * Difference in Last Two Bala Scores Answer Date of Assessment Author 0 10/02/2024 8:23 AM Mike Patel RN * Question Answer Date of Assessment Author MAP (mmHg) 109 03/09/2025 1:05 PM CDT Maya Sanchez RN * Herrera Fall Risk Question Answer Date of Assessment Author History of Falling 0 10/02/2024 8: 23 AM Yadiel Patel RN Secondary Diagnosis 15 10/02/2024 8 :23 AM Yadiel Patel RN Ambulatory Aids 0 10/02/2024 8:23 AM Yadiel Patel RN Intravenous Therapy/Heparin/Saline Lock 20 10/02/2024 8:23 AM Yadiel Patel RN Gait/Transferring 10 10/02/2024 8:2 3 AM Yadiel Patel RN Mental Status 0 10/02/2024 8:23 AM Yadiel Patel RN Auto Low/High - if selected proceed to interventions (retired) N/A-fall assessment required 03/30/2022 8:37 AM CDT Nata Pelaez RN Morse Fall Risk Score (Score >= 45 places fall precaution order) 45 10/02/2024 8:23 AM Yadiel Patel RN Prior Fall Event (Autopopulated from EMR) None found 10/02/2024 8:23 AM Yadiel Patel RN * Bala Scale Question Answer Date of Assessment Author Sensory Perceptions 4 10/02/2024 8:23 AM Yadiel Mead RN Moisture 3 10/02/2024 8:23 AM Yadiel Patel RN Activity 3 10/02/2024 8:23 AM Yadiel Patel RN Mobility 3 10/02/2024 8:23 AM Yadiel Patel RN Nutrition 3 10/02/2024 8:23 AM Yadiel Patel RN Friction and Shear 3 10/02/2024 8:23 AM Yadiel Patel RN Bala Scale Score 19 10/02/2024 8:23 AM Yadiel Patel RN * Question Answer Date of Assessment Author BP Location Left arm 10/02/2024 3:00 PM Aleyda Scott BP Method Automatic 10/02/2024 3:00 PM Aleyda Scott * Fall Risk Interventions Question Answer Date of Assessment Author All Low Fall Interventions Applied Yes 10/02/2024 8:23 AM Yadiel Patel RN All Low Fall Interventions EXCEPT: Top 2 rails up 03/30/2022 8:37 AM Nata Burns RN All Moderate Fall Interventions Applied Yes 10/02/2024 8:23 AM Yadiel Patel RN All Moderate Fall Risk Interventions EXCEPT: PT eval requested or obtained;OT eval requested or obtained;Gait belt at bedside 03/09/2022 2:54 PM Gardenia Cevallos RN All High Fall Risk Interventions Applied Yes 10/02/2024 8:23 AM Yadiel Patel RN All High Risk Interventions EXCEPT: Bed alarm;Chair alarm 03/09/2022 2:54 PM Gardenia Cevallos RN Additional Interventions Applied Bed/chair alarm 10/02/2024 8:23 AM Yadiel Patel RN Reason For Exception(s) periop 03/30/20 8:37 AM Nata Burns RN Reason For Exception(s) PACU 03/09/20 2:54 PM Gardenia Cevallos RN Reason For Exception(s) PACU 03/09/20 2:54 PM Gardenia Cevallos RN * Question Answer Date of Assessment Author PT Functional Mobility Bed mobility: min assist Sup to sit: able to bring BLE off EOB, assist to bring trunk upright and hips to EOB -mod VC to avoid use of LUE Transfers: min assist -cues to avoid use of LUE as patient tends to use and try to reach with LUE -bed to chair: able to take a few steps to bedside commode and then a few steps to bedside chair with QUALITY PROCESS LEAD assist and min A Ambulation: patient declines due to fatigue Stairs: not tested 10/02/2024 8:57 AM Angi Zamudio, PT * B.M.A.T. - Bedside Mobility Assessment Tool for Nurses Question Answer Date of Assessment Author Is patient able to participate in the BMAT? Yes 10/02/2024 12:20 PM Yadiel Patel RN Reason patient is unable to participate in BMAT Bed rest orders 10/02/2024 12:20 PM Yadiel Patel RN BMAT Level Level 3 - Yellow 10/02/2024 12:2 0 PM Yadiel Patel RN Level 1 Equipment Use friction reducin g devices 10/02/2024 12:20 PM Yadiel Patel RN Level 3 Equipment Use assistive device such as cane/walker 10/02/2024 12:20 PM Yadiel Patel RN * Question Answer Date of Assessment Author 1. Has the patient self-reported, presented with clinical signs of, or have a documented history of any of the following within the past 30 days? No 09/23/2024 5:23 PM Joleen Esparza RN * Question Answer Date of Assessment Author Is the patient being treated today because it is known or suspected that they prepared, started, or tried to end their life? No 09/24/2024 4:00 AM Sherry Abraham RN * Question Answer Date of Assessment Author 1. In the past month, have you wished you were or that you could go to sleep and not wake up? No 09/24/2024 4:00 AM Sherry Abraham RN 2. In the past month, have you actually had any thoughts of killing yourself? No 09/24/2024 4:00 AM Sherry Abraham, SARAH 6. Have you ever done anything, started to do anything, or prepared to do anything to end your life? No 09/24/2024 4:00 AM Yvonne Abraham RN * Suicide Risk Level Answer Date of Assessment Author No risk level 09/24/2024 4:00 AM Ton Abraham RN * Self-Injurious Risk Level Answer Date of Assessment Author No risk level 09/23/2024 5:23 PM Doe Esparza RN * Alcohol Withdrawal BP Hierarchy Answer Date of Assessment Author 74 02/22/2023 3:33 PM CDT Mag Bustos MA * Question Answer Date of Assessment Author 2 Nurse Skin Assessment Mike/Dax 10/02/2024 7:00 A M Yadiel Patel RN * Pressure Injury Prevention Question Answer Date of Assessment Author Pressure Ulcer Prevention Interventions Keep skin clean and dry (Sensory Perception/Moisture) 10/02/2024 8:23 AM Yadiel Patel RN Protective Foam Dressing Location Sacrum 10/02/2024 8:23 AM Yadiel Patel RN Special Mattress Pressure relief overlay 10/02/2024 8:23 AM Yadiel Patel RN * Transdermal Patch Admission Assessment Question Answer Date of Assessment Author Transdermal Patch Assessment on Admission Not Present;Other (comment) 09/23/2024 5:23 PM Joleen Esparza RN * AUDIT-C Score Answer Date of Assessment Author 0 03/02/2025 9:45 AM Delaney Butler RN * Alcohol Use Question Answer Date of Assessment Author Q1: How often do you have a drink containing alcohol? Never 03/02/2025 9:45 AM Delaney Butler RN Q2: How many drinks containing alcohol do you have on a typical day when you are drinking? Patient does not drink 03/02/2025 9:45 AM Delaney Butler RN Q3: How often do you have six or more drinks on one occasion? Never 03/02/2025 9:45 AM Delaney Butler RN * Integumentary Question Answer Date of Assessment Author Skin Color Appropriate for ethnicity 10/02/2024 12:20 PM Yadiel Patel RN Skin Condition/Temp Warm;Dry 10/02/2024 1 2:20 PM Yadiel Patel RN Skin Integrity Surgical incision 10/02/2024 12: 20 PM Yadiel Patel RN Skin Turgor Non-tenting 10/01/2024 8:00 PM PIECE JOBBER Dax Nelson RN Integumentary Additional Assessments Yes-Bala 10/02/2024 12:20 PM Yadiel Patel RN Integumentary (WDL) X 10/02/2024 1 2:20 PM Yadiel Patel RN Skin Location L chest 10/01/2024 8:00 PM PIECE JOBBER Dax Nelson, SARAH * Wound (LDAs) Question Answer Date of Assessment Author Type of Wound (LDA) Surgical site 03/20/2022 7:00 AM Marsha Brooks RN * Bala Scale Question Answer Date of Assessment Author Bala Scale Used Bala 03/30/2022 10:25 AM CDT Kimmy Yu RN * Question Answer Date of Assessment Author Edema No pitting 10/02/2024 12:20 PM PIECE JOBBER Yadiel Dominguez RN Edema Generalized 09/30/2024 8:15 PM PIECE JOBBER Deuce Gutiererz RN * Question Answer Date of Assessment Author Affect Calm 09/29/2024 4:00 PM PIECE JOBBER Laura Mccann RN Mood Content 09/29/2024 4:00 PM PIECE JOBBER Laura Mccann RN * Question Answer Date of Assessment Author Percent Meal Eaten (%) 100 03/09/2025 3:30 PM CDT Meredith Conway RN Feeding Level of Assistance Able to feed self 10/02/2024 7:55 AM Aleyda Scott Appetite Good 10/02/2024 7:55 AM Aleyda Scott Percent Snack Eaten (%) 100 10/02/2024 7:55 A M Aleyda Scott Diet Supplement Name/Percent Consumed % refused 10/01/2024 9:00 PM PIECE JOBBER Dax Nelson, SARAH * Question Answer Date of Assessment Author BP Location Left arm 10/02/2024 3:00 PM Aleyda Scott BP Method Automatic 10/02/2024 3:00 PM Aleyda Scott * Fall Risk Interventions Question Answer Date of Assessment Author All Low Fall Interventions Applied Yes 10/02/2024 8:23 AM Yadiel Patel RN All Low Fall Interventions EXCEPT: Top 2 rails up 03/30/2022 8:37 AM Nata Burns RN All Moderate Fall Interventions Applied Yes 10/02/2024 8:23 AM Yadiel Patel RN All Moderate Fall Risk Interventions EXCEPT: PT eval requested or obtained;OT eval requested or obtained;Gait belt at bedside 03/09/2022 2:54 PM Gardenia Cevallos RN All High Fall Risk Interventions Applied Yes 10/02/2024 8:23 AM Yadiel Patel RN All High Risk Interventions EXCEPT: Bed alarm;Chair alarm 03/09/2022 2:54 PM Gardenia Cevallos RN Additional Interventions Applied Bed/chair alarm 10/02/2024 8:23 AM Yadiel Patel RN Reason For Exception(s) periop 03/30/20 8:37 AM Nata Burns RN Reason For Exception(s) PACU 03/09/20 22 2:54 PM Gardenia Cevallos RN Reason For Exception(s) PACU 03/09/20 22 2:54 PM Gardenia Cevallos RN * ADL Screening Question Answer Date of Assessment Author Patient's Vision Adequate to Safely Complete Daily Activities Yes 09/23/2024 3:05 PM Joleen Esparza RN Patient's Judgement Adequate to Safely Complete Daily Activities Yes 09/23/2024 3:05 PM Joleen Esparza RN Patient's Memory Adequate to Safely Complete Daily Activities Yes 09/23/2024 3:05 PM Joleen Esparza RN Patient Able to Express Needs/Desires Yes 09/23/2024 3:05 PM Joleen Esparza RN Dressing Independent 09/23/2024 3:05 PM Joleen Esparza RN Grooming Independent 09/23/2024 3:05 PM Joleen Esparza RN Feeding Independent 09/23/2024 3:05 PM Joleen Esparza RN Bathing Independent 09/23/2024 3:05 PM Joleen Esparza RN Toileting Independent 09/23/2024 3:05 PM Joleen Esparza RN In/Out Bed Independent 09/23/2024 3:05 PM Joleen Esparza RN Walks in Home Independent 09/23/2024 3:05 PM Joleen Holder RN Weakness of Legs Both 09/23/2024 3:05 PM Joleen Zamudio RN Weakness of Arms/Hands Right 09/23/2024 3:05 PM Joleen Esparza RN Hearing - Right Ear Hearing aid 09/23/2024 3:05 PM Joleen Randolph RN Hearing - Left Ear Hearing aid 09/23/2024 3:05 PM Joleen Esparza RN Dominant hand? Right 09/23/2024 3:05 PM Joleen England RN Decline in ADLs in last 2 weeks? No 09/23/2024 3:05 PM Joleen Esparza RN * Therapy Consults Question Answer Date of Assessment Author PT Evaluation Needed 1 09/23/2024 3:05 PM Joleen Dejesus RN OT Evaluation Needed 1 09/23/2024 3:05 PM Joleen Dejesus RN ASTRO TECHNICIAN Evaluation Needed 2 09/23/2024 3:05 PM Joleen Esparza RN * Assistive Devices Question Answer Date of Assessment Author Assistive Devices/DME Walker 09/23/2024 3:05 PM Joleen Esparza RN * Speech/Swallow Screening Question Answer Date of Assessment Author Currently, does patient have difficulty swallowing; coughing/choking while swallowing, or feels like food is sticking No 09/23/2024 3:05 PM Joleen Esparza RN In the past two weeks has the patient had changes in speaking or ability to comprehend conversation No 09/23/2024 3:05 PM Joleen Esparza RN Currently, does patient require thickened liquids or dysphagia diet No 09/23/2024 3:05 PM Joleen Esparza RN Patient is in need of ASTRO TECHNICIAN Order: No ASTRO TECHNICIAN order needed from this assessment 09/23/2024 3:05 PM Joleen Esparza RN * Question Answer Date of Assessment Author Bed In Lowest Position Yes 10/02/2024 5:00 PM Aleyda Scott Bed Wheels Locked Yes 10/02/2024 5:00 PM Aleyda Scott * Hygiene Question Answer Date of Assessment Author Hygiene Protective foam dressing changed;Moisture barrier;Skin cleanser 09/29/2024 6:00 AM Robin Fung RN Oral Care Lip moisturizer 09/29/2024 12:00 PM Laura Tam, SARAH Hygiene Level of Assistance Moderate assist 10/02/2024 5:00 PM Aleyda Scott Toileting: Assistance with Bedside commode 10/01/2024 8:04 AM Yadiel Patel RN Toileting: Level of assistance Stand by 10/02/2024 5:00 PM Aleyda Scott Reason not bathed/showered Bath not due on this shift 09/29/2024 8:00 AM Laura Tam, SARAH Perineal Care Joanne Care 10/01/2024 8:04 AM Yadiel Patel RN Linens Absorbent pad changed 10/01/2024 8:04 AM Yadiel Patel RN Bath Not bathed/showered 10/01/2024 4 :00 PM Yadiel Patel RN documented as of this encounter Mental Status * Question Answer Entry Date Author Neuro ([facility]) WDL 09/30/2024 8:12 AM Era Reza RN * Question Answer Entry Date Author Level of Consciousness Alert;Awake 8:00 PM Dax Lara RN Orientation Oriented X4 (person, place, time, situation) 10/01/2024 8:00 PM Dax Lara RN Neuro ([facility]) WD 10/02/2024 12:20 PM PIECE JOBBER Yadiel Dominguez RN Other Neuro Symptoms Fatigue 09/30/2024 8:15 PM PIECE JOBBER Deuce Abreu, SARAH * Question Answer Entry Date Author Feature 1: Acute Onset or Fluctuating Course Negative 09/29/2024 4:00 PM PIECE JOBBER Laura Cobos Ma, RN Feature 2: Inattention Negative 09/29/2024 8:00 AM PIECE JOBBER Laura Cobos RN Overall [facility]-ICU Negative 09/29/2024 4:00 PM PIECE JOBBER Laura Perez RN documented in this encounter Plan of Treatment Not on file documented as of this encounter Procedures Procedure Name Priority Date/Time Associated Diagnosis Comments BREAST IMAGING MG SCREENING OUTSIDE REFERENCE Routine 09/13/2017 12:00 AM CDT documented in this encounter Results * Breast Imaging Screening Outside Reference (09/13/2017 12:00 AM CDT) Impressions [facility] - 01/02/2022 4:25 PM PIECE JOBBER These images are for Reference purposes only and have not been reviewed by [facility] Radiology. There will be no report generated by a [facility] Radiologist. Narrative [facility] - 01/02/2022 4:25 PM PIECE JOBBER EXAMINATION: Images For Reference Purposes Only us Abbe Boston MD IMG MAMMO PROCEDURES Fi nal Result [facility] documented in this encounter Visit Diagnoses Not on filedocumented in this encounter Additional Health Concerns Infection Onset Date Last Indicated Resolved Time COVID: Suspected 09/23/2024 09/23/2024 09/23/2024 3:48 PM PIECE JOBBER documented as of this encounter Care Teams Information Systems Security Manager Relationship Specialty Start Date End Date Abbe Boston MD [address] [facility] [address] [place] [address] PCP - General 11/12/15 documented as of this encounter
--- OUTSIDE RECORDS SUMMARY | 2017-09-23 | XMS_ITS | Encounter Summary ---
Author Organization [facility] Healthcare Address [address] [place] [address] Care Team Providers Care Replacer Name Role Phone Abbe Boston MD Primary Care Provider Reason for Visit * Diagnostic Imaging (Routine) - Closed Specialty Diagnoses / Procedures Referred By Contac t Referred To Contact Procedures Breast Imaging Diagnostic Outside Reference Abbe Boston MD [address] [facility] [address] [place] [address] Phone: tel: fax: Referral ID Status Reason Start Date Expiration Date Visits Re quested Visits Authorized [id number] Closed 01/02/2022 02/01/2023 1 1 Encounter Details Date Type Department Care Team (Late st Contact Info) Description 09/23/2017 Hospital Encounter [facility] [address] [place] [address] Social History Tobacco Use Types Packs/Day Years Used Date Smoking Tobacco: Never Smokeless Tobacco: Never Alcohol Use Standard Drinks/Week Comments No 0 (1 standard drink = 0.6 oz pur e alcohol) [facility] Utilities Answer Date Recorded In the past 12 months has [employer] electric, gas, oil, or water company threatened [...] often do you attend chur ch or yazidi services? More than 4 times per year 09/25/2024 Do you belong to any clubs o r organizations such as anabaptism groups, unions, fraternal or athletic groups, or [...] any time in the past 12 m [facility], were you homeless or living in a senior care (including now)? No 09/25/2024 Personal Safety Answer Date Recorded Have you ever been in or are you currently in a harmful physical or emotional relationship or is someone making you feel afraid or unsafe? Denies 03/09/2025 Comments No Sex and Gender Information Value Date Recorded Sex Assigned at Not on file Legal Sex Female 12:52 AM CEMENT TILE MAKER Gender Identity Not on file Sexual Orientation [...] from a chair 1 03/09/2025 11:13 AM Meredith Tse RN Often feels sad or depressed 0 [...] a few steps to bedside chair with ARTIST SUSPECT assist and min A Ambulation: patient declines [...] friction reducin g devices 10/02/2024 12:20 PM aYdiel Patel RN Level 3 Equipment Use assistive [...] of Assessment Author 2 Nurse Skin Assessment Lauryn 10/02/2024 7:00 A M Yadiel Patel RN [...] RN Skin Turgor Non-tenting 10/01/2024 8:00 PM CEMENT TILE MAKER Dax Nelson RN Integumentary Additional Assessments Yes-Bala 10/02/2024 12:20 PM Yadiel Patel RN Integumentary (WDL) X 10/02/2024 1 2:20 PM Yadiel Patel RN Skin Location L chest 10/01/2024 8:00 PM CEMENT TILE MAKER Dax Nelson, SARAH * Wound (LDAs) Question Answer Date of Assessment Author Type of Wound (LDA) Surgical site 03/20/2022 7:00 AM Marsha Brooks RN * Bala Scale Question Answer Date of Assessment Author Baal Scale Used Bala 03/30/2022 10:25 AM CDT Kimmy Yu RN * Question Answer Date of Assessment Author Edema No pitting 10/02/2024 12:20 PM CEMENT TILE MAKER Yadiel Dominguez RN Edema Generalized 09/30/2024 8:15 PM CEMENT TILE MAKER Deuce Gutierrez RN * Question Answer Date of Assessment Author Affect Calm 09/29/2024 4:00 PM CEMENT TILE MAKER Laura Mccann RN Mood Content 09/29/2024 4:00 PM CEMENT TILE MAKER Laura Mccann RN * Question Answer Date of Assessment Author Percent Meal Eaten (%) 100 03/09/2025 3:30 PM CDT Meredith Conway RN Feeding Level of Assistance Able to feed self 10/02/2024 7:55 AM Aleyda Scott Appetite Good 10/02/2024 7:55 AM Aleyda Scott Percent Snack Eaten (%) 100 10/02/2024 7:55 A M Aleyda Scott Diet Supplement Name/Percent Consumed % refused 10/01/2024 9:00 PM CEMENT TILE MAKER Dax Nelson, SARAH * Question Answer Date [...] Patel RN Reason For Exception(s) periop 03/30/20 22 8:37 AM Nata Burns RN Reason For [...] 1 09/23/2024 3:05 PM Joleen Dejesus RN CIGAR BANDER Evaluation Needed 2 09/23/2024 3:05 PM Joleen [...] Esparza RN Patient is in need of CIGAR BANDER Order: No CIGAR BANDER order needed from this assessment 09/23/2024 3:05 [...] Question Answer Entry Date Author Neuro ([facility]) WDL 09/30/2024 8:12 AM Era Reza, SARAH * Question Answer Entry Date Author Level of Consciousness Alert;Awake 8:00 PM Dax Lara RN Orientation Oriented X4 (person, place, time, situation) 10/01/2024 8:00 PM Dax Lara RN Neuro ([facility]) WD 10/02/2024 12:20 PM CEMENT TILE MAKER Yadiel Dominguez RN Other Neuro Symptoms Fatigue 09/30/2024 8:15 PM CEMENT TILE MAKER Deuce Abreu, SARAH * Question Answer Entry Date Author Feature 1: Acute Onset or Fluctuating Course Negative 09/29/2024 4:00 PM CEMENT TILE MAKER Laura Cobos Ma, RN Feature 2: Inattention Negative 09/29/2024 8:00 AM CEMENT TILE MAKER Laura Cobos RN Overall [facility]-ICU Negative 09/29/2024 4:00 PM CEMENT TILE MAKER Laura Perez RN documented in this encounter Plan of Treatment Not on file documented as of this encounter Procedures Procedure Name Priority Date/Time Associated Diagnosis Comments BREAST IMAGING MG DIAGNOSTIC OUTSIDE REFERENCE Routine 09/23/2017 12:00 AM CEMENT TILE MAKER documented in this encounter Results * Breast Imaging Diagnostic Outside Reference (09/23/2017 12:00 AM CEMENT TILE MAKER) Impressions [facility] - 01/02/2022 4:26 PM CEMENT TILE MAKER These images are for Reference purposes only and have not been reviewed by [facility] Radiology. There will be no report generated by a [facility] Radiologist. Narrative [facility] - 01/02/2022 4:26 PM CEMENT TILE MAKER EXAMINATION: Images For Reference Purposes Only us Abbe Boston MD IMG MAMMO PROCEDURES Fi nal Result [facility] documented in this encounter Visit Diagnoses Not on filedocumented in this encounter Additional Health Concerns Infection Onset Date Last Indicated Resolved Time COVID: Suspected 09/23/2024 09/23/2024 09/23/2024 3:48 PM CEMENT TILE MAKER documented as of this encounter Care Teams Replacer Relationship Specialty Start Date End Date Abbe Boston MD [address] [facility] [address] [place] [address] PCP - General 11/12/15 documented as of this encounter
--- OUTSIDE RECORDS SUMMARY | 2018-09-14 23:00 | XMS_ITS | Encounter Summary ---
Author Organization [facility] Healthcare Address [address] [place] [address] Care Team Providers Care Casing Wringer Operator Name Role Phone Abbe Boston MD Primary Care Provider Reason for Visit * Diagnostic Imaging (Routine) - Closed Specialty Diagnoses / Procedures Referred By Contac t Referred To Contact Diagnoses Abnormal mammogram of left breast Procedures Breast Imaging Screening Outside Reference Abbe Boston MD [address] [address] Phone: tel: fax: Referral ID Status Reason Start Date Expiration Date Visits Re quested Visits Authorized [id number] Closed 01/02/2022 02/01/2023 1 1 Encounter Details Date Type Department Care Team (Late st Contact Info) Description 09/15/2018 Hospital Encounter [facility]) [address] [place] [id number] Social History Tobacco Use Types Packs/Day Years Used Date Smoking Tobacco: Never Smokeless Tobacco: Never Alcohol Use Standard Drinks/Week Comments No 0 (1 standard drink = 0.6 oz pur e alcohol) [facility] Utilities Answer Date Recorded In the past 12 months has [employer] electric, gas, oil, or water company threatened [...] often do you attend chur ch or evangelical services? More than 4 times per year 09/25/2024 Do you belong to any clubs o r organizations such as temple groups, unions, fraternal or athletic groups, or [...] any time in the past 12 m [facility], were you homeless or living in a [...] on file Legal Sex Female 12:52 AM TAKE OUT WAITER Gender Identity Not on file Sexual Orientation [...] of Assessment Author 0 10/02/2024 8:23 AM TAKE OUT WAITER Mike Dominguez RN * Question Answer Date of Assessment [...] Interventions Applied Yes 10/02/2024 8:23 AM Yadiel Patle RN All Moderate Fall Risk Interventions EXCEPT: [...] a few steps to bedside chair with CONCRETE PUDDLER assist and min A Ambulation: patient declines [...] Skin Condition/Temp Warm;Dry 10/02/2024 1 2:20 PM TAKE OUT WAITER Hei, Yadiel A., RN Skin Integrity Surgical incision 10/02/2024 12: 20 PM TAKE OUT WAITER Yadiel Dominguez RN Skin Turgor Non-tenting 10/01/2024 8:00 PM TAKE OUT WAITER Dax Nelson RN Integumentary Additional Assessments Yes-Bala 10/02/2024 12:20 PM Yadiel Patel RN Integumentary (WDL) X 10/02/2024 1 2:20 PM Yadiel Patel RN Skin Location L chest 10/01/2024 8:00 PM TAKE OUT WAITER Dax Nelson, SARAH * Wound (LDAs) Question Answer Date of Assessment Author Type of Wound (LDA) Surgical site 03/20/2022 7:00 AM Marsha Brooks RN * Bala Scale Question Answer Date of Assessment Author Bala Scale Used Bala 03/30/2022 10:25 AM CDT Kimmy Yu RN * Question Answer Date of Assessment Author Edema No pitting 10/02/2024 12:20 PM TAKE OUT WAITER Yadiel Dominguez RN Edema Generalized 09/30/2024 8:15 PM TAKE OUT WAITER Deuce Gutierrez RN * Question Answer Date of Assessment Author Affect Calm 09/29/2024 4:00 PM TAKE OUT WAITER Laura Mccann RN Mood Content 09/29/2024 4:00 PM TAKE OUT WAITER Laura Mccann RN * Question Answer Date of Assessment Author Percent Meal Eaten (%) 100 03/09/2025 3:30 PM CDT Meredith Conway RN Feeding Level of Assistance Able to feed self 10/02/2024 7:55 AM Aleyda Scott Appetite Good 10/02/2024 7:55 AM Aleyda Scott Percent Snack Eaten (%) 100 10/02/2024 7:55 A M Aleyda Scott Diet Supplement Name/Percent Consumed % refused 10/01/2024 9:00 PM TAKE OUT WAITER Dax Nelson, RN * Question Answer Date of Assessment [...] 03/09/20 2:54 PM Gardenia Cevallos RN * ADL [...] 1 09/23/2024 3:05 PM Joleen Dejesus RN STRIPPER PRELIMINARY Evaluation Needed 2 09/23/2024 3:05 PM Joleen [...] Esparza RN Patient is in need of STRIPPER PRELIMINARY Order: No STRIPPER PRELIMINARY order needed from this assessment 09/23/2024 3:05 [...] * Question Answer Entry Date Author Neuro (WDL) WDL 09/30/2024 8:12 AM Era Reza RN * Question Answer Entry Date Author Level of Consciousness Alert;Awake 8:00 PM Dax Lara RN Orientation Oriented X4 (person, place, time, situation) 10/01/2024 8:00 PM Dax Lara RN Neuro (WDL) WDL 10/02/2024 12:20 PM TAKE OUT WAITER Yadiel Dominguez RN Other Neuro Symptoms Fatigue 09/30/2024 8:15 PM TAKE OUT WAITER Deuce Abreu, SARAH * Question Answer Entry Date Author Feature 1: Acute Onset or Fluctuating Course Negative 09/29/2024 4:00 PM TAKE OUT WAITER Laura Cobos Ma, RN Feature 2: Inattention Negative 09/29/2024 8:00 AM TAKE OUT WAITER Laura Cobos RN Overall [facility]-ICU Negative 09/29/2024 4:00 PM TAKE OUT WAITER Laura Perez RN documented in this encounter Plan of Treatment Not on file documented as of this encounter Procedures Procedure Name Priority Date/Time Associated Diagnosis Comments BREAST IMAGING MG SCREENING OUTSIDE REFERENCE Routine 09/15/2018 12:00 AM CDT Abnormal mammogram of left breast documented in this encounter Results * Breast Imaging Screening Outside Reference (09/15/2018 12:00 AM CDT) Impressions [facility] - 01/02/2022 5:17 PM TAKE OUT WAITER These images are for Reference purposes only and have not been reviewed by [facility]. There will be no report generated by a [facility] Radiologist. Narrative [facility] - 01/02/2022 5:17 PM TAKE OUT WAITER EXAMINATION: Images For Reference Purposes Only us Abbe Boston MD IMG MAMMO PROCEDURES Fi nal Result [facility] documented in this encounter Visit Diagnoses Not on filedocumented in this encounter Additional Health Concerns Infection Onset Date Last Indicated Resolved Time COVID: Suspected 09/23/2024 09/23/2024 09/23/2024 3:48 PM TAKE OUT WAITER documented as of this encounter Care Teams Casing Wringer Operator Relationship Specialty Start Date End Date Abbe Boston MD [address] [facility] [address] [place] [address] PCP - General 11/12/15 documented as of this encounter
--- OUTSIDE RECORDS SUMMARY | 2019-09-21 | XMS_ITS | Encounter Summary ---
Author Organization [facility] Healthcare Address [address] [place] [address] Care Team Providers Care Director Of Research Center Name Role Phone Abbe Boston MD Primary Care Provider Reason for Visit * Diagnostic Imaging (Routine) - Closed Specialty Diagnoses / Procedures Referred By Contac t Referred To Contact Procedures Breast Imaging Screening Outside Reference Abbe Boston MD [address] [facility] [address] [place] [address] Phone: tel: fax: Referral ID Status Reason Start Date Expiration Date Visits Re quested Visits Authorized [id number] Closed 01/02/2022 02/01/2023 1 1 Encounter Details Date Type Department Care Team (Late st Contact Info) Description 09/21/2019 Hospital Encounter [facility]) [address] [place] [address] Social History Tobacco Use Types Packs/Day Years Used Date Smoking Tobacco: Never Smokeless Tobacco: Never Alcohol Use Standard Drinks/Week Comments No 0 (1 standard drink = 0.6 oz pur e alcohol) [facility] Utilities Answer Date Recorded In the past 12 months has [employer], gas, oil, or water company threatened [...] often do you attend chur ch or yarsani services? More than 4 times per year 09/25/2024 Do you belong to any clubs o r organizations such as christian groups, unions, fraternal or athletic groups, or [...] any time in the past 12 m [facility], were you homeless or living in a [facility] (including now)? No 09/25/2024 Personal Safety Answer Date Recorded Have you ever been in or are you currently in a harmful physical or emotional relationship or is someone making you feel afraid or unsafe? Denies 03/09/2025 Comments No Sex and Gender Information Value Date Recorded Sex Assigned at Not on file Legal Sex Female 12:52 AM ACCOUNTING DIRECTOR Gender Identity Not on file Sexual Orientation [...] a few steps to bedside chair with WRONG ADDRESS CLERK assist and min A Ambulation: patient declines [...] RN Skin Turgor Non-tenting 10/01/2024 8:00 PM ACCOUNTING DIRECTOR Dax Nelson RN Integumentary Additional Assessments Yes-Bala 10/02/2024 12:20 PM Yadiel Patel RN Integumentary (WDL) X 10/02/2024 1 2:20 PM Yadiel Patel RN Skin Location L chest 10/01/2024 8:00 PM ACCOUNTING DIRECTOR Dax Nelson, SARAH * Wound (LDAs) Question Answer Date of Assessment Author Type of Wound (LDA) Surgical site 03/20/2022 7:00 AM Marsha Brooks RN * Bala Scale Question Answer Date of Assessment Author Bala Scale Used Bala 03/30/2022 10:25 AM CDT Kimmy Yu RN * Question Answer Date of Assessment Author Edema No pitting 10/02/2024 12:20 PM ACCOUNTING DIRECTOR Yadiel Dominguez RN Edema Generalized 09/30/2024 8:15 PM ACCOUNTING DIRECTOR Deuce Gutierrez RN * Question Answer Date of Assessment Author Affect Calm 09/29/2024 4:00 PM ACCOUNTING DIRECTOR Laura Mccann RN Mood Content 09/29/2024 4:00 PM ACCOUNTING DIRECTOR Laura Mccann RN * Question Answer Date of Assessment Author Percent Meal Eaten (%) 100 03/09/2025 3:30 PM CDT Meredith Conway RN Feeding Level of Assistance Able to feed self 10/02/2024 7:55 AM Aleyda Scott Appetite Good 10/02/2024 7:55 AM Aleyda Scott Percent Snack Eaten (%) 100 10/02/2024 7:55 A M Aleyda Scott Diet Supplement Name/Percent Consumed % refused 10/01/2024 9:00 PM ACCOUNTING DIRECTOR Dax Nelson, SARAH * Question Answer Date [...] 1 09/23/2024 3:05 PM Joleen Dejesus RN LINING CUTTER Evaluation Needed 2 09/23/2024 3:05 PM Joleen [...] Esparza RN Patient is in need of LINING CUTTER Order: No LINING CUTTER order needed from this assessment 09/23/2024 3:05 [...] * Question Answer Entry Date Author Neuro ([facility]) WDL 09/30/2024 8:12 AM Era Reza RN * Question Answer Entry Date Author Level of Consciousness Alert;Awake 8:00 PM Dax Lara RN Orientation Oriented X4 (person, place, time, situation) 10/01/2024 8:00 PM Dax Lara RN Neuro ([facility]) WD 10/02/2024 12:20 PM ACCOUNTING DIRECTOR Yadiel Dominguez RN Other Neuro Symptoms Fatigue 09/30/2024 8:15 PM ACCOUNTING DIRECTOR Deuce Abreu, SARAH * Question Answer Entry Date Author Feature 1: Acute Onset or Fluctuating Course Negative 09/29/2024 4:00 PM ACCOUNTING DIRECTOR Laura Cobos Ma, RN Feature 2: Inattention Negative 09/29/2024 8:00 AM ACCOUNTING DIRECTOR Laura Cobos RN Overall [facility]-ICU Negative 09/29/2024 4:00 PM ACCOUNTING DIRECTOR Laura Perez RN documented in this encounter Plan of Treatment Not on file documented as of this encounter Procedures Procedure Name Priority Date/Time Associated Diagnosis Comments BREAST IMAGING MG SCREENING OUTSIDE REFERENCE Routine 09/21/2019 12:00 AM ACCOUNTING DIRECTOR documented in this encounter Results * Breast Imaging Screening Outside Reference (09/21/2019 12:00 AM ACCOUNTING DIRECTOR) Impressions [facility] - 01/02/2022 4:25 PM ACCOUNTING DIRECTOR These images are for Reference purposes only and have not been reviewed by [facility]. There will be no report generated by a [facility] Radiologist. Narrative [facility] - 01/02/2022 4:25 PM ACCOUNTING DIRECTOR EXAMINATION: Images For Reference Purposes Only us Abbe Boston MD IMG MAMMO PROCEDURES Fi nal Result [facility] documented in this encounter Visit Diagnoses Not on filedocumented in this encounter Additional Health Concerns Infection Onset Date Last Indicated Resolved Time COVID: Suspected 09/23/2024 09/23/2024 09/23/2024 3:48 PM ACCOUNTING DIRECTOR documented as of this encounter Care Teams Director Of Research Center Relationship Specialty Start Date End Date Abbe Boston MD [address] [facility] [address] [place] [address] PCP - General 11/12/15 documented as of this encounter
--- OUTSIDE RECORDS SUMMARY | 2020-10-08 | XMS_ITS | Encounter Summary ---
Author Organization [facility] Healthcare Address [address] [place] [address] Care Team Providers Care Building Engineer Name Role Phone Abbe Boston MD Primary Care Provider Reason for Visit * Diagnostic Imaging (Routine) - Closed Specialty Diagnoses / Procedures Referred By Contac t Referred To Contact Procedures Breast Imaging Screening Outside Reference Abbe Boston MD [address] [facility] [address] [place] [address] Phone: tel: fax: Referral ID Status Reason Start Date Expiration Date Visits Re quested Visits Authorized [id number] Closed 01/02/2022 02/01/2023 1 1 Encounter Details Date Type Department Care Team (Late st Contact Info) Description 10/08/2020 Hospital Encounter [facility] [address] [place] [address] Social History Tobacco Use Types Packs/Day Years Used Date Smoking Tobacco: Never Smokeless Tobacco: Never Alcohol Use Standard Drinks/Week Comments No 0 (1 standard drink = 0.6 oz pur e alcohol) [facility] Utilities Answer Date Recorded In the past 12 months has [employer] electric, gas, oil, or water company threatened [...] often do you attend chur ch or oriental orthodox services? More than 4 times per year 09/25/2024 Do you belong to any clubs o r organizations such as latter day groups, unions, fraternal or athletic groups, or [...] any time in the past 12 m [facility], were you homeless or living in a care home (including now)? No 09/25/2024 Personal Safety Answer Date Recorded Have you ever been in or are you currently in a harmful physical or emotional relationship or is someone making you feel afraid or unsafe? Denies 03/09/2025 Comments No Sex and Gender Information Value Date Recorded Sex Assigned at Not on file Legal Sex Female 12:52 AM INDUSTRIAL CHEMISTRY TEACHER Gender Identity Not on file Sexual Orientation [...] assessment required 03/30/2022 8:37 AM CDT Nata Peleaz RN Morse Fall Risk Score (Score >= [...] a few steps to bedside chair with JUTE BAG SEWER assist and min A Ambulation: patient declines [...] RN Skin Turgor Non-tenting 10/01/2024 8:00 PM INDUSTRIAL CHEMISTRY TEACHER Dax Nelson RN Integumentary Additional Assessments Yes-Bala 10/02/2024 12:20 PM Yadiel Patel RN Integumentary (WDL) X 10/02/2024 1 2:20 PM Yadiel Patel RN Skin Location L chest 10/01/2024 8:00 PM INDUSTRIAL CHEMISTRY TEACHER Dax Nelosn, SARAH * Wound (LDAs) Question Answer Date of Assessment Author Type of Wound (LDA) Surgical site 03/20/2022 7:00 AM Marsha Brooks RN * Bala Scale Question Answer Date of Assessment Author Bala Scale Used Abla 03/30/2022 10:25 AM CDT Kimmy Yu RN * Question Answer Date of Assessment Author Edema No pitting 10/02/2024 12:20 PM INDUSTRIAL CHEMISTRY TEACHER Yadiel Dominguez RN Edema Generalized 09/30/2024 8:15 PM INDUSTRIAL CHEMISTRY TEACHER Deuce Gutierrez RN * Question Answer Date of Assessment Author Affect Calm 09/29/2024 4:00 PM INDUSTRIAL CHEMISTRY TEACHER Laura Mccann RN Mood Content 09/29/2024 4:00 PM INDUSTRIAL CHEMISTRY TEACHER Laura Mccann RN * Question Answer Date of Assessment Author Percent Meal Eaten (%) 100 03/09/2025 3:30 PM CDT Meredith Conway RN Feeding Level of Assistance Able to feed self 10/02/2024 7:55 AM Aleyda Scott Appetite Good 10/02/2024 7:55 AM Aleyda Scott Percent Snack Eaten (%) 100 10/02/2024 7:55 A M Aleyda Scott Diet Supplement Name/Percent Consumed % refused 10/01/2024 9:00 PM INDUSTRIAL CHEMISTRY TEACHER Dax Nelson, SARAH * Question Answer Date [...] 1 09/23/2024 3:05 PM Joleen Dejesus RN FINISH PATCHER Evaluation Needed 2 09/23/2024 3:05 PM Joleen [...] Esparza RN Patient is in need of FINISH PATCHER Order: No FINISH PATCHER order needed from this assessment 09/23/2024 3:05 [...] * Question Answer Entry Date Author Neuro ([facility]) WDL 09/30/2024 8:12 AM Era Reza, SARAH * Question Answer Entry Date Author Level of Consciousness Alert;Awake 8:00 PM Dax Lara RN Orientation Oriented X4 (person, place, time, situation) 10/01/2024 8:00 PM Dax Lara RN Neuro ([facility]) WD 10/02/2024 12:20 PM INDUSTRIAL CHEMISTRY TEACHER Yadiel Dominguez RN Other Neuro Symptoms Fatigue 09/30/2024 8:15 PM INDUSTRIAL CHEMISTRY TEACHER Deuce Abreu, SARAH * Question Answer Entry Date Author Feature 1: Acute Onset or Fluctuating Course Negative 09/29/2024 4:00 PM INDUSTRIAL CHEMISTRY TEACHER Laura Cobos Ma, RN Feature 2: Inattention Negative 09/29/2024 8:00 AM INDUSTRIAL CHEMISTRY TEACHER Laura Cobos RN Overall [facility]-ICU Negative 09/29/2024 4:00 PM INDUSTRIAL CHEMISTRY TEACHER Laura Perez RN documented in this encounter Plan of Treatment Not on file documented as of this encounter Procedures Procedure Name Priority Date/Time Associated Diagnosis Comments BREAST IMAGING MG SCREENING OUTSIDE REFERENCE Routine 10/08/2020 12:00 AM INDUSTRIAL CHEMISTRY TEACHER documented in this encounter Results * Breast Imaging Screening Outside Reference (10/08/2020 12:00 AM INDUSTRIAL CHEMISTRY TEACHER) Impressions [facility]_MAMMO[facility] - 01/02/2022 4:25 PM INDUSTRIAL CHEMISTRY TEACHER These images are for Reference purposes only and have not been reviewed by [facility] Radiology. There will be no report generated by a [facility] Radiologist. Narrative [facility]_MAMMO[facility] - 01/02/2022 4:25 PM INDUSTRIAL CHEMISTRY TEACHER EXAMINATION: Images For Reference Purposes Only us Abbe Boston MD IMG MAMMO PROCEDURES Fi nal Result [facility] documented in this encounter Visit Diagnoses Not on filedocumented in this encounter Additional Health Concerns Infection Onset Date Last Indicated Resolved Time COVID: Suspected 09/23/2024 09/23/2024 09/23/2024 3:48 PM INDUSTRIAL CHEMISTRY TEACHER documented as of this encounter Care Teams Building Engineer Relationship Specialty Start Date End Date Abbe Boston MD [address] [facility] [address] [place] [address] PCP - General 11/12/15 documented as of this encounter
--- NOTE | ~2025-09-26 | MM_ITS ---
EXAMINATION: MM diagnostic canelo BI w rl HISTORY: History of left breast cancer. No current issues. TECHNIQUE: Additional 3-D tomosynthesis images of the breasts were performed and synthetic 2-D images were generated. CAD analysis was submitted and interpreted. COMPARISON: Comparison to multiple prior studies sequentially, with oldest reviewed study dated 09/15/2018. BREAST PARENCHYMAL COMPOSITION: Not dense: There are scattered areas of fibroglandular density. FINDINGS: The breasts are stable. No new masses, calcifications or architectural distortion in either breast to suggest malignancy. Battery pack overlies the left upper central chest wall. IMPRESSION: 1. No mammographic evidence for malignancy in either breast. 2. Routine yearly screening mammogram and regular clinical breast examination are recommended. BI-RADS Category 1: Negative Reviewed, dictated and finalized at location B. LOADER MACHINE OPERATOR IMPRESSION: 1. No mammographic evidence for malignancy in either breast. 2. Routine yearly screening mammogram and regular clinical breast examination a re recommended. BI-RADS Category 1: Negative
--- OUTSIDE RECORDS SUMMARY | 2025-09-26 13:40 | XMS_ITS | Encounter Summary ---
Author Organization [facility] [employer] [facility] Address [address] [place] [address] Care Team Providers Care Special Tester Name Role Phone Abbe Boston MD Primary Care Provider [phone] Reason for Referral * Radiology Services (Routine) - Authorized Specialty Diagnoses / Procedures Referred By Contac t Referred To Contact Diagnoses Malignant neoplasm of lower-inner quadrant of left breast in female, estrogen receptor positive (CMS/HCC) Procedures MAMMO DIAGNOSTIC UNI LEFT W OR WO CAD Oscar Romero MD [address] [place] [address] Phone: tel: fax: Referral ID Status Reason Start Date Expiration Date V isits Requested Visits Authorized [id number] Authorized 09/25/2025 10/26/2026 1 1 BUCKER Encounter Details Date Type Department Care Team (Late st Contact Info) Description 09/25/[address] [facility] Oncology and Hematology - [place] [address] [place], [place] [address] [address] Oscar Romero MD [address] [place] [address] Malignant neoplasm of lower-inner quadrant of left breast in female, estrogen receptor positive (CMS/HCC) (Primary Dx) Social History Tobacco Use Types Packs/Day Years Used Date Smoking Tobacco: Never Smokeless Tobacco: Never Alcohol Use Standard Drinks/Week Comments Never 0 (1 standard drink = 0.6 oz pur e alcohol) Comments Unknown Sex and Gender Information Value Date Recorded Sex Assigned at Not on file Legal Sex Female 4:36 PM CDT Gender Identity Not on file Sexual Orientation Not on file documented as of this encounter Plan of Treatment Upcoming Encounters Date Type Department Care Team (Late st Contact Info) Description 10/08/2025 4:30 PM ROLL BUCKER Telephone Check Up [facility] H[facility]ology [address] [place] [address] [place] [address] [place] [address] [employer] [address] [place] [address] 07/08/2026 1:15 PM CDT Office Visit [facility] Oncology and Hematology [facility] [address] [place] [address] [place] [address] [place] [address] [address] [place] [address] Scheduled Orders Name Type Priority Associated Diagnoses Orde r Schedule MAMMO DIAGNOSTIC UNI LEFT W OR WO CAD Imaging Routine Malignant neoplasm of lower-inner quadrant of left breast in female, estrogen receptor positive (CMS/HCC) Expected: 09/25/2025, Expires: 03/25/2027 documented as of this encounter Visit Diagnoses Diagnosis Malignant neoplasm of lower-inner quadrant of left breast in female, estrogen receptor positive (CMS/HCC)- Primary documented in this encounter Care Teams Special Tester Relationship Specialty Start Date End Date Abbe Boston MD [address] [place] [address] PCP - General Family Practice 04/21/22 documented as of this encounter
--- OUTSIDE RECORDS SUMMARY | 2025-09-26 13:40 | XMS_ITS | Encounter Summary ---
Author Organization [facility] Healthcare Address [address] [place] [address] Care Team Providers Care Service Electrician Name Role Phone Abbe Boston MD Primary Care Provider Aguila Barrera MD Unavailable Colleen Montes De Oca DPSuhas Unavailable [phone] Encounter Details Date Type Department Care Team (Late st Contact Info) Description 09/27/2024 Orders Only [facility] Cardiac Catheterization Lab [address] [place] [address] [place] [address] [address] Complete heart block (HCC) (Primary Dx) Social History Tobacco Use Types Packs/Day Years Used Date Smoking Tobacco: Never Smokeless Tobacco: Never Alcohol Use Standard Drinks/Week Comments No 0 (1 standard drink = 0.6 oz pur e alcohol) [facility] Utilities Answer Date Recorded In the past 12 months has [employer], gas, oil, or water [employer] threatened to shut off services in your [...] week 09/25/2024 How often do you attend [facility] or episcopalian services? More than 4 times per year 09/25/2024 Do you belong to any clubs o r organizations such as zoroastrianism groups, unions, fraternal or athletic groups, or [...] any time in the past 12 m [facility], were you homeless or living in [...] on file Legal Sex Female 12:52 AM PHARMACY SPECIALIST Gender Identity Not on file Sexual Orientation Not on file documented as of this encounter Functional Status * Difference in Last Two Baal Scores Answer Date of Assessment Author 0 09/30/2024 8:15 PM PHARMACY SPECIALIST Deuce Rivera RN * Herrera Fall Risk Question Answer Date of Assessment Author History of Falling 0 09/30/2024 8:15 PM PHARMACY SPECIALIST Deuce Abreu RN Secondary Diagnosis 15 09/30/2024 8:15 PM Deuce Mendoza RN Ambulatory Aids 0 09/30/2024 8:15 PM PHARMACY SPECIALIST Deuce Garcia RN Intravenous Therapy/Heparin/Saline Lock 20 09/30/2024 8:15 PM Deuce Magallanes RN Gait/Transferring 10 09/30/2024 8:15 PM PHARMACY SPECIALIST Deuce Abreu RN Mental Status 0 09/30/2024 8:15 PM PHARMACY SPECIALIST Deuce Patterson RN Herrera Fall Risk Score (Score >= 45 places fall precaution order) 45 09/30/2024 8:15 PM PHARMACY SPECIALIST Tra Abreu RN Prior Fall Event (Autopopulated from EMR) None found 09/30/2024 8:15 PM PHARMACY SPECIALIST Deuce Abreu RN * Bala Scale Question Answer Date of Assessment Author Sensory Perceptions 4 09/30/2024 8:15 PM Deuce Mendoza RN Moisture 3 09/30/2024 8:15 PM PHARMACY SPECIALIST Deuce Gutierrez RN Activity 3 09/30/2024 8:15 PM PHARMACY SPECIALIST Deuce Gutierrez RN Mobility 3 09/30/2024 8:15 PM PHARMACY SPECIALIST Deuce Gutierrez RN Nutrition 3 09/30/2024 8:15 PM PHARMACY SPECIALIST Deuce Gutierrez RN Friction and Shear 3 09/30/2024 8:15 PM Deuce Francis RN Bala Scale Score 19 09/30/2024 8:15 PM PHARMACY SPECIALIST Deuce Abreu RN * Question Answer Date of Assessment Author BP Location Left arm 09/30/2024 8:29 PM Ana Paula Chase BP Method Automatic 09/30/2024 8:29 PM Ana Paula Chase MAP (mmHg) 77 09/30/2024 8:29 PM Ana Paula Chase * Fall Risk Interventions Question Answer Date of Assessment Author All Low Fall Interventions Applied Yes 09/30/2024 8:15 PM Tra Francis RN All Moderate Fall Interventions Applied Yes 09/30/2024 8:15 PM Angela Francis RN All High Fall Risk Interventions Applied Yes 09/30/2024 8:15 PM Angela Francis RN Additional Interventions Applied Bed/chair alarm 09/30/2024 8:15 PM Tra Francis, SARAH * B.M.A.T. - Bedside Mobility Assessment Tool for Nurses Question Answer Date of Assessment Author Is patient able to participate in the BMAT? Yes 09/30/2024 8:15 PM Deuce Francis RN Reason patient is unable to participate in BMAT Bed rest orders 09/29/2024 4:00 PM Laura Tam RN BMAT Level Level 3 - Yellow 09/30/2024 8:15 PM Deuce Francis RN Level 1 Equipment Use total lift with sling and/or repositioning sheet 09/29/2024 4:00 AM Robin Fung RN Level 3 Equipment Use assistive device such as cane/walker 09/30/2024 8:15 PM Deuce Francis RN * Question Answer Date of Assessment Author 2 Nurse Skin Assessment Era/Deuce 09/30/2024 7:00 PM Era Reza RN * Pressure Injury Prevention Question Answer Date of Assessment Author Pressure Ulcer Prevention Interventions Keep skin clean and dry (Sensory Perception/Moisture) 09/30/2024 8:15 PM Deuce Francis RN Protective Foam Dressing Location Sacrum 09/30/2024 8:15 PM Deuce Francis RN Special Mattress Pressure relief overlay 09/30/2024 8:15 PM Deuce Francis RN * Integumentary Question Answer Date of Assessment Author Skin Color Appropriate for ethnicity 09/30/2024 8:15 PM Deuce Francis RN Skin Condition/Temp Warm;Dry 09/30/2024 8 :15 PM Deuce Francis RN Skin Integrity Surgical incision 09/30/2024 8:1 5 PM Deuce Francis RN Skin Turgor Non-tenting 09/30/2024 8:12 AM Era Reza RN Integumentary Additional Assessments Yes-Bala 09/30/2024 8:12 AM Era Reza RN Integumentary (WDL) X 09/30/2024 8 :15 PM Deuce Francis RN Skin Location left chest 09/30/2024 8:15 PM Deuce Francis RN * Question Answer Date of Assessment Author Edema Trace 09/30/2024 8:15 PM Deuce Mcbride RN Edema Generalized 09/30/2024 8:15 PM Deuce Mcbride RN * Question Answer Date of Assessment Author Affect Calm 09/29/2024 4:00 PM Laura Adair RN Mood Content 09/29/2024 4:00 PM Laura Adair RN * Question Answer Date of Assessment Author Percent Meal Eaten (%) 25 09/29/2024 6:30 PM Laura Tam RN Percent Snack Eaten (%) 100 09/30/2024 8:30 P M Deuce Francis RN Diet Supplement Name/Percent Consumed % Ensure and fruit 09/30/2024 8:30 PM Deuce Francis RN * Question Answer Date of Assessment Author BP Location Left arm 09/30/2024 8:29 PM Ana Paula Chase BP Method Automatic 09/30/2024 8:29 PM Ana Paula Chase * Fall Risk Interventions Question Answer Date of Assessment Author All Low Fall Interventions Applied Yes 09/30/2024 8:15 PM Tra Francis RN All Moderate Fall Interventions Applied Yes 09/30/2024 8:15 PM Angela Francis RN All High Fall Risk Interventions Applied Yes 09/30/2024 8:15 PM Angela Francis RN Additional Interventions Applied Bed/chair alarm 09/30/2024 8:15 PM Tra Francis RN * Question Answer Date of Assessment Author Bed In Lowest Position Yes 09/30/2024 10:18 P M Deuce Francis RN Bed Wheels Locked Yes 09/30/2024 10:18 PM Deuce Francis RN * Hygiene Question Answer Date of Assessment Author Hygiene Protective foam dressing changed;Moisture barrier;Skin cleanser 09/29/2024 6:00 AM Robin Fung RN Oral Care Lip moisturizer 09/29/2024 12:00 PM Laura Tam RN Hygiene Level of Assistance Moderate assist 09/29/2024 6:00 PM Laura Tam RN Toileting: Assistance with Perineal hygiene 09/29/2024 6:00 PM Laura Tam RN Toileting: Level of assistance Maximal 09/29/2024 6:00 PM Laura Tam RN Reason not bathed/showered Bath not due on this shift 09/29/2024 8:00 AM Laura Tam RN Perineal Care Joanne Care 09/29/2024 12:00 PM Laura Tam RN Linens Partial linen change (Comment);Absorbent pad changed;Bed pad changed;Draw sheet changed 09/29/2024 6:00 AM Robin Fung RN Bath Not bathed/showered 09/30/2024 8:15 PM Dax Ahuja RN documented as of this encounter Mental Status * Question Answer Entry Date Author Neuro (WDL) WDL 09/30/2024 8:12 AM Era Reza RN * Question Answer Entry Date Author Level of Consciousness Alert;Awake 8:15 PM Deuce Francis RN Orientation Oriented X4 (person, place, time, situation) 09/30/2024 8:15 PM Deuce Francis RN Neuro (WD) WDL 09/30/2024 8:15 PM Deuce Francis RN Other Neuro Symptoms Fatigue 09/30/2024 8:15 PM PHARMACY SPECIALIST Deuce Abreu RN * Question Answer Entry Date Author Feature 1: Acute Onset or Fluctuating Course Negative 09/29/2024 4:00 PM PHARMACY SPECIALIST Laura Cobos Ma, RN Feature 2: Inattention Negative 09/29/2024 8:00 AM PHARMACY SPECIALIST Laura Cobos, SARAH Overall CAM-ICU Negative 09/29/2024 4:00 PM PHARMACY SPECIALIST Laura Perez RN documented in this encounter Plan of Treatment Not on file documented as of this encounter Visit Diagnoses Diagnosis Complete heart block (HCC)- Primary Atrioventricular block, complete documented in this encounter Orders Case Request Count Last Ordered Date First Orde red Date CASE REQUEST SENIOR ADMINISTRATOR SUPPORT 1 09/27/2024 documented in this encounter Care Teams Service Electrician Relationship Specialty Start Date End Date Abbe Boston MD [address] [facility] [address] [facility] [address] [place] [address] PCP - General 11/12/15 [place] [address] [place] [address] Consulting Physician Cardiology 10/02/24 Colleen Montes De Oca DPM [address] [facility] [place] [address] Consulting Physician Foot and Ankle Surg 03/09/25 documented as of this encounter
--- OUTSIDE RECORDS SUMMARY | 2025-09-26 13:40 | XMS_ITS | Clinical Summary ---
Author Organization [facility] Address [address] [place] [address] Care Team Providers Care Racking Technician Name Role Phone Abbe Boston MD Primary Care Provider Aguila Barrera MD Unavailable Colleen Montes De Oca DPM Unavailable [phone] Allergies Active Allergy Reactions Criticality Noted Date [...] a day with meals 9 Active calcium carbonate-marvel min D3 1,250 mg (500 mg elemental)-125 unit [...] 2 (two) times a day 5 Active HYDROcodone-ac etaminophen (NORCO) 5-325 mg per tabletIndicati ons:Pain Take 1 tablet by mouth every 4 (four) hours as needed for pain 20 tablet [address] (CYMBALTA) 30 mg capsuleIndicat ions:Diabetic peripheral neuropathy associated with type 2 diabetes mellitus (HCC) Take 1 capsule (30 mg total) by mouth 2 (two) times a day 180 capsule [address] (CYMBALTA) 30 mg capsuleIndicat ions:Diabetic peripheral neuropathy associated with type 2 diabetes mellitus (HCC) TAKE ONE CAPSULE BY MOUTH TWICE DAILY 180 capsule 5 09/11/20 25 Discontinu ed(Reorder ) Active Problems Problem Noted Date Diagnosed Date [...] reassessment. 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 Blood studies looking for medically addressable causes beyond known diabetes are unrevealing at this time. Numbness and tingling of both legs 09/25/2020 Assessment & Plan (09/25/2020 10:26 AM LEGAL MANAGER): Patient describes several month history of insidious [...] 09/25/2020 Assessment & Plan (09/25/2020 10:28 AM LEGAL MANAGER): Patient has history of lumbar stenosis with previous successful resolution of low back pain with lumbar epidural steroid injections. Her current pain and distribution of discomfort is different than what she formally had with her spinal stenosis. Aftercare following right knee joint replacement surgery 01/05/2018 Need for prophylactic antibiotic 01/05/2018 Bilateral lower extremity pain 10/25/2017 Assessment & Plan (11/04/2020 11:10 AM LEGAL MANAGER): I will place patient on a trial of gabapentin 300 mg t.i.d. 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 I will plan on seeing her back in 6 months time for reassessment on treatment. Encounters Date Type Department Care Team Description 09/11/2025 Telephone [facility] Neurology [address] [place] [phone] Emmanuel Malik Si, MD Med Refill from Last 3 Months Immunizations Immunization Administration Dates Next Due Influenza, Unspecified 08/15/2017 Surgical History Surgery Date Site/Laterality Comments TONSILLECTOMY 27 years old BLADDER SURGERY 11/15/2015 - 11/14/2016 TUBAL LIGATION 11/15/1972 - 11/14/1973 BREAST BIOPSY 01/14/2022 Left [facility] TOTAL ABDOMINAL HYSTERECTOMY W/ BILATERAL SALPINGOOPHORECTOMY 11/15/1990 - 11/14/1991 Hysterectomy COLONOSCOPY mulitple JOINT REPLACEMENT 11/15/2017 - 11/14/2018 Right total knee arthroplasty BREAST LUMPECTOMY 03/12/2022 Left BREAST BIOPSY 03/09/2022 Medical History Medical History Date Comments Atopic rhinitis Allergic rhiniti s Hx Other Medical Depression, wit h Anxiety Tinnitus Tinnitus Hypertension Osteoarthritis Osteoporosis High cholesterol DM2 (diabetes mellitus, type 2) Breast cancer (HCC) History of radiation therapy [...] drink = 0.6 oz pur e alcohol) [facility] Utilities Answer Date Recorded In the past 12 months has [employer], gas, oil, or water [employer] threatened to shut off services in your [...] week 09/25/2024 How often do you attend [facility] or islam services? More than 4 times per year 09/25/2024 Do you belong to any clubs o r organizations such as yarsanism groups, unions, fraternal or athletic groups, or [...] on file Legal Sex Female 12:52 AM LEGAL MANAGER Gender Identity Not on file Sexual [...] 10/02/20 24 Medical Devices Implanted Type Area Editor Producer Device Identifier Shelf Expiration Date Model / Serial / Lot [employer] Magseed 18ga 7cm Marker Breast Biopsy [id number] - [id number] Implanted:Qty: 1 on 03/09/2022 at [facility] [employer] [id number] 06/14/2025 [id number] [employer] Active Fixation Steroid Eluting Is 1 Connector Latex Free Sterile Atrial Ventricular Atrial Ventricular Solia 60cm [id number] - [id number] - [id number] Implanted:Qty: 1 on 09/24/2024 by Aguila Barrera MD at [facility] N/A: Heart [employer] 08/14/2026 [id number] / [id number] / Description:Right Ventricula r Lead [employer] Solia S 53cm Steroid Elute Bipolar Active Fixation Endocardial [id number] - [id number] - [id number] Implanted:Qty: 1 on 09/24/2024 by Aguila Barrera MD at [facility] N/A: Heart [employer] 08/14/2026 [id number] / [id number] / Description:Right Atrial benja d [employer] Pacemaker Implantable Amvia Edge Dual Chamb Rate-Responsive [id number] - [id number] - [id number] Implanted:Qty: 1 on 09/24/2024 by Aguila Barrera MD at [facility] N/A: Chest Wall [employer] 01/12/2026 [id number] / [id number] / Procedures Procedure Name Priority Date/Time Associated Diagnosis Comments EGFR Routine 10/02/2024 1:29 AM LEGAL MANAGER HEMOGLOBIN A1C Add-On 09/25/2024 1:39 AM LEGAL MANAGER from Last 3 Months or Most Recently Relevant to Health Maintenance Results * eGFR (10/02/2024 1:29 AM LEGAL MANAGER) eGFR 75 >=60 mL/min/1. 73 m2 Comment: [...] of Race in Diagnosing Kidney Disease, JASN 202). The CKD-EPI equation should not be used for patients with unstable renal function and has not been validated in children and those over 70. Current interpretive data was last reviewed 2021. Blood 10/02/2024 1:29 AM LEGAL MANAGER 10/02/2024 2:01 AM LEGAL MANAGER Dony REDDY LAB BLOOD ORDER LUCA Final Result Performing Organization Address [facility] de Phone Number JAMEVALERIE [address] [place] [address] * (ABNORMAL) Hemoglobin A1c (09/25/2024 1:39 AM LEGAL MANAGER) Hgb A1C 6.5(H) 4.0 - 5.6 % Estimated Average Glucose 140 mg/dL SLOANE PATTERSON Comment: The ADA recommends reporting an estimated Average Glucose (eAG) with all Hemoglobin A1c results using the equation derived from a study of 507 normal and diabetic adults. Minority populations were underrepresented and children were not included. (Diabetes Care 31:1611-0220, 2008). The eAG is not equivalent to a fasting glucose. Blood 09/25/2024 1:39 AM LEGAL MANAGER 09/25/2024 11:34 AM LEGAL MANAGER Mariel Kenny MD LAB BLOOD ORDERABLES Final Re sult Performing Organization Address [facility] Co de Phone Number SLOANE PATTERSON [address] [place], [place] [phone] from Last 3 Months or Most Recently Relevant to Health Maintenance Insurance MEDICARE [facility] SUPPLEMENT [facility] EM[facility] PPO MEDICARE [facility] [place] [address] [facility] MCR SUPPLEMENT POONAM CABALLERO [id number] Advance Directives For more information, please contact: [phone] * Full Code (Latest Code Status on File) Date Activated Date Inactivated Comments 03/09/2025 1:18 PM 03/09/2025 7:35 PM * Full Code Date Activated Date Inactivated Comments 09/23/2024 1:26 PM 10/03/2024 11:09 AM Care Teams Racking Technician Relationship Specialty Start Date End Date Abbe Boston MD [address] [place] [address] PCP - General 11/12/15 [place] [address] [address] Consulting Physician Cardiology 10/02/24 Colleen Montes De Oca DPM [address] [place] [address] Consulting Physician Foot and Ankle Surg 03/09/25
--- OUTSIDE RECORDS SUMMARY | 2025-09-26 13:40 | XMS_ITS | Encounter Summary ---
Author Organization [facility] [employer] [facility] Address [address] [place] [address] Care Team Providers Care Freight Receiver Name Role Phone Abbe Boston MD Primary Care Provider [phone] Reason for Referral * Radiology Services (Routine) - Closed Specialty Diagnoses / Procedures Referred By Nicanor t Referred To Contact Diagnoses Malignant neoplasm of lower-inner quadrant of left breast in female, estrogen receptor positive (CMS/HCC) Procedures US BREAST BILAT COMPLETE Oscar Romero MD [address] [employer] [address] [place] [phone] Phone: tel: fax: [place] [phone] Referral ID Status Reason Start Date Expiration Date V isits Requested Visits Authorized [id number] Closed [facility] CTS 09/25/2025 10/26/2026 1 1 PRODUCTION WORKER * Radiology Services (Routine) - Closed Specialty Diagnoses / Procedures Referred By Nicanor t Referred To Contact Diagnoses Malignant neoplasm of lower-inner quadrant of left breast in female, estrogen receptor positive (CMS/HCC) Procedures MAMMO 3D KAREEM DIAGNOSTIC BILAT W OR WO CAD CHG DIAGNOSTIC MAMMOGRAPHY COMPUTER-AIDED DETCJ BI CHG DIGITAL BREAST TOMOSYNTHESIS BILATERAL Oscar Romero MD [address] [employer] [address] [place] [phone] Phone: tel: fax: [place] [phone] Referral ID Status Reason Start Date Expiration Date V isits Requested Visits Authorized [id number] Closed [facility] CTS 09/25/2025 10/26/2026 1 1 PRODUCTION WORKER Encounter Details Date Type Department Care Team (Late Contact Info) Description 09/25/2025 Orders Only [facility] Oncology and Hematology [facility] Darren Antonio [address] [place] [address] [place] [address] [place] [address] [place] [phone] Malignant neoplasm of lower-inner quadrant of left [...] st Contact Info) Description 10/08/2025 4:30 PM PIPE PRODUCTION WORKER Telephone Check Up [facility] Oncology and Hematology [facility] Blaze [address] [place] [address] [place] [address] [place] [phone] 07/08/2026 1:15 PM CDT Office Visit [facility] Oncology and Hematology [facility] Darren [address] [place] [address] Oscar Romero MD [address] [place] [phone] Scheduled Orders Name Type Priority Associated Diagnoses Orde r Schedule MAMMO 3D KAREEM DIAGNOSTIC BILAT W OR WO CAD Imaging Routine Malignant neoplasm of lower-inner quadrant of left breast in female, estrogen receptor positive (CMS/HCC) Expected: 09/25/2025, Expires: 03/25/2027 US BREAST BILAT COMPLETE Imaging Routine Malignant neoplasm of lower-inner quadrant of left breast in female, estrogen receptor positive (CMS/HCC) Expected: 09/25/2025, Expires: 09/25/2026 documented as of this encounter Visit Diagnoses Diagnosis Malignant neoplasm of lower-inner quadrant of left breast in female, estrogen receptor positive (CMS/HCC)- Primary documented in this encounter Care Teams Freight Receiver Relationship Specialty Start Date End Date Abbe Boston MD [address] [facility] [address] [facility] [address] [place] [phone] PCP - General Family Practice 04/21/22 documented as of this encounter
--- OUTSIDE RECORDS SUMMARY | 2025-09-26 13:40 | XMS_ITS | Data Portability ---
Author Organization [facility] Address [address] [place] [address] [place] [address] Care Team Providers Care Cell Liner Name Role Phone KP العلي Primary Care Provider Assessment Encounter Date Assessment Date Assessment LastModified by Organization Details LastModified Time 12/02/2021 12/02/2021 Annual gynecological exam performed. Patient will come back in a year unless there are new symptoms. [email or web address] Not available 12/02/2021 15:00:27 12/07/2023 12/07/2023 Annual gynecological exam performed. Patient will come back in a year unless there are new symptoms. Not available 12/07/2023 15:54:27 Plan of Treatment Reminders Order Date Submit Date Provider Last Modified By Organization Details Last Modified Time Details Appointments None recorded. Lab None recorded. Referral None recorded. Procedures None recorded. Surgeries None recorded. Imaging MAMMO, screening, bilateral [address] [facility], [address], [address], [place], [address], 11:06:42 DEXA, axial skeleton + vertebral fracture assessment [address] [facility], [address], [address], [place], [address], 11:06:42 Medication Orders Bactrim DS 800 mg-160 mg tablet 2021 022 [id number], [address] [facility], [place], [place], [id number], 4 16:00:36 mupirocin 2 % topical ointment [address] [id number], [address], [place], [place], [id number], 4 15:59:57 risedronate 150 mg tablet [address] [facility][id number], [address] [facility], [place], [place], [id number], 4 16:00:30 Patient TargetsNo targets recorded. Patient InstructionsNo instructions recorded. Reason for Referral None Reported. Results Created Date Observation Date Name Description Value Unit Range Abnormal Flag Note LastModifiedBy Organization Detail LastModifiedTime 01/29/2001/28/2022 CULTU RE: AEROB IC/AN AEROB IC result report SEE RESULT S BELOW Test: Cultu re: Aerob ic/An aerob ic Speci men Sourc e: Breas t, Left Speci men Type: Micro biolo gy Speci men Speci men Date: 2021 4:53 PM Resul t Date: 2021 4:45 PM Resul t Statu s: Final resul t Resul ting Lab: [facility] [address] [facility] [address] Tel: CULTU RE ----- ----- ----- --- Light Growt h Madhuri l skin alana Cultu re sampl es colle cted from sites that are proxi mal to madhuri l anaer obic alana , do not provi de usefu l infor regina n. The anaer obic porti on of this cultu re has been credi zully. STAIN ----- ----- ----- --- No organ isms seen Not Available [facility] (Lab) [address], [place], [address], 02/02/2022 17:48:03 Result Notes None recorded. Problems Name Problem SNOMED Code Status Onset Date Resolution Date Notes Provider Name and Address Organization Details Recorded Time Jackelin morales [id number] Completed 201001/28/2022 Glycosuri a;Practic e ID: 0001 Sharmaine Vickers [facility] 2 14:00:46 Disorder of bone and articula r cartilag e [id number] Completed 201001/28/2022 Osteopeni a;Practic e ID: [address] [facility] 2 14:00:45 Screenin g for malignan t neoplasm of cervix Completed 201101/28/2022 Screening for malignant neoplasms of the cervix;Re corded Elsewhere : No Locati on: [facility] So urce: EHR Chron ic: N Practic e ID: 0001 Bill able Time: 09:15:00 AM Sharmaine Vickers [facility] 2 14:00:55 Speciali paty medical examinat ion Completed 201101/28/2022 Gynecolog ical Examinati on;Record ed Elsewhere : No Locati on: [facility] So urce: EHR Chron ic: N Practic e ID: 0001 Bill able Time: 09:15:00 AM Sharmaine Vickers [facility] 2 14:01:03 Screenin g for malignan t neoplasm of rectum Completed 201101/28/2022 Screening for malignant neoplasms of the rectum;Re corded Elsewhere : No Locati on: [facility] So urce: EHR Chron ic: N Practic e ID: 0001 Bill able Time: 09:15:00 AM Sharmaine Vickers [facility] 2 14:00:58 Leukocyt osis [id number] Completed 201101/28/2022 LEUKOCYTO SIS NOS;Recor ded Elsewhere : No Locati on: [facility] So urce: EHR Chron ic: N Practic e ID: 0001 Bill able Time: 09:15:00 AM Sharmaine borges [facility] 2 14:00:49 Urinary tract infectio us disease [id number] Completed 201101/28/2022 Urinary Tract Infection ;Recorded Elsewhere : No Locati on: [facility] So urce: EHR Chron ic: N Practic e ID: 0001 Bill able Time: 02:15:00 PM Sharmaine borges [facility] 2 14:01:05 Cervical , vaginal and vulval inflamma tory diseases [id number] Completed 201101/28/2022 Unspecifi ed inflammat ory disease of cervix, vagina, and vulva;Rec orded Elsewhere : No Locati on: [facility] So urce: EHR Chron ic: N Practic e ID: 0001 Bill able Time: 02:15:00 PM Sharmaine borges [facility] 2 14:00:36 Benign neoplasm of vulva [id number] Completed 201101/28/2022 Benign neoplasm of vulva;Pra ctice ID: 0001 Sharmaine Vickers [facility] 2 14:00:32 Localize d sclerode rma [id number] Completed 201101/28/2022 Circumscr ibed scleroder cherri;Rupertti ce ID: 0001 Sharmaine Vickers [facility] 2 14:00:51 Vaginiti s and vulvovag initis Completed 201301/28/2022 Vaginitis and vulvovagi nitis, unspecifi ed;Record ed Elsewhere : No Locati on: [facility] So urce: EHR Chron ic: N Practic e ID: 0001 Bill able Time: 10:00:00 AM Sharmaine borges [facility] 2 14:01:06 Osteopor osis [id number] Completed 201401/28/2022 Osteoporo sis;Recor ded Elsewhere : No Locati on: [facility] So urce: EHR Chron ic: N Practic e ID: 0001 Bill able Time: 01:00:00 PM Sharmaine Vickers [facility] 2 14:00:54 Microsco pic hematuri a [id number] Completed 201401/28/2022 MICROSCOP IC HEMATURIA ;Recorded Elsewhere : No Locati on: [facility] So urce: EHR Chron ic: N Practic e ID: 0001 Bill able Time: 01:00:00 PM Sharmaine Vickers [facility] 2 14:00:52 Adult health examinat ion Completed 201401/28/2022 ROUTINE MEDICAL EXAM;Pako rded Elsewhere : No Locati on: [facility] So urce: EHR Chron ic: N Practic e ID: 0001 Bill able Time: 01:00:00 PM Sharmaine Vickers [facility] 2 14:00:30 Blood in urine [id number] Completed 201401/28/2022 HEMATURIA NOS;Recor ded Elsewhere : No Locati on: [facility] So urce: EHR Chron ic: N Practic e ID: 0001 Bill able Time: 09:29:15 AM Sharmaine Vickers [facility] [address] 14:[address] Concept Completed 201601/28/2022 Well woman check w/o abnormal finding;R ecorded Elsewhere : No Locati on: [facility] So urce: EHR Chron ic: N Practic e ID: 0001 Bill able Time: 11:00:00 AM Sharmaine Vickers [facility] 2 14:01:01 Evaluati on finding Completed 201601/28/2022 Oth abn and inconclus boone findings on dx imaging of breast;Re corded Elsewhere : No Locati on: [facility] So urce: EHR Chron ic: N Practic e ID: 0001 Bill able Time: 04:07:00 PM Sharmaine Vickers [facility] [address] 14:[address] Concept Completed 201801/28/2022 Encntr for general adult medical exam w/o abnormal findings; Recorded Elsewhere : No Locati on: [facility] So urce: EHR Chron ic: N Practic e ID: 0001 Bill able Time: 09:30:00 AM Sharmaine Vickers [facility] 2 14:01:00 Blood leukocyt e number above referenc e range [id number] Completed 201801/28/2022 Elevated white blood cell count, unspecifi ed;Record ed Elsewhere : No Locati on: [facility] So urce: EHR Chron ic: N Practic e ID: 0001 Bill able Time: 09:30:[address] [facility] 2 14:00:48 Problem Notes None recorded. Procedures Surgical History Date Name Laterality Status Provider Name and Address Organization Details Recorded Time 3 Date of Last Mammogram completed [facility] 12/07/2023 16:01:44 2 lumpectomy of breast completed [facility] 12/07/2023 16:03:22 Imaging Results None recorded. Procedure Notes None recorded. Medical Equipment None Reported. Allergies No known drug allergies Medications Name Sig Start Date Stop Date Status Note LastModified by Organization Details LastModified Time amoxicill in 500 mg capsule TK FOUR CS PO 1 HOUR B DAPP 12/07 completed Not Available Not Available Not Available metformin 500 mg tablet TAKE 1 TABLET BY MOUTH TWICE DAILY active Not Available Not Available No t Available anastrozo le 1 mg tablet 12/07 completed Not Available Not Available Not Available doxycycli ne hyclate 100 mg capsule TAKE 1 CAPSULE BY MOUTH TWICE DAILY IN ADDITION TO CEPHALEX IN FOR SKIN INFECTIO N 12/07 completed Not Available Not Available Not Available clorazepa te dipotassi um 3.75 mg tablet TAKE 1 TABLET BY MOUTH TWICE DAILY NEEDED FOR ANXIETY active Not Available Not Available No t Available Lotrisone 1 %-0.05 % topical cream apply by topical route 2 times every day for 2 weeks to the affected and surround ing areas of skin in the morning and evening 05/16 completed Prescrib ed Elsewher e: No Locat ion: [facility] odify By: cmedical Encount er DateTime : 05/15/20 14 09:00:00 AM Not Available Not Available Not Available diclofena c ER 100 mg tablet,ex tended release 24 hr take 1 tablet by oral route every day 01/28 completed Prescrib ed Elsewher e: Yes Loca [facility]ion: [facility] odify By: biju morrow DateTime : 08/08/20 19 09:30:00 AM Not Available Not Available Not Available hydrocodo ne 5 mg-acetam inophen 325 mg tablet TAKE 1 TABLET BY MOUTH EVERY 8 HOURS NEEDED FOR PAIN active Not Available Not Available No t Available ondansetr on HCl 4 mg tablet TAKE 1 TABLET BY MOUTH EVERY 8 HOURS NEEDED FOR NAUSEA OR VOMITING active Not Available Not Available No t Available clobetaso l 0.05 % topical cream apply by topical route 2 times every day a thin layer to the affected area(s) 07/05 completed Prescrib ed Elsewher e: No Locat ion: Laurent cirilo [facility] odify By: anisa hoover DateTime : 07/08/20 12 02:30:00 PM Not Available Not Available Not Available amlodipin e 2.5 mg tablet TAKE 1 TABLET BY MOUTH DAILY active Not Available Not Available No t Available amlodipin e 5 mg tablet take 1 tablet by oral route every day 12/07 completed Prescrib ed Elsewher e: Yes Loca tion: Laurent cirilo [facility] odify By: biju morrow DateTime : 08/08/20 19 09:30:00 AM Not Available Not Available Not Available sulfameth oxazole 800 mg-trimet hoprim 160 mg tablet TAKE 1 TABLET BY MOUTH EVERY 12 HOURS FOR 7 DAYS 12/07 completed Not Available Not Available Not Available tramadol 50 mg tablet TAKE 1 TABLET BY MOUTH EVERY 6 HOURS NEEDED FOR PAIN active Not Available Not Available No t Available amoxicill in 500 mg tablet take 1 tablet by oral route 3 times every day 01/28 completed Prescrib ed Elsewher e: No Locat ion: [facility] odify By: drea hoover DateTime : 08/14/20 19 03:30:25 PM Not Available Not Available Not Available pentoxify lline ER 400 mg tablet,ex tended release TAKE 1 TABLET BY MOUTH TWICE DAILY active Not Available Not Available No t Available baclofen 10 mg tablet TAKE 1 TABLET BY MOUTH THREE TIMES DAILY 12/07 completed Not Available Not Available Not Available simvastat in 5 mg tablet take 1 tablet by oral route every day in the evening 04/12 completed Prescrib ed Elsewher e: Yes Loca tion: [facility] odify By: mason morrow DateTime : 04/11/20 12 01:30:12 PM Not Available Not Available Not Available cephalexi n 500 mg capsule TAKE 1 CAPSULE BY MOUTH EVERY 6 HOURS FOR 7 DAYS IN ADDITION TO DOXYCYCL INE FOR SKIN INFECTIO N 12/07 completed Not Available Not Available Not Available erythromy harpreet 5 mg/gram (0.5 %) eye ointment APPLY 1 THIN LAYER IN LEFT EYE DAILY 12/07 completed Not Available Not Available Not Available losartan 25 mg tablet take 1 tablet by oral route every day 01/28 completed Prescrib ed Elsewher e: Yes Loca tion: [facility] odify By: mason morrow DateTime : 05/15/20 14 09:00:00 AM Not Available Not Available Not Available oxybutyni n chloride ER 5 mg tablet,ex tended release 24 hr TAKE 1 TABLET BY MOUTH DAILY 12/07 completed Not Available Not Available Not Available gabapenti n 300 mg capsule 12/07 completed Not Available Not Available Not Available mupirocin 2 % topical ointment APPLY SMALL AMOUNT TOPICALL Y TO THE AFFECTED AREA THREE TIMES DAILY FOR 7 DAYS 12/07 completed Not Available Not Available Not Available diclofena c sodium 50 mg tablet,de layed release TAKE 1 TABLET BY MOUTH TWICE DAILY active Not Available Not Available No t Available Nasonex 50 mcg/actua tion [place] spray 2 spray by intranas al route every day in each nostril 05/15 completed Prescrib ed Elsewher e: Yes Loca tion: [facility] odify By: mason morrow DateTime : 04/11/20 12 01:30:12 PM Not Available Not Available Not Available Vitamin D2 1,250 mcg (50,000 unit) capsule take 1 capsule by oral route every week 2018 active Prescrib ed Elsewher e: No Locat ion: [facility] odify By: julián morrow DateTime : 03/22/20 19 04:02:03 PM Not Available Not Available Not Available oxybutyni n chloride 5 mg tablet TAKE 1 TABLET BY MOUTH TWICE DAILY active Not Available Not Available No t Available losartan 100 mg tablet TAKE 1 TABLET BY MOUTH DAILY active Not Available Not Available No t Available Lipitor 10 mg tablet take 1 tablet by oral route every day 05/15 completed Prescrib ed Elsewher e: Yes Loca tion: [facility] odify By: mason morrow DateTime : 04/12/20 12 09:15:00 AM Not Available Not Available Not Available lisinopri l 2.5 mg tablet take 1 tablet by oral route every day 05/15 completed Prescrib ed Elsewher e: Yes Loca tion: [facility] odify By: mason morrow DateTime : 04/11/20 12 01:30:12 PM Not Available Not Available Not Available tamoxifen 20 mg tablet active Not Available Not Available Not Available amoxicill in 875 mg-potass ium clavulana te 125 mg tablet TAKE 1 TABLET BY MOUTH EVERY 12 HOURS 12/07 completed Not Available Not Available Not Available oxycodone 5 mg tablet 12/07 completed Not Available Not Available Not Available Calcium 500 + D 500 mg-5 mcg (200 unit) tablet 07/05 completed Prescrib ed Elsewher e: Yes Loca tion: Laurent cir[facility] odify By: anisa lathamunter DateTime : 04/12/20 12 09:15:00 AM Not Available Not Available Not Available escitalop monica 10 mg tablet TAKE 1 TABLET BY MOUTH DAILY 12/07 completed Not Available Not Available Not Available escitalop monica 5 mg/5 mL oral solution take 10 millilit er by oral route every day 01/28 completed Prescrib ed Elsewher e: Yes Loca [facility]ion: [facility]ify By: hanane hoover DateTime : 01/04/20 19 01:30:00 PM Not Available Not Available Not Available Riomet 500 mg/5 mL oral solution take 10 millilit er by oral route 2 times every day with meals 12/07 completed Prescrib ed Elsewher e: Yes Loca tion: [facility] odify By: hanane lathamuntansley DateTime : 01/04/20 01:30:00 PM Not Available Not Available Not Available nitrofura ntoin monohydra te/macroc rystals 100 mg capsule TAKE 1 CAPSULE BY MOUTH EVERY 12 HOURS FOR 5 DAYS active Not Available Not Available No t Available duloxetin e 30 mg capsule,d elayed release TAKE ONE CAPSULE BY MOUTH TWICE DAILY active Not Available Not Available No t Available fenofibra te 160 mg tablet TAKE 1 TABLET BY MOUTH DAILY 12/07 completed Not Available Not Available Not Available omega-3 fatty acids-fis h oil 340 mg-1,000 mg capsule 07/05 completed Prescrib ed Elsewher e: Yes Loca tion: [facility] odify By: anisa hoover DateTime : 04/12/20 12 09:15:00 AM Not Available Not Available Not Available fenofibra te 40 mg tablet TAKE 1 TABLET BY MOUTH DAILY 01/28 completed Not Available Not Available Not Available risedrona te 150 mg tablet TAKE 1 TABLET BY MOUTH EVERY MONTH 12/07 completed Not Available Not Available Not Available diclofena c 1 % topical gel APPLY 2 GRAMS TOPICALL Y TO THE AFFECTED AREA FOUR TIMES DAILY 12/07 completed Not Available Not Available Not Available fenofibra te 54 mg tablet TAKE 1 TABLET BY MOUTH DAILY active Not Available Not Available No t Available Airborne (ascorbat e sodium) 250 mg-1.25 mg lozenges 12/07 completed Prescrib ed Elsewher e: Yes Loca [facility]ion[facility]ify By: hanane Kerr ncounter DateTime : 01/04/20 01:30:00 PM Not Available Not Available Not Available Zohydro ER 10 mg capsule, oral only,exte nded release take 1 capsule by oral route every 12 hours 12/07 completed Prescrib ed [facility] e: Yes Loca tion: Carlos Alberto kerr [facility] odify By: hanane Kerr ncounter DateTime : 01/04/20 01:30:00 PM Not Available Not Available Not Available baclofen 5 mg tablet TAKE 1 TABLET BY MOUTH THREE TIMES DAILY active Not Available Not Available No t Available BinaxNOW COVID-19 Ag Self Test kit TEST DIRECTED TODAY 12/07 completed Not Available Not Available Not Available Vitals Date Recorded Systolic And Diastolic Provider Name and Address Organization Details Last Updated DateTime 12/02/2021 118/80 mm[Hg] Liberty Dahl, [facility] [address], [place], [address], [facility] 12/02/2021 15:10:24 Date Recorded Body height Body mass index (BMI) Body weight Provider Name and Address Organization Details Last Updated DateTime 12/02/2021 160.02 cm 28.5 kg/m2 83099.37 g Suhas Merino [facility] 12/02/2021 15:01:02 Date Recorded Body height Body mass index (BMI) Body weight Systolic And Diastolic Provider Name and Address Organization Details Last Updated DateTime 12/07/2023 231.14 cm 13.6 kg/m2 39156.78 g 122/62 mm[Hg] Janeen Lozoya [facility] 12/07/2023 15:56:38 Date Recorded Systolic And Diastolic Provider Name and Address Organization Details Last Updated DateTime 01/28/2022 124/80 mm[Hg] Liberty Dahl, [facility] [address], [place], [address], [facility] 01/28/2022 15:57:00 Date Recorded Body height Body mass index (BMI) Body weight Provider Name and Address Organization Details Last Updated DateTime 01/28/2022 160.02 cm 29.4 kg/m2 14743.05 g Sharmaine Vickers [facility] 01/28/2022 15:16:32 Social History Question Answer Notes LastModified by Organizat ion Details LastModified Time In The 14 Days Before Symptom Onset, Have You Had Close Contact With A Laboratory-confirmed COVID-19 While That Case Was Ill? No Information not available 12/07/2023 In The 14 Days Before Symptom Onset, Have You Had Close Contact With A Person Who Is Under Investigation For COVID-19 While That Person Was Ill? No Information not available 12/07/2023 Have You Been To An Area Known To Be High Risk For COVID-19? No Information not available 12/07/2023 Sex: Unknown Functional Status None recorded. Mental Status None recorded. Family History Nothing Reported Notes:Father: DVT Maternal g randmother: Cancer, breast Mother: Cancer, breast Sister: DVT/Phlebitis with preg, Cancer, breast, Alive and well Medical History Condition Response Anxiety Disorder Y Diabetes Y Arthritis Y Breast Cancer Y High Cholesterol Y Gynecological History Statement/Question Response Menses Monthly N HPV Vaccine N Current Control Method Menopause Date of Last Mammogram 10/15/2023 LMP Unknown Sexually Active? N Obstetrics History GPAL:G 4 P 0 0 1 5 Type Value Multiple Births 1 Spontaneous 1 Living 5 Total 4 Past Encounters Encounter ID Performer Location Encounter Start Date Encounter Closed Date Diagnosis/Indication Diagnosis SNOMED-CT Code Diagnosis ICD10 Code Diagnosis IMO Codes Diagnosis Note [id number] [facility] [address] [address] 12/02/2021 14:27:32 12/02/2021 15:39:22 Gynecologic examination 53978544 Z01.419 Take Calcium with Vitamin D 12-1500mg daily. Do monthly self breast exams. It is advised to get annual flu shot in the fall and she could obtain at [facility] or [facility] care clinic. If you haven't received the Tdap vaccine in the last 10 years you should obtain one as well. Have mammogram yearly, bone density every 2-3 years and colonoscop y every 5-10 years depending on findings and history. Engage in daily exercise of low impact aerobic exercise 45-60 minutes 4-5 times weekly. Avoid tobacco and illicit drugs as well as using moderation with alcohol intake less than 1-2 8 oz beverages daily. This lifestyle behavior pattern will lead to less health conditions and longer life span. If BMI greater than 25 weight watchers or dietary consult advised. Questions have been answered. Patient appears to understand instructio ns, but if you have any further questions call or respond to this email USPSTF recommends against screening for cervical cancer in women older than 65yo or hysterecto my for non-cancer indication s who have had adequate prior screening & are not otherwise at high risk for cervical cancer. STD declinedMa mmo & Dexa ordered[facility] screen discussed Screening mammography 24 419332 Z12.31 Postmenopausal state 764 53295 Z78.0 Will send Rx osteoporos is medication & if there are any changes due once results recieved we will call. Postmenopa usal osteoporosis [id number] M81.0 [id number] Liberty Dahl [facility] [address],[place] [address] 01/28/2022 14:48:02 01/28/2022 16:08:18 Abscess of breast 67459514 N61.1 Today we agreed to a round of bactrim & abx ointment x 7 days.If this area does not look like it is healing well or worsens she is aware that she will need to call the doctor office at which she had a bx done for further evaluation . Time spent in visit is a total of 15 mins with at least 50% of visit consisting of counseling and review of plan of care.Addit ional precaution christel measures were taken to minimize potential exposure to the Covid-19 virus during this patient s visit, including available hand fruit and vegetable packer upon arrive, temperatur e check and being asked a series of screening questions. All staff wore face coverings during this encounter, as well as provided additional cleaning and sanitizing of all surfaces, including countertop s, pens, chairs, door handles, light switches, etc, prior to and following the patient s visit. [id number] [facility] [address] [address] 12/07/2023 15:45:36 12/07/2023 16:27:46 Gynecologic examination 26757093 Z01.419 Take Calcium with Vitamin D 12-1500mg daily. Do monthly self breast exams. It is advised to get annual flu shot in the fall and she could obtain at [facility] or [facility] care clinic. If you haven't received the Tdap vaccine in the last 10 years you should obtain one as well. Have mammogram yearly, bone density every 2-3 years and colonoscop y every 5-10 years depending on findings and history. Engage in daily exercise of low impact aerobic exercise 45-60 minutes 4-5 times weekly. Avoid tobacco and illicit drugs as well as using moderation with alcohol intake less than 1-2 8 oz beverages daily. This lifestyle behavior pattern will lead to less health conditions and longer life span. If BMI greater than 25 weight watchers or dietary consult advised. Questions have been answered. Patient appears to understand instructio ns, but if you have any further questions call or respond to this email USPSTF recommends against screening for cervical cancer in women older than 65yo or hysterecto my for non-cancer indication s who have had adequate prior screening & are not otherwise at high risk for cervical cancer. Pap/hpv d/cSTD Screen declinedGe netic Screen discussedC olon Screen UTD PCPDexa Screen UTD PCPRoutine Labs UTD PCPMammo --UTD PCPRTO PRN only Health Concerns Section Related Observation LastModified by Organization Detai ls LastModified Time None Recorded Concern Status LastModified by Organization Details LastModified Time None Recorded Advance Directives Directive None Recorded Payers Insurance Date Sequence Insurance Name Policy Number Policy Pelaez Covered Member ID Pelaez Member ID Guarantor Name 12/06/2023 1 [place]ARE[place] Kassidy Ochoa [id number] Kassidy Ochoa 12/04/2023 2 [employer] - DOS PRIOR TO 2024 (PPO) [id number] Kassidy Ochoa [id number] CASAS Kassidy Ochoa 12/07/2022 [facility] - [place]HA - DOS PRIOR TO 2024 (PPO) [id number] Kassidy Ochoa [id number] CASAS Kassidy Ochoa Notes Date Note Type Note Provider Name and Address Organization Details Recorded Time 2 text/html Annual Attending Physician Post-MenopausalReported by PatientGenitourinary symptomsFor menopausal symptoms, patient reportsno menopausal symptomsandnormal vaginal lubrication. For vaginal bleeding, patient reportshistory of menopause having occurredandno history of post menopausal bleeding. For urinary symptoms, patient reportsno hematuria,no incontinence,no nocturia, andno urinary frequency. For vulva, patient reportsno genital lesionandno vulvar atrophy. For vagina, patient reportsnormal vaginal dischargeandno vaginal atrophy.Breast symptomsFor breast, patient reportsno breast lump,no nipple discharge, andno breast pain.Psychological symptomsFor sexual complaints, patient reportsno sexual complaints. For psychological symptoms, patient reportsno depressionandno anxiety.Preventative measuresFor preventive measures, patient reportsencourage regular mammograms starting age 40,encourage self breast examination,encourage regular exercise,encourage no tobacco use,needs to schedule mammogram, andneeds to schedule bone density. DORA Correa- [address], [place], [address], [facility] 12/02/2021 15:25:09 2 text/html ROS as noted in the HPI Had breast bx 2wks agoFound to have cancer in milk ductDue to meet with surgeon 02/13/2022 Here today b/c area where had breast bx isn't yet healing & feels it looks infected.Scab came off and it is meaty red lookingNeg drainageneg n/v/f/d/c Liberty Dahl LIYAH- [address], [place], [address], [facility] 01/28/2022 15:57:17 4 text/html Annual Attending Physician Post-MenopausalReported by PatientGenitourinary symptomsFor menopausal symptoms, patient reportsno menopausal symptomsandnormal vaginal lubrication. For vaginal bleeding, patient reportshistory of menopause having occurredandno history of post menopausal bleeding. For urinary symptoms, patient reportsno hematuria,no incontinence,no nocturia, andno urinary frequency. For vulva, patient reportsno genital lesionandno vulvar atrophy. For vagina, patient reportsnormal vaginal dischargeandno vaginal atrophy.Breast symptomsFor breast, patient reportsno breast lump,no nipple discharge, andno breast pain.Psychological symptomsFor sexual complaints, patient reportsno sexual complaints. For psychological symptoms, patient reportsno depressionandno anxiety.Preventative measuresFor preventive measures, patient reportsencourage regular mammograms starting age 40,encourage self breast examination,encourage regular exercise,encourage no tobacco use,mammogram performed within the past year, andhistory of recent colonoscopy. Liberty Dahl, LIYAH- [address], [place], [address], [facility] 12/07/2023 16:18:55 OBGyn Episode No OBEpisode recorded.
--- OUTSIDE RECORDS SUMMARY | 2025-09-26 13:40 | XMS_ITS ---
Author Organization [facility] Address [address] [place] [address] Care Team Providers Care Assistant Reading Teacher Name Role Phone Abbe Boston MD Primary Care Provider Aguila Barrera MD Unavailable Colleen Montes De Oca DPM Unavailable [phone] Active Problems Problem Noted Date Diagnosed Date [...] reassessment. 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 Blood studies looking for medically addressable causes beyond known diabetes are unrevealing at this time. Numbness and tingling of both legs 09/25/2020 Assessment & Plan (09/25/2020 10:26 AM CONTINUITY EDITOR): Patient describes several month history of insidious [...] 09/25/2020 Assessment & Plan (09/25/2020 10:28 AM CONTINUITY EDITOR): Patient has history of lumbar stenosis with previous successful resolution of low back pain with lumbar epidural steroid injections. Her current pain and distribution of discomfort is different than what she formally had with her spinal stenosis. Aftercare following right knee joint replacement surgery 01/05/2018 Need for prophylactic antibiotic 01/05/2018 Bilateral lower extremity pain 10/25/2017 Assessment & Plan (11/04/2020 11:10 AM CONTINUITY EDITOR): I will place patient on a trial [...] Automatic Entry Manual Entr y Fluoro Time 11.516 minutes 7.516 minutes 4 minutes Air kerma at the reference point (Ka,r) 483.685 mGy 8 0.685 mGy 403 mGy
--- OUTSIDE RECORDS SUMMARY | 2025-09-26 13:40 | XMS_ITS | Clinical Summary ---
Author Organization [facility] [place] [facility] Address [address] [place] [address] Care Team Providers Care Digital Community Manager Name Role Phone Abbe Boston MD Primary Care Provider [phone] Allergies Active Allergy Reactions Criticality Noted Date [...] morning. Active fluticasone propionate (FLONASE) 50 mcg/spray [place], Suspension nasal inhaler Administer 1 [place] in each nostril. Active oxyBUTYnin chloride (DITROPAN [...] Encounters Date Type Department Care Team Description 09/25/2025 Orders Only [facility] [place] [facility] On[facility] H[facility]ology - [place] [address] [place] [address] Oscar Roemro MD Malignant neoplasm of lower-inner quadrant of left breast in female, estrogen receptor positive (CMS/HCC) (Primary Dx) 09/25/2025 Orders Only [facility] [place] [facility] - [place] [address] [place] [address] Oscar Romero MD Malignant neoplasm of lower-inner quadrant of left breast in female, estrogen receptor positive (CMS/HCC) (Primary Dx) 08/28/2025 External Device Data STL ABSTRACTION Provider, Abstract 08/27/2025 Orders Only [facility] [place] [facility] - [place] [place] [address] Oscar Romero MD 08/22/2025 11:00 AM CDT Office Visit [facility] [place] [facility] [address] [place] [address] Oscar Romero MD Malignant neoplasm of lower-inner quadrant of left breast in female, estrogen receptor positive (CMS/HCC) (Primary Dx); Visit for screening mammogram 08/21/2025 External Device Data STL ABSTRACTION Provider, Abstract 07/31/2025 External Device Data STL ABSTRACTION Provider, Abstract 07/03/2025 External Device Data STL ABSTRACTION Provider, Abstract [...] Sign Reading Time Taken Comments Blood Pressure 168/73 08/22/2025 10:56 AM CDT Pulse 71 08/22/2025 10:54 AM CDT Temperature 36.1 C (97 F) 08/22/2025 10:54 AM CDT Respiratory Rate 16 08/22/2025 10:54 AM CDT Oxygen Saturation 95% 08/22/2025 10:54 AM CDT Inhaled Oxygen Concentration - - Weight 69.4 kg (153 lb) 08/22/2025 10:54 AM CDT Height 160 cm (5' 3) 07/08/2022 9:59 AM CDT Body Mass Index 27.1 07/08/2022 9:59 AM CDT Plan of Treatment Upcoming Encounters Date Type Department Care Team (Late st Contact Info) Description 10/08/2025 4:30 PM HUMANITIES COORDINATOR Telephone Check Up [facility] [place] [facility] - [place] [address] [place] [address] Oscar Romero MD [address] [place] [address] 07/08/2026 1:15 PM CDT Office Visit [facility] [place] [facility] [address] [place] [address] Oscar Romero MD [address] [place] [address] Health Maintenance Due Date Last [...] 09/25/2024, Additional history exists OSTEOPOROSIS SCREENING 04/13/2029 , 01/27/2021, 01/25/2019 Procedures Procedure Name Priority Date/Time Associated Diagnosis Comments CHG CA 15 3 Routine 08/17/2025 12:48 PM CDT COMPREHENSIVE METABOLIC PANEL Routine 08/17/2025 11:31 AM CDT from Last 3 Months Results * CHG CA 15 3 (08/17/2025 12:48 PM CDT) Oscar Romero MD [facility] - LABORATORY Final Result * COMPREHENSIVE METABOLIC PANEL (08/17/2025 11:31 AM CDT) Blood Oscar Romero MD CHEMISTRY ORDERABLES Final Resu lt from Last 3 Months Insurance MEDICARE PART A AND B [employer] PPO [id number] [employer] PLUS [id number] [address] [id number] Care Teams Digital Community Manager Relationship Specialty Start Date End Date Abbe Boston MD [address] [facility] [address] [place] [address] PCP - General Family Practice 04/21/22
== END 2025-09-26 12:36 | disposition home or self-care (01) ==
LOC: ANHFOHIMG 12:38
PROVIDERS: PCP Family Medicine; Visit Provider Internal Medicine Hematology & Oncology
DX: C50.312 Malignant neoplasm of lower-inner quadrant of left female breast (principal); Z17.0 Estrogen receptor positive status [ER+]
CPT/HCPCS: 77062; 77066; G0279